=== PATIENT | female | born 1960 | race Caucasian/White ===

== ENCOUNTER → 2016-03-21 | Outpatient (CLI) | payer OTHER ==
[~2016-03-21] MED LIST: AMOX1TAB42 PO
[2016-03-21 16:46] LABS: BASO % 1.1 %; BASO ABS # 0.07 K/uL (0-0.2); COMPLETE YES; EOS % 1.1 %; HEMATOCRIT 39.5 % (37-47); IG% 0.2 %; LYMPH % 38.1 %; LYMPH ABS # 2.51 K/uL (1.2-3.4); MEAN CORPUSCULAR HEMOGLOBIN 31.6 pg (25-34); MEAN CORPUSCULAR HGB CONC 34.7 g/dl (32-36); MEAN PLATELET VOLUME 9.6 fL (7.4-10.4); MONO % 7.3 %; NEUT % 52.2 %; PLATELET COUNT 277 K/uL (130-400); RED BLOOD COUNT 4.34 M/uL (4.2-5.4); WHITE BLOOD COUNT 6.58 K/uL (4.8-10.8)
[2016-03-21 17:06] LABS: ALT/SGPT 33 U/L (12-78); AST/SGOT 16 U/L (15-37); BLOOD UREA NITROGEN 14 mg/dl (7-18); BUN/CREATININE RATIO 17.5 (10-20); CARBON DIOXIDE 25 mmol/L (21-32); CHLORIDE 105 mmol/L (98-107); CREATININE 0.78 mg/dl (0.60-1.20); GLUCOSE 131 mg/dl (70-99); POTASSIUM 3.5 mmol/L (3.5-5.1); SODIUM 140 mmol/L (136-145)
[2016-03-21 17:10] LABS: MANUAL MICROSCOPIC REQUIRED? NO; REVIEW REQ? NO; URINE APPEARANCE CLEAR (CLEAR); URINE BILIRUBIN NEG (NEG); URINE COLOR YELLOW; URINE NITRITE NEG (NEG); UROBILINOGEN NEG (NEG)
[2016-03-21 17:16] LABS: ALB/GLOB RATIO 1.1 (0.9-2); ALKALINE PHOSPHATASE 80 U/L (45-117); C-REACTIVE PROTEIN < 0.29 mg/dl (0-0.29); RHEUMATOID FACTOR < 10.0 U/mL (0-15); THYROID STIMULATING HORMONE 0.778 uIu/ml (0.300-4.500)
--- NOTE | 2016-03-21 17:49 | DIAGNOSTIC IMAGING REPORT ---
RIGHT HAND 3 VIEWS HISTORY: Right hand pain. ARTHRITIS Right COMPARISON: Right hand 10/30/2008. FINDINGS: There is no acute fracture or dislocation. Soft tissues are unremarkable. Small well-corticated ossific density adjacent to the ulnar styloid. This is likely due to an old injury. Cartilage spaces are maintained for age. No bony erosions identified. Bone mineralization is intact. IMPRESSION: No significant osteoarthritis within the right hand. Electronically signed by: Naveen Cline M.D. 03/21/2016 5:47 PM Dictated Date/Time: 03/21/2016 5:44 PM
== END | disposition home or self-care (01) ==
LOC: C.LAB 16:13
DX: M19.90 Unspecified osteoarthritis, unspecified site (principal); R50.9 Fever, unspecified

== ENCOUNTER → 2016-04-10 | Outpatient (CLI) | payer OTHER ==
[2016-04-10 16:29] LABS: BASO % 0.5 %; BASO ABS # 0.04 K/uL (0-0.2); COMPLETE YES; EOS % 0.4 %; IG% 0.1 %; LYMPH % 29.8 %; LYMPH ABS # 2.21 K/uL (1.2-3.4); MEAN CELL VOLUME 91.5 fL (80-100); MEAN CORPUSCULAR HEMOGLOBIN 32.1 pg (25-34); MEAN CORPUSCULAR HGB CONC 35.1 g/dl (32-36); MEAN PLATELET VOLUME 9.9 fL (7.4-10.4); NEUT % 62.2 %; PLATELET COUNT 305 K/uL (130-400); RED BLOOD COUNT 4.48 M/uL (4.2-5.4); WHITE BLOOD COUNT 7.42 K/uL (4.8-10.8)
[2016-04-10 17:33] LABS: BLOOD UREA NITROGEN 12 mg/dl (7-18); CALCIUM 9.6 mg/dl (8.5-10.1); CARBON DIOXIDE 28 mmol/L (21-32); CHLORIDE 104 mmol/L (98-107); GLUCOSE 118 mg/dl (70-99); SODIUM 140 mmol/L (136-145)
[2016-04-10 17:38] LABS: ALT/SGPT 33 U/L (12-78); AST/SGOT 16 U/L (15-37); RHEUMATOID FACTOR < 10.0 U/mL (0-15)
[2016-04-10 17:45] LABS: LYME DISEASE AB IGG NEG (NEG); LYME DISEASE AB IGM NEG (NEG)
--- NOTE | 2016-04-14 15:47 | CODING QUERY MEDICAL NECESSITY ---
CQSUPPORTING DIAGNOSIS NEEDED A supporting diagnosis is required for the test/procedure performed on this patient in order for us to be reimbursed by the patient's insurance. Please provide a supporting diagnosis for the following test/procedure listed below next to the test name along with your signature. *If there is no additional diagnosis for this patient that would support the following test/procedure please document that below next to the test/procedure. Test(s)/Procedure(s) that require a supporting diagnosis: DOS 04/12/16 VITAMINS AND METABOLIC FUNCTION-VITAMIN D AND VITAMIN B12 Provider Signature: Date: Thank you Stef[facility] [employer] [facility] Once completed, please kindly fax back to [phone] For questions please call [phone]
== END | disposition home or self-care (01) ==
LOC: C.LAB 15:58
DX: Z01.89 Encounter for other specified special examinations (principal); M19.90 Unspecified osteoarthritis, unspecified site; G62.9 Polyneuropathy, unspecified

== ENCOUNTER 2016-04-25 20:25 | Inpatient (IN) | payer OTHER ==
[~2016-04-25] VITALS: Ht 157.5 cm; Wt 64.5 kg
[2016-04-25] MEDS ORDERED: AMPICILLIN/SULBACTAM SOD INJ 3,000 MG in SODIUM CHLORIDE 0.9% 100ML 100 ML IV STA (20:59)
[2016-04-25] MEDS ORDERED: SODIUM CHLORIDE 0.9% 500ML 500 ML IV STA (21:00)
[2016-04-25 21:32] LABS: BASO % 0.5 %; BASO ABS # 0.05 K/uL (0-0.2); COMPLETE YES; EOS % 0.3 %; HEMATOCRIT 38.9 % (37-47); IG% 0.3 %; LYMPH % 22.6 %; LYMPH ABS # 2.37 K/uL (1.2-3.4); MEAN CELL VOLUME 90.5 fL (80-100); MEAN CORPUSCULAR HEMOGLOBIN 32.3 pg (25-34); MEAN CORPUSCULAR HGB CONC 35.7 g/dl (32-36); MEAN PLATELET VOLUME 9.5 fL (7.4-10.4); NEUT % 68.3 %; PLATELET COUNT 325 K/uL (130-400); WHITE BLOOD COUNT 10.47 K/uL (4.8-10.8)
--- NOTE | 2016-04-25 21:48 | DIAGNOSTIC IMAGING REPORT ---
LEFT WRIST W/NAVICULAR MIN 3 VIEWS CLINICAL HISTORY: Cat bite left wrist/hand, erythema, tender, edema COMPARISON: Left wrist radiographs March 22, 2007. FINDINGS: A well-corticated ossicle along the ulnar styloid is old. No acute fracture is present. There is no radiographic evidence of osteomyelitis. Mild degenerative changes are noted within several articulations. There may be a cyst within the proximal lunate. IMPRESSION: No acute fracture or evidence of osteomyelitis within the left wrist. Electronically signed by: Kailash Barraza M.D. 04/25/2016 9:47 PM Dictated Date/Time: 04/25/2016 9:45 PM
[2016-04-25 21:49] LABS: BUN/CREATININE RATIO 10.9 (10-20); CALCIUM 9.1 mg/dl (8.5-10.1); CREATININE 0.78 mg/dl (0.60-1.20); POTASSIUM 3.6 mmol/L (3.5-5.1)
--- NOTE | 2016-04-25 21:50 | DIAGNOSTIC IMAGING REPORT ---
LEFT HAND MIN 3 VIEWS ROUTINE CLINICAL HISTORY: Cat bite left wrist/hand, erythema, tender, edema COMPARISON: Left hand radiographs March 22, 2017. FINDINGS: A ring is present on the fourth finger. No acute fracture is identified. A well-corticated ossicle along the ulnar styloid is old. There is no radiographic evidence of osteomyelitis within the left hand. IMPRESSION: 1. No acute fracture or radiographic evidence of osteomyelitis within the left hand. 2. A round lucency within the medial aspect of the lunate. This is likely degenerative. Electronically signed by: Kailash Barraza M.D. 04/25/2016 9:49 PM Dictated Date/Time: 04/25/2016 9:47 PM
[2016-04-25] MEDS ORDERED: ACETAMINOPHEN 500 MG TAB PO STA (21:52)
[2016-04-25] MEDS ORDERED: VANCOMYCIN INJ 1,600 MG in SODIUM CHLORIDE 0.9% 500ML 500 ML IV STA (22:12)
[2016-04-26] MEDS ORDERED: ACETAMINOPHEN 325 MG TAB PO PRN (00:15)
[2016-04-26] MEDS ORDERED: PROMETHAZINE HCL INJ 12.5 MG in SODIUM CHLORIDE 0.9% 50ML 50 ML IV PRN (00:15)
[2016-04-26] MEDS ORDERED: MAGNESIUM HYDROXIDE SUSP 30 ML UDC PO PRN (00:15)
[2016-04-26] MEDS ORDERED: ONDANSETRON INJ 2 MG/ML 2 ML VIAL IV PRN (00:15)
[2016-04-26] MEDS ORDERED: LORAZEPAM 2 MG/ML 1 ML VIAL IV PRN (00:15)
[2016-04-26] MEDS ORDERED: MoRPHine SULFATE 2 MG/ML CARP IV PRN (00:15)
[2016-04-26] MEDS ORDERED: DiphenhydrAMINE HCL 50 MG/ML VIAL IV PRN (00:15)
[2016-04-26] MEDS ORDERED: TRAMADOL HCL 50 MG TAB PO PRN ×2 (00:15)
[2016-04-26] MEDS ORDERED: ZOLPIDEM TARTRATE 5 MG TAB PO PRN (00:15)
[2016-04-26] MEDS ORDERED: ALUMINUM/MAGNESIUM/SIMETH (MAALOX MAX) 30 ML UDC PO PRN (00:15)
--- NOTE | 2016-04-26 00:32 | EMERGENCY ROOM VISIT NOTE ---
History First contact with patient: 20:49 Chief Complaint: WOUND INFECTION Stated Complaint: INFECTED CAT BITE ON LEFT HAND- SENT BY ME Nursing Triage Summary: Patient states "I've been fostering an inside lost cat and yesterday he bit me really hard. I've been taking bactrim for a sinus infection so I took double doses yesterday and today but it is now swollen and red and painful." History of Present Illness The patient is a 55 year old female who presents to the Emergency Room via private vehicle with complaints of "infected cat bite on left hand, sent by [employer] The patient states that she has been fostering a cat that she found at her doorstep for the past 2 or 3 months. She states that the cat lives in her basement, and when she went to take the cat outside became scared and then latched onto the thenar eminence of her left hand. She cleaned the region. She notes that since then she has had continued pain in the left hand and now notes swelling and redness traveling up her left arm. Patient is right-handed. Patient notes that the cat lives inside and has been acting normally. She is unsure of the cat's rabies status. She feels as though she has had fevers and chills lately. She rates the pain in the left hand as a 10/10. Review of Systems A complete 10-point Review of Systems was discussed with the patient, with pertinent positives and negatives listed in the History of Present Illness. All remaining Review of Systems questions can be considered negative unless otherwise specified. 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 Allergies Coded Allergies: No Known Allergies (Unverified , 03/24/10) Physical Exam Vital Signs Date Time Temp Pulse Resp B/P Pulse Ox O2 Delivery O2 Flow Rate FiO2 04/25/16 22:02 86 18 144/85 100 Room Air 04/25/16 20:33 37.2 94 18 130/71 97 Room Air Physical Exam VITAL SIGNS - Vital signs and nursing notes were reviewed. Patient is afebrile , blood pressure 130/71, non-tachycardic and is saturating well on room air 97%. GENERAL -55-year-old female appearing her stated age who is in no acute distress. Communicates well with provider and answers questions appropriately. SKIN - There is erythema and edema of the thenar eminence and lateral left hand extending up in to wrist with lymphangitic streaking proximally. HEAD - NC/AT. NECK - Neck with FROM. Supple to palpation. No meningismus. LUNGS - Chest wall symmetric without accessory muscle use, intercostals retractions, or central cyanosis. Normal vesicular breath sounds CTA B/L. No wheezes, rales, or rhonchi appreciated. CARDIAC - RRR with S1/S2. No murmur, rubs, or gallops appreciated. EXTREMITIES - No clubbing or peripheral cyanosis. No pretibial edema present. Vascularly intact. +5/5 strength noted in UE/LE bilaterally. NEUROLOGIC - Cranial nerves II through XII grossly intact. Sensory intact to light touch throughout. PSYCH - Pt is very pleasant and interacts well with examiner. Medical Decision & Procedures ER Provider Diagnostic Interpretation: LEFT WRIST W/NAVICULAR MIN 3 VIEWS CLINICAL HISTORY: Cat bite left wrist/hand, erythema, tender, edema COMPARISON: Left wrist radiographs March 22, 2007. FINDINGS: A well-corticated ossicle along the ulnar styloid is old. No acute fracture is present. There is no radiographic evidence of osteomyelitis. Mild degenerative changes are noted within several articulations. There may be a cyst within the proximal lunate. IMPRESSION: No acute fracture or evidence of osteomyelitis within the left wrist. Electronically signed by: Kailash Barraza M.D. 04/25/2016 9:47 PM Dictated Date/Time: 04/25/2016 9:45 PM LEFT HAND MIN 3 VIEWS ROUTINE CLINICAL HISTORY: Cat bite left wrist/hand, erythema, tender, edema COMPARISON: Left hand radiographs March 22, 2017. FINDINGS: A ring is present on the fourth finger. No acute fracture is identified. A well-corticated ossicle along the ulnar styloid is old. There is no radiographic evidence of osteomyelitis within the left hand. IMPRESSION: 1. No acute fracture or radiographic evidence of osteomyelitis within the left hand. 2. A round lucency within the medial aspect of the lunate. This is likely degenerative. Electronically signed by: Kailash Barraza M.D. 04/25/2016 9:49 PM Dictated Date/Time: 04/25/2016 9:47 PM Laboratory Results 04/25/16 21:20 Red Blood Count 4.30, Mean Corpuscular Volume 90.5, Mean Corpuscular Hemoglobin 32.3, Mean Corpuscular Hemoglobin Concent 35.7, Mean Platelet Volume 9.5, Neutrophils (%) (Auto) 68.3, Lymphocytes (%) (Auto) 22.6, Monocytes (%) (Auto) 8.0, Eosinophils (%) (Auto) 0.3, Basophils (%) (Auto) 0.5, Neutrophils # (Auto) 7.15, Lymphocytes # (Auto) 2.37, Monocytes # (Auto) 0.84, Eosinophils # (Auto) 0.03, Basophils # (Auto) 0.05 04/25/16 21:20 Test 04/25/16 21:20 White Blood Count 10.47 K/uL (4.8-10.8) Red Blood Count 4.30 M/uL (4.2-5.4) Hemoglobin 13.9 g/dL (12.0-16.0) Hematocrit 38.9 % (37-47) Mean Corpuscular Volume 90.5 fL (80-100) Mean Corpuscular Hemoglobin 32.3 pg (25-34) Mean Corpuscular Hemoglobin Concent 35.7 g/dl (32-36) Platelet Count 325 K/uL (130-400) Mean Platelet Volume 9.5 fL (7.4-10.4) Neutrophils (%) (Auto) 68.3 % Lymphocytes (%) (Auto) 22.6 % Monocytes (%) (Auto) 8.0 % Eosinophils (%) (Auto) 0.3 % Basophils (%) (Auto) 0.5 % Neutrophils # (Auto) 7.15 K/uL (1.4-6.5) Lymphocytes # (Auto) 2.37 K/uL (1.2-3.4) Monocytes # (Auto) 0.84 K/uL (0.11-0.59) Eosinophils # (Auto) 0.03 K/uL (0-0.5) Basophils # (Auto) 0.05 K/uL (0-0.2) RDW Standard Deviation 40.4 fL (36.4-46.3) RDW Coefficient of Variation 12.3 % (11.5-14.5) Immature Granulocyte % (Auto) 0.3 % Immature Granulocyte # (Auto) 0.03 K/uL (0.00-0.02) Anion Gap 10.0 mmol/L (3-11) Est Creatinine Clear Calc Drug Dose 70.2 ml/min Estimated GFR () 97.8 Estimated GFR (Non- 84.4 BUN/Creatinine Ratio 10.9 (10-20) Calcium Level 9.1 mg/dl (8.5-10.1) Medications Administered Medications (Trade) Dose Ordered Sig/Do Route Start Time Stop Time Status Last Admin Dose Admin Ampicillin Sodium/ Sulbactam Sodium 3000 mg/Sodium Chloride 108 ml @ 200 mls/hr NOW STAT IV 04/25/16 20:59 04/25/16 21:31 DC 04/25/16 21:41 200 MLS/HR Sodium Chloride 500 ml @ 999 mls/hr Q31M STAT IV 04/25/16 21:00 04/25/16 21:30 DC 04/25/16 21:42 999 MLS/HR Vancomycin HCl/ Sodium Chloride (Vancomycin Inj/ Nss 500ml) 532 ml @ 200 mls/hr NOW STAT IV 04/25/16 22:12 04/26/16 00:51 DC 04/25/16 22:54 200 MLS/HR Acetaminophen (Tylenol Tab) 500 mg NOW STAT PO 04/25/16 21:52 04/25/16 21:53 DC 04/25/16 21:59 500 MG Medical Decision Pt. was seen and evaluated as above. After obtaining a thorough history and physical examination, there was clear evidence of cellulitis with significant edema of the hand and lymphangitic streaking. This is consistent with an infected cat bite. IV access was obtained and the above workup was initiated. She was immediately given 3 g of Unasyn. Wrist and hand radiographs were obtained to rule out retained foreign body such as tooth or fracture. She was hydrated with 500 mL's of normal saline. Case was discussed with my attending and the decision was made to add vancomycin to the order set. She was also given a Tylenol tablet for her pain. There is no leukocytosis or anemia noted. PRP reveals random glucose of 100 no other abnormality. Radiograph results as above. I agreed radiologist findings. No retained foreign body. There was no drainage of the wound or evidence of meeting irrigation. A thorough discussion was had with the patient as well as my attending regarding rabies immunization. After a thorough education discussion session, to include benefit versus risk, he shared decision with the patient came to the conclusion that the patient would like to monitor the cat by calling animal control as soon as possible to have the Monitored or potentially tested. The decision was made to not pursue rabies prophylaxis with the patient at this time again this was a shared decision between myself and the patient. I do believe that it is a very low risk for the cat to have rabies being as though she has had it for 2- 3 months and has stayed doors. It is important that the patient has the cat currently inside her house. Due to the extent of the infection in such a short period of time I do believe she'll benefit from inpatient admission. The case was discussed with the admitting doctor for Dr. Nuñez, who will be admitting the patient. Please refer to further documentation regarding her stay. While here in the emergency department the patient's tetanus status was unfortunately not able to be updated. The patient is to receive this vaccination in the near future. In evaluation treatment this patient the following differential diagnoses were entertained: Cellulitis, retained foreign body, fracture, among others. Impression Primary Impression: Cat bite of left hand with infection Additional Impressions: Acute lymphangitis Cellulitis of left hand Departure Information Dispostion Admitted as an inpatient Condition FAIR Referrals Rajiv Moncada Jr,D.O. (PCP) Patient Instructions My [facility] Problem Qualifiers
[2016-04-26 00:45] VITALS: BP 139/84; PULSE 88; TEMP 36.8; O2SAT 98; Ht 157.5 cm; Wt 64.5 kg
[2016-04-26] MEDS ORDERED: DiphenhydrAMINE HCL 50 MG/ML VIAL ONE (00:58)
[2016-04-26] MEDS ORDERED: VANCOMYCIN CONSULT ACTIVE PRN ×2 (01:00→01:15)
[2016-04-26] MEDS ORDERED: NURSING VERBAL MED ORDER ONE (01:00)
[2016-04-26] MEDS ORDERED: PIPERACILL/TAZOBAC CONSULT ACTIVE PRN (01:15)
[2016-04-26] MEDS ORDERED: LORAZEPAM INJ 0.5 MG in SYRINGE 0.75 ML IV PRN (01:15)
--- NOTE | 2016-04-26 02:09 | EMERGENCY ROOM VISIT NOTE ---
ED Visit Note First contact with patient: 20:49 I have personally evaluated and examined this patient. I agree with assessment and plan of Derrell Lovell PA-C. 55 yr old female with thenar eminence cat bite with extensive swelling and now with streaking past elbow. She will need IV abx and I do not feel that given her swelling of hand she will do well as outpatient.
[2016-04-26] MEDS: PIPERACILL/TAZOBAC IV 3.375 GM in DEXTROSE 5% 100ML IV SCH ×2 (02:28→10:46)
--- NOTE | 2016-04-26 04:11 | History and Physical ---
History & Physical Date & Time of Service: Apr 26, 2016 at 04:03 Chief Complaint: Acute Lymphangitis, Cellulitis Of Left Hand Primary Care Physician: Rajiv Moncada Jr, D.O. History of Present Illness Source: patient The patient is a 55-year-old female who presents emergency department with complaint of worsening swelling, redness and pain involving her left hand and wrist and forearm, that began yesterday after being bitten one of her cats, and today as noted redness going up her left forearm toward her elbow. She has not had any generalized malaise or any fevers or chills. She reports that this can is a foster cat. She has been taking Bactrim for sinus infection so she took double doses yesterday and today. Social History Smoking Status: Current Every Day Smoker Smokeless Tobacco Use: No Alcohol Use: none Drug Use: none Occupational Status: employed [employer] History of MDRO: No Allergies Coded Allergies: No Known Allergies (Unverified , 03/24/10) Review of Systems The patient denies chest pain, palpitations, shortness of breath, cough, lower extremity swelling, vision change, hearing change, sore throat, fevers, chills, sweats, weight change, fatigue, nausea, vomiting, abdominal pain, pelvic pain, blood in urine or stool, dysuria, urinary frequency or urgency, lightheadedness , dizziness, headache, memory loss, rash, abnormal bruising or bleeding, imbalance, generalized weakness, numbness or tingling in legs, arthralgias or myalgias, back or neck pain, night sweats, or allergy symptoms. The review of systems is otherwise negative other than for that already noted above, and at least 10 systems have been reviewed. Physical Exam Vital Signs Date Time Temp Pulse Resp B/P Pulse Ox O2 Delivery O2 Flow Rate FiO2 04/26/16 00:45 36.8 88 16 139/84 98 Room Air 04/26/16 00:34 74 16 118/68 99 04/25/16 22:02 86 18 144/85 100 Room Air 04/25/16 20:33 37.2 94 18 130/71 97 Room Air The patient is awake, well-developed and adequately nourished, alert and oriented 3, normocephalic and atraumatic, lying in bed and in no acute distress. HEENT--PERRL, EOMI, mucous membranes and oropharynx moist. Neck--supple, no JVD or bruits, thyroid normal, trachea midline, no adenopathy. Heart--normal S1 and S2, no extra beats, no murmurs, rubs or gallops. Lungs--clear bilaterally with good air movement, no respiratory distress, no accessory muscle use. Abdomen--normal bowel sounds and soft, nontender and nondistended, no hernias or masses, no organomegaly. Extremities--right upper and lower, and left lower extremities with no cyanosis , clubbing or edema. Left upper extremity with significant edema, erythema induration or warmth of left hand, wrist, forearm and red streaking noted medially up toward the elbow. There are good distal pulses b/l. Dermatologic--changes as noted above. Neurologic--cranial nerves II through XII grossly intact, motor and sensory examination normal. Rheumatologic--normal range of motion, nontender, muscles and joints. Psychiatric--normal affect. Diagnostics Laboratory Results Results Past 24 Hours Test 04/25/16 21:20 Range/Units White Blood Count 10.47 4.8-10.8 K/uL Red Blood Count 4.30 4.2-5.4 M/uL Hemoglobin 13.9 12.0-16.0 g/dL Hematocrit 38.9 37-47 % Mean Corpuscular Volume 90.5 80-100 fL Mean Corpuscular Hemoglobin 32.3 25-34 pg Mean Corpuscular Hemoglobin Concent 35.7 32-36 g/dl Platelet Count 325 130-400 K/uL Mean Platelet Volume 9.5 7.4-10.4 fL Neutrophils (%) (Auto) 68.3 % Lymphocytes (%) (Auto) 22.6 % Monocytes (%) (Auto) 8.0 % Eosinophils (%) (Auto) 0.3 % Basophils (%) (Auto) 0.5 % Neutrophils # (Auto) 7.15 1.4-6.5 K/uL Lymphocytes # (Auto) 2.37 1.2-3.4 K/uL Monocytes # (Auto) 0.84 0.11-0.59 K/uL Eosinophils # (Auto) 0.03 0-0.5 K/uL Basophils # (Auto) 0.05 0-0.2 K/uL RDW Standard Deviation 40.4 36.4-46.3 fL RDW Coefficient of Variation 12.3 11.5-14.5 % Immature Granulocyte % (Auto) 0.3 % Immature Granulocyte # (Auto) 0.03 0.00-0.02 K/uL Sodium Level 140 136-145 mmol/L Potassium Level 3.6 3.5-5.1 mmol/L Chloride Level 105 98-107 mmol/L Carbon Dioxide Level 25 21-32 mmol/L Anion Gap 10.0 3-11 mmol/L Blood Urea Nitrogen 9 7-18 mg/dl Creatinine 0.78 0.60-1.20 mg/dl Est Creatinine Clear Calc Drug Dose 70.2 ml/min Estimated GFR () 97.8 Estimated GFR (Non- 84.4 BUN/Creatinine Ratio 10.9 10-20 Random Glucose 100 70-99 mg/dl Calcium Level 9.1 8.5-10.1 mg/dl Hepatitis C Antibody Screen NEG NEG Diagnostic Radiology Patient Name: SY CORDOVA Unit Number: [id number] Dictated: 04/25/162144 Transcribed: 04/25/162144 Printed Date/Time: [~ rep prt dt]/[~ rep prt tm] [~ rep ct labl] - [~ rep ct ivnm] [facility] [place] [address] Dictated: 04/25/162144 Transcribed: 04/25/162144 Printed Date/Time: [~ rep prt dt]/[~ rep prt tm] [~ rep ct labl] - [~ rep ct ivnm] [~ rep ct add3]] LEFT WRIST W/NAVICULAR MIN 3 VIEWS CLINICAL HISTORY: Cat bite left wrist/hand, erythema, tender, edema COMPARISON: Left wrist radiographs March 22, 2007. FINDINGS: A well-corticated ossicle along the ulnar styloid is old. No acute fracture is present. There is no radiographic evidence of osteomyelitis. Mild degenerative changes are noted within several articulations. There may be a cyst within the proximal lunate. IMPRESSION: No acute fracture or evidence of osteomyelitis within the left wrist. Electronically signed by: Kailash Barraza M.D. 04/25/2016 9:47 PM Dictated Date/Time: 04/25/2016 9:45 PM The status of this report is Signed. Draft = Not yet reviewed or approved by Radiologist. Signed = Reviewed and approved by Radiologist. <AttendingPhy></AttendingPhy> <FamilyPhy>Rajiv Moncada JrD.O.</FamilyPhy> < PrimaryPhy>Rajiv Moncada Jr, D.O.</PrimaryPhy> <UnitNumber>[id number]</ UnitNumber> <VisitNumber>[id number]</VisitNumber> <PatientName>ARTSY Alexandre</ PatientName> <DateOfBirth>1960</DateOfBirth> <Location>[facility]</Location> < ServiceDate>04/25/16</ServiceDate> <MNE>ESINDI</MNE> <OrderingPhy>Derrell Lovell PA-C</OrderingPhy> <OrderingPhyMNE>f rep ord dr rahman</OrderingPhyMNE> < DictatingPhyMNE>f rep dict dr rahman</DictatingPhyMNE> <CCListMNE>f rep ct mne</ CCListMNE> <AdmittingPhyMNE>f pt admit dr rahman</AdmittingPhyMNE> <AttendingPhyMNE >f pt attend dr rahman</AttendingPhyMNE> <ConsultingPhyMNE>f pt consult dr rahman</ConsultingPhyMNE> <FamilyPhyMNE>f pt fam dr rahman</FamilyPhyMNE> <OtherPhyMNE>f pt other dr rahman</OtherPhyMNE> < PrimaryPhyMNE>f pt prim care dr rahman</PrimaryPhyMNE> <ReferringPhyMNE>f pt referring dr rahman</ReferringPhyMNE> Patient Name: ARTSY Alexandre Unit Number: [id number] Dictated: 04/25/162146 Transcribed: 04/25/162146 JA Printed Date/Time: [~ rep prt dt]/[~ rep prt tm] [~ rep ct labl] - [~ rep ct ivnm] [facility] [place] [address] Dictated: 04/25/162146 Transcribed: 04/25/167 JA Printed Date/Time: [~ rep prt dt]/[~ rep prt tm] [~ rep ct labl] - [~ rep ct ivnm] LEFT HAND MIN 3 VIEWS ROUTINE CLINICAL HISTORY: Cat bite left wrist/hand, erythema, tender, edema COMPARISON: Left hand radiographs March 22, 2017. FINDINGS: A ring is present on the fourth finger. No acute fracture is identified. A well-corticated ossicle along the ulnar styloid is old. There is no radiographic evidence of osteomyelitis within the left hand. IMPRESSION: 1. No acute fracture or radiographic evidence of osteomyelitis within the left hand. 2. A round lucency within the medial aspect of the lunate. This is likely degenerative. Electronically signed by: Kailash Barraza M.D. 04/25/2016 9:49 PM Dictated Date/Time: 04/25/2016 9:47 PM The status of this report is Signed. Draft = Not yet reviewed or approved by Radiologist. Signed = Reviewed and approved by Radiologist. <AttendingPhy></AttendingPhy> <FamilyPhy>Rajiv Moncada Jr,D.O.</FamilyPhy> < PrimaryPhy>Rajiv Moncada Jr,D.O.</PrimaryPhy> <UnitNumber>[id number]</ UnitNumber> <VisitNumber>[id number]</VisitNumber> <PatientName>SY CORDOVA</ PatientName> <DateOfBirth>1960</DateOfBirth> <Location>[facility]</Location> < ServiceDate>04/25/16</ServiceDate> <MNE>ESINDI</MNE> <OrderingPhy>Derrell Lovell PA-C</OrderingPhy> <OrderingPhyMNE>f rep ord dr rahman</OrderingPhyMNE> < DictatingPhyMNE>f rep dict dr rahman</DictatingPhyMNE> <CCListMNE>f rep ct mne</ CCListMNE> <AdmittingPhyMNE>f pt admit dr rahman</AdmittingPhyMNE> <AttendingPhyMNE >f pt attend dr rahman</AttendingPhyMNE> <ConsultingPhyMNE>f pt consult dr rahman</ConsultingPhyMNE> <FamilyPhyMNE>f pt fam dr rahman</FamilyPhyMNE> <OtherPhyMNE>f pt other dr rahman</OtherPhyMNE> < PrimaryPhyMNE>f pt prim care dr rahman</PrimaryPhyMNE> <ReferringPhyMNE>f pt referring dr rahman</ReferringPhyMNE> Impression Assessment and Plan Left upper extremity cellulitis status post cat bite, with ascending lymphangitis--the patient be admitted to the medical floor. She'll be placed on vancomycin IV per renal dosing, and Zosyn 3.375 mg IV every 6 hours. We'll monitor response, if not improving satisfactorily, will order either an MRI or bone scan of left upper extremity. Pain management with Tylenol 650 mg by mouth every 6 hours when necessary, tramadol 50-100 mg by mouth every 6 hours when necessary, morphine 2-4 mg IV every 2 hours when necessary. Level of Care Med/Surg Advanced Directives Existing Advance Directive: No Existing Living Will: No Existing Power of Screen Stretcher: No Resuscitation Status FULL RESUSCITATION VTE Prophylaxis VTE Risk Assessment Done? Y/N: Yes Risk Level: Low Given or contraindicated: SCD's Social Service Consult None Apply
[2016-04-26] MEDS ORDERED: PIPERACILL/TAZOBAC IV 3.375 GM in DEXTROSE 5% 100ML 100 ML IV SCH (06:00)
[2016-04-26 07:40] VITALS: BP 96/62; PULSE 65; TEMP 36.9; O2SAT 96
[2016-04-26] MEDS ORDERED: PNEUMOCOCCAL ADMINISTRATION CHARGE ONE (08:00)
[2016-04-26] MEDS ORDERED: PNEUMOCOCCAL POLYSACCHARIDES 25 MCG/0.5 ML VIAL/SYR IM. ONE (08:00)
[2016-04-26] MEDS: LACTOBACILLUS ACIDOPHILUS (FLORANEX) TAB PO SCH ×2 (09:07→13:05)
--- NOTE | 2016-04-26 09:57 | Hospitalist Progress Note ---
Hospitalist Progress Note Date of Service Apr 26, 2016. Subjective Pt evaluation today including: conversation w/ patient, physical exam, chart review, lab review, review of studies, review of inpatient medication list Pain: Mild PO Intake: Good Voiding: no voiding problems The patient was seen and examined this morning. Pt reports doing better this morning compared to yesterday. She is still feeling sweats and chills. Her arm is less red than it was last evening, but still swollen. Her mobility is slightly improved of the left wrist. Pt admits to 4 episodes of diarrhea but has started taking a probiotic. All Other Systems: Reviewed and Negative (other than per HPI) Objective Vital Signs Date Time Temp Pulse Resp B/P Pulse Ox O2 Delivery O2 Flow Rate FiO2 04/26/16 07:40 36.9 65 18 96/62 96 Room Air 04/26/16 07:37 Room Air 04/26/16 06:23 Room Air 04/26/16 00:45 36.8 88 16 139/84 98 Room Air 04/26/16 00:34 74 16 118/68 99 04/25/16 22:02 86 18 144/85 100 Room Air 04/25/16 20:33 37.2 94 18 130/71 97 Room Air Physical Exam General Appearance: WD/WN, no apparent distress Eyes: PERRL, EOMI ENT: hearing grossly normal, pharynx normal Neck: supple, no JVD Respiratory/Chest: lungs clear, no respiratory distress, no accessory muscle use Cardiovascular: regular rate, rhythm, no murmur Abdomen: normal bowel sounds, soft Extremities: no pedal edema, no calf tenderness, + pertinent finding (LUE with erythema of the wrist with puncture wound on the thenar aspect, another puncture wound on the dorsal hand overlying the thumb,) Neurologic/Psychiatric: alert, normal mood/affect, oriented x 3 Laboratory Results Last 24 Hours Test 04/25/16 21:20 White Blood Count 10.47 K/uL Red Blood Count 4.30 M/uL Hemoglobin 13.9 g/dL Hematocrit 38.9 % Mean Corpuscular Volume 90.5 fL Mean Corpuscular Hemoglobin 32.3 pg Mean Corpuscular Hemoglobin Concent 35.7 g/dl Platelet Count 325 K/uL Mean Platelet Volume 9.5 fL Neutrophils (%) (Auto) 68.3 % Lymphocytes (%) (Auto) 22.6 % Monocytes (%) (Auto) 8.0 % Eosinophils (%) (Auto) 0.3 % Basophils (%) (Auto) 0.5 % Neutrophils # (Auto) 7.15 K/uL Lymphocytes # (Auto) 2.37 K/uL Monocytes # (Auto) 0.84 K/uL Eosinophils # (Auto) 0.03 K/uL Basophils # (Auto) 0.05 K/uL RDW Standard Deviation 40.4 fL RDW Coefficient of Variation 12.3 % Immature Granulocyte % (Auto) 0.3 % Immature Granulocyte # (Auto) 0.03 K/uL Sodium Level 140 mmol/L Potassium Level 3.6 mmol/L Chloride Level 105 mmol/L Carbon Dioxide Level 25 mmol/L Anion Gap 10.0 mmol/L Blood Urea Nitrogen 9 mg/dl Creatinine 0.78 mg/dl Est Creatinine Clear Calc Drug Dose 70.2 ml/min Estimated GFR () 97.8 Estimated GFR (Non- 84.4 BUN/Creatinine Ratio 10.9 Random Glucose 100 mg/dl Calcium Level 9.1 mg/dl Hepatitis C Antibody Screen NEG Assessment and Plan Left upper extremity cellulitis status post cat bite, with ascending lymphangitis - Cont vancomycin IV per renal dosing, and Zosyn 3.375 mg IV every 6 hours. if not improving satisfactorily, will order either an MRI or bone scan of left upper extremity. - Pain management with Tylenol 650 mg by mouth every 6 hours when necessary, - tramadol 50-100 mg by mouth every 6 hours when necessary, - morphine 2-4 mg IV every 2 hours when necessary. CODE STATUS: Full code Disposition: From home, likely discharge tomorrow
[2016-04-26] MEDS ORDERED: VANCOMYCIN INJ 750 MG in SODIUM CHLORIDE 0.9% 250ML 250 ML IV SCH (11:00)
[2016-04-26] MEDS ORDERED: VANCOMYCIN INJ 1,000 MG in SODIUM CHLORIDE 0.9% 250ML 250 ML IV SCH (11:00)
--- NOTE | 2016-04-26 12:21 | Pharmacy Progress Note ---
Pharmacy Antibiotic Consult Date of Service: Apr 26, 2016. Pharmacy Dosing Scope Pharmacy is consulted to initiate Vancomycin/Zosyn IV dosing therapy, order appropriate labs and adjust drug dose/frequency. Subjective The patient is a 55 year old female admitted on Apr 26, 2016 at 00:06. Objective Height (Feet): 5 Height (Inches): 2.00 Weight (Kilograms): 64.500 Lab Results (24hrs): Laboratory Tests Test 04/25/16 21:20 BUN/Creatinine Ratio 10.9 Blood Urea Nitrogen 9 mg/dl Creatinine 0.78 mg/dl White Blood Count 10.47 K/uL Red Blood Count 4.30 M/uL Hemoglobin 13.9 g/dL Hematocrit 38.9 % Mean Corpuscular Volume 90.5 fL Mean Corpuscular Hemoglobin 32.3 pg Mean Corpuscular Hemoglobin Concent 35.7 g/dl Platelet Count 325 K/uL Mean Platelet Volume 9.5 fL Neutrophils (%) (Auto) 68.3 % Lymphocytes (%) (Auto) 22.6 % Monocytes (%) (Auto) 8.0 % Eosinophils (%) (Auto) 0.3 % Basophils (%) (Auto) 0.5 % Neutrophils # (Auto) 7.15 K/uL Lymphocytes # (Auto) 2.37 K/uL Monocytes # (Auto) 0.84 K/uL Eosinophils # (Auto) 0.03 K/uL Basophils # (Auto) 0.05 K/uL Assessment & Plan ASSESSMENT: * Patient is a 55yo woman admitted with cellulitis following a cat bite. There is no radiographic evidence of osteomyelitis. * Patient was taking Bactrim PO as an outpatient for a sinus infection. She doubled up on doses prior to admission in light of increasing redness from cat bite. * Patient has been afebrile since admission. PLAN: VANCOMYCIN: * Loading dose: Vancomycin 1600 mg (~25mg/kg) IV X 1 dose then: * Vancomycin 1000 mg IV every 12 hours. * Estimated p'kinetic parameters (based on CrCl ~70mL/min): * Vd ~ 0.7L/kg Ke ~ 0.057/hr t1/2 ~ 12.2hr * Goal trough level estimate: ~15 mcg/mL for cellulitis * Trough level has been ordered for: 04/27/16 prior to the 3rd maintenance dose (this will not yet be steady-state) ZOSYN: * Zosyn 3.375gm IV q8h, extended 4-hr infusion Pharmacy will continue to follow and will adjust dose/frequency as necessary. Thank you
--- NOTE | 2016-04-26 13:20 | Discharge Instructions ---
Discharge Instructions Admission Reason for Admission: Acute Lymphangitis, Cellulitis Of Left Hand Discharge Discharge Diagnosis / Problem: Cat bite Discharge Goals Goal(s): Decrease discomfort, Improve function Activity Recommendations Activity Limitations: resume your previous activity Lifting Limitations: gradually increase as tolerated Exercise/Sports Limitations: gradually increase as tolerated May Resume Sexual Activity: when tolerated Shower/Bathe: no limitations Driving or Machine Use: no limitations . Instructions / Follow-Up Instructions / Follow-Up You were admitted to [facility] with a ro bite and diagnosed with cat bit with ascending lymphadenitis (swelling lymph nodes) During your stay here you were treated with intravenous antibiotics Your swelling and redness significantly improved so you were stable for discharge home on oral antibiotics. Continue taking Augmentin for the next 9 days to complete a 10 day course of antibiotics. Continue taking your other medications as prescribed. Follow up with your PCP within 1 week. Current Hospital Diet Patient's current hospital diet: Regular Diet Discharge Diet Recommended Diet: Regular Diet Procedures Procedures Performed: none Pending Studies Studies pending at discharge: no Medical Emergencies . Who to Call and When: Medical Emergencies: If at any time you feel your situation is an emergency, please call 911 immediately. . Non-Emergent Contact Non-Emergency issues call your: Primary Care Provider Call Non-Emergent contact if: temperature is above 100.5, your pain is not controlled, wound has increased drainage, wound has increased redness, wound has increased pain, you have any medication questions . Past History Medical & Surgical History: (1) Cat bite of left hand with infection (2) Acute lymphangitis . "Provider Documentation" section prepared by Marlene Hester. VTE Core Measure Inpt VTE Proph given/why not?: SCD's
[2016-04-26] MEDS ORDERED: AMOX1TAB42 PO ×2 (13:24→15:34)
--- NOTE | 2016-04-26 13:44 | Discharge Summary ---
Discharge Summary Date of Service Apr 26, 2016. (Franca Hester PA-C) Discharge Summary Admission Date: Apr 26, 2016 at 00:06 Discharge Date: Apr 26, 2016 Discharge Disposition: Home Principal Diagnosis: Cat bite with ascending lymphangitis Problems/Secondary Diagnoses: neuropathy, chronic fatigue Procedures: LEFT WRIST W/NAVICULAR MIN 3 VIEWS CLINICAL HISTORY: Cat bite left wrist/hand, erythema, tender, edema COMPARISON: Left wrist radiographs March 22, 2007. FINDINGS: A well-corticated ossicle along the ulnar styloid is old. No acute fracture is present. There is no radiographic evidence of osteomyelitis. Mild degenerative changes are noted within several articulations. There may be a cyst within the proximal lunate. IMPRESSION: No acute fracture or evidence of osteomyelitis within the left wrist. Electronically signed by: Kailash Barraza M.D. 04/25/2016 9:47 PM Dictated Date/Time: 04/25/2016 9:45 PM The status of this report is Signed. LEFT HAND MIN 3 VIEWS ROUTINE CLINICAL HISTORY: Cat bite left wrist/hand, erythema, tender, edema COMPARISON: Left hand radiographs March 22, 2017. FINDINGS: A ring is present on the fourth finger. No acute fracture is identified. A well-corticated ossicle along the ulnar styloid is old. There is no radiographic evidence of osteomyelitis within the left hand. IMPRESSION: 1. No acute fracture or radiographic evidence of osteomyelitis within the left hand. 2. A round lucency within the medial aspect of the lunate. This is likely degenerative. Electronically signed by: Kailash Barraza M.D. 04/25/2016 9:49 PM Dictated Date/Time: 04/25/2016 9:47 PM The status of this report is Signed. Consultations: none (Franca Hester PA-C) Medication Reconciliation New Medications: Amoxicillin & Pot Clavulanate (Amoxicillin/Clavulanate P) 1 Tab Tab 1 TAB PO BID for 9 Days, #18 TAB Discharge Exam The patient was seen and examined this morning. She is doing well with significant improvement of reddness of the left hand and arm with IV antibiotics. Plan to discharge the patient home with antibiotics today. She denies fever, chills, sweats today. has been afebrile. No cp, sob, abdominal pain, n/v/d/c. Review of Systems: Constitutional: No chills, No fever, No sweats Eyes: No problem reported ENT: No trouble swallowing Respiratory: No dyspnea on exertion, No shortness of breath, No sputum Cardiovascular: No chest pain, No palpitations Musculoskeletal: + swelling (Left hand but improving, left arm swelling improving also), No calf pain Genitourinary - Female: No dysuria Neurologic: No balance problems, No numbness/tingling, No weakness Endocrine: No fatigue Integumentary: No itch, No rash Physical Exam: General Appearance: WD/WN, no apparent distress Eyes: PERRL, EOMI ENT: hearing grossly normal, pharynx normal Neck: no adenopathy, no JVD Respiratory/Chest: lungs clear, no respiratory distress, no accessory muscle use Cardiovascular: regular rate, rhythm, no murmur, normal peripheral pulses Abdomen / GI: normal bowel sounds, non tender, soft Extremities: no calf tenderness, no pedal edema, + pertinent finding (UE with erythema of the wrist with puncture wound on the thenar aspect, another puncture wound on the dorsal hand overlying the thumb,)) Neurologic/Psychiatric: alert, normal mood/affect, oriented x 3 Skin: normal color, warm/dry (other than listed in extremity exam) (Franca Hester, PAShaun) Hospital Course H&P per Dr. Js Farrell Source: patient The patient is a 55-year-old female who presents emergency department with complaint of worsening swelling, redness and pain involving her left hand and wrist and forearm, that began yesterday after being bitten one of her cats, and today as noted redness going up her left forearm toward her elbow. She has not had any generalized malaise or any fevers or chills. She reports that this can is a foster cat. She has been taking Bactrim for sinus infection so she took double doses yesterday and today. Vital Signs Date Time Temp Pulse Resp B/P Pulse Ox O2 Delivery O2 Flow Rate FiO2 04/26/16 00:45 36.8 88 16 139/84 98 Room Air 04/26/16 00:34 74 16 118/68 99 04/25/16 22:02 86 18 144/85 100 Room Air 04/25/16 20:33 37.2 94 18 130/71 97 Room Air The patient is awake, well-developed and adequately nourished, alert and oriented 3, normocephalic and atraumatic, lying in bed and in no acute distress. HEENT--PERRL, EOMI, mucous membranes and oropharynx moist. Neck--supple, no JVD or bruits, thyroid normal, trachea midline, no adenopathy. Heart--normal S1 and S2, no extra beats, no murmurs, rubs or gallops. Lungs--clear bilaterally with good air movement, no respiratory distress, no accessory muscle use. Abdomen--normal bowel sounds and soft, nontender and nondistended, no hernias or masses, no organomegaly. Extremities--right upper and lower, and left lower extremities with no cyanosis , clubbing or edema. Left upper extremity with significant edema, erythema induration or warmth of left hand, wrist, forearm and red streaking noted medially up toward the elbow. There are good distal pulses b/l. Dermatologic--changes as noted above. Neurologic--cranial nerves II through XII grossly intact, motor and sensory examination normal. Rheumatologic--normal range of motion, nontender, muscles and joints. Psychiatric--normal affect. Hospital Course: 55 yo F admitted with Left upper extremity cellulitis status post cat bite, with ascending lymphangitis. Imaging studies which were performed included navicular xray and hand xray which did not show acute bony abnormalities, osteomyelitis, or acute findings. - Pt was initially placed on vancomycin IV per renal dosing, and Zosyn 3.375 mg IV every 6 hours. and transitioned to Augment 875/160 mg. 9 day prescription was given to complete a 10 day course of abx. - Pain management with Tylenol 650 mg by mouth every 6 hours when necessary, - tramadol 50-100 mg by mouth every 6 hours when necessary, - morphine 2-4 mg IV every 2 hours when necessary - Follow up with PCP has been requested for within 1 week. CODE STATUS: Full code Disposition: From home, discharge today Total Time Spent: Greater than 30 minutes This includes examination of the patient, discharge planning, medication reconciliation, and communication with other providers. (Franca Hester, DILLAN) JANIE Physician Supervision Note: I interviewed and examined the patient. Discussed with Franca Hester PAC and agree with findings and plan as documented in the note. Any exceptions or clarifications are listed here: None PT has dramatic resolution of described infection, pain much better vss only 1 cm redness around bite on thenar eminence home on augmentin Documented By: Brennan Christian Total Time Spent: Greater than 30 minutes (Brennan Christian M.D.) Discharge Instructions Please refer to the electronic Patient Visit Report (Discharge Instructions) for additional information. (Franca Hester PA-C) Follow-Up Follow up with PCP within 1 week. (Franca Hester PA-C)
[2016-04-26 15:45] VITALS: BP 96/62; PULSE 65; TEMP 36.9; O2SAT 96
[2016-04-26 16:10] VITALS: BP 119/74; PULSE 72; TEMP 36.8; O2SAT 95
[2016-04-27] MEDS ORDERED: VANCOMYCIN TROUGH SCH (10:30)
== END 2016-04-26 16:15 | disposition home or self-care (01) | DRG 603 ==
LOC: ENRESERVDT → ENRESERVTM → C.EDB 20:27 → C.MSW 04-26 00:06
PROVIDERS: ADMIT Hospitalist; ATTEND Hospitalist
DX: L03.114 Cellulitis of left upper limb (principal); L03.91 Acute lymphangitis, unspecified; S61.452A Open bite of left hand, initial encounter; F17.210 Nicotine dependence, cigarettes, uncomplicated; G62.9 Polyneuropathy, unspecified; J32.9 Chronic sinusitis, unspecified; W55.01XA Bitten by cat, initial encounter; Y92.009 Unspecified place in unspecified non-institutional (private) residence as the place of occurrence of the external cause; R53.82 Chronic fatigue, unspecified

== ENCOUNTER 2016-04-28 19:30 | Emergency (ER) | payer OTHER ==
[~2016-04-28] VITALS: Ht 157.5 cm; Wt 63.9 kg
[2016-04-28 19:30] VITALS: TEMP 36.8; Ht 157.5 cm; Wt 63.9 kg
[2016-04-28] MEDS ORDERED: ACETAMINOPHEN 500 MG TAB PO ONE (20:36)
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
[2016-04-28 22:02] VITALS: BP 123/73; PULSE 71; O2SAT 97
== END 2016-04-28 22:13 | disposition home or self-care (01) ==
LOC: EDBD 19:30 → C.EDC 19:30
DX: S06.0X0A Concussion without loss of consciousness, initial encounter (principal); S16.1XXA Strain of muscle, fascia and tendon at neck level, initial encounter; V43.52XA Car driver injured in collision with other type car in traffic accident, initial encounter; F17.200 Nicotine dependence, unspecified, uncomplicated

== ENCOUNTER 2023-05-27 17:53 | Inpatient (IN) ==
--- OUTSIDE RECORDS SUMMARY | 2023-05-27 17:59 | External Medical Summary | Summary of Care ---
Author Name Unknown Organization [facility] Address [address] [place] [address] Phone [phone] Care Team Providers Care Research Soil Scientist Name Role Phone [place] Barbara Vargas PA-C Primary Care Provider [phone] Reason for Visit * Reason Onset Date Comments [facility]: Maintenance 05/21/2023 Encounter Details Date Type Department Care Team (Late st Contact Info) Description 05/21/2023 Telephone [facility], [facility] [address] [facility] [place] [address] Rochelle Grossman, RN [address] [facility] [place] [address] [facility]: Maintenance Allergies Active Allergy Reactions Criticality Noted Date Comments Pollen 12/17/2014 documented as of this encounter (statuses as of 05/21/2023) Medications Medication Sig Dispensed Refills Start Date End Date Status Erythromycin 5 MG/GM Ophthalmic Ointment Instill into both eyes 0.25 Inches before bedtime. 3.5 g 6 07/14/2021 Active Lidocaine-Priloca ine 2.5-2.5 % External Cream (Emla)Indications :Inflammatory carcinoma of right breast (HCC) APPLY TO SKIN OVER MEDIPORT & COVER 1HR PRIOR TO ACCESSING. 30 g 1 12/05/2021 Active Vitamin D 50 MCG (1999 UT) Oral Capsule Take 2,000 Units by mouth in the morning. 0 Active Calcium 250 MG Oral Capsule Take by mouth. 0 Active Entecavir 0.5 MG Oral Tablet (Baraclude)Indica tions:Acute hepatitis B with delta-agent without hepatic coma Take one tablet by mouth once daily. Take on an empty stomach (2 hours before or after a meal). 30 Tablet 11 07/07/2022 Active Venlafaxine HCl ER 150 MG Oral Capsule Extended Release 24 Hour (Effexor XR) TAKE ONE CAPSULE BY MOUTH IN THE MORNING 90 Capsule 3 07/04/2022 07/04/2023 Active Ondansetron HCl 8 MG Oral Tablet (Zofran)Indicatio ns:Inflammatory carcinoma of right breast (HCC) Take 1 Tablet by mouth every 8 hours as needed for Nausea. 90 Tablet 1 09/15/2022 Active Prochlorperazine Maleate 10 MG Oral Tablet (Compazine)Indica tions:Inflammator y carcinoma of right breast (HCC) Take 1 Tablet by mouth every 6 hours as needed for Nausea. 90 Tablet 1 09/15/2022 Active Famotidine 20 MG Oral Tablet (Pepcid)Indicatio ns:Inflammatory carcinoma of right breast (HCC),Malignant neoplasm metastatic to bone (HCC) Take 1 Tablet by mouth at bedtime. 90 Tablet 3 09/15/2022 Active Pantoprazole Sodium 20 MG Oral Tablet Delayed Release (Protonix) TAKE ONE TABLET BY MOUTH EVERY MORNING THIRTY MINUTES BEFORE THE FIRST MEAL OF THE DAY - DO NOT CRUSH, SPLIT, OR CHEW THE TABLET 30 Tablet 5 10/16/2022 10/16/2023 Active Additional Information Patient not taking.Reported on 12/25/2022 Fexofenadine-Pseu doephed ER 60-120 MG Tablet Extended Release 12 Hour (Liza-D Allergy & Congestion) Take 1 Tablet by mouth in the morning and 1 Tablet before bedtime. 180 Tablet 3 11/20/2022 Active Potassium Chloride ER 10 MEQ Oral Tablet Extended ReleaseIndication s:Malignant neoplasm metastatic to bone (HCC) Take 1 Tablet by mouth in the morning. 15 Tablet 0 11/22/2022 Active Additional Information Patient not taking.Reported on 12/25/2022 Baclofen 5 MG Oral Tablet (Lioresal) Take 1 Tablet by mouth 2 times a day as needed for Muscle spasms. 60 Tablet 1 02/08/2023 Active ARIPiprazole 5 MG Oral Tablet (Abilify) TAKE ONE TABLET BY MOUTH EVERY MORNING 30 Tablet 5 02/21/2023 02/21/2024 Active oxyCODONE HCl 5 MG Oral Tablet (Oxy IR) Take 1 Tablet by mouth every 6 hours as needed for severe pain. 90 Tablet 0 03/22/2023 Active predniSONE 10 MG Oral Tablet (Deltasone) Take one tablet daily 90 Tablet 2 03/22/2023 Active ALPRAZolam 2 MG Oral Tablet (xaNAX)Indication s:Adjustment insomnia TAKE ONE TABLET BY MOUTH AT BEDTIME NEEDED FOR SLEEP 90 Tablet 0 04/26/2023 10/26/2023 Active ALPRAZolam 1 MG Oral Tablet (xaNAX)Indication s:Anxiety disorder due to medical condition TAKE ONE TABLET BY MOUTH TWICE A DAY NEEDED FOR SLEEP 180 Tablet 0 04/26/2023 10/26/2023 Active documented as of this encounter (statuses as of 05/21/2023) Active Problems Problem Noted Date Diagnosed Date Chronic viral hepatitis 07/04/2022 Last Assessment & Plan: Appointment with hepatology this 07/06 Elevated LFTs 06/20/2022 Last Assessment & Plan: Repeat CMP 1 week Problem related to housing a nd economic circumstances, unspecified 04/20/2022 Chemotherapy-induced neuropathy 03/23/2022 Food insecurity 01/16/2022 Overview: Per [facility] Protocol Malignant neoplasm metastatic to bone 01/11/2022 Last Assessment & Plan: Getting dull, achy pain in legs PET scan scheduled 07/18 Has oxycodone for severe pain Inflammatory carcinoma of right breast Last Assessment & Plan: She is following with oncology but wants to be treated more aggressively. She has discussed this with her oncologist and is going to ask for referral to tertiary center for 2nd opinion. She knows her prognosis is not good but is "not ready to within 6 months" "hoping for another year" Encounter for antineoplastic chemotherapy 2021 Rheumatoid arthritis involvi ng multiple sites with positive rheumatoid factor 10/24/2018 Last Assessment & Plan: Only able to tolerate prednisone Sunday, Sunday, Sunday. -continue current regimen prednisone 10 mg Sunday, Sunday, Sunday. Encounter for long-term (current) use of medicat ions 10/24/2018 Chronic fatigue syndrome Last Assessment & Plan: Fatigue has been worse likely due to chemotherapy. Fibromyalgia Last Assessment & Plan: Plan as noted above. Insomnia Depression Last Assessment & Plan: Depression and anxiety have been much worse since dx of hepatitis. Has been taking xanax BID and started doubling effexor for the last two days -STOP DOUBLING EFFEXOR. Resume effexor XR 150 mg daily -ask a doc Psych done for further advice. LFTs make medication options tricky. documented as of this encounter (statuses as of 05/21/2023) Immunizations Name Administration Dates Next Due COVID-19 mRNA, LNP-s, No Pre serve, 2-Dose Series (Moderna) 11/12/2020,08/07/2020,07/10/2020 DTaP Dipth/Tet/Acell Pertussis (Infanrix), Peds 08/09/2004 Hepatitis B Vaccine 07/15/2019,05/13/2019 Hepatitis B, 0-19 yrs 07/15/2019,05/13/2019 Hepatitis B, 20+ yrs 11/13/2019 documented as of this encounter Social History Tobacco Use Types Packs/Day Years Used Date Smoking Tobacco: Every Day Vaporizer Smokeless Tobacco: Never Comments:occas Alcohol Use Standard Drinks/Week Comments No 0 (1 standard drink = 0.6 oz pur e alcohol) PHQ-2 Answer Date Recorded PHQ Adult Total Score 0 01/11/2022 Hunger Vital Sign Answer Date Recorded Within the past 12 months, y ou worried that your food would run out before you got the money to buy more. Sometimes true Within the past 12 months, t he food you bought just didn't last and you didn't have money to get more. Sometimes true Sex and Gender Information Value Date Recorded Sex Assigned at Female 01/04/2022 2:35 AM EDT Gender Identity Female 01/04/2022 2:35 AM EDT Sexual Orientation Straight 01/04/2022 2: 35 AM EDT Job Start Date Occupation Industry Not on file Not on file Not on file documented as of this encounter Miscellaneous Notes * Telephone Encounter - Rochelle Grossman RN - 05/21/2023 9:46 AM EDT Telephone call to pt to set up next RNCM visit. No answer. LMOM to return call to [facility] to set up next visit. documented in this encounter Plan of Treatment Upcoming Encounters Date Type Department Care Team (Late st Contact Info) Description 05/28/2023 7:00 AM EDT [facility] [place] [facility] [address] Ramya Pratt Hepatology [address] [place] [id number] 06/04/2023 12:00 PM EDT Imaging Radiology [facility] [address] [facility] [place] [address] 06/25/2023 3:00 PM EDT Office Visit Hepatology, [facility] [address] [facility] [place] [address] Yanira Mcclelland DO [address] [facility] [place] [address] 07/02/2023 7:00 AM EDT Pharmacy Hepatology, [place] [address] [facility] [place] [address] Terence Pharmacist Hepatology [address] [place] [address] [place] [address] Health Maintenance Due Date Last Done Comments Pneumococcal Vaccine: 65+ Years (1 of 2 - PCV) 1964 HIV Screening 1973 Zoster Vaccines (1 of 2) 1977 Cologuard 2003 Colonoscopy 2003 Colorectal Cancer Screening 2003 Fecal Occult Blood Test 2003 Sigmoidoscopy 2003 DTaP,Tdap,and Td Vaccines (2 - Tdap) 08/09/2014 08/09/2004 COVID-19 Vaccine (4 - season) 2022 11/12/2020, 08/07/2020, 07/10/2020 Influenza Vaccine (FLU shot) (#1) 2022 Depression Screening 01/11/2023 01/11/2022 Mammogram 06/01/2023 05/31/2022, 05/04, 07/21/2021, Additional history exists Diabetes Screening 02/12/2026 02/12/2023, 1 , 12/12/2022, Additional history exists Lipid Panel 09/07/2027 09/06/2022 DXA Scan 04/11/2032 04/11/2022, 04/11/2022 Cervical Cancer Screening Discontinued Pap Smear Discontinued 09/17/2001 Hepatitis B Completed 11/13/2019, 07/03, 07/15/2019, Additional history exists GARDASIL-HPV IMMUNIZATION SERIES Aged Out No longer eligible based on patient's age to complete this topic HPV/Co-Test Discontinued MENINGOCOCCAL (MENACTRA/MENVEO) Aged Out No longer eligible based on patient's age to complete this topic documented as of this encounter Medical Devices Implanted Type Area Motor Vehicle Emissions Inspector Device Identifier Shelf Expiration Date Model / Serial / Lot Power Port 8fr Sngl Lumen Plas - [id number] Implanted:Qty : 1 on 08/16/2021 by Alfredo Hernández, at OR [facility] Left: Chest CR BARD : PERIPHERAL VASCULAR [id number] 11/02/2022 [id number] / / [id number] documented as of this encounter Advance Directives Documents on File Type Date Recorded Patient Nutrition Technician Expl anation POLST 08/29/2021 [place] [facility]SUSTAINING [facility]AT[facility] Care Teams Research Soil Scientist Relationship Specialty Start Date End Date Barbara Lopez PA-C [address] [place], [place] [address] PCP - General Physician Kennel Supervisor 01/11/22 documented as of this encounter
[2023-05-27] MEDS ORDERED: VANCOMYCIN CONSULT ACTIVE PRN (18:12)
--- NOTE | 2023-05-27 18:13 | Emergency Department Note ---
Impression & Plan Sepsis, Cellulitis, Leukocytosis, Acute UTI, Anemia, Tachycardia, Metastatic cancer ED Provider Note NAME: SY CORDOVA AGE: 63 SEX: F : 1960 ARRIVES VIA: Walk-In INFORMANT: [Patient] ED PROVIDER(S): [Cecilio Tellez MD] CHIEF COMPLAINT: Fever HISTORY OF PRESENT ILLNESS: The patient is a 63-year-old female with metastatic breast cancer. She last received chemotherapy around 10 days ago. She believes that she did receive Neulasta. Patient has noticed a fever for 3 days, she has had some sinus congestion for a few days and she noticed some bloody urination for the last 2 days. She even had a hard time holding her urine last night. There has been no diarrhea. No real cough or sore throat. She is not short of breath. She does not have any back pain or flank pain. The patient states that she did have a blister across the right chest/breast that broke open. She is concerned there could have been infection develop in this area. She has increased pain in the area of the right breast and right axilla. PMHx/PSHx/Social Hx: See Below PHYSICAL EXAM: GENERAL: Patient is in no acute distress. HEENT: No acute trauma, normocephalic atraumatic, mucous membranes moist, no nasal congestion. NECK: No stridor, no adenopathy, no meningismus, trachea is midline. LUNGS: Diminished breath sounds on the right, the left lung is clear. No respiratory distress. HEART: Tachycardic, regular rhythm, no obvious murmur. ABDOMEN: Soft, nontender, no peritonitis. EXTREMITIES: No cyanosis, full range of motion of all the joints without pain or difficulty. NEUROLOGIC: Oriented x 3, no acute motor or sensory deficits, no focal weakness. SKIN: No jaundice, no diaphoresis. Somewhat pale. Chest: The patient does have warmth and discoloration to the right breast and chest wall. There is a healing area consistent with a broken blister across the right superior breast. This exam was done with a female nurse alcohol and drug counselor present. DIFFERENTIAL DIAGNOSIS: Bacteremia or sepsis, UTI, pyelonephritis, pneumonia, viral illness, cellulitis, mastitis, among others. EMERGENCY DEPARTMENT PROCEDURES: MEDICAL DECISION MAKING: There is a marked leukocytosis at 34,000, this could be consistent with infection or potentially, from her Neulasta injection. She was anemic with a hemoglobin of 7.7. The patient has a history of anemia but today's value was lower than her typical baseline. Certainly, the chemotherapy may be dropping her red blood cell count. There was a thrombocytopenia noted with a platelet count of 106. The low platelet count was likely from her recent chemotherapy. No concerning coagulopathy. Sodium was low at 128. No renal failure. Lactic acid level was not elevated making severe sepsis less likely. Alk phos was somewhat elevated, the remaining liver enzymes were unremarkable. ECG shows sinus tachycardia, no obvious ischemia. Cardiac enzyme testing x 1 is slightly elevated. This troponin elevation could be secondary to mismatch from her tachycardia and sepsis or potentially cardiac injury. Urinalysis does show findings of infection. Respiratory bio fire was completely negative. Chest film shows a right-sided effusion, the left lung was clear. Blood cultures are pending. On exam, the patient did appear to have a right chest wall cellulitis/mastitis. She was tachycardic and febrile. The patient was aggressively managed. She met criteria for sepsis. She received IV vancomycin. She was given 2250 cc of IV saline. This would meet criteria for 30 cc/kg of fluid per sepsis protocol. She received IV cefepime as additional antibiotic coverage. She was given oral Motrin for fever. The patient is doing well considering--her blood pressure remains adequate. She presents with sepsis and hospitalization is clearly warranted. The infection source appears to be her urine, possibly her chest wall. She will need her values trended, she may require a red blood cell transfusion if her hemoglobin drops further. I spoke with the patient and case management, the on-call hospitalist was consulted. Prior/Outside records/notes reviewed: Oncology discharge summary from 03/09/2023 discussing her metastatic breast cancer and her past history as well as the plan moving forward. ECG per my interpretation: Indication was potential sepsis. The ECG shows a sinus tachycardia with some baseline artifact. The rate is 131. There is no acute ST elevation, there is some nonspecific ST change. There are no PVCs. The QTc is 425. Continuous Cardiac Monitoring per my interpretation: An order was placed for continuous cardiac monitoring. The monitor shows a rate of 128 with sinus tachycardia. Imaging/x-ray results per my interpretation: Chest x-ray shows a right sided effusion. The left lung was clear. Chronic Medical/Social conditions affecting care: Metastatic breast cancer currently undergoing chemotherapy. Care/Management discussed with: Case management, the on-call hospitalist. Level of care consideration(s): After review of the information above and other included data: --I believe the patient requires escalation of care to admission Critical Care Note: I have personally spent 52 minutes of critical care time in the direct management of this patient. This includes bedside care, interpretation of diagnostic studies, and testing, discussion with consultants, patient, and family members, and other required patient management activities. This 52 minutes is in excess of all separately billable procedures. DISPOSITION: Admission Past Med/Surg History Medical History Rheumatoid arthritis Insomnia Fibromyalgia Depression Chronic fatigue syndrome Surgical History (Updated 08/24/21 @ 09:25 by Gloria Carranza RN) S/P breast biopsy deliv NOS-unsp Family History (Updated 08/24/21 @ 10:28 by Gloria Carranza RN) Aunt Breast cancer Mother , Age 72 Arthritis Father , Age 93 Heart disease Dementia Daughter No problems noted. Sister No problems noted. Uncle Pancreatic cancer Social History Smoking Status: Never smoker Preferred Language: [place] Beliefs That Will Affect Care: None Feels Safe at Home: Yes Allergies Allergies Allergy/AdvReac Type Severity Reaction Status Date / Time No Known Allergies Allergy Unverified 05/27/23 21:27 Home Meds Home Medications Medication Instructions Recorded Confirmed alprazolam 1 mg tablet (Xanax) 1 mg PO BID PRN Sleep 08/24/21 05/27/23 alprazolam 2 mg tablet (Xanax) 2 mg PO HS PRN Sleep 08/24/21 05/27/23 fexofenadine 60 mg-pseudoephedrine 1 tab PO Q12H 08/24/21 05/27/23 ER 120 mg tablet,ext.release,12 hr (Allergy Relief-D (fexofenadine)) ondansetron HCl 8 mg tablet 8 mg PO Q8H PRN Nausea 08/24/21 05/27/23 prochlorperazine maleate 10 mg 10 mg PO Q6H PRN Nausea 08/24/21 05/27/23 tablet (Compazine) venlafaxine 150 mg 150 mg PO QAM 08/24/21 05/27/23 capsule,extended release 24 hr aripiprazole 5 mg tablet (Abilify) 5 mg PO QAM 01/17/23 05/27/23 baclofen 5 mg tablet 5 mg PO BID PRN muscle spasm 01/17/23 05/27/23 erythromycin 5 mg/gram (0.5 %) eye 0.25 inch ophthalmic (eye) DAILY 01/17/23 05/27/23 ointment PRN Dry Eyes famotidine 20 mg tablet 20 mg PO HS 01/17/23 05/27/23 oxycodone 5 mg tablet 5 mg PO Q6H PRN Pain, Severe 01/17/23 05/27/23 calcium carbonate 250 mg calcium 250 mg PO DAILY 05/27/23 05/27/23 (625 mg) tablet cholecalciferol (vitamin D3) 50 50 mcg PO QAM 05/27/23 05/27/23 mcg (2,000 unit) capsule (Vitamin D3) entecavir 0.5 mg tablet 0.5 mg PO DAILY 05/27/23 05/27/23 lidocaine-prilocaine 2.5 %-2.5 % 1 applic topical UD PRN 1 hr prior 05/27/23 05/27/23 topical cream to [facility] pantoprazole 20 mg tablet,delayed 20 mg PO QAM 05/27/23 05/27/23 release potassium chloride 10 mEq 10 meq PO QAM 05/27/23 05/27/23 tablet,extended release Results & Data (ED) Vital Signs Vital Signs - 24 hr 05/27/23 17:55 05/27/23 18:13 05/27/23 18:30 Temperature 38.9 C H Temperature Source Oral Pulse Rate 139 H 131 H Pulse Rate [Apical] 129 H Pulse Rhythm Regular Pulse Strength Normal Respiratory Rate 18 20 Respiratory Effort / Characteristics Non-Labored Respiratory Depth Normal Respiratory Pattern Regular Blood Pressure 148/81 H Blood Pressure [Right Arm] 146/75 H Blood Pressure Mean 103 Blood Pressure Mean [Right Arm] 98 Blood Pressure Position Sitting Pulse Oximetry 97 96 Oxygen Delivery Method Room Air Nasal Cannula Oxygen Flow Rate 2 Sepsis Recent Fever Within 48 Hours Yes Sepsis New/Unexplained Change in Mental Status No Sepsis Action Taken by Nursing Physician Notified 05/27/23 18:30 05/27/23 19:16 05/27/23 19:21 Temperature 37.6 C H Temperature Source Oral Pulse Rate Pulse Rate [Apical] 123 H Pulse Rhythm Pulse Strength Respiratory Rate 20 Respiratory Effort / Characteristics Non-Labored Respiratory Depth Normal Respiratory Pattern Blood Pressure Blood Pressure [Right Arm] 135/73 Blood Pressure Mean Blood Pressure Mean [Right Arm] 93 Blood Pressure Position Pulse Oximetry 96 97 Oxygen Delivery Method Nasal Cannula Nasal Cannula Oxygen Flow Rate 2 2 Sepsis Recent Fever Within 48 Hours Sepsis New/Unexplained Change in Mental Status Sepsis Action Taken by Nursing 05/27/23 19:30 05/27/23 20:00 05/27/23 20:15 Temperature 37.2 C Temperature Source Oral Pulse Rate Pulse Rate [Apical] 120 H 131 H 128 H Pulse Rhythm Pulse Strength Respiratory Rate 18 18 18 Respiratory Effort / Characteristics Respiratory Depth Respiratory Pattern Blood Pressure Blood Pressure [Right Arm] 119/76 123/75 121/74 Blood Pressure Mean Blood Pressure Mean [Right Arm] 90 91 89 Blood Pressure Position Pulse Oximetry 96 96 97 Oxygen Delivery Method Nasal Cannula Nasal Cannula Nasal Cannula Oxygen Flow Rate 2 2 2 Sepsis Recent Fever Within 48 Hours Sepsis New/Unexplained Change in Mental Status Sepsis Action Taken by [facility] Medications Current Medication List: was personally reviewed by me Laboratory Data Attestation: I reviewed the patient's lab results. 05/27/23 18:25 05/27/23 18:25 Lab Results 05/27/23 05/27/23 Range/Units 18:25 19:30 WBC 34.55 H* (4.8-10.8) K/ul RBC 2.35 L (4.20-5.40) M/uL Hgb 7.7 L (12.0-16.0) g/dl Hct 23.8 L (37.0-47.0) % MCV 101.3 H (80.0-100.0) fL MCH 32.8 (25.0-34.0) pg MCHC 32.4 (32.0-36.0) g/dL RDW Std Deviation 66.5 H (36.4-46.3) fL RDW Coeff of [place] 19.3 H (11.5-14.5) % Plt Count 106 L (130-400) K/uL MPV 10.2 (9.4-12.4) fL Immature Gran % (Auto) 9.2 % Neut % (Auto) 75.7 % Lymph % (Auto) 2.4 % [place]ane % (Auto) 12.5 % Eos % (Auto) 0.1 % Baso % (Auto) 0.1 % Neut # (Auto) 26.17 H (1.40-6.50) K/uL Lymph # (Auto) 0.83 L (1.20-3.40) K/uL Dane # (Auto) 4.31 H (0.11-0.59) K/uL Eos # (Auto) 0.03 (0.00-0.50) K/uL Baso # (Auto) 0.03 (0.00-0.20) K/uL Immature Gran # (Auto) 3.18 H (0.01-0.20) K/uL Absolute Nucleated RBC 0.40 H (0.00-0.12) K/uL Nucleated RBC % (auto) 1.2 % Polychromasia 1+ Anisocytosis Present PT 12.1 H (9.0-12.0) Seconds INR 1.1 (0.9-1.1) APTT 25 (21-31) Seconds PTT Ratio 0.9 Sodium 128 L (136-145) mmol/L Potassium 3.6 (3.5-5.1) mmol/L Chloride 97 L (98-107) mmol/L Carbon Dioxide 23 (21-32) mmol/L Anion Gap 8 (3-11) BUN 13 (6-23) mg/dl Creatinine 0.75 (0.6-1.2) mg/dl Est Cr Clr Drug Dosing 66.2 ml/min Est GFR ( Amer) 96.9 ml/min Est GFR (Non-Af Amer) 83.6 ml/min BUN/Creatinine Ratio 17.3 (10-20) Glucose 127 H (70-99(Fasting)) mg/dl Osmolality 268 L (280-300) mOsm/kg Lactate 1.7 (0.4-2.0) mmol/L Calcium 8.0 L (8.6-10.3) mg/dl Magnesium 1.7 (1.7-2.4) mg/dl Total Bilirubin 0.9 (0.2-1.0) mg/dl Direct Bilirubin 0.2 (0-0.2) mg/dl AST 24 (13-39) U/L ALT 13 (7-52) U/L Alkaline Phosphatase 206 H (34-104) U/L Troponin I High Sens 49.5 H (0-14) pg/ml Total Protein 6.3 (6.0-8.3) gm/dl Albumin 3.3 L (3.4-5.0) gm/dl Procalcitonin 2.37 H (0-0.5) ng/ml Urine Color Dark Yellow Urine Appearance Cloudy A (Clear) Urine pH 5.5 (4.5-7.5) Ur Specific [place] 1.016 (1.000-1.030) Urine Protein Trace H (Negative) Urine Glucose (UA) Negative (Negative) Urine Ketones Negative (Negative) Urine Blood 3+ H (Negative) Urine Nitrite Positive A (Negative) Urine Bilirubin Negative (Negative) Urine Urobilinogen Negative (Negative) Ur Leukocyte Esterase 2+ H (Negative) Urine WBC (Auto) >30 H (0-5) /hpf Urine RBC (Auto) 5-10 H (0-4) /hpf U Hyaline Cast (Auto) 0 (0-5) /lpf U Epithel Cells (Auto) 5-10 H (0-5) /lpf Urine Bacteria (Auto) 1+ H (Negative) Urine Osmolality 439 L (500-800) mOsm/kg Ur Random Sodium 52 mmol/L Adenovirus (PCR) Not Detected (NotDetected) B. pertussis DNA (PCR) Not Detected (NotDetected) B.parapertussis DNA PCR Not Detected (NotDetected) C. pneumoniae DNA (PCR) Not Detected (NotDetected) Coronavirus OC43 (PCR) Not Detected (NotDetected) Coronavirus HKU1 (PCR) Not Detected (NotDetected) Coronavirus 229E (PCR) Not Detected (NotDetected) SARS-CoV-2 (PCR) Not Detected (NotDetected) Coronavirus NL63 (PCR) Not Detected (NotDetected) Human Metapneumovir PCR Not Detected (NotDetected) Influenza Type A (PCR) Not Detected (NotDetected) Influenza Type B (PCR) Not Detected (NotDetected) M. pneumoniae (PCR) Not Detected (NotDetected) Parainfluenza 1 (PCR) Not Detected (NotDetected) Parainfluenza 2 (PCR) Not Detected (NotDetected) Parainfluenza 3 (PCR) Not Detected (NotDetected) Parainfluenza 4 (PCR) Not Detected (NotDetected) RSV (PCR) Not Detected (NotDetected) Entero/Rhino (PCR) Not Detected (NotDetected) Administered Medications Magnesium Sulfate/Dextrose (Magnesium Sulfate / D5w) 1 gm in 100 mls @ 50 mls/hr IV Q2H ALLEGRA Stop: 05/27/23 23:59 Last Admin: 05/27/23 21:19 Dose: 50 mls/hr Documented By: Infusion: 05/27/23 21:19 Dose: Infused Documented By: Admin: 05/27/23 19:55 Dose: 50 mls/hr Documented By: AEF Discontinued Medications Acetaminophen (Acetaminophen 500 Mg Tab) 1,000 mg PO NOW STA Stop: 05/27/23 18:02 Last Admin: 05/27/23 18:41 Dose: Not Given Documented By: AEF Sodium Chloride (Nss) 1,000 mls @ 999 mls/hr IV .Q1H1M ALLEGRA Stop: 05/27/23 19:15 Last Infusion: 05/27/23 20:28 Dose: Infused Documented By: Admin: 05/27/23 19:22 Dose: 999 mls/hr Documented By: AEF Cefepime HCl (Maxipime) 2,000 mg in 20 mls @ 5 mls/min IV NOW STA; Protocol Stop: 05/27/23 18:04 Last Admin: 05/27/23 18:22 Dose: 5 mls/min Documented By: AEF Vancomycin HCl 1,750 mg/ (Sodium Chloride) 535 mls @ 200 mls/hr IV NOW ONE Stop: 05/27/23 20:52 Last Admin: 05/27/23 18:58 Dose: 200 mls/hr Documented By: AEF Sodium Chloride (Nss) 1,000 mls @ 999 mls/hr IV .Q1H1M ONE Stop: 05/27/23 19:13 Last Infusion: 05/27/23 19:24 Dose: Infused Documented By: Admin: 05/27/23 18:21 Dose: 999 mls/hr Documented By: AEF Sodium Chloride (Nss) 250 mls @ 999 mls/hr IV .Q16M ONE Stop: 05/27/23 18:28 Last Infusion: 05/27/23 19:42 Dose: Infused Documented By: Admin: 05/27/23 19:22 Dose: 999 mls/hr Documented By: AEF Ibuprofen (Ibuprofen 600 Mg Tab) 600 mg PO NOW STA Stop: 05/27/23 18:33 Last Admin: 05/27/23 18:34 Dose: 600 mg Documented By: AEF Ioversol (Optiray 320 100ml) 92 ml IV ONCE ONE Stop: 05/27/23 21:11 Last Admin: 05/27/23 21:10 Dose: 92 ml Documented By: EDK Potassium Chloride (Potassium Chloride Crtab 20 Meq Tabcr) 40 meq PO NOW STA Stop: 05/27/23 19:47 Last Admin: 05/27/23 19:55 Dose: 40 meq Documented By: AEF Imaging Data Radiologist's Impression: Chest X-Ray 05/27/23 18:01 XR chest 1V portable CLINICAL HISTORY: Sepsis TECHNIQUE: Single frontal radiograph of the chest was obtained. Comparison: Comparison is made to CT chest 01/22/2023 FINDINGS: Left portacatheter is seen. Calcified aortic knob is seen. Right airspace opacity is seen. Pulmonary vascular congestion is seen. There is a moderate right pleural effusion. IMPRESSION: 1. Moderate right pleural effusion with underlying airspace opacity likely representing atelectasis, although superimposed pneumonia cannot be excluded. 2. Pulmonary vascular congestion. ACT 112: Negative or not required by law. Electronically signed by: Ashok Noguera M.D. 05/27/2023 6:48 PM Discharge Plan Visit Data Chief Complaint: Fever Stated Complaint: FEVER,UTI,HEMATURIA,SINUS INFECTION,ULCERS ED Provider: Cecilio Tellez Discharge Problem: Sepsis, Cellulitis, Leukocytosis, Acute UTI, Anemia, Tachycardia, Metastatic cancer Patient Disposition: Admitted As Inpatient Condition: Serious Forms Stand Alone Forms: [employer] Prescriptions Prescriptions: No Action alprazolam [Xanax] 2 mg tablet 2 mg PO HS PRN (Reason: Sleep) Rx Instructions: at bedtime alprazolam [Xanax] 1 mg tablet 1 mg PO BID PRN (Reason: Sleep) fexofenadine-pseudoephedrine [Allergy Relief-D(fexofenadine)] 60-120 mg tablet extended release 12 hr 1 tab PO Q12H venlafaxine 150 mg capsule,extended release 24hr 150 mg PO QAM ondansetron HCl 8 mg tablet 8 mg PO Q8H PRN (Reason: Nausea) prochlorperazine maleate [Compazine] 10 mg tablet 10 mg PO Q6H PRN (Reason: Nausea) erythromycin 5 mg/gram (0.5 %) ointment 0.25 inch ophthalmic (eye) DAILY PRN (Reason: Dry Eyes) Rx Instructions: both eyes at bedtime aripiprazole [Abilify] 5 mg tablet 5 mg PO QAM oxycodone 5 mg tablet 5 mg PO Q6H PRN (Reason: Pain, Severe) baclofen 5 mg tablet 5 mg PO BID PRN (Reason: muscle spasm) famotidine 20 mg tablet 20 mg PO HS potassium chloride 10 mEq tablet extended release 10 meq PO QAM entecavir 0.5 mg tablet 0.5 mg PO DAILY Rx Instructions: take on an empty stomach 2 hours before or after a meal pantoprazole 20 mg tablet,delayed release (DR/EC) 20 mg PO QAM calcium carbonate 250 mg calcium (625 mg) Tablet 250 mg PO DAILY cholecalciferol (vitamin D3) [Vitamin D3] 50 mcg (2,000 unit) Capsule 50 mcg PO QAM lidocaine-prilocaine 2.5-2.5 % Cream 1 applic topical UD PRN (Reason: 1 hr prior to accessing mediport) Rx Instructions: apply to skin over mediport Referrals Referrals: Barbara Lopez PA-C [Primary Care Provider] - Discharge Problem: Sepsis Qualifiers: Sepsis type: sepsis due to unspecified organism Sepsis acute organ dysfunction status: without acute organ dysfunction Qualified Code(s): A41.9 - Sepsis, unspecified organism Cellulitis Qualifiers: Site of cellulitis: trunk Site of cellulitis of trunk: chest wall Qualified Code(s): L03.313 - Cellulitis of chest wall Leukocytosis Qualifiers: Leukocytosis type: unspecified Qualified Code(s): D72.829 - Elevated white blood cell count, unspecified Anemia Qualifiers: Anemia type: unspecified type Qualified Code(s): D64.9 - Anemia, unspecified Metastatic cancer Qualifiers: Area of secondary neoplastic involvement: unspecified site Qualified Code(s): C 79.9 - Secondary malignant neoplasm of unspecified site
[2023-05-27] MEDS: SODIUM CHLORIDE 0.9% 1,000 ML IV ONE (18:21)
[2023-05-27] MEDS: CEFEPIME 2,000 MG/20 ML VIAL IV STA (18:22)
[2023-05-27] MEDS: IBUPROFEN 600 MG TAB PO STA (18:34)
[2023-05-27] MEDS: ACETAMINOPHEN 500 MG TAB PO STA (18:41)
[2023-05-27 18:49] LABS: Hematocrit (blood only) 23.8 % (37.0-47.0); Hemoglobin 7.7 g/dl (12.0-16.0); Mean Corpuscular Hemoglobin 32.8 pg (25.0-34.0); Mean Corpuscular Hgb Conc 32.4 g/dL (32.0-36.0); Mean Corpuscular Volume 101.3 fL (80.0-100.0); Mean Platelet Volume 10.2 fL (9.4-12.4); Nucleated RBC % (auto) 1.2 %; Platelet Count 106 K/uL (130-400); RDW Coefficient of Variation 19.3 % (11.5-14.5); RDW Standard Deviation 66.5 fL (36.4-46.3); Red Blood Count 2.35 M/uL (4.20-5.40); White Blood Count 34.55 K/ul (4.8-10.8)
--- NOTE | 2023-05-27 18:49 | XRay Report ---
XR chest 1V portable CLINICAL HISTORY: Sepsis TECHNIQUE: Single frontal radiograph of the chest was obtained. Comparison: Comparison is made to CT chest 01/22/2023 FINDINGS: Left portacatheter is seen. Calcified aortic knob is seen. Right airspace opacity is seen. Pulmonary vascular congestion is seen. There is a moderate right pleural effusion. IMPRESSION: 1. Moderate right pleural effusion with underlying airspace opacity likely representing atelectasis, although superimposed pneumonia cannot be excluded. 2. Pulmonary vascular congestion. ACT 112: Negative or not required by law. Electronically signed by: Ashok Noguera M.D. 05/27/2023 6:48 PM
[2023-05-27] MEDS: VANCOMYCIN HCL 1,750 MG in SODIUM CHLORIDE 0.9% 500 ML IV ONE (18:58)
[2023-05-27 19:06] LABS: Albumin Level 3.3 gm/dl (3.4-5.0); BUN Creatinine Ratio 17.3 (10-20); Bilirubin Direct 0.2 mg/dl (0-0.2); Bilirubin,Total 0.9 mg/dl (0.2-1.0); Creatinine Clr Calc Pharmacy 66.2 ml/min; Est GFR (African American) 96.9 ml/min; Est GFR (Non-African American) 83.6 ml/min; Magnesium 1.7 mg/dl (1.7-2.4); Potassium 3.6 mmol/L (3.5-5.1); Total Protein 6.3 gm/dl (6.0-8.3)
[2023-05-27 19:09] LABS: Anisocytosis Present; Basophils # (auto) 0.03 K/uL (0.00-0.20); Basophils % (auto) 0.1 %; Eosinophils # (auto) 0.03 K/uL (0.00-0.50); Eosinophils % (auto) 0.1 %; Immature Granulocytes # (auto) 3.18 K/uL (0.01-0.20); Immature Granulocytes % (auto) 9.2 %; Lymphocytes # (auto) 0.83 K/uL (1.20-3.40); Lymphocytes % (auto) 2.4 %; Monocytes # (auto) 4.31 K/uL (0.11-0.59); Monocytes % (auto) 12.5 %; Neutrophils # (auto) 26.17 K/uL (1.40-6.50); Neutrophils % (auto) 75.7 %; Polychromasia 1+
[2023-05-27 19:13] LABS: Troponin I High Sensitivity 49.5 pg/ml (0-14)
[2023-05-27 19:19] LABS: INR 1.1 (0.9-1.1); Partial Thromboplastin Ratio 0.9; Partial Thromboplastin Time 25 Seconds (21-31); Prothrombin Time 12.1 Seconds (9.0-12.0)
[2023-05-27] MEDS: SODIUM CHLORIDE 0.9% 1,000 ML IV SCH (19:22)
[2023-05-27] MEDS: SODIUM CHLORIDE 0.9% 250 ML IV ONE (19:22)
[2023-05-27 19:24] LABS: Adenovirus PCR Not Detected (NotDetected); Bordetella parapertussis PCR Not Detected (NotDetected); Bordetella pertussis PCR Not Detected (NotDetected); Chlamydia pneumoniae PCR Not Detected (NotDetected); Coronavirus 229E PCR Not Detected (NotDetected); Coronavirus CoV-2 (COVID19)PCR Not Detected (NotDetected); Coronavirus HKU1 PCR Not Detected (NotDetected); Coronavirus NL63 PCR Not Detected (NotDetected); Coronavirus OC43PCR Not Detected (NotDetected); Human Metapneumovirus PCR Not Detected (NotDetected); Influenza A PCR Not Detected (NotDetected); Influenza B PCR Not Detected (NotDetected); Mycoplasma pneumoniae PCR Not Detected (NotDetected); Parainfluenza Virus 1 PCR Not Detected (NotDetected); Parainfluenza Virus 2 PCR Not Detected (NotDetected); Parainfluenza Virus 3 PCR Not Detected (NotDetected); Parainfluenza Virus 4 PCR Not Detected (NotDetected); Respiratory Syncytial VirusPCR Not Detected (NotDetected); Rhinovirus/Enterovirus PCR Not Detected (NotDetected)
[2023-05-27 19:42] LABS: Appearance Urine Cloudy (Clear); Bacteria Urine Automated 1+ (Negative); Bilirubin Urine Negative (Negative); Blood Urine 3+ (Negative); Cast Urine Automated 0 /lpf (0-5); Color Urine Dark Yellow; Glucose Urine UA Negative (Negative); Ketones Urine Negative (Negative); Leukocyte Esterase Urine 2+ (Negative); Nitrite Urine Positive (Negative); Protein Urine Trace (Negative); Specific Gravity Urine 1.016 (1.000-1.030); Urobilinogen Urine Negative (Negative); WBC Urine Automated >30 /hpf (0-5); pH Urine 5.5 (4.5-7.5)
[2023-05-27] MEDS: POTASSIUM CHLORIDE CRTAB 20 MEQ TABCR PO STA (19:55)
[2023-05-27] MEDS: MAGNESIUM SULFATE / D5W 1 GM/100 ML BAG IV SCH (19:55)
[2023-05-27] MEDS ORDERED: oxyCODONE HCL IR 5 MG TAB (IMMEDIATE RELEASE) PO PRN (20:52)
[2023-05-27] MEDS ORDERED: PROMETHAZINE HCL 6.25 MG in SODIUM CHLORIDE 0.9% 50 ML IV PRN (20:52)
[2023-05-27] MEDS: OPTIRAY 320 100ml IV ONE (21:10)
[2023-05-27 22:01] LABS: Folate (Folic Acid),Ser orPlas 9.63 ng/ml (>5.38)
[2023-05-27 22:02] LABS: Vitamin B12 > 1500 pg/ml (180-914)
[2023-05-27] MEDS: ALBUMIN 25% 25 GM/100 ML VIAL IV ONE ×2 (22:16→22:25)
[2023-05-27 22:29] LABS: Hematocrit (blood only) 21.4 % (37.0-47.0); Reticulocyte % 8.07 % (0.50-2.00); Reticulocytes # 0.17 10^6/uL (0.020-0.100)
--- NOTE | 2023-05-27 22:29 | CT Scan Report ---
Exam(s): CT CHEST With Contrast IV Amt: 92ML OPTIRAY 320 EXAM: CT Chest With Intravenous Contrast CLINICAL HISTORY: Reason for exam: RT CHEST WALL SWELLING RT PLEURAL EFFUSION. TECHNIQUE: Axial computed tomography images of the chest with intravenous contrast. CTDI is 23.37 mGy and DLP is 1669.63 mGy-cm. Automated exposure control was utilized for the study. A dose lowering technique was utilized adhering to the principles of ALARA. CONTRAST: Patient received 92ML OPTIRAY 320 of IV contrast COMPARISON: None. FINDINGS: Lungs: There is bilateral lower lobe atelectasis, right larger than left. There is mild right middle lobe and right upper lobe atelectasis. No mass. Pleural space: There is a large right-sided pleural effusion. There is trace left-sided pleural effusion. No pneumothorax. Heart: Unremarkable. No cardiomegaly. No significant pericardial effusion. No significant coronary artery calcifications. Bones/joints: Upper abdominal structures are described in detail in the accompanying CT of the abdomen and pelvis report. Multilevel degenerative disease of the spine. No acute fracture. No dislocation. Soft tissues: There is stranding involving the anterior subcutaneous fat of the upper and bilateral chest in the subaxillary region with high density thickening of the right anterior chest wall and right posterolateral extrathoracic musculature suggestive of diffuse hematoma/bruising. There is thickening of the skin along the right breast with fluid infiltration of the right breast, differential diagnosis including nonspecific edema. Vasculature: Unremarkable. No thoracic aortic aneurysm. Lymph nodes: Unremarkable. No enlarged lymph nodes. IMPRESSION: 1. Diffuse right-sided anterolateral extrathoracic edema versus diffuse bruising, correlation with history of trauma recommended. Thickening of the skin to the right breast with fluid infiltration/edema, cannot exclude diffuse infectious process/cellulitis. No drainable abscess seen. 2. Large right-sided pleural effusion with trace left-sided effusion. Multilobar right-sided atelectasis with minimal left lower lobe atelectasis. Electronically signed by: Trixie Collier MD 05/27/23 22:29 PM
--- NOTE | 2023-05-27 22:34 | CT Scan Report ---
Exam(s): CT ABDOMEN + PELVIS With Contrast IV Amt: 92ML OPTIRAY 320 EXAM: CT Abdomen and Pelvis With Intravenous Contrast CLINICAL HISTORY: Reason for exam: HEMATURIA. TECHNIQUE: Axial computed tomography images of the abdomen and pelvis with intravenous contrast. CTDI is 23.37 mGy and DLP is 1669.63 mGy-cm. Automated exposure control was utilized for the study. A dose lowering technique was utilized adhering to the principles of ALARA. CONTRAST: Patient received 92ML OPTIRAY 320 of IV contrast COMPARISON: None. FINDINGS: Lung bases: Lung bases as described in the accompanying CT chest report. No consolidation. ABDOMEN: Liver: Unremarkable. No mass. Gallbladder and bile ducts: Unremarkable. No calcified stones. No ductal dilation. Pancreas: Unremarkable. No mass. No ductal dilation. Spleen: Unremarkable. No splenomegaly. Adrenals: Unremarkable. No mass. Kidneys and ureters: There is left perinephric stranding with poor delineation of the left corticomedullary junction and enhancement of the wall throughout the left ureter. No stone along the trajectory of the left ureter. This combination of findings suggest infectious process/pyelonephritis. Differential diagnosis includes a recently passed stone. No hydronephrosis. Stomach and bowel: Unremarkable. No obstruction. No mucosal thickening. PELVIS: Appendix: This seemed appendix not seen but no inflammatory process to suggest acute appendicitis. Bladder: Borderline thickening of urinary bladder wall with surrounding stranding which may indicate cystitis. Reproductive: Anteverted uterus with atrophy. ABDOMEN and PELVIS: Intraperitoneal space: Unremarkable. No free air. No significant fluid collection. Bones/joints: Degenerative disease of the spine. Multilevel degenerative disease of the spine. Soft tissues: Nonspecific stranding within the subcutaneous fat at the umbilicus which may indicate nonspecific inflammatory process. Vasculature: Unremarkable. No abdominal aortic aneurysm. Lymph nodes: Unremarkable. No enlarged lymph nodes. IMPRESSION: 1. Left-sided pyelonephritis versus recently passed stone. Possible cystitis, correlation with urinalysis recommended. 2. No bowel obstruction or focal inflammatory process throughout the gastrointestinal tract. Electronically signed by: Trixie Collier MD 05/27/23 22:33 PM
[2023-05-27 22:55] LABS: Troponin I High Sensitivity 53.1 pg/ml (0-14)
[2023-05-27 22:59] LABS: Thyroid Stimulating Hormone 0.623 uIu/ml (0.300-4.500)
[2023-05-27 23:04] LABS: Ferritin 510.3 ng/ml (8-388)
[2023-05-28] MEDS ORDERED: ALPRAZolam 0.5 MG TABLET PO PRN (00:03)
[2023-05-28] MEDS ORDERED: BACLOFEN 10 MG TAB PO PRN (00:03)
[2023-05-28] MEDS: ALPRAZolam 0.5 MG TABLET PO PRN (00:35)
--- NOTE | 2023-05-28 01:38 | History & Physical Report ---
Date of Service May 27, 2023 (Late entry, patient seen May 27, 2023) Assessment & Plan (1) Sepsis: Plan: Immunocompromised patient hx metastatic breast cancer status post radiation ongoing chemotherapy Multifactorial: Right breast cellulitis Complicated UTI Bilateral pleural effusions with abnormal BNP Possible CHF History chemotherapy for breast cancer New onset anemia Multifactorial: Hematuria from complicated UTI chemotherapy chronic HBV on chronic Entecavir Rx rheumatoid arthritis, currently not on maintenance Rx chronic fatigue syndrome/fibromyalgia anxiety/mood disorder, at baseline Hyperglycemia rule out DM Hypokalemia secondary to illness Thrombocytopenia likely from chemotherapy past tobacco abuse PCU given CHF concerns Lasix albumin 1 dose now given borderline BP Strict I/Os, daily weights, CHF education TTE, Cardiology consult Re: Possible CHF Recheck CXR in a.m. to follow-up pleural effusion response to diuretic trial CS, Daptomycin, Cefepime Anemia workup Follow H&H, transfuse PRBC if hemoglobin less than 7 and or for symptomatic anemia Replace potassium Check hemoglobin A1c DVT prophylaxis. SCDs Re: Thrombocytopenia Full code Text document was generated using [employer] voice recognition software. It may contain grammatical or spelling errors. Kindly contact undersigned for clarification of any documentation item in question. Admission and Anticipated Discharge Date Admission Date: May 27, 2023 History of Present Illness Chief Complaint: Fever, right breast swelling, hematuria Primary Care Provider: Barbara Lopez PA-C History obtained from patient, family, and records. Medical history significant for metastatic breast cancer status post radiation ongoing chemotherapy, chronic HBV on chronic Entecavir Rx, rheumatoid arthritis, chronic fatigue syndrome/fibromyalgia, anxiety/mood disorder, past tobacco abuse. Last confinement 2016 for cat bite with ascending lymphangitis status post antibiotic Rx. 3 days ago, patient had some sinus congestion with drainage. No cough/aspiration episodes as per patient. Worsening painful swelling under right breast after a blister burst. Patient later noted hematuria and dysuria symptoms without unusual abdominal/flank pain. Shortness of breath mostly on exertion. Patient unsure about fluid retention. Vancomycin and cefepime administered at the ER for sepsis. Medical History as above Surgical History : section, breast biopsy, a port placement Family History : Breast cancer, lung cancer, alcoholism, dementia, heart disease, depression Personal/Social history : Past tobacco abuse, no EtOH intake, disabled Allergies Allergy/AdvReac Type Severity Reaction Status Date / Time No Known Allergies Allergy Unverified 05/27/23 21:27 Home Medications Medication Instructions Recorded Confirmed Type alprazolam 1 mg tablet (Xanax) 1 mg PO BID PRN Sleep 08/24/21 05/27/23 History alprazolam 2 mg tablet (Xanax) 2 mg PO HS PRN Sleep 08/24/21 05/27/23 History fexofenadine 60 mg-pseudoephedrine 1 tab PO Q12H 08/24/21 05/27/23 History ER 120 mg tablet,ext.release,12 hr (Allergy Relief-D (fexofenadine)) ondansetron HCl 8 mg tablet 8 mg PO Q8H PRN Nausea 08/24/21 05/27/23 History prochlorperazine maleate 10 mg 10 mg PO Q6H PRN Nausea 08/24/21 05/27/23 History tablet (Compazine) venlafaxine 150 mg 150 mg PO QAM 08/24/21 05/27/23 History capsule,extended release 24 hr aripiprazole 5 mg tablet (Abilify) 5 mg PO QAM 01/17/23 05/27/23 History baclofen 5 mg tablet 5 mg PO BID PRN muscle spasm 01/17/23 05/27/23 History erythromycin 5 mg/gram (0.5 %) eye 0.25 inch ophthalmic (eye) DAILY 01/17/23 05/27/23 History ointment PRN Dry Eyes famotidine 20 mg tablet 20 mg PO HS 01/17/23 05/27/23 History oxycodone 5 mg tablet 5 mg PO Q6H PRN Pain, Severe 01/17/23 05/27/23 History calcium carbonate 250 mg calcium 250 mg PO DAILY 05/27/23 05/27/23 History (625 mg) tablet cholecalciferol (vitamin D3) 50 50 mcg PO QAM 05/27/23 05/27/23 History mcg (2,000 unit) capsule (Vitamin D3) entecavir 0.5 mg tablet 0.5 mg PO DAILY 05/27/23 05/27/23 History lidocaine-prilocaine 2.5 %-2.5 % 1 applic topical UD PRN 1 hr prior 05/27/23 05/27/23 History topical cream to accessing mediport pantoprazole 20 mg tablet,delayed 20 mg PO QAM 05/27/23 05/27/23 History release potassium chloride 10 mEq 10 meq PO QAM 05/27/23 05/27/23 History tablet,extended release Past Med/Surg History Medical History Rheumatoid arthritis Insomnia Fibromyalgia Depression Chronic fatigue syndrome Surgical History (Updated 08/24/21 @ 09:25 by Gloria Carranza, RN) S/P breast biopsy deliv NOS-unsp Family History (Updated 08/24/21 @ 10:28 by Gloria Carranza RN) Aunt Breast cancer Mother , Age 72 Arthritis Father , Age 93 Heart disease Dementia Daughter No problems noted. Sister No problems noted. Uncle Pancreatic cancer Social History Smoking Status: Former smoker Hx Alcohol Use: No Hx Substance Use: No Preferred Language: Tunisian Greenskeeper Required: No Beliefs That Will Affect Care: None Current Living Situation: Alone and Family Current Living Situation Comment: with caregiver/family Feels Safe at Home: Yes Assistive Devices: Glasses Review of Systems Review of Systems: As per HPI, all other systems reviewed and negative Physical Exam Physical Exam: GENERAL: Slightly uncomfortable, slightly anxious, no respiratory distress SKIN: Pallor, warm HEENT: Pale palpebral conjunctivae, no ptosis, dry buccal mucosa NECK : Supple, no tenderness CHEST : Decreased breath sounds right greater than the left, tender right breast swelling HEART : Tachycardic, no obvious murmurs ABDOMEN: Some distention, nontender EXTREMITIES : Minimal LE swelling, no LE tenderness, no other conspicuous deformities noted NEUROLOGIC : Coherent, no facial asymmetry, no other gross focality Results & Data Results & Data Vital Signs (Past 12 Hours) Vital Signs Temp Pulse Pulse Resp BP BP BP 05/27/23 23:26 107 H 05/27/23 23:21 05/27/23 23:21 36.9 C 107 H 18 94/65 L 05/27/23 22:00 107 H 18 107/63 05/27/23 20:15 128 H 18 121/74 05/27/23 20:00 37.2 C 131 H 18 123/75 05/27/23 19:30 120 H 18 119/76 05/27/23 19:21 37.6 C H 05/27/23 19:16 123 H 20 135/73 05/27/23 18:30 05/27/23 18:30 129 H 20 146/75 H 05/27/23 18:13 131 H 05/27/23 17:55 38.9 C H 139 H 18 148/81 H Pulse Ox O2 Del Method O2 Flow Rate 05/27/23 23:26 05/27/23 23:21 Nasal Cannula 1 05/27/23 23:21 96 Nasal Cannula 1 05/27/23 22:00 96 Nasal Cannula 2 05/27/23 20:15 97 Nasal Cannula 2 05/27/23 20:00 96 Nasal Cannula 2 05/27/23 19:30 96 Nasal Cannula 2 05/27/23 19:21 05/27/23 19:16 97 Nasal Cannula 2 05/27/23 18:30 96 Nasal Cannula 2 05/27/23 18:30 96 Nasal Cannula 2 05/27/23 18:13 05/27/23 17:55 97 Room Air Laboratory Results Laboratory Results WBC 34.55 K/ul (4.8-10.8) H* 05/27/23 18:25 RBC 2.35 M/uL (4.20-5.40) L 05/27/23 18:25 Hgb 7.0 g/dl (12.0-16.0) L 05/27/23 22:01 Hct 21.4 % (37.0-47.0) L 05/27/23 22:01 MCV 101.3 fL (80.0-100.0) H 05/27/23 18:25 MCH 32.8 pg (25.0-34.0) 05/27/23 18:25 MCHC 32.4 g/dL (32.0-36.0) 05/27/23 18:25 RDW Std Deviation 66.5 fL (36.4-46.3) H 05/27/23 18:25 RDW Coeff of [place] 19.3 % (11.5-14.5) H 05/27/23 18:25 Plt Count 106 K/uL (130-400) L 05/27/23 18:25 MPV 10.2 fL (9.4-12.4) 05/27/23 18:25 Immature Gran % (Auto) 9.2 % 05/27/23 18:25 Neut % (Auto) 75.7 % 05/27/23 18:25 Lymph % (Auto) 2.4 % 05/27/23 18:25 Hall % (Auto) 12.5 % 05/27/23 18:25 Eos % (Auto) 0.1 % 05/27/23 18:25 Baso % (Auto) 0.1 % 05/27/23 18:25 Reticulocyte % (Auto) 8.07 % (0.50-2.00) H 05/27/23 22:01 Neut # (Auto) 26.17 K/uL (1.40-6.50) H 05/27/23 18:25 Lymph # (Auto) 0.83 K/uL (1.20-3.40) L 05/27/23 18:25 Hall # (Auto) 4.31 K/uL (0.11-0.59) H 05/27/23 18:25 Eos # (Auto) 0.03 K/uL (0.00-0.50) 05/27/23 18:25 Baso # (Auto) 0.03 K/uL (0.00-0.20) 05/27/23 18:25 Reticulocyte # 0.170 10^6/uL (0.020-0.100) H 05/27/23 22:01 Immature Gran # (Auto) 3.18 K/uL (0.01-0.20) H 05/27/23 18:25 Absolute Nucleated RBC 0.40 K/uL (0.00-0.12) H 05/27/23 18: Nucleated RBC % (auto) 1.2 % 05/27/23 18:25 Polychromasia 1+ 05/27/23 18:25 Anisocytosis Present 05/27/23 18:25 PT 12.1 Seconds (9.0-12.0) H 05/27/23 18:25 INR 1.1 (0.9-1.1) 05/27/23 18:25 APTT 25 Seconds (21-31) 05/27/23 18:25 PTT Ratio 0.9 05/27/23 18:25 Sodium 128 mmol/L (136-145) L 05/27/23 18:25 Potassium 3.6 mmol/L (3.5-5.1) 05/27/23 18:25 Chloride 97 mmol/L (98-107) L 05/27/23 18:25 Carbon Dioxide 23 mmol/L (21-32) 05/27/23 18:25 Anion Gap 8 (3-11) 05/27/23 18:25 BUN 13 mg/dl (6-23) 05/27/23 18:25 Creatinine 0.75 mg/dl (0.6-1.2) 05/27/23 18:25 Est Cr Clr Drug Dosing 66.2 ml/min 05/27/23 18:25 Est GFR ( Amer) 96.9 ml/min 05/27/23 18:25 Est GFR (Non-Af Amer) 83.6 ml/min 05/27/23 18:25 BUN/Creatinine Ratio 17.3 (10-20) 05/27/23 18:25 Glucose 127 mg/dl (70-99(Fasting)) H 05/27/23 18:25 Osmolality 268 mOsm/kg (280-300) L 05/27/23 18:25 Lactate 1.7 mmol/L (0.4-2.0) 05/27/23 18:25 Calcium 8.0 mg/dl (8.6-10.3) L 05/27/23 18:25 Magnesium 1.7 mg/dl (1.7-2.4) 05/27/23 18:25 Iron 10 mcg/dl (35-150) L 05/27/23 22:01 Transferrin 145 mg/dl (200-360) L 05/27/23 22:01 Ferritin 510.3 ng/ml (8-388) H 05/27/23 22:01 Total Bilirubin 0.9 mg/dl (0.2-1.0) 05/27/23 18:25 Direct Bilirubin 0.2 mg/dl (0-0.2) 05/27/23 18:25 AST 24 U/L (13-39) 05/27/23 18:25 ALT 13 U/L (7-52) 05/27/23 18:25 Alkaline Phosphatase 206 U/L (34-104) H 05/27/23 18:25 Troponin I High Sens 53.1 pg/ml (0-14) H* 05/27/23 22:01 B-Natriuretic Peptide 144 pg/ml (0-100) H 05/27/23 22:01 Total Protein 6.3 gm/dl (6.0-8.3) 05/27/23 18:25 Albumin 3.3 gm/dl (3.4-5.0) L 05/27/23 18:25 Vitamin B12 > 1500 pg/ml (180-914) H 05/27/23 18:25 Folate 9.63 ng/ml (>5.38) 05/27/23 18: Procalcitonin 2.37 ng/ml (0-0.5) H 05/27/23 18: TSH 0.623 uIu/ml (0.300-4.500) 05/27/23 22:01 Urine Color Dark Yellow 05/27/23 19: Urine Appearance Cloudy (Clear) A 05/27/23 19: Urine pH 5.5 (4.5-7.5) 05/27/23 19: Ur Specific [place] 1.016 (1.000-1.030) 05/27/23 19: Urine Protein Trace (Negative) H 05/27/23 19: Urine Glucose (UA) Negative (Negative) 05/27/23 19: Urine Ketones Negative (Negative) 05/27/23 19: Urine Blood 3+ (Negative) H 05/27/23 19: Urine Nitrite Positive (Negative) A 05/27/23: Urine Bilirubin Negative (Negative) 05/27/23: Urine Urobilinogen Negative (Negative) 05/27/23 19: Ur Leukocyte Esterase 2+ (Negative) H 05/27/23 19: Urine WBC (Auto) >30 /hpf (0-5) H 05/27/23 19: Urine RBC (Auto) 5-10 /hpf (0-4) H 05/27/23 19: U Hyaline Cast (Auto) 0 /lpf (0-5) 05/27/23 19: U Epithel Cells (Auto) 5-10 /lpf (0-5) H 05/27/23 19: Urine Bacteria (Auto) 1+ (Negative) H 05/27/23 19: Urine Osmolality 439 mOsm/kg (500-800) L 05/27/23 19: Ur Random Sodium 52 mmol/L 05/27/23 19:30 Adenovirus (PCR) Not Detected (NotDetected) 05/27/23 18:25 B. pertussis DNA (PCR) Not Detected (NotDetected) 05/27/23 18:25 B.parapertussis DNA PCR Not Detected (NotDetected) 05/27/23 18:25 C. pneumoniae DNA (PCR) Not Detected (NotDetected) 05/27/23 18:25 Coronavirus OC43 (PCR) Not Detected (NotDetected) 05/27/23 18:25 Coronavirus HKU1 (PCR) Not Detected (NotDetected) 05/27/23 18:25 Coronavirus 229E (PCR) Not Detected (NotDetected) 05/27/23 18:25 SARS-CoV-2 (PCR) Not Detected (NotDetected) 05/27/23 18:25 Coronavirus NL63 (PCR) Not Detected (NotDetected) 05/27/23 18:25 Human Metapneumovir PCR Not Detected (NotDetected) 05/27/23 18:25 Influenza Type A (PCR) Not Detected (NotDetected) 05/27/23 18:25 Influenza Type B (PCR) Not Detected (NotDetected) 05/27/23 18:25 M. pneumoniae (PCR) Not Detected (NotDetected) 05/27/23 18:25 Parainfluenza 1 (PCR) Not Detected (NotDetected) 05/27/23 18:25 Parainfluenza 2 (PCR) Not Detected (NotDetected) 05/27/23 18:25 Parainfluenza 3 (PCR) Not Detected (NotDetected) 05/27/23 18:25 Parainfluenza 4 (PCR) Not Detected (NotDetected) 05/27/23 18:25 RSV (PCR) Not Detected (NotDetected) 05/27/23 18:25 Entero/Rhino (PCR) Not Detected (NotDetected) 05/27/23 18:25 Blood Type A Positive 05/27/23 22:01 Antibody Screen NEGATIVE 05/27/23 22:[address] 05/27/23 00:00 Exam(s): CT CHEST With Contrast IV Amt: 92ML OPTIRAY 320 EXAM: CT Chest With Intravenous Contrast CLINICAL HISTORY: Reason for exam: RT CHEST WALL SWELLING RT PLEURAL EFFUSION. TECHNIQUE: Axial computed tomography images of the chest with intravenous contrast. CTDI is 23.37 mGy and DLP is 1669.63 mGy-cm. Automated exposure control was utilized for the study. A dose lowering technique was utilized adhering to the principles of ALARA. CONTRAST: Patient received 92ML OPTIRAY 320 of IV contrast COMPARISON: None. FINDINGS: Lungs: There is bilateral lower lobe atelectasis, right larger than left. There is mild right middle lobe and right upper lobe atelectasis. No mass. Pleural space: There is a large right-sided pleural effusion. There is trace left-sided pleural effusion. No pneumothorax. Heart: Unremarkable. No cardiomegaly. No significant pericardial effusion. No significant coronary artery calcifications. Bones/joints: Upper abdominal structures are described in detail in the accompanying CT of the abdomen and pelvis report. Multilevel degenerative disease of the spine. No acute fracture. No dislocation. Soft tissues: There is stranding involving the anterior subcutaneous fat of the upper and bilateral chest in the subaxillary region with high density thickening of the right anterior chest wall and right posterolateral extrathoracic musculature suggestive of diffuse hematoma/bruising. There is thickening of the skin along the right breast with fluid infiltration of the right breast, differential diagnosis including nonspecific edema. Vasculature: Unremarkable. No thoracic aortic aneurysm. Lymph nodes: Unremarkable. No enlarged lymph nodes. IMPRESSION: 1. Diffuse right-sided anterolateral extrathoracic edema versus diffuse bruising, correlation with history of trauma recommended. Thickening of the skin to the right breast with fluid infiltration/edema, cannot exclude diffuse infectious process/cellulitis. No drainable abscess seen. 2. Large right-sided pleural effusion with trace left-sided effusion. Multilobar right-sided atelectasis with minimal left lower lobe atelectasis. Electronically signed by: Trixie Collier MD 05/27/23 22:29 PM Chest X-Ray 05/27/23 18:01 XR chest 1V portable CLINICAL HISTORY: Sepsis TECHNIQUE: Single frontal radiograph of the chest was obtained. Comparison: Comparison is made to CT chest 01/22/2023 FINDINGS: Left portacatheter is seen. Calcified aortic knob is seen. Right airspace opacity is seen. Pulmonary vascular congestion is seen. There is a moderate right pleural effusion. IMPRESSION: 1. Moderate right pleural effusion with underlying airspace opacity likely representing atelectasis, although superimposed pneumonia cannot be excluded. 2. Pulmonary vascular congestion. ACT 112: Negative or not required by law. Electronically signed by: Ashok Noguera M.D. 05/27/2023 6:48 PM Diagnostic Findings EKG as per my interpretation : Rate 130, sinus tachycardia, normal axis, T wave flattening septal leads Code Status & VTE Plan VTE Prophylaxis Plan VTE Prophylaxis will be ordered: Yes (1) Sepsis Sepsis acute organ dysfunction status: without acute organ dysfunction Sepsis type: sepsis due to unspecified organism Qualified Code(s): A41.9 - Sepsis, unspecified organism
[2023-05-28] MEDS: FUROSEMIDE INJ 20 MG/2 ML VIAL IV ONE (02:37)
[2023-05-28] MEDS: ALBUMIN 25% 12.5 GM/50 ML VIAL IV ONE ×2 (02:37→03:41)
[2023-05-28] MEDS: CEFEPIME 2,000 MG in SYRINGE 0 ML IV SCH (02:42)
[2023-05-28] MEDS: DAPTOmycin 200 MG in SYRINGE 0 ML IV SCH (03:15)
[2023-05-28 06:07] LABS: A calco-baum cmplx NotReported Not Detected (NotDetected); Bact fragilis Not Reported Not Detected (NotDetected); Blood Culture Id Panel See PCR Comment (NotDetected); C auris Not Reported Not Detected (NotDetected); CTX-M Resistant Gene Not Detected (NotDetected); Calbicans Not Reported Not Detected (NotDetected); Candida glabrata Not Reported Not Detected (NotDetected); Candida krusei Not Reported Not Detected (NotDetected); Cneoformans/gatti Not Reported Not Detected (NotDetected); Cparapsilosis Not Reported Not Detected (NotDetected); E cloacae compx Not Reported Not Detected (NotDetected); Efaecalis Not Reported Not Detected (NotDetected); Efaecium Not Reported Not Detected (NotDetected); Enterobacterales DETECTED (NotDetected); Enterobacterales Not Reported DETECTED (NotDetected); Escherichia coli Not Reported DETECTED (NotDetected); H influenzae Not Reported Not Detected (NotDetected); IMP Resistant Gene Not Detected (NotDetected); K aerogenes Not Reported Not Detected (NotDetected); KPC Resistant Gene Not Detected (NotDetected); Koxytoca Not Reported Not Detected (NotDetected); Kpneumoniae grp Not Reported Not Detected (NotDetected); Lmonocyt Not Reported Not Detected (NotDetected); N meningitidis Not Reported Not Detected (NotDetected); NDM Resistant Gene Not Detected (NotDetected); OXA 48 Like Resistant Gene Not Detected (NotDetected); P aeruginosa Not Reported Not Detected (NotDetected); Proteus spp Not Reported Not Detected (NotDetected); Salmonella spp Not Reported Not Detected (NotDetected); Smarcescens Not Reported Not Detected (NotDetected); Staph lugdunensis Not Reported Not Detected (NotDetected); Staph spp. Not Reported Not Detected (NotDetected); Staphaureus Not Reported Not Detected (NotDetected); Staphepi Not Reported Not Detected (NotDetected); Stenmaltophilia Not Reported Not Detected (NotDetected); Strep agal(GrpB) Not Reported Not Detected (NotDetected); Strep pneum Not Reported Not Detected (NotDetected); Strep pyog (GrpA) Not Reported Not Detected (NotDetected); Strep spp Not Reported Not Detected (NotDetected); VIM Resistant Gene Not Detected (NotDetected); mcr-1 Colistin Resistant Gene Not Detected (NotDetected)
[2023-05-28 06:14] LABS: Calcium 7.4 mg/dl (8.6-10.3); Creatinine Clr Calc Pharmacy 62.8 ml/min; Est GFR (African American) 89.7 ml/min; Est GFR (Non-African American) 77.4 ml/min; Potassium 3.7 mmol/L (3.5-5.1)
[2023-05-28 06:19] LABS: Hematocrit (blood only) 19.8 % (37.0-47.0); Hemoglobin 6.5 g/dl (12.0-16.0); Mean Corpuscular Hemoglobin 33.2 pg (25.0-34.0); Mean Corpuscular Hgb Conc 32.8 g/dL (32.0-36.0); Mean Platelet Volume 10.3 fL (9.4-12.4); Nucleated RBC # (auto) 0.14 K/uL (0.00-0.12); Nucleated RBC % (auto) 0.4 %; Platelet Count 104 K/uL (130-400); RDW Coefficient of Variation 19.4 % (11.5-14.5); RDW Standard Deviation 68.9 fL (36.4-46.3); Red Blood Count 1.96 M/uL (4.20-5.40); White Blood Count 31.82 K/ul (4.8-10.8)
[2023-05-28] MEDS ORDERED: SODIUM CHLORIDE 0.9% 250 ML IV PRN ×2 (06:30→14:05)
[2023-05-28 06:37] LABS: Troponin I High Sensitivity 79.9 pg/ml (0-14)
[2023-05-28 06:40] LABS: Basophils # (auto) 0.08 K/uL (0.00-0.20); Basophils % (auto) 0.3 %; Dohle Bodies 3+; Eosinophils # (auto) 0.07 K/uL (0.00-0.50); Eosinophils % (auto) 0.2 %; Immature Granulocytes # (auto) 1.74 K/uL (0.01-0.20); Immature Granulocytes % (auto) 5.5 %; Lymphocytes # (auto) 0.47 K/uL (1.20-3.40); Lymphocytes % (auto) 1.5 %; Monocytes # (auto) 3.94 K/uL (0.11-0.59); Monocytes % (auto) 12.4 %; Neutrophils # (auto) 25.52 K/uL (1.40-6.50); Neutrophils % (auto) 80.1 %; Polychromasia 2+; Toxic Granulation 3+
--- NOTE | 2023-05-28 07:25 | XRay Report ---
XR chest 1V portable CLINICAL HISTORY: pleural effusion, ffup study COMPARISON STUDY: Chest radiograph and chest CT May 27, 2023. FINDINGS: Left internal jugular [id number] is in place. A large right pleural effusion is better d epicted on prior chest CT. Associated right lung opacity is noted. There is no pneumothorax. No conso lidation within the left lung to suggest pneumonia. Pulmonary edema has slightly improved. IMPRESSION: 1. Large right pleural effusion, better depicted on prior chest CT. 2. Mild improvement in pulmonary edema. ACT 112: Negative or not required by law. Electronically signed by: Kailash Barraza M.D. 05/28/2023 7:22 AM
[2023-05-28 07:48] LABS: Estimated Average Glucose 108 mg/dl; Hemoglobin A1C 5.4 % (4.5-5.6)
[2023-05-28] MEDS: ACETAMINOPHEN 500 MG TAB PO STA (08:02)
[2023-05-28] MEDS: FEXOFENADINE 60 MG TAB PO SCH (08:03)
[2023-05-28] MEDS: VENLAFAXINE HCL XR 150 MG CAPXR PO SCH (08:03)
[2023-05-28] MEDS: ARIPiprazole 5 MG TAB PO SCH (08:03)
[2023-05-28] MEDS: PANTOprazole 40 MG TAB PO SCH (08:03)
[2023-05-28] MEDS: ACETAMINOPHEN 500 MG TAB PO PRN (08:06)
--- NOTE | 2023-05-28 08:14 | Pulmonary Consultation ---
Date of Consultation May 28, 2023 Assessment & Plan (1) Pleural effusion: (2) Acute respiratory failure with hypoxia: (3) Malignant neoplasm of breast metastatic to bone: Plan CT chest 05/27/2023 personally reviewed: Large right-sided pleural effusion with atelectasis of the right lower lobe Interlobular thickening appreciated even on the left upper lobe No significant mediastinal adenopathy 2D echo 04/29/2023: EF 65-70%, RV normal in size and function -- Right-sided pleural effusion New Never had thoracentesis done in the past Possibility of it being from breast cancer is high, chemotherapy induced pleural effusion cannot be 100% rule out --Acute hypoxic respiratory failure Likely secondary to pleural effusion Continue with O2 supplementation give oxygen saturation 90-92% --Metastatic breast cancer On chemotherapy Plan: For thoracentesis later today Risk and benefit of the procedure explained the patient that Consent signed, witnessed and put in the chart Overall prognosis of the patient is poor Would recommend palliative care consult as well Case was discussed with RN as well as primary team Please note the above document was generated using voice recognition software. It may contain grammatical, syntax or spelling errors.Any formal questions or concerns about the content, text or information contained within the body of this dictation should be directly addressed to the provider for clarification. History of Present Illness Attending Physician: Jose Hodgson MD History of Present Illness 63-year-old female present to the hospital with complaints of fever and generalized weakness Past medical history: Metastatic breast cancer s/p radiation, currently on chemotherapy, chronic HBV on Entecavir, RA, fibromyalgia, anxiety/depression Pulmonary consulted for right-sided pleural effusion At the time of examination patient was not in any distress. She was saturating 98% on 3 L nasal cannula. I went down to 2 L. She was breathing in the high teens to low 20s. Heart rate in the high 80s. She has been feeling generalized weakness with fever and chills going on for the last 3-4 days Denies any significant issues with breathing. Denies any cough. No chest pain. She did spike a fever of 38.3 today. No diarrhea No abdominal pain Social history: [id number] smoking history with around the age of 50 Allergies Allergy/AdvReac Type Severity Reaction Status Date / Time No Known Allergies Allergy Unverified 05/27/23 21:27 Home Medications Medication Instructions Recorded Confirmed Type alprazolam 1 mg tablet (Xanax) 1 mg PO BID PRN Sleep 08/24/21 05/27/23 History alprazolam 2 mg tablet (Xanax) 2 mg PO HS PRN Sleep 08/24/21 05/27/23 History fexofenadine 60 mg-pseudoephedrine 1 tab PO Q12H 08/24/21 05/27/23 History ER 120 mg tablet,ext.release,12 hr (Allergy Relief-D (fexofenadine)) ondansetron HCl 8 mg tablet 8 mg PO Q8H PRN Nausea 08/24/21 05/27/23 History prochlorperazine maleate 10 mg 10 mg PO Q6H PRN Nausea 08/24/21 05/27/23 History tablet (Compazine) venlafaxine 150 mg 150 mg PO QAM 08/24/21 05/27/23 History capsule,extended release 24 hr aripiprazole 5 mg tablet (Abilify) 5 mg PO QAM 01/17/23 05/27/23 History baclofen 5 mg tablet 5 mg PO BID PRN muscle spasm 01/17/23 05/27/23 History erythromycin 5 mg/gram (0.5 %) eye 0.25 inch ophthalmic (eye) DAILY 01/17/23 05/27/23 History ointment PRN Dry Eyes famotidine 20 mg tablet 20 mg PO HS 01/17/23 05/27/23 History oxycodone 5 mg tablet 5 mg PO Q6H PRN Pain, Severe 01/17/23 05/27/23 History calcium carbonate 250 mg calcium 250 mg PO DAILY 05/27/23 05/27/23 History (625 mg) tablet cholecalciferol (vitamin D3) 50 50 mcg PO QAM 05/27/23 05/27/23 History mcg (2,000 unit) capsule (Vitamin D3) entecavir 0.5 mg tablet 0.5 mg PO DAILY 05/27/23 05/27/23 History lidocaine-prilocaine 2.5 %-2.5 % 1 applic topical UD PRN 1 hr prior 05/27/23 05/27/23 History topical cream to accessing mediport pantoprazole 20 mg tablet,delayed 20 mg PO QAM 05/27/23 05/27/23 History release potassium chloride 10 mEq 10 meq PO QAM 05/27/23 05/27/23 History tablet,extended release Patient History Medical History Rheumatoid arthritis Insomnia Fibromyalgia Depression Chronic fatigue syndrome Surgical History (Updated 08/24/21 @ 09:25 by Gloria Carranza RN) S/P breast biopsy deliv NOS-unsp Family History (Updated 08/24/21 @ 10:28 by Gloria Carranza RN) Aunt Breast cancer Mother , Age 72 Arthritis Father , Age 93 Heart disease Dementia Daughter No problems noted. Sister No problems noted. Uncle Pancreatic cancer Social History Smoking Status: Former smoker Hx Alcohol Use: No Hx Substance Use: No Preferred Language: Somali Commercial Service Technician Required: No Beliefs That Will Affect Care: None Current Living Situation: Alone and Family Current Living Situation Comment: with caregiver/family Feels Safe at Home: Yes Assistive Devices: Glasses Review of Systems 2 Review of Systems: All systems reviewed & are unremarkable except as noted in HPI & below Physical Exam 2 Physical Exam: Constitutional: No acute distress, lethargic HEENT: EOMI, PERRLA Respiratory system: Decreased air entry bilaterally, more decreased on the right, no wheeze, rhonchi, mild crackles CVS: S1-S2 positive, no murmurs or gallops Abdomen: Soft, nontender, nondistended, positive bowel sounds x4 Extremities: +2 pulses bilaterally radialis/ dorsalis pedis, no cyanosis, no edema Neuro: Awake alert oriented x3 Psych: Normal mood and affect G/U: Pure wick Musculoskeletal: Right side deformed breast with peau d'orange, no fluctuations, no clear drainage appreciated. Skin: no rashes, warm and dry Lymphatic: no cervical or axillary lymphadenopathy Results & Data Results & Data Vital Signs (Past 12 Hours) Vital Signs Temp Pulse Pulse Resp BP BP Pulse Ox 05/28/23 07:16 113 H 05/28/23 06:36 37.6 C H 113 H 18 98/59 L 99 05/28/23 03:12 37.0 C 126 H 22 96/65 L 95 05/27/23 23:26 107 H 05/27/23 23:21 05/27/23 23:21 36.9 C 107 H 18 94/65 L 96 05/27/23 22:00 107 H 18 107/63 96 05/27/23 20:15 128 H 18 121/74 97 O2 Del Method O2 Flow Rate 05/28/23 07:16 05/28/23 06:36 Nasal Cannula 3 05/28/23 03:12 Nasal Cannula 3 05/27/23 23:26 05/27/23 23:21 Nasal Cannula 1 05/27/23 23:21 Nasal Cannula 1 05/27/23 22:00 Nasal Cannula 2 05/27/23 20:15 Nasal Cannula 2 Laboratory Results 05/28/23 05:28 05/28/23 05:28 PG Care Time/CCT Total # of Minutes Spent Total Time Spent with Patient: Total time spent is greater than 50% in coordination of care (as documented) at patient's floor/unit and/or counseling patient: Coding Level of Care Code 29443 INT INP/OBS CARE 3/75MIN Diagnoses Pleural effusion J90 Acute respiratory failure with hypoxia J96.01 Malignant neoplasm of breast metastatic to bone C50.919; C79.51
--- NOTE | 2023-05-28 08:21 | Cardiology Consultation ---
Date of Consultation May 28, 2023 Assessment & Plan (1) Sepsis: (2) Acute UTI: (3) Cellulitis: (4) Anemia: (5) Tachycardia: (6) Elevated troponin I level: (7) Metastatic cancer: Plan Assessment: 63 year old female with known metastatic breast carcinoma currently undergoing chemotherapy presents with 3 day history of fever, urinary symptoms and a skin lesion. Positive UTI, septic and tachycardic. Plan: 1. Sepsis 2. Acute UTI 3. Cellulitis -Patient is afebrile at time of today's exam; however, acutely ill. Labs demonstrate ongoing infection with positive Urine culture and Blood cultures. Open blister/lesion on right breast suggestive of cellulitis. -Tachycardic in response to infection and fevers -Mild Elevation in troponin likely demand response in the setting of sepsis, tachycardia and anemia. Will continue to trend troponin to peak -Echocardiogram pending to assess overall structure and function in the setting of sepsis and troponin elevation. -No evidence of volume overload, and review of films are suspicious for a superimposed pneumonia -Continued management of infectious process by primary team. -Continued improvement in HR with fever control, ongoing antibiotics and gentle IV fluid resuscitation 4. Anemia: -H/H today 6.5 and 19.8 with no edwin source of bleeding. Continue with transfusions as arranged by primary team. close monitoring of fluid status 5. Tachycardia 6. Elevated Troponin -Multifactorial in the setting of acute sepsis and anemia. Preliminary review of echo suggest that patient is hyperdynamic and would benefit from gentle IV fluid resuscitation in the setting of sepsis. Continued management of fever and infection per primary team. -Echo results pending. -Trend Troponin to peak -Further recommendations pending echocardiogram as appropriate. 7. Metastatic Breast CA -Per management of primary team and Heme/Onc Case has been discussed with Dr. Barlow. Further recommendations regarding plan of care as per his assessment. I spent a total of 40 minutes on the date of service in preparation, delivery, documentation of the care provided to the patient excluding any time spent in the performance of separately billed services. VIVIEN [facility] Supervising Physician Co-Signing Physician Notes Patient was seen and personally examined both in a.m. as well as on repeat follow-up in afternoon. 63-year-old female with complex underlying issues including metastatic breast cancer undergoing chemotherapy presents with signs and symptoms of acute sepsis with hypotension, anemia, pleural effusion possible malignant Patient referred for evaluation in the setting of hypotension, elevated troponin, pleural effusion. Exam and echocardiogram did not suggest acute heart failure with hyperdynamic LV function. No valvular disease identified although aortic valve not well- visualized No evidence of chemotherapy-induced cardiomyopathy Blood cultures now returning gram-negative bacilli Recommendations: Appreciate pulmonology input. Would continue support patient with volume resuscitation Treat sepsis with multiple possible sources Troponin elevation reflective of severity of acute illness reflecting increased morbidity, demand ischemia History of Present Illness Reason for Consultation: Possible CHF Requesting Physician: Destin Urias Attending Physician: Jose Hodgson MD History of Present Illness HPI: patient is a 63 year old female with known metastatic breast Cancer. last Chemo treatment 10 days prior to admission presented to the ED with complaints of a fever x3 days, sinus congestion, hematuria, and urinary urgency. Of note, Patient also noted a small blister on her right breast that had opened around the same time, and she expressed concerns of increasing redness, swelling and tenderness. Labs obtained in the ED suggestive of sepsis. Urine culture grossly positive. blood cultures positive for Gram - Bacilli. EKG obtained demonstrates ST with non-specific ST abnormality, no acute ischemic changes. Troponin 49.5/53.1/79.9. Chest xray on admission suggest a moderate right pleural effusion with underlying opacity, possible superimposed pneumonia as well as pulmonary vascular congestion. Repeat chest xray today suggest large right pleural effusion, but improvement in pulmonary edema. Chest CT as follows: IMPRESSION: 1. Diffuse right-sided anterolateral extrathoracic edema versus diffuse bruising, correlation with history of trauma recommended. Thickening of the skin to the right breast with fluid infiltration/edema, cannot exclude diffuse infectious process/cellulitis. No drainable abscess seen. 2. Large right-sided pleural effusion with trace left-sided effusion. Multilobar right-sided atelectasis with minimal left lower lobe atelectasis. Patient seen and examined today at bedside appearing acutely ill. We have been asked to see her for consideration of acute CHF. Patient denies any prior cardiac history, denies chest pain, pressure, palpitations or shortness of br eath. Echocardiogram has been ordered for further evaluation given Xray findings and elevation of troponin. Allergies Allergy/AdvReac Type Severity Reaction Status Date / Time No Known Allergies Allergy Unverified 05/27/23 21:27 Home Medications Medication Instructions Recorded Confirmed Type alprazolam 1 mg tablet (Xanax) 1 mg PO BID PRN Sleep 08/24/21 05/27/23 History alprazolam 2 mg tablet (Xanax) 2 mg PO HS PRN Sleep 08/24/21 05/27/23 History fexofenadine 60 mg-pseudoephedrine 1 tab PO Q12H 08/24/21 05/27/23 History ER 120 mg tablet,ext.release,12 hr (Allergy Relief-D (fexofenadine)) ondansetron HCl 8 mg tablet 8 mg PO Q8H PRN Nausea 08/24/21 05/27/23 History prochlorperazine maleate 10 mg 10 mg PO Q6H PRN Nausea 08/24/21 05/27/23 History tablet (Compazine) venlafaxine 150 mg 150 mg PO QAM 08/24/21 05/27/23 History capsule,extended release 24 hr aripiprazole 5 mg tablet (Abilify) 5 mg PO QAM 01/17/23 05/27/23 History baclofen 5 mg tablet 5 mg PO BID PRN muscle spasm 01/17/23 05/27/23 History erythromycin 5 mg/gram (0.5 %) eye 0.25 inch ophthalmic (eye) DAILY 01/17/23 05/27/23 History ointment PRN Dry Eyes famotidine 20 mg tablet 20 mg PO HS 01/17/23 05/27/23 History oxycodone 5 mg tablet 5 mg PO Q6H PRN Pain, Severe 01/17/23 05/27/23 History calcium carbonate 250 mg calcium 250 mg PO DAILY 05/27/23 05/27/23 History (625 mg) tablet cholecalciferol (vitamin D3) 50 50 mcg PO QAM 05/27/23 05/27/23 History mcg (2,000 unit) capsule (Vitamin D3) entecavir 0.5 mg tablet 0.5 mg PO DAILY 05/27/23 05/27/23 History lidocaine-prilocaine 2.5 %-2.5 % 1 applic topical UD PRN 1 hr prior 05/27/23 05/27/23 History topical cream to accessing mediport pantoprazole 20 mg tablet,delayed 20 mg PO QAM 05/27/23 05/27/23 History release potassium chloride 10 mEq 10 meq PO QAM 05/27/23 05/27/23 History tablet,extended release Patient History Medical History Rheumatoid arthritis Insomnia Fibromyalgia Depression Chronic fatigue syndrome Surgical History (Updated 08/24/21 @ 09:25 by Gloria Carranza RN) S/P breast biopsy deliv NOS-unsp Family History (Updated 08/24/21 @ 10:28 by Gloria Carranza RN) Aunt Breast cancer Mother , Age 72 Arthritis Father , Age 93 Heart disease Dementia Daughter No problems noted. Sister No problems noted. Uncle Pancreatic cancer Social History Smoking Status: Former smoker Hx Alcohol Use: No Hx Substance Use: No Preferred Language: Burmese Communication Ability: Effective Chamber Walker Required: No Beliefs That Will Affect Care: None Current Living Situation: Alone and Family Current Living Situation Comment: with caregiver/family Feels Safe at Home: Yes Assistive Devices: None Review of Systems Review of Systems: All systems reviewed & are unremarkable except as noted in HPI & below Physical Exam Constitutional: well nourished and + ill appearing Neck: normal visual inspection and trachea midline Respiratory: normal respiratory effort; no respiratory distress Auscultation: + diminished lung sounds (bilateral bases ); no crackles, no rales, no rhonchi and no wheezes Cardiovascular: Rate/Rhythm: + tachycardic Heart Sounds: normal S1 and normal S2; no murmur Vessels: dorsalis pedis pulses present; no JVD Extremities: no edema Skin: + wound (open blister approx quarter siz e on right breast. +erythema, no discharge) Psychiatric: A+Ox3, euthymic affect Results & Data Vital Signs (Past 12 Hours) Vital Signs Temp Pulse Pulse Resp BP BP Pulse Ox 05/28/23 07:16 113 H 05/28/23 06:36 37.6 C H 113 H 18 98/59 L 99 05/28/23 03:12 37.0 C 126 H 22 96/65 L 95 05/27/23 23:26 107 H 05/27/23 23:21 05/27/23 23:21 36.9 C 107 H 18 94/65 L 96 05/27/23 22:00 107 H 18 107/63 96 O2 Del Method O2 Flow Rate 05/28/23 07:16 05/28/23 06:36 Nasal Cannula 3 05/28/23 03:12 Nasal Cannula 3 05/27/23 23:26 05/27/23 23:21 Nasal Cannula 1 05/27/23 23:21 Nasal Cannula 1 05/27/23 22:00 Nasal Cannula 2 Laboratory Results Cardiac Enzymes 05/27/23 05/27/23 05/28/23 Range/Units 18:25 22:01 05:28 AST 24 (13-39) U/L Troponin I High Sens 49.5 H 53.1 H* 79.9 H* D (0-14) pg/ml B-Natriuretic Peptide 144 H (0-100) pg/ml Coagulation 05/27/23 05/27/23 Range/Units 18:25 22:01 PT 12.1 H (9.0-12.0) Seconds APTT 25 (21-31) Seconds B-Natriuretic Peptide 144 H (0-100) pg/ml CBC 05/27/23 05/27/23 05/28/23 Range/Units 18:25 22:01 05:28 WBC 34.55 H* 31.82 H* (4.8-10.8) K/ul RBC 2.35 L 1.96 L (4.20-5.40) M/uL Hgb 7.7 L 7.0 L 6.5 L* (12.0-16.0) g/dl Hct 23.8 L 21.4 L 19.8 L* (37.0-47.0) % Plt Count 106 L 104 L (130-400) K/uL Neut # (Auto) 26.17 H 25.52 H (1.40-6.50) K/uL Lymph # (Auto) 0.83 L 0.47 L (1.20-3.40) K/uL Lee # (Auto) 4.31 H 3.94 H (0.11-0.59) K/uL Eos # (Auto) 0.03 0.07 (0.00-0.50) K/uL Baso # (Auto) 0.03 0.08 (0.00-0.20) K/uL Comprehensive Metabolic Panel 05/27/23 05/28/23 Range/Units 18:25 05:28 Sodium 128 L 132 L (136-145) mmol/L Potassium 3.6 3.7 (3.5-5.1) mmol/L Chloride 97 L 104 (98-107) mmol/L Carbon Dioxide 23 20 L (21-32) mmol/L BUN 13 12 (6-23) mg/dl Creatinine 0.75 0.80 (0.6-1.2) mg/dl Glucose 127 H 105 H (70-99(Fasting)) mg/dl Calcium 8.0 L 7.4 L (8.6-10.3) mg/dl Direct Bilirubin 0.2 (0-0.2) mg/dl AST 24 (13-39) U/L ALT 13 (7-52) U/L Alkaline Phosphatase 206 H (34-104) U/L Total Protein 6.3 (6.0-8.3) gm/dl Albumin 3.3 L (3.4-5.0) gm/dl Intake and Output 05/27/23 05/28/23 05/28/23 22:59 06:59 14:59 Intake Total 2855 / 3155 300 / 3155 110 / 110 Output Total 500 / 500 Balance 2855 / 2655 -200 / 2655 110 / 110 Intake: IV 2855 / 3155 300 / 3155 110 / 110 Albumin 25% 12.5 gm In 50 ml @ 100 / 100 50 mls/hr IV ONE ONE Rx#: [id number] Albumin 25% 25 gm In 100 ml @ 100 / 100 50 mls/hr IV 2100 ONE Rx#: [id number] Iron Sucrose 200 mg In 0.9 % 110 / 110 Sodium Chloride 100 ml @ 220 mls/hr IV TODAY@0800 ONE Rx#: [id number] Magnesium Sulfate / D5w 1 gm In 70 / 170 100 / 170 100 ml @ 50 mls/hr IV Q2H [facility] Rx#:[id number] Sodium Chloride 0.9% 1,000 ml @ 2250 / 2250 999 mls/hr IV .Q1H1M [facility] Rx#: [id number] Vancomycin HCl 1,750 mg In 535 / 535 Sodium Chloride 0.9% 500 ml @ 200 mls/hr IV NOW ONE Rx#: [id number] Intake (Blood Product) Amt 0 / 0 Packed Cells, Leukored, Irrad 0 / 0 Unit [id number] Output: Urine Amount (Catheter) 500 / 500 External 500 / 500 Other: Weight 68.4 kg 70.1 kg Weight Measurement Method Chair Scale Built in [facility] Diagnostic Findings EKG 05/27/23: Personally reviewed. sinus tachycardia Rate [address] and T wave abnormality. notable artifact in leads V3 and V4 Chest xray 05/28/23: IMPRESSION: 1. Large right pleural effusion, better depicted on prior chest CT. 2. Mild improvement in pulmonary edema. Chest CT 05/27/23: IMPRESSION: 1. Diffuse right-sided anterolateral extrathoracic edema versus diffuse bruising, correlation with history of trauma recommended. Thickening of the skin to the right breast with fluid infiltration/edema, cannot exclude diffuse infectious process/cellulitis. No drainable abscess seen. 2. Large right-sided pleural effusion with trace left-sided effusion. Multilobar right-sided atelectasis with minimal left lower lobe atelectasis. Echocardiogram 08/11/2021: 1. Normal LVEF 65-70% 2. No significant valvular abnormalities (1) Sepsis Sepsis acute organ dysfunction status: without acute organ dysfunction Sepsis type: sepsis due to unspecified organism Qualified Code(s): A41.9 - Sepsis, unspecified organism (3) Cellulitis Site of cellulitis: trunk Site of cellulitis of trunk: chest wall Qualified Code(s): L03.313 - Cellulitis of chest wall (4) Anemia Anemia type: unspecified type Qualified Code(s): D64.9 - Anemia, unspecified (7) Metastatic cancer Area of secondary neoplastic involvement: unspecified site Qualified Code(s): C79.9 - Secondary malignant neoplasm of unspecified site
[2023-05-28] MEDS: IRON SUCROSE 200 MG in 0.9 % SODIUM CHLORIDE 100 ML IV ONE (08:35)
[2023-05-28] MEDS: IRON SUCROSE 300 MG in SODIUM CHLORIDE 0.9% 250 ML IV ONE (08:38)
[2023-05-28 09:32] LABS: Toxic Granulation 3+
[2023-05-28 11:06] LABS: Troponin I High Sensitivity 28.1 pg/ml (0-14)
[2023-05-28] MEDS ORDERED: LEVALBUTEROL HCL 0.63 MG/3 ML NEB NEB PRN (11:48)
[2023-05-28 13:29] LABS: Hemoglobin 7.6 g/dl (12.0-16.0)
[2023-05-28] MEDS: SODIUM CHLORIDE 0.9% 1,000 ML IV SCH (13:29)
--- NOTE | 2023-05-28 13:52 | Electrocardiogram Report ---
Test Reason : Blood Pressure : / mmHG Vent. Rate : 131 BPM Atrial Rate : 131 BPM P-R Int : 108 ms QRS Dur : 068 ms QT Int : 288 ms P-R-T Axes : 002 060 064 degrees QTc Int : 425 ms Sinus tachycardia Nonspecific ST and T wave abnormality Abnormal ECG No previous ECGs available Confirmed by Vitor Hahn ([id number]) on 05/28/2023 1:51:42 PM Referred By: Barbara Lopez Confirmed By:Vitor Hahn
--- NOTE | 2023-05-28 14:32 | Procedure Note ---
Procedure Note Date of Service May 28, 2023 Note Procedure: Diagnostic therapeutic ultrasound-guided catheter thoracentesis Aviation Maintenance Instructor: Dr. Patricia Ricci Indication: Right-sided pleural effusion Consent: Signed by patient and verified with timeout prior to procedure Anesthesia: 1% lidocaine without epinephrine local. Procedure: Consent was verified and timeout performed. Appropriate imaging studies were reviewed prior to the procedure. Patient was placed in a seated position and limited thoracic ultrasound was performed of the right chest. See separate imaging. Appropriate site above the diaphragm for thoracentesis was selected. The skin was prepped and draped in normal sterile fashion. Lidocaine was used for local analgesia. Fluid was aspirated via the finder needle. A small skin maria de jesus was made with the scalpel and the catheter over the needle apparatus was advanced over the rib into the pleural space. Using the syringe one-way valve system, a total of 1500 mL's of cloudy serous fluid was removed. Procedure was terminated due to coughing. The catheter was removed and observed to be intact. A sterile dressing was applied. Post procedure chest x-ray was ordered. Fluid was sent for labs, culture and cytology. Complications: None Blood loss: Less than 1 cc Coding CPT Codes Pulmonary/Thoracic - Pulmonary and Thoracic: 93711 Thoracentesis w imaging ([id number]) [facility] Procedure Codes (Charges) Pulmonary/Thoracic Procedure 1: Pulmonary and Thoracic: 05921 Thoracentesis w imaging
--- NOTE | 2023-05-28 14:34 | XRay Report ---
SINGLE VIEW CHEST CLINICAL HISTORY: Status post right thoracentesis. FINDINGS: An AP, portable, upright chest radiograph is compared to study dated 05/28/2023. Correlation is made with chest CT dated 05/27/2023. The examination is degraded by portable technique and patient rotation. A left internal jugular central venous infusion port is unchanged in position. The cardiom ediastinal silhouette is unremarkable. There is mild pulmonary vascular congestion. Trace pleural eff usion is suspected on the left. No pneumothorax is seen. The skeletal structures are osteopenic. The bony thorax is grossly intact. IMPRESSION: 1. No pneumothorax is identified post procedure. 2. Small residual right pleural effusion. Airspace opacities in the right lower lung that may represe nt reexpansion edema. Correlate clinically. 3. There is mild pulmonary vascular congestion and trace pleural fluid is suggested on the left. ACT 112: Negative or not required by law. Electronically signed by: Cecilio Rodríguez M.D. 05/28/2023 2:33 PM
--- NOTE | 2023-05-28 14:43 | Hospitalist Progress Note ---
Date of Service May 28, 2023 Assessment & Plan (1) Sepsis: Plan: Severe Gram-negative Sepsis Immunocompromised patient H/O Metastatic breast cancer S/P radiation, ongoing chemotherapy Multifactorial:Right breast cellulitis, Complicated UTI/pyelonephritis, Mita teremia --CT Chest: Diffuse right-sided anterolateral extrathoracic edema versus diffuse bruising, correlation with history of trauma recommended. Thickening of the skin to the right breast with fluid infiltration/edema, cannot exclude diffuse infectious process/cellulitis. No drainable abscess seen. Large right-sided pleural effusion with trace left-sided effusion. Multilobar right-sided atelectasis with minimal left lower lobe atelectasis. --CT BD:Left-sided pyelonephritis versus recently passed stone. Possible cystitis, correlation with urinalysis recommended. No bowel obstruction or focal inflammatory process throughout the gastrointestinal tract. 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 Normal left ventricle wall thickness. Left ventricular wall motion is normal. Left ventricle is hyperdynamic. EF 65 to 70%. Attic valve is not well-visualized. Trace mitral regurgitation. S/P right thoracentesis on 05/28/2023 Follow-up pleural fluid studies Appreciate pulmonology input Saturating well on 2 L supplemental oxygen Anemia of chronic disease Likely Multifactorial: Metastatic disease, iron deficiency, chemotherapy-induced Microscopic hematuria contributing as well S/P 1 unit PRBCs Will plan to transfuse 1 more unit of PRBC given symptomatic anemia, demand ischemia Also received IV Venofer Hyponatremia Likely dehydration Continue IV fluids Monitor sodium levels Mild troponin elevation Likely type II KS secondary to demand ischemia Troponin trended down Echo showed no wall motion abnormality Monitor H/O metastatic breast cancer Ongoing chemotherapy S/P radiation Follows with Dr. Quarles as outpatient Will need follow-up with oncology on discharge Chronic HBV on chronic Entecavir treatment Rheumatoid arthritis currently not on maintenance meds Other chronic conditions: Chronic fatigue syndrome/fibromyalgia Anxiety/mood disorder Thrombocytopenia likely from chemotherapy Past tobacco abuse Continue home medications as able DVT Px: Thrombocytopenia, anemia Code Status Full code Admission and Anticipated Discharge Date Admission Date: May 27, 2023 Subjective Patient is seen and examined at bedside Right breast pain is controlled Reports dyspnea on exertion Febrile today Reports generalized weakness Denies any dizziness, nausea, vomiting, abdominal pain, dysuria, hematuria No obvious bleeding issues Review of Systems Review of Systems: All systems reviewed & are unremarkable except as noted in Subjective Physical Exam Physical Exam: Physical Exam: Vitals signs as noted above General Appearance:Moderately built and nourished, no apparent distress, ill appearing Head: normocephalic, Atraumatic Eyes: normal inspection, EOMI Neck: supple, Trachea midline Respiratory/Chest: Decreased breath sounds predominantly on the right, CTA, + right breast firm, mild tenderness,+ blister no accessory muscle use Cardiovascular: S1, S2, No murmur Abdomen/GI:Soft, Non tender, Bowel sounds present Extremities/Musculoskeletal:normal inspection, no edema Neurologic/Psych:AAOX3, grossly no focal neurological deficits Skin: normal color, warm Results & Data Results & Data Vital Signs (Past 12 Hours) Vital Signs Temp Pulse Pulse Resp BP BP Pulse Ox 05/28/23 14:21 86/55 L 05/28/23 14:09 87/54 L 05/28/23 14:00 24 92/63 L 05/28/23 14:00 93 H 22 73/50 L 96 05/28/23 13:50 88 67/47 L 98 05/28/23 12:18 36.6 C 91 H 22 92/60 L 98 05/28/23 12:16 36.6 C 94 H 22 92/60 L 98 05/28/23 11:31 36.6 C 91 H 24 91/53 L 98 05/28/23 11:09 36.5 C 92 H 25 H 88/60 L 98 05/28/23 10:31 36.5 C 93 H 25 H 91/53 L 99 05/28/23 10:01 36.5 C 95 H 26 H 92/50 L 98 05/28/23 09:46 36.6 C 99 H 28 H 84/59 L 98 05/28/23 09:27 36.6 C 103 H 24 89/49 L 96 05/28/23 09:05 36.6 C 108 H 19 94/54 L 97 05/28/23 08:44 109 H 19 91/56 L 98 05/28/23 08:36 37.2 C 109 H 26 H 110/63 96 05/28/23 08:25 38.3 C H 110 H 24 110/68 93 05/28/23 07:26 05/28/23 07:16 113 H 05/28/23 06:36 37.6 C H 113 H 18 98/59 L 99 05/28/23 03:12 37.0 C 126 H 22 96/65 L 95 O2 Del Method O2 Flow Rate 05/28/23 14:21 05/28/23 14:09 05/28/23 14:00 05/28/23 14:00 Nasal Cannula 2 05/28/23 13:50 Nasal Cannula 2 05/28/23 12:18 2 05/28/23 12:16 2 05/28/23 11:31 2 05/28/23 11:09 2 05/28/23 10:31 2 05/28/23 10:01 2 05/28/23 09:46 05/28/23 09:27 2 05/28/23 09:05 Nasal Cannula 2 05/28/23 08:44 Nasal Cannula 2 05/28/23 08:36 Nasal Cannula 2 05/28/23 08:25 Nasal Cannula 3.0 05/28/23 07:26 Nasal Cannula 2 05/28/23 07:16 05/28/23 06:36 Nasal Cannula 3 05/28/23 03:12 Nasal Cannula 3 Laboratory Results Short CBC 05/27/23 05/27/23 05/28/23 Range/Units 18:25 22:01 05:28 WBC 34.55 H* 31.82 H* (4.8-10.8) K/ul Hgb 7.7 L 7.0 L 6.5 L* (12.0-16.0) g/dl Hct 23.8 L 21.4 L 19.8 L* (37.0-47.0) % Plt Count 106 L 104 L (130-400) K/uL 05/28/23 Range/Units 13:10 WBC (4.8-10.8) K/ul Hgb 7.6 L (12.0-16.0) g/dl Hct 23.0 L (37.0-47.0) % Plt Count (130-400) K/uL BMP 05/27/23 05/28/23 18:25 05:28 Sodium 128 L 132 L Potassium 3.6 3.7 Chloride 97 L 104 Carbon Dioxide 23 20 L BUN 13 12 Creatinine 0.75 0.80 Glucose 127 H 105 H Calcium 8.0 L 7.4 L Liver Function 05/27/23 Range/Units 18:25 Total Bilirubin 0.9 (0.2-1.0) mg/dl Direct Bilirubin 0.2 (0-0.2) mg/dl AST 24 (13-39) U/L ALT 13 (7-52) U/L Alkaline Phosphatase 206 H (34-104) U/L Albumin 3.3 L (3.4-5.0) gm/dl Urine 05/27/23 Range/Units 19:30 Urine Color Dark Yellow Urine Appearance Cloudy A (Clear) Urine pH 5.5 (4.5-7.5) Ur Specific Mayer 1.016 (1.000-1.030) Urine Protein Trace H (Negative) Urine Glucose (UA) Negative (Negative) (1) Sepsis Sepsis acute organ dysfunction status: without acute organ dysfunction Sepsis type: sepsis due to unspecified organism Qualified Code(s): A41.9 - Sepsis, unspecified organism
[2023-05-28 15:18] LABS: Albumin Level 3.2 gm/dl (3.4-5.0); Bilirubin,Total 0.9 mg/dl (0.2-1.0); Total Protein 5.7 gm/dl (6.0-8.3)
[2023-05-28 15:26] LABS: Total Protein Pleural Fluid 3.5 gm/dl
[2023-05-28 15:31] LABS: Appearance Pleural Fluid Slightly Hazy; Color Pleural Fluid Yellow; RBC Pleural Fluid Auto 2000 /uL; Source Pleural Fluid Right Lung; WBC Pleural Fluid Auto 368 /uL
[2023-05-28 15:46] LABS: Eosinophils, Fluid 1 %; Lymphocytes, Fluid 12 %; Mono,Macrophage,Mesothelial 54 %; Neutrophils, Fluid 33 %
[2023-05-28 19:13] LABS: Hematocrit (blood only) 26.1 % (37.0-47.0)
[2023-05-28] MEDS: FAMOTIDINE 20 MG TAB PO SCH (21:09)
--- NOTE | 2023-05-29 07:25 | Pulmonology Progress Note ---
Date of Service May 29, 2023 Assessment & Plan (1) Pleural effusion: (2) Acute respiratory failure with hypoxia: (3) Malignant neoplasm of breast metastatic to bone: Plan CT chest 05/27/2023 personally reviewed: Large right-sided pleural effusion with atelectasis of the right lower lobe Interlobular thickening appreciated even on the left upper lobe No significant mediastinal adenopathy 2D echo 04/29/2023: EF 65-70%, RV normal in size and function -- Right-sided pleural effusion New Never had thoracentesis done in the past Possibility of it being from breast cancer is high, chemotherapy induced pleural effusion cannot be 100% rule out S/p thoracentesis 05/28/2023, 1500 mL exudative fluid removed Pleural fluid: LDH 107, protein 3.5, pH 7.43 Serum: LVH 199, protein 5.7 --Acute hypoxic respiratory failure Likely secondary to pleural effusion Continue with O2 supplementation give oxygen saturation 90-92% --Metastatic breast cancer On chemotherapy Plan: Chest x-ray from today shows worsening infiltrate in the right side compared to postthoracentesis yesterday. Could be reexpansion pulmonary edema. Would recommend to give 20 mg of Lasix if not already given Incentive spirometry will be beneficial. Recommend following up cytology from the fluid Case was discussed with Dr. Hodgson No further recommendation from pulmonary perspective, will sign off Please call directly with any questions Please note the above document was generated using voice recognition software. It may contain grammatical, syntax or spelling errors.Any formal questions or concerns about the content, text or information contained within the body of this dictation should be directly addressed to the provider for clarification. Admission and Anticipated Discharge Date Admission Date: May 27, 2023 Subjective Patient seen and examined at bedside. No acute distress, no adverse events overnight She was saturating 95% on 2 L nasal cannula. I went down to 1 L. Denies any chest pain. She says she is feeling better compared to yesterday. Coughing when she takes deep breaths. No headache, no nausea, no vomiting. Appetite is poor Review of Systems 2 Review of Systems: All systems reviewed & are unremarkable except as noted in Subjective Physical Exam 2 Physical Exam: Constitutional: No acute distress, lethargic HEENT: EOMI, PERRLA Respiratory system: Decreased air entry bilaterally, more decreased on the right, no wheeze, rhonchi, mild crackles CVS: S1-S2 positive, no murmurs or gallops Abdomen: Soft, nontender, nondistended, positive bowel sounds x4 Extremities: +2 pulses bilaterally radialis/ dorsalis pedis, no cyanosis, no edema Neuro: Awake alert oriented x3 Psych: Normal mood and affect G/U: Pure wick Musculoskeletal: Right side deformed breast with peau d'orange, no fluctuations, no clear drainage appreciated. Skin: no rashes, warm and dry Lymphatic: no cervical or axillary lymphadenopathy Results & Data Results & Data Vital Signs (Past 12 Hours) Vital Signs Temp Pulse Pulse Resp BP Pulse Ox O2 Del Method 05/29/23 02:34 37.4 C 105 H 18 103/60 95 Nasal Cannula 05/28/23 23:09 111 H 05/28/23 22:30 37.2 C 94 H 18 108/58 L 99 Nasal Cannula 05/28/23 21:24 Nasal Cannula O2 Flow Rate 05/29/23 02:34 2 05/28/23 23:09 05/28/23 22:30 2 05/28/23 21:24 2 Laboratory Results 05/28/23 18:56 05/28/23 05:28 PG Care Time/CCT Total # of Minutes Spent Total Time Spent with Patient: Total time spent is greater than 50% in coordination of care (as documented) at patient's floor/unit and/or counseling patient: Coding Level of Care Code 27904 SUB INP/OBS CARE 2/35MIN Diagnoses Pleural effusion J90 Acute respiratory failure with hypoxia J96.01 Malignant neoplasm of breast metastatic to bone C50.919; C79.51
[2023-05-29 07:43] LABS: Hematocrit (blood only) 25.2 % (37.0-47.0); Hemoglobin 8.6 g/dl (12.0-16.0); Mean Corpuscular Hemoglobin 31.7 pg (25.0-34.0); Mean Corpuscular Hgb Conc 34.1 g/dL (32.0-36.0); Mean Platelet Volume 9.8 fL (9.4-12.4); Nucleated RBC # (auto) 0.06 K/uL (0.00-0.12); Nucleated RBC % (auto) 0.2 %; Platelet Count 157 K/uL (130-400); RDW Coefficient of Variation 21.2 % (11.5-14.5); RDW Standard Deviation 67.7 fL (36.4-46.3); Red Blood Count 2.71 M/uL (4.20-5.40); White Blood Count 29.75 K/ul (4.8-10.8)
[2023-05-29 08:00] LABS: BUN Creatinine Ratio 21.1 (10-20); Calcium 6.9 mg/dl (8.6-10.3); Creatinine Clr Calc Pharmacy 71.1 ml/min; Est GFR (African American) 103.6 ml/min; Est GFR (Non-African American) 89.4 ml/min; Magnesium 2.4 mg/dl (1.7-2.4); Potassium 3.4 mmol/L (3.5-5.1)
[2023-05-29 08:02] LABS: Anisocytosis Present; Basophils # (auto) 0.11 K/uL (0.00-0.20); Basophils % (auto) 0.4 %; Eosinophils # (auto) 0.17 K/uL (0.00-0.50); Eosinophils % (auto) 0.6 %; Immature Granulocytes # (auto) 1.95 K/uL (0.01-0.20); Immature Granulocytes % (auto) 6.6 %; Lymphocytes # (auto) 0.49 K/uL (1.20-3.40); Lymphocytes % (auto) 1.6 %; Monocytes % (auto) 10.8 %; Neutrophils # (auto) 23.83 K/uL (1.40-6.50); Polychromasia 1+; Tear Drop Cells 1+
--- NOTE | 2023-05-29 08:13 | XRay Report ---
SINGLE VIEW CHEST CLINICAL HISTORY: Follow-up pleural effusion status post right thoracentesis. FINDINGS: An AP, portable, upright chest radiograph is compared to study dated 05/28/2023. Correlation is made with chest CT dated 05/27/2023. The examination is degraded by portable technique and patient rotation. A left internal jugular central venous infusion port is unchanged in position. The cardiom ediastinal silhouette is unremarkable. There are small pleural effusions, right larger than left. Air space opacities in the right mid and lower lung are unchanged to modestly increased from yesterday. N o pneumothorax is seen. The skeletal structures are osteopenic. The bony thorax is grossly intact. IMPRESSION: 1. Airspace opacities in the right mid to lower lung are unchanged to modest increased from yesterday . This could represent pneumonia or possibly reexpansion edema. Clinical correlation will be required . 2. Small right and trace left pleural effusions. ACT 112: Negative or not required by law. Electronically signed by: Cecilio Rodríguez M.D. 05/29/2023 8:12 AM
[2023-05-29] MEDS ORDERED: STAT IV/IM STA (08:56)
[2023-05-29] MEDS: ENTECAVIR 0.5 MG PO SCH (08:56)
[2023-05-29] MEDS: POTASSIUM CHLORIDE CRTAB 20 MEQ TABCR PO ONE (09:21)
[2023-05-29] MEDS: CALCIUM GLUCONATE 10% 1,000 MG in SODIUM CHLOR 0.9% MINI-B 50 ML IV ONE (09:49)
--- NOTE | 2023-05-29 09:59 | Palliative Care Consultation ---
Date of Consultation May 29, 2023 Assessment & Plan (1) Cancer related pain: She has nausea and "mental weirdness" with oxycodone Stop Oxycodone begin trial of Dilaudid 2mg PO q3h prn, Hold for somnolence or RR less than 14; please document RR with each dose administration. (2) Weakness generalized: (3) Dyspnea and respiratory abnormalities: Improving from admission (4) Advanced care planning/counseling discussion: I held a face to face ACP discussion with pt at bedside for 30min Elizabeth has had multiple conversations about ACP and serious illness planning with [facility] as well as self reflective analysis. SHe is incredibly pragmatic and very aware of her circumstances. She tells me she has moved away from wanting no code to desiring CPR for now, as she feels she may still have benefit from cancer care. She notes that if she is felt to be EOL or terminal then would want DNR/DNI She is due for pet which has to be rescheduled for next week her friend/private caregiver is watching over her home, one dog (GSD) and 3 cats; she views her caregiver as an adopted daughter. She is not . 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 She has one child, an adult daughter who resides in [place], she states daughter is not handling any of this well and she does nt feel daughter will handle it well when her disease progresses, Elizabeth has been very realistic of her expectations in cancer care. She knows she has had progression on prior regimens but hopes the current one might help buy more time. She knows her disease is not curable but hopes chemo can help buy some time. her overall focus is QOL and no matter what she wants to remain at home and not be forced to reside in SNF. We discussed a wait and see approach: wait for repeat testing, see what results show then determine next best courses of action. She is clear that if there is progression and/or more chemo won't help then she wants home with hospice We discussed code status which for now she wants to remain a full code but if she is determined to be terminally ill or moves to home hospice she would then desire comfort care and no code. (5) Palliative care by specialist: Met with pt, provided overview of Palliative Medicine, a subspecialty that provides specialized medical care for people living with a serious illness by offering a focus on quality of life. Palliative Medicine is often conflated with hospice: I advised patient/family that Palliative and hospice can be partners but we are not the same. It is important to understand the difference so that we may be informed, and not afraid. Palliative Medicine works to improve QOL through reduction of symptom burden/more control over their illness, for both the patient and family. Palliative medicine clinicians are board certified, specially-trained and another member of the patient's medical care team. We often provide an extra layer of support because our care is based on the needs of the patient, not the prognosis; as such, it's appropriate at any age/advancing stage of a serious illness and can be provided along with curative treatment. Palliative Medicine clinicians are also trained in advanced communication methodologies, to facilitate complex discussions about advanced illness planning, which are needed to help assure that the treatment choices match the patient's goals, aka delivering Goal Concordant care. Finally, we discussed that hospice is a visiting nurse service that focuses on care delivered at the very end of life for patients with terminal illness, with life expectancy less than 6 month. There is strong evidence supporting the initiation of Palliative Care into the management of this patient with advanced met lung cancer; palliative care, when provided alongside oncologic care, leads to improved QOL, fewer depressive symptoms, better prognosis understanding and longer median survival kaya when given the overall poor prognosis and QOL issues at hand. (Cong et al. (2010). Early palliative care for patients with metastatic xhy-pakny-adeh lung cancer. [place] J of Med 363), 733-742. Doi: 10.1056/[id number].) We discussed that cancer patients experience significant symptom and psychosocial burden for which the early integration of supportive oncology with palliative medicine (early findings from the research of Cong and Scottie) help address a growing need to manage patients comprehensively, with an emphasis on symptom control, nutritional and psychosocial support, and pharmaceutical review. Palliative care consultation in patients with advanced cancer is not only associated with an improvement in the quality of oncology care, but also a reduction in downstream healthcare utilization. In Jr et al 2017, when the automatic palliative medicine consult was triggered by specific oncology criteria, 30-day readmission rates and use of chemotherapy after discharge declined, whereas hospice referrals and uptake of support services post-discharge increased. Patients with advanced cancer admitted to an acute care hospital often have short life expectancies and high morbidity - for these patients, the integration of palliative care has improved symptom burden, reduced patient and caregiver distress, increased referral to hospice, and improved outcomes. (6) Malignant neoplasm of breast metastatic to bone: (7) Anterior chest wall pain: (8) Cellulitis of chest wall: Plan * Elizabeth feels she is improving with current Abtx regimen * She wants to stay full code * I suggested a wait and see approach for next steps. The PET needs to be rescheduled and she will be on a chemo holiday while recovering/completing tx for this infection. She is in agreement. She is also clear that if she worsens, or things are getting near terminal stages or pet scan shows worsening on tx then she wants to be home with hospice. Thank you for allowing us to participate in the ongoing care of this patient. Please don't hesitate to call or page with any additional concerns. Dr. Cira Gilliland DNP Director, Palliative Care History of Present Illness Reason for Consultation: On 05/29/23 @ 09:00 Jose Hodgson Wrote To Cira Gilliland Please address goals of care Attending Physician: Jose Hodgson MD History of Present Illness Elizabeth was admitted 05/27/23 via ED for severe gram negative sepsis with hx Met BrCa s/p radiation and current chemo She has right breast cellulitis complicated by UTI and pyelonephritis, bacteremia. She is on Cefepime and dapto, IV CT Chest: Diffuse right-sided anterolateral extrathoracic edema versus diffuse bruising, correlation with history of trauma recommended. Thickening of the skin to the right breast with fluid infiltration/edema, cannot exclude diffuse infectious process/cellulitis. No drainable abscess seen. Large right-sided pleural effusion with trace left-sided effusion. Multilobar right-sided atelectasis with minimal left lower lobe atelectasis. CT BD:Left-sided pyelonephritis versus recently passed stone. Possible cystitis, correlation with urinalysis recommended. No bowel obstruction or focal inflammatory process throughout the gastrointestinal tract. ECHO: Left ventricle is normal in size. Normal left ventricle wall thickness. Left ventricular wall motion is normal. Left ventricle is hyperdynamic. EF 65 to 70%. Attic valve is not well-visualized. Trace mitral regurgitation. S/P right thoracentesis on 05/28/2023 Follow-up pleural fluid studies She sees Dr Mckeon at [facility] and has seen Dr Adolfo Weir Palliative med in 2021 She is [facility]/Marlon Hussein PA-C There are numerous adv care planning conversations noted, most recent as followed (per EMR Link); she had initially (2021) not wanted CPR but has in past 1-2 years changed to elect CPR. 11/27/2022 ACP meeting with Migel Hussein PA-C, states the following: Location: Home Individual(s) present for conversation: Patient Decisions Synopsis SmartLink Most Recent Value Past ~10 years 08/07/2022 15:56 Decisions CPR decision: Undecided about CPR08/07/2022 Undecided about CPR Intubation/Mechanical Ventilation decision: Patient chooses Intub ation/mechanical ventilation05/04/2022 Non-invasive ventilation or BIPAP decision: Patient chooses non-invasive ventilation. Select interventions below05/04/2022 Non-Invasive Ventilation Interventions: Oxygen only;CPAP;BIPAP;NIV05/04/2022 Antibiotic therapy decision: Patient chooses Antibiotic therapy05/04/2022 Artificial nutrition decision: Patient chooses Artificial nutrition04/06/2022 IV hydration decision: Patient chooses IV hydration05/04/2022 Blood transfusion decision: Patient chooses Blood transfusion04/06/2022 Lab draw decision: Patient chooses Lab draws04/21/2022 Hospice decision: Plans to elect hospice when treatment no longer working.07/21/2022 Dying at home decision: Patient chooses Dying at home05/04/2022 Dialysis decision: Patient chooses Dialysis04/06/2022 Additional Comments Synopsis SmartLink Most Recent Value Past ~10 years 08/07/2022 15:56 Additional Comments Additional Comments: undecided on cpr, previous POLST listed as DNR although discussed possibility of CPR more recently. Will need to f/u on POLST08/07/2022 undecided on cpr, previous POLST listed as DNR although discussed possibility of CPR more recently. Will need to f/u on POLST Discerning What Matters Most to the Patient: Synopsis SmartLink Most Recent Value Past ~10 years 08/07/2022 15:54 Discerning What Matters Most to the Patient In their own words, patient's UNDERSTANDING of their illness is: breast cancer not responding to previous chemo treatments08/07/2022 breast cancer not responding to previous chemo treatments Their current SYMPTOMS include: Pain;Reduced overall well being;Nausea;Lack of appetite;Depression;Anxiety08/07/2022 Pain;Reduced overall well being;Nausea;Lack of appetite;Depression;Anxiety They say their illness has CHANGED THEIR LIFE by: Less enjoyment (quality of life)08/07/2022 Less enjoyment (quality of life) The patient thinks COMPLICATIONS in the future may be: More pain;Death06/16/2022 Was PROGNOSIS discussed? Yes04/06/2022 Prognosis was discussed today as likely to live: A year or two04/06/2022 Progression of illness described as: Periods of stability with episodes of worsening04/06/2022 The patient's HOPES are: Maintain current functional abilities;Remission08/07/2022 Maintain current functional abilities;Remission with dignity, patient defines as: I don't want anything prolonged. I don't want any suffering.04/06/2022 Avoid symptoms include: Pain;Nausea;Vomiting06/16/2022 The patient defines LIVING WELL as: would love to be able to start painting again06/16/2022 The patient's FEARS/WORRIES about illness are: Being a burden to family;Going back to the hospital;Going to a senior care;"Being a vegetable" (define below)04/06/2022 "Being a vegetable", patient defines as: being on life support with no chance of recovery04/06/2022 The patient's PRIOR EXPERIENCES: mother was dnr but when she got sick her father elected for cpr and she in the ICU hooked up to machines05/04/2022 The patient considers these as 'UNACCEPTABLE OUTCOMES': "Being a vegetable" (define below);Unable to feed themselves;Unable to talk/interact with loved ones05/04/2022 "Being a vegetable", patient defines as: inability to care for herself05/04/2022 Prolonged hospital stay, patient defines as: any time04/06/2022 Prolonged senior care stay, patient defines as: any time04/06/2022 Prolonged mechanical ventilation, patient defines as: any time04/06/2022 Source: Content from [employer] Aligning Care With What Matters Most: Synopsis SmartLink Most Recent Value Past ~10 years 08/07/2022 15:56 Aligning Care With What Matters Most In their own words, the patient's understanding of their prognosis: understands her prognosis is poor, but is not giving up hope and would like to continue to try treatments08/07/2022 understands her prognosis is poor, but is not giving up hope and would like to continue to try treatments Interventions/Choices: CPR08/07/2022 CPR Rationale for Decisions Synopsis SmartLink Most Recent Value Past ~10 years 05/04/2022 10:13 CPR Their goals for CPR treatment are: chance for survival05/04/2022 chance for survival Unacceptable outcomes from CPR treatment are: no longer being independent05/04/2022 no longer being independent Synopsis SmartLink Most Recent Value Past ~10 years 04/06/2022 13:34 Intubation/mechanical ventilation Their goals for Intubation/mechanical ventilation treatment are: recover to point of being able to care for self, if was not able to care for self prior to intubation she would not want intubation04/06/2022 recover to point of being able to care for self, if was not able to care for self prior to intubation she would not want intubation Synopsis SmartLink Most Recent Value Past ~10 years 04/06/2022 13:34 Non-invasive ventilation or BIPAP Their goals for Non-invasive ventilation or BIPAP treatment are: shourt term with goal being return to state of being able to care for self04/06/2022 shourt term with goal being return to state of being able to care for self Synopsis SmartLink Most Recent Value Past ~10 years 04/06/2022 13:34 Artificial nutrition Their goals for Artificial nutrition treatment are: recover to point of being able to care for self, if was not able to care for self prior to tube feed she would not want feeding04/06/2022 recover to point of being able to care for self, if was not able to care for self prior to tube feed she would not want feeding [facility] EMR Link Review HEMATOLOGY/ONCOLOGY DIAGNOSIS: Metastatic inflammatory breast cancer, ER/RI positive and HER2/preethi negative DATE OF DIAGNOSIS: 08/04/21 TREATMENTHISTORY: DD AC followed by weekly Taxol (08/29/21 -02/20/22)- discontinued d/t disease progression Palbociclib (Ibrance)125mg daily D1-21 every 28 days(04/10/22 - ) Anastrozole CURRENT TREATMENT: faslodex 500mg IM every 4 weeks - first dose 08/10/22 ONCOLOGY HISTORY: Patientwith past history significant for rheumatoid arthritis, chronic fatigue syndrome and fibromyalgia recently diagnosed of right breast cancer. She initially noticed palpable mass in the right axillary area. She has this mass on and off for about 3 years. But recently in last few weeks it increase in size significantly with swelling of the right upper extremity. She is also complaining of increasing generalized weakness and bone pain. She had mammogram and targeted ultrasound of the right breast done on 07/21/2021 which revealedOn targeted ultrasound, there is a right 8 o'clock 3 cm from the nipple hypoechoic irregularly marginated mass, taller than wide, with spiculated margin and distal acoustic shadowing. This measures 5 x 9 x 6 mm and correspon ds to the lower outer quadrant mass seen mammographically. Right axillary hypoechoic shadowing oval masses corresponding to lymphadenopathy mammographically is seen. The largest measures 33 x 17 x 21 mm. Biopsy from the breast lesion and right axillary lymph node was done on 08/04/2021 histopathology is consistent with invasive carcinoma, no special type, histologic grade 2 and axillary lymph node biopsy was also positive for metastatic carcinoma. ER/RI were strongly positive and HER2/preethi negative. A. Right breast, biopsy: Invasive carcinoma, no special type, histologic grade 2 B. Right axilla: Metastatic carcinoma, see Comment. Comment (B): The metastatic carcinoma appears to be poorly-differentiated infiltrating as single and pleomorphic tumor cells. On immunostin, the tumor cells are positive for GATA3 and AE1/AE3, compatiblewith mammary origin. Estrogen Receptor (ER) protein expression is STRONGLY POSITIVE Progesterone Receptor (RI) protein expression is STRONGLY POSITIVE HER2 oncoprotein expression is NEGATIVE She was seen by Dr. Brown and because of the rapidly progressing disease with skin changes, skin punch biopsy was done and the result was consistent with nonspecific dermal infiltrates with rare CK7 positive cells A. Skin, right lower breast: Nonspecific dermal infiltrate with rare CK7 positive cells (see comment) Comment: The rare CK7 positive cell within the ink at the periphery of the specimen is suspicious for invasive carcinoma given the associated inflammatory infiltrate. Patient is complaining of generalized weakness and bone pain and feels that there is swelling in the lower extremity and left arm. She think her cancer has metastasized to the other areas. She denies smoking but the using vaping for last 5 years. Denies drinking. Family history significant for paternal aunt who was diagnosed of breast cancer. Paternal uncle was also diagnosed of pancreatic cancer. She had baseline PET scan doneon 08/10/2021which unfortunately revealedmetabolically-active mass in the outer quadrant of the right breast, consistent with biopsy-proven malignancy, metabolically-active axillary level I, II, III and bilateral supraclavicular lymph node metastases, metabolically- active osteolytic metastasis with a soft tissue component penetrating cortical bone within the proximal metadiaphysis of the right humerus. High risk for impending pathologic fracture. She has cancel the appointment was with orthopedics. PET/CT 11/08/21: IMPRESSION Positive response to therapy with decrease in metabolic activity in the right upper outer breast quadrant improved skin thickening and edema. Decrease in size and metabolic activity of right axillary and bilateral supraclavicular lymphadenopathy. Interval sclerosis of right proximal humerus metastatic lesion without evidence for metabolically active osseous disease. Because of the neuropathy Taxol dose was reduced by 20%. Interval History: PET/CT 03/28/22: IMPRESSION Recurrent right axillary lymph node metastasis. Change intreatmentplanto combination of anastrozole and Ibrance. Patient subsequently developed severe increase in LFTs. Tested positive for ac [place] hepatitis b infection. She was recently started on entecavir. Following closely with hepatology. Ibrance placed on hold. Follow-up PET scan was done on 07/18/2022 which revealed disease progression andnew spherical metabolically-active focus within the inner right breast, suspicious for recurrence breast cancer, new metabolically-active left supraclavicular lymph node metastasis. Increase in size and metabolic activity of 5 x 3 cm right axillary level II conglomerate lymph node metastases, new spherical metabolically-active foci within the right latissimus dorsi muscle, suspicious for soft tissue implants. Options of further treatment were discussed includingtreating her with the second-line hormone treatment Faslodex to which she was agreeable. She seems to have very aggressive disease which is not curable with overall poor prognosis. Allergies Allergy/AdvReac Type Severity Reaction Status Date / Time No Known Allergies Allergy Unverified 05/27/23 21:27 Home Medications Medication Instructions Recorded Confirmed Type alprazolam 1 mg tablet (Xanax) 1 mg PO BID PRN Sleep 08/24/21 05/27/23 History alprazolam 2 mg tablet (Xanax) 2 mg PO HS PRN Sleep 08/24/21 05/27/23 History fexofenadine 60 mg-pseudoephedrine 1 tab PO Q12H 08/24/21 05/27/23 History ER 120 mg tablet,ext.release,12 hr (Allergy Relief-D (fexofenadine)) ondansetron HCl 8 mg tablet 8 mg PO Q8H PRN Nausea 08/24/21 05/27/23 History prochlorperazine maleate 10 mg 10 mg PO Q6H PRN Nausea 08/24/21 05/27/23 History tablet (Compazine) venlafaxine 150 mg 150 mg PO QAM 08/24/21 05/27/23 History capsule,extended release 24 hr aripiprazole 5 mg tablet (Abilify) 5 mg PO QAM 01/17/23 05/27/23 History baclofen 5 mg tablet 5 mg PO BID PRN muscle spasm 01/17/23 05/27/23 History erythromycin 5 mg/gram (0.5 %) eye 0.25 inch ophthalmic (eye) DAILY 01/17/23 05/27/23 History ointment PRN Dry Eyes famotidine 20 mg tablet 20 mg PO HS 01/17/23 05/27/23 History oxycodone 5 mg tablet 5 mg PO Q6H PRN Pain, Severe 01/17/23 05/27/23 History calcium carbonate 250 mg calcium 250 mg PO DAILY 05/27/23 05/27/23 History (625 mg) tablet cholecalciferol (vitamin D3) 50 50 mcg PO QAM 05/27/23 05/27/23 History mcg (2,000 unit) capsule (Vitamin D3) entecavir 0.5 mg tablet 0.5 mg PO DAILY 05/27/23 05/27/23 History lidocaine-prilocaine 2.5 %-2.5 % 1 applic topical UD PRN 1 hr prior 05/27/23 05/27/23 History topical cream to accessing mediport pantoprazole 20 mg tablet,delayed 20 mg PO QAM 05/27/23 05/27/23 History release potassium chloride 10 mEq 10 meq PO QAM 05/27/23 05/27/23 History tablet,extended release Patient History Medical History (Updated 05/29/23 @ 13:26 by Cira Gilliland DNP) Cellulitis of chest wall Anterior chest wall pain Palliative care by specialist Advanced care planning/counseling discussion Dyspnea and respiratory abnormalities Weakness generalized Cancer related pain Rheumatoid arthritis Insomnia Fibromyalgia Depression Chronic fatigue syndrome Surgical History (Updated 08/24/21 @ 09:25 by Gloria Carranza, RN) S/P breast biopsy deliv NOS-unsp Family History (Updated 08/24/21 @ 10:28 by Gloria Carranza, SAMEER) Aunt Breast cancer Mother , Age 72 Arthritis Father , Age 93 Heart disease Dementia Daughter No problems noted. Sister No problems noted. Uncle Pancreatic cancer Social History Smoking Status: Former smoker Hx Alcohol Use: No Hx Substance Use: No Preferred Language: Mosotho Communication Ability: Effective Shoe Treer Required: No Beliefs That Will Affect Care: None Current Living Situation: Alone and Family Current Living Situation Comment: with caregiver/family Feels Safe at Home: Yes Assistive Devices: None Review of Systems Review of Systems: All systems reviewed & are unremarkable except as noted in Subjective Physical Exam Physical Exam: Resting in bed, mild distress NCAT, perrla, eomi's neck supple and without stridor Anterior chest wall right with edema and erythema, cellulitic changes to breast resp effort WNL no rhonchi or wheezing, intermittent dry cough S1S2, no overt JVD abd soft, BS+ mild weakness Trace edema BLE and BUE AAOx3 Results & Data Vital Signs (Past 12 Hours) Vital Signs Temp Pulse Pulse Resp BP Pulse Ox O2 Del Method 05/29/23 07:52 36.7 C 99 H 18 90/63 L 96 Nasal Cannula 05/29/23 07:29 101 H 05/29/23 02:34 37.4 C 105 H 18 103/60 95 Nasal Cannula 05/28/23 23:09 111 H 05/28/23 22:30 37.2 C 94 H 18 108/58 L 99 Nasal Cannula O2 Flow Rate 05/29/23 07:52 05/29/23 07:29 05/29/23 02:34 2 05/28/23 23:09 05/28/23 22:30 2 Laboratory Results see HPI. data reviewed Diagnostic Findings see HPI. data reviewed PG Care Time/CCT Total # of Minutes Spent Total Time Spent with Patient: Total time spent is greater than 50% in coordination of care (as documented) at patient's floor/unit and/or counseling patient: I spent 100 minutes overall addressing this case: 20 min in medical data review/discussion with referring provider(s) and/or preparation for the visit 25 min in direct interaction with the patient/exam 30 min in Advance Care Planning/Goals of Care discussions as detailed above in note (must be >16min) 10 min in subsequent review and synthesis of assessment and plan 15 min communicating with other providers regarding the patient's case: Advanced Care Planning 46393 Advanced Care Planning 30 [place] [address] IN/OBS CONSULT LVL 5,80M Patient Type New History Comprehensive Exam Comprehensive Medical Decision Making High Complexity Diagnoses Cancer related pain G89.3 Weakness generalized R53.1 Dyspnea and respiratory abnormalities R06.00; R06.89 Advanced care planning/counseling discussion Z71.89 Palliative care by specialist Z51.5 Malignant neoplasm of breast metastatic to bone C50.919; C79.51 Anterior chest wall pain R07.89 Cellulitis of chest wall L03.313 Additional Codes Advanced Care Planning - 59044 Advanced Care Planning 30 Min: 42219 Advanced Care Planning 30 Min ([id number])
[2023-05-29] MEDS: IRON SUCROSE 200 MG in 0.9 % SODIUM CHLORIDE 100 ML IV ONE (10:04)
--- NOTE | 2023-05-29 11:56 | Cardiology Progress Note ---
Date of Service May 29, 2023 Assessment & Plan (1) Sepsis: (2) Acute UTI: (3) Cellulitis: (4) Anemia: (5) Tachycardia: (6) Elevated troponin I level: (7) Metastatic cancer: Plan Assessment: 63 year old female with known metastatic breast carcinoma currently undergoing chemotherapy presents with 3 day history of fever, urinary symptoms and a skin lesion. Positive UTI, septic and tachycardic. Plan: 1. Sepsis 2. Acute UTI 3. Cellulitis -Patient remains afebrile at time of today's exam; however, acutely ill. Labs demonstrate ongoing infection with positive Urine culture and Blood cultures. Open blister/lesion on right breast suggestive of cellulitis. -Tachycardic in response to infection and fevers, slight improvement -Slight trend down in WBC, receiving ongoing IV antibiotics -Mild Elevation in troponin likely demand response in the setting of sepsis, tachycardia and anemia. Will continue to trend troponin to peak -Echocardiogram as noted with normal LVEF, trace MR, mild aortic sclerosis without stenosis. -Continued improvement in breathing following thoracenteses -Continued management of infectious process by primary team. -Continued improvement in HR with fever control, ongoing antibiotics and gentle IV fluid resuscitation -BP demonstrates slight improvement today 4. Anemia: -H/H with slight improvement 8.6/25.2 post transfusion with no edwin source of bleeding. Continue with transfusions and/or close monitoring as arranged by primary team. close monitoring of fluid status 5. Tachycardia 6. Elevated Troponin -Multifactorial in the setting of acute sepsis and anemia. Preliminary review of echo suggest that patient is hyperdynamic and would benefit from gentle IV fluid resuscitation in the setting of sepsis. Continued management of fever and infection per primary team. -Echo demonstrates normal LVEF and no wall motion abnormalities -Trop peak at 79, remains chest pain free. -No further cardiac testing needed at this time. 7. Metastatic Breast CA -Per management of primary team and Heme/Onc Case has been discussed with Dr. Barlow. Further recommendations regarding plan of care as per his assessment. I spent a total of 30 minutes on the date of service in preparation, delivery, documentation of the care provided to the patient excluding any time spent in the performance of separately billed services. VIVIEN Nagy [facility] Cardiology [facility] Admission and Anticipated Discharge Date Admission Date: May 27, 2023 Supervising Physician Co-Signing Physician Notes Patient was seen and personally examined. Chart, medications, telemetry reviewed. Assessment and plan as above by advanced provider personally reviewed and discussed with myself. Additional 20 minutes of evaluation time in chart review, documentation performed Critically ill 63-year-old female presented with gram-negative bacteremia and sepsis with hemodynamic compromise, elevated troponin secondary to demand issues. No evidence of LV dysfunction or myocardial injury by echocardiogram and EKG Would recommend continue to treat underlying sepsis and anemia, malignancy issues Keep I's and O's equal with diuretics as necessary Contact with any further question Subjective 05/29/23: Patient seen and examined at bedside today. Labs, vitals, diagnostics and documentation reviewed. patient is resting at this time, denies any chest pain, pressure or palpitations. She reports improvement in her breathing since undergoing thoracentesis yesterday. Chest xray this morning demonstrates improvement as well. Review of telemetry shows SR/ST remaining around 100bpm, no acute events overnight. Afebrile. WBC with very slight trend downward. Renal function stable. Serum K 3.4. Review of Systems Review of Systems: All systems reviewed & are unremarkable except as noted in HPI & below Physical Exam Constitutional: well nourished and + ill appearing Neck: normal visual inspection and trachea midline Respiratory: normal respiratory effort; no respiratory distress Auscultation: + diminished lung sounds (bilateral bases ); no crackles, no rales, no rhonchi and no wheezes Cardiovascular: Rate/Rhythm: + tachycardic Heart Sounds: normal S1 and normal S2; no murmur Vessels: dorsalis pedis pulses present; no JVD Extremities: no edema Skin: + wound (open blister approx quarter siz e on right breast. +erythema, no discharge) Psychiatric: A+Ox3, euthymic affect Results & Data Vital Signs (Past 12 Hours) Vital Signs Temp Pulse Pulse Resp BP Pulse Ox O2 Del Method 05/29/23 11:27 36.5 C 101 H 18 122/66 95 Nasal Cannula 05/29/23 10:14 Room Air 05/29/23 07:52 36.7 C 99 H 18 90/63 L 96 Nasal Cannula 05/29/23 07:29 101 H 05/29/23 02:34 37.4 C 105 H 18 103/60 95 Nasal Cannula O2 Flow Rate 05/29/23 11:27 1 05/29/23 10:14 05/29/23 07:52 05/29/23 07:29 05/29/23 02:34 2 Laboratory Results Cardiac Enzymes 05/28/23 Range/Units 10:26 Lactate Dehydrogenase 199 (86-244) U/L Troponin I High Sens 28.1 H D (0-14) pg/ml CBC 05/28/23 05/28/23 05/29/23 Range/Units 13:10 18:56 07:12 WBC 29.75 H (4.8-10.8) K/ul RBC 2.71 L (4.20-5.40) M/uL Hgb 7.6 L 9.0 L 8.6 L (12.0-16.0) g/dl Hct 23.0 L 26.1 L 25.2 L (37.0-47.0) % Plt Count 157 D (130-400) K/uL Neut # (Auto) 23.83 H (1.40-6.50) K/uL Lymph # (Auto) 0.49 L (1.20-3.40) K/uL Frontier # (Auto) 3.20 H (0.11-0.59) K/uL Eos # (Auto) 0.17 (0.00-0.50) K/uL Baso # (Auto) 0.11 (0.00-0.20) K/uL Comprehensive Metabolic Panel 05/28/23 05/29/23 Range/Units 10:26 07:12 Sodium 133 L (136-145) mmol/L Potassium 3.4 L (3.5-5.1) mmol/L Chloride 107 (98-107) mmol/L Carbon Dioxide 18 L (21-32) mmol/L BUN 15 (6-23) mg/dl Creatinine 0.71 (0.6-1.2) mg/dl Glucose 87 (70-99(Fasting)) mg/dl Calcium 6.9 L (8.6-10.3) mg/dl Total Protein 5.7 L (6.0-8.3) gm/dl Albumin 3.2 L (3.4-5.0) gm/dl Intake and Output 05/28/23 05/29/23 05/29/23 22:59 06:59 14:59 Intake Total 510 / 2213 200 / 2213 170 / 170 Output Total 500 / 1300 600 / 1300 Balance - 170 / 170 Intake: IV 170 / 170 Calcium Gluconate 10% 1,000 mg 60 / 60 In Sodium Chlor 0.9% Mini-B 50 ml @ 240 mls/hr IV 0915 ONE Rx# :[id number] Iron Sucrose 200 mg In 0.9 % 110 / 110 Sodium Chloride 100 ml @ 220 mls/hr IV TODAY@0915 ONE Rx#: [id number] Oral 200 / 1040 200 / 1040 Intake (Blood Product) Amt 310 / 620 Packed Cells, Leukored, Irrad 310 / 310 Unit [id number] Output: Urine Amount (Catheter) 500 / 1300 600 / 1300 External 500 / 1300 600 / 1300 Other: Weight 70.8 kg Weight Measurement Method Built in [facility] Diagnostic Findings Echocardiogram 05/28/23: Technically difficult study s/t tachycardia LVEF 65-70% Normal LV wall thickness and motion Aortic valve with mild sclerosis without significant Trace MR No suggestion of pulmonary HTN (1) Sepsis Sepsis acute organ dysfunction status: without acute organ dysfunction Sepsis type: sepsis due to unspecified organism Qualified Code(s): A41.9 - Sepsis, unspecified organism (3) Cellulitis Site of cellulitis: trunk Site of cellulitis of trunk: chest wall Qualified Code(s): L03.313 - Cellulitis of chest wall (4) Anemia Anemia type: unspecified type Qualified Code(s): D64.9 - Anemia, unspecified (7) Metastatic cancer Area of secondary neoplastic involvement: unspecified site Qualified Code(s): C79.9 - Secondary malignant neoplasm of unspecified site
[2023-05-29] MEDS: FUROSEMIDE INJ 20 MG/2 ML VIAL IV ONE (13:09)
[2023-05-29] MEDS: HYDROmorphone HCL 2 MG TAB PO PRN (16:04)
--- NOTE | 2023-05-29 16:18 | Hospitalist Progress Note ---
Date of Service May 29, 2023 Assessment & Plan (1) Sepsis: Plan: Severe Gram-negative Sepsis Immunocompromised patient H/O Metastatic breast cancer S/P radiation, ongoing chemotherapy Multifactorial:Right breast cellulitis, Complicated UTI/pyelonephritis, Mita teremia --CT Chest: Diffuse right-sided anterolateral extrathoracic edema versus diffuse bruising, correlation with history of trauma recommended. Thickening of the skin to the right breast with fluid infiltration/edema, cannot exclude diffuse infectious process/cellulitis. No drainable abscess seen. Large right-sided pleural effusion with trace left-sided effusion. Multilobar right-sided atelectasis with minimal left lower lobe atelectasis. --CT BD:Left-sided pyelonephritis versus recently passed stone. Possible cystitis, correlation with urinalysis recommended. No bowel obstruction or focal inflammatory process throughout the gastrointestinal tract. --Blood Culture: 04/08: Gram-negative bacilli -- Urine culture growing gram-negative bacilli --Repeat blood cultures pending Continue cefepime, daptomycin Received IV fluids. 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 Normal left ventricle wall thickness. Left ventricular wall motion is normal. Left ventricle is hyperdynamic. EF 65 to 70%. Attic valve is not well-visualized. Trace mitral regurgitation. S/P right thoracentesis on 05/28/2023 Follow-up pleural fluid studies Appreciate pulmonology input Saturating well on 2 L supplemental oxygen Cytology pending Given a dose of Lasix 20 mg today given concern for reexpansion pulmonary edema Saturating well on room air Anemia of chronic disease Likely Multifactorial: Metastatic disease, iron deficiency, chemotherapy-induced Microscopic hematuria contributing as well S/P 2 units PRBCs Also received IV Venofer Hyponatremia Likely dehydration Continue IV fluids Monitor sodium levels Mild troponin elevation Likely type II NV secondary to demand ischemia Troponin trended down Echo showed no wall motion abnormality Monitor H/O metastatic breast cancer Ongoing chemotherapy S/P radiation Follows with Dr. Quarles as outpatient Will need follow-up with oncology on discharge Appreciate palliative care input Poor prognosis Chronic HBV on chronic Entecavir treatment Rheumatoid arthritis currently not on maintenance meds Other chronic conditions: Chronic fatigue syndrome/fibromyalgia Anxiety/mood disorder Thrombocytopenia likely from chemotherapy Past tobacco abuse Continue home medications as able DVT Px: Thrombocytopenia, anemia Code Status Full code Admission and Anticipated Discharge Date Admission Date: May 27, 2023 Subjective Patient is seen and examined at bedside Subjectively feels slightly better when compared yesterday Otherwise no new complaints Respiratory status improving Discussed with pulmonology today Right breast pain is controlled Reports dyspnea on exertion Denies any dizziness, nausea, vomiting, abdominal pain, dysuria, hematuria Review of Systems Review of Systems: All systems reviewed & are unremarkable except as noted in Subjective Physical Exam Physical Exam: Physical Exam: Vitals signs as noted above General Appearance:Moderately built and nourished, no apparent distress, ill appearing Head: normocephalic, Atraumatic Eyes: normal inspection, EOMI Neck: supple, Trachea midline Respiratory/Chest: Decreased breath sounds predominantly on the right, CTA, + right breast firm, mild tenderness,+ blister no accessory muscle use Cardiovascular: S1, S2, No murmur Abdomen/GI:Soft, Non tender, Bowel sounds present Extremities/Musculoskeletal:normal inspection, no edema Neurologic/Psych:AAOX3, grossly no focal neurological deficits Skin: normal color, warm Results & Data Results & Data Vital Signs (Past 12 Hours) Vital Signs Temp Pulse Pulse Resp BP Pulse Ox O2 Del Method 05/29/23 15:47 105 H 05/29/23 14:49 36.4 C L 104 H 18 116/67 96 Room Air 05/29/23 11:27 36.5 C 101 H 18 122/66 95 Nasal Cannula 05/29/23 10:14 Room Air 05/29/23 07:52 36.7 C 99 H 18 90/63 L 96 Nasal Cannula 05/29/23 07:29 101 H O2 Flow Rate 05/29/23 15:47 05/29/23 14:49 05/29/23 11:27 1 05/29/23 10:14 05/29/23 07:52 05/29/23 07:29 Laboratory Results Short CBC 05/28/23 05/29/23 Range/Units 18:56 07:12 WBC 29.75 H (4.8-10.8) K/ul Hgb 9.0 L 8.6 L (12.0-16.0) g/dl Hct 26.1 L 25.2 L (37.0-47.0) % Plt Count 157 D (130-400) K/uL BMP 05/29/23 07:12 Sodium 133 L Potassium 3.4 L Chloride 107 Carbon Dioxide 18 L BUN 15 Creatinine 0.71 Glucose 87 Calcium 6.9 L (1) Sepsis Sepsis acute organ dysfunction status: without acute organ dysfunction Sepsis type: sepsis due to unspecified organism Qualified Code(s): A41.9 - Sepsis, unspecified organism
[2023-05-29] MEDS: HEPARIN 100 UNIT/ML 5ML FLUSH FLUSH PRN (21:54)
[2023-05-30] MEDS: KETOROLAC TROMETHAMINE 15 MG/ML VIAL IV ONE (04:12)
[2023-05-30 06:23] LABS: Hematocrit (blood only) 25.6 % (37.0-47.0); Hemoglobin 8.5 g/dl (12.0-16.0); Mean Corpuscular Hemoglobin 31.6 pg (25.0-34.0); Mean Corpuscular Hgb Conc 33.2 g/dL (32.0-36.0); Mean Corpuscular Volume 95.2 fL (80.0-100.0); Mean Platelet Volume 9.3 fL (9.4-12.4); Nucleated RBC # (auto) 0.03 K/uL (0.00-0.12); Nucleated RBC % (auto) 0.1 %; Platelet Count 184 K/uL (130-400); RDW Coefficient of Variation 21.2 % (11.5-14.5); RDW Standard Deviation 69.2 fL (36.4-46.3); Red Blood Count 2.69 M/uL (4.20-5.40); White Blood Count 23.89 K/ul (4.8-10.8)
[2023-05-30 06:40] LABS: BUN Creatinine Ratio 22.2 (10-20); Calcium 7.2 mg/dl (8.6-10.3); Creatinine Clr Calc Pharmacy 69.9 ml/min; Est GFR (African American) 101.9 ml/min; Est GFR (Non-African American) 87.9 ml/min; Potassium 3.7 mmol/L (3.5-5.1)
[2023-05-30 06:48] LABS: Anisocytosis Present; Basophils # (auto) 0.16 K/uL (0.00-0.20); Basophils % (auto) 0.7 %; Dohle Bodies 2+; Eosinophils # (auto) 0.26 K/uL (0.00-0.50); Eosinophils % (auto) 1.1 %; Immature Granulocytes # (auto) 1.73 K/uL (0.01-0.20); Immature Granulocytes % (auto) 7.2 %; Lymphocytes # (auto) 0.63 K/uL (1.20-3.40); Lymphocytes % (auto) 2.6 %; Monocytes # (auto) 3.13 K/uL (0.11-0.59); Monocytes % (auto) 13.1 %; Neutrophils # (auto) 17.98 K/uL (1.40-6.50); Neutrophils % (auto) 75.3 %; Polychromasia 1+; Toxic Granulation 1+
--- NOTE | 2023-05-30 07:13 | Pulmonology Progress Note ---
Date of Service May 30, 2023 Assessment & Plan (1) Pleural effusion: (2) Acute respiratory failure with hypoxia: (3) Malignant neoplasm of breast metastatic to bone: Plan CT chest 05/27/2023 personally reviewed: Large right-sided pleural effusion with atelectasis of the right lower lobe Interlobular thickening appreciated even on the left upper lobe No significant mediastinal adenopathy 2D echo 04/29/2023: EF 65-70%, RV normal in size and function -- Right-sided pleural effusion New Never had thoracentesis done in the past Possibility of it being from breast cancer is high, chemotherapy induced pleural effusion cannot be 100% rule out S/p thoracentesis 05/28/2023, 1500 mL exudative fluid removed Pleural fluid: LDH 107, protein 3.5, pH 7.43 Serum: LVH 199, protein 5.7 --Acute hypoxic respiratory failure Likely secondary to pleural effusion Continue with O2 supplementation give oxygen saturation 90-92% --Metastatic breast cancer On chemotherapy Plan: In/out: -750 Chest x-ray from today shows improvement in the right-sided opacities compared to yesterday. Lasix from yesterday did help. Continue with incentive spirometry Recommend following up cytology from the fluid Case was discussed with Dr. Hodgson No further recommendation from pulmonary perspective, will sign off Please call directly with any questions Please note the above document was generated using voice recognition software. It may contain grammatical, syntax or spelling errors.Any formal questions or concerns about the content, text or information contained within the body of this dictation should be directly addressed to the provider for clarification. Admission and Anticipated Discharge Date Admission Date: May 27, 2023 Subjective Patient seen and examined at bedside. No acute distress, no adverse events overnight. She was saturating 97% on room air. She stated she is feeling better when it comes to her breathing Still complains of generalized lethargy. Appetite is poor. No nausea vomiting No abdominal pain. Review of Systems 2 Review of Systems: All systems reviewed & are unremarkable except as noted in Subjective Physical Exam 2 Physical Exam: Constitutional: No acute distress, lethargic HEENT: EOMI, PERRLA Respiratory system: Decreased air entry bilaterally, no wheeze, no rhonchi, mild crackles especially in the right side CVS: S1-S2 positive, no murmurs or gallops Abdomen: Soft, nontender, nondistended, positive bowel sounds x4 Extremities: +2 pulses bilaterally radialis/ dorsalis pedis, no cyanosis, no edema Neuro: Awake alert oriented x3 Psych: Normal mood and affect G/U: Pure wick Musculoskeletal: Right side deformed breast with peau d'orange, no fluctuations, no clear drainage appreciated. Skin: no rashes, warm and dry Lymphatic: no cervical or axillary lymphadenopathy Results & Data Results & Data Vital Signs (Past 12 Hours) Vital Signs Temp Pulse Pulse Resp BP Pulse Ox O2 Del Method 05/30/23 04:15 87/60 L 05/30/23 03:03 36.9 C 100 H 18 94/60 L 93 Room Air 05/29/23 23:23 37.9 C H 108 H 18 106/74 93 Room Air 05/29/23 22:52 106 H 05/29/23 21:24 Room Air 05/29/23 19:40 37.4 C 105 H 20 99/68 L 92 Room Air Laboratory Results 05/30/23 06:00 05/30/23 06:00 PG Care Time/CCT Total # of Minutes Spent Total Time Spent with Patient: Total time spent is greater than 50% in coordination of care (as documented) at patient's floor/unit and/or counseling patient: Coding Level of Care Code 85118 SUB INP/OBS CARE 2/35MIN Diagnoses Pleural effusion J90 Acute respiratory failure with hypoxia J96.01 Malignant neoplasm of breast metastatic to bone C50.919; C79.51
--- NOTE | 2023-05-30 08:14 | XRay Report ---
SINGLE VIEW CHEST CLINICAL HISTORY: Follow-up pleural effusion status post right thoracentesis. FINDINGS: An AP, portable, upright chest radiograph is compared to study dated 05/29/2023. Correlation is made with chest CT dated 05/27/2023. A left internal jugular central venous infusion port is uncha nged in position. The cardiomediastinal silhouette is unremarkable. A small right pleural effusion pe rsists. Airspace opacities in the right mid and lower lung have partially cleared from yesterday. No pneumothorax is seen. The skeletal structures are osteopenic. The bony thorax is grossly intact. IMPRESSION: 1. Airspace opacities in the right mid to lower lung have partially cleared as compared to yesterday. Continued follow-up to resolution is recommended. 2. A small right pleural effusion persists. ACT 112: Negative or not required by law. Electronically signed by: Cecilio Rodríguez M.D. 05/30/2023 8:13 AM
[2023-05-30] MEDS ORDERED: oxyCODONE/ACETAMINOPHEN 5mg/325mg TAB PO PRN (11:41)
--- NOTE | 2023-05-30 15:13 | Hospitalist Progress Note ---
Date of Service May 30, 2023 Assessment & Plan (1) Sepsis: Plan: Severe Gram-negative Sepsis Immunocompromised patient H/O Metastatic breast cancer S/P radiation, ongoing chemotherapy Multifactorial:Right breast cellulitis, Complicated UTI/pyelonephritis, Mita teremia --CT Chest: Diffuse right-sided anterolateral extrathoracic edema versus diffuse bruising, correlation with history of trauma recommended. Thickening of the skin to the right breast with fluid infiltration/edema, cannot exclude diffuse infectious process/cellulitis. No drainable abscess seen. Large right-sided pleural effusion with trace left-sided effusion. Multilobar right-sided atelectasis with minimal left lower lobe atelectasis. --CT BD:Left-sided pyelonephritis versus recently passed stone. Possible cystitis, correlation with urinalysis recommended. No bowel obstruction or focal inflammatory process throughout the gastrointestinal tract. --Blood Culture: 04/08: E. coli -- Urine culture growing gram-negative bacilli --Repeat blood cultures negative to date Continue cefepime, daptomycin for now Received IV fluids. 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 Normal left ventricle wall thickness. Left ventricular wall motion is normal. Left ventricle is hyperdynamic. EF 65 to 70%. Attic valve is not well-visualized. Trace mitral regurgitation. S/P right thoracentesis on 05/28/2023 Follow-up pleural fluid studies Appreciate pulmonology input Saturating well on 2 L supplemental oxygen Cytology consistent with malignant pleural effusion Lasix as needed Saturating well on room air Anemia of chronic disease Likely Multifactorial: Metastatic disease, iron deficiency, chemotherapy-induced Microscopic hematuria contributing as well S/P 2 units PRBCs Also received IV Venofer Hyponatremia Likely dehydration Received IV fluids Diuretics could have contributed as well Monitor sodium levels Mild troponin elevation Likely type II DE secondary to demand ischemia Troponin trended down Echo showed no wall motion abnormality Monitor H/O metastatic breast cancer Ongoing chemotherapy S/P radiation Follows with Dr. Quarles as outpatient Will need follow-up with oncology on discharge Appreciate palliative care input Poor prognosis Chronic HBV on chronic Entecavir treatment Rheumatoid arthritis currently not on maintenance meds Other chronic conditions: Chronic fatigue syndrome/fibromyalgia Anxiety/mood disorder Thrombocytopenia likely from chemotherapy Past tobacco abuse Continue home medications as able DVT Px: Thrombocytopenia, anemia Code Status Full code Admission and Anticipated Discharge Date Admission Date: May 27, 2023 Subjective Patient seen and examined at bedside. States having generalized pain and feels weak and tired No other complaints Chest x-ray today showed improved volume status Pleural cytology consistent with malignant pleural effusion Saturating well on room air Denies any chest pain, dizziness, nausea, vomiting, abdominal pain No other complaints Review of Systems Review of Systems: All systems reviewed & are unremarkable except as noted in Subjective Physical Exam Physical Exam: Physical Exam: Vitals signs as noted above General Appearance:Moderately built and nourished, no apparent distress, ill appearing Head: normocephalic, Atraumatic Eyes: normal inspection, EOMI Neck: supple, Trachea midline Respiratory/Chest: Decreased breath sounds predominantly on the right, CTA, + right breast firm, mild tenderness,+ blister no accessory muscle use Cardiovascular: S1, S2, No murmur Abdomen/GI:Soft, Non tender, Bowel sounds present Extremities/Musculoskeletal:normal inspection, no edema Neurologic/Psych:AAOX3, grossly no focal neurological deficits Skin: normal color, warm Results & Data Results & Data Vital Signs (Past 12 Hours) Vital Signs Temp Pulse Pulse Resp BP Pulse Ox O2 Del Method 05/30/23 11:29 36.7 C 63 18 105/65 98 Room Air 05/30/23 08:05 87 05/30/23 08:00 Room Air 05/30/23 07:44 36.6 C 92 H 18 96/59 L 93 Room Air 05/30/23 04:15 87/60 L Laboratory Results Short CBC 05/30/23 Range/Units 06:00 WBC 23.89 H (4.8-10.8) K/ul Hgb 8.5 L (12.0-16.0) g/dl Hct 25.6 L (37.0-47.0) % Plt Count 184 (130-400) K/uL BMP 05/30/23 06:00 Sodium 130 L Potassium 3.7 Chloride 105 Carbon Dioxide 20 L BUN 16 Creatinine 0.72 Glucose 96 Calcium 7.2 L (1) Sepsis Sepsis acute organ dysfunction status: without acute organ dysfunction Sepsis type: sepsis due to unspecified organism Qualified Code(s): A41.9 - Sepsis, unspecified organism
[2023-05-30] MEDS: traMADol HCL 50 MG TABLET PO PRN (17:52)
[2023-05-31 06:28] LABS: Calcium 7.5 mg/dl (8.6-10.3); Creatinine Clr Calc Pharmacy 82.9 ml/min; Est GFR (African American) 110.3 ml/min; Est GFR (Non-African American) 95.1 ml/min
[2023-05-31 06:33] LABS: Hematocrit (blood only) 25.9 % (37.0-47.0); Hemoglobin 8.9 g/dl (12.0-16.0); Mean Corpuscular Hemoglobin 32.4 pg (25.0-34.0); Mean Corpuscular Hgb Conc 34.4 g/dL (32.0-36.0); Mean Corpuscular Volume 94.2 fL (80.0-100.0); Mean Platelet Volume 9.2 fL (9.4-12.4); Platelet Count 260 K/uL (130-400); RDW Coefficient of Variation 20.7 % (11.5-14.5); RDW Standard Deviation 66.7 fL (36.4-46.3); Red Blood Count 2.75 M/uL (4.20-5.40); White Blood Count 24.56 K/ul (4.8-10.8)
[2023-05-31 07:33] LABS: Anisocytosis Present; Basophils # (auto) 0.12 K/uL (0.00-0.20); Basophils % (auto) 0.5 %; Eosinophils # (auto) 0.23 K/uL (0.00-0.50); Eosinophils % (auto) 0.9 %; Immature Granulocytes # (auto) 1.41 K/uL (0.01-0.20); Immature Granulocytes % (auto) 5.7 %; Lymphocytes # (auto) 0.82 K/uL (1.20-3.40); Lymphocytes % (auto) 3.3 %; Monocytes # (auto) 2.83 K/uL (0.11-0.59); Monocytes % (auto) 11.5 %; Neutrophils # (auto) 19.15 K/uL (1.40-6.50); Neutrophils % (auto) 78.1 %; Polychromasia 1+; Toxic Granulation 1+
[2023-05-31] MEDS ORDERED: POLYETHYLENE (MIRALAX) 17 GM PACK PO PRN (08:50)
[2023-05-31] MEDS: DOCUSATE SODIUM 100 MG CAP PO SCH (08:53)
--- NOTE | 2023-05-31 15:54 | Hospitalist Progress Note ---
Date of Service May 31, 2023 Assessment & Plan (1) Sepsis: Plan: Severe Gram-negative Sepsis Immunocompromised patient H/O Metastatic breast cancer S/P radiation, ongoing chemotherapy Multifactorial:Right breast cellulitis, Complicated UTI/pyelonephritis, Mita teremia --CT Chest: Diffuse right-sided anterolateral extrathoracic edema versus diffuse bruising, correlation with history of trauma recommended. Thickening of the skin to the right breast with fluid infiltration/edema, cannot exclude diffuse infectious process/cellulitis. No drainable abscess seen. Large right-sided pleural effusion with trace left-sided effusion. Multilobar right-sided atelectasis with minimal left lower lobe atelectasis. --CT BD:Left-sided pyelonephritis versus recently passed stone. Possible cystitis, correlation with urinalysis recommended. No bowel obstruction or focal inflammatory process throughout the gastrointestinal tract. --Blood Culture: 04/08: E. coli -- Urine culture growing gram-negative bacilli --Repeat blood cultures negative to date Continue cefepime, daptomycin for now Received IV fluids. Cautious use of IV fluids Repeat Chest x-ray showed improved volume status Persistent leukocytosis Follow-up cultures, titrate antibiotics as able B/L Pleural effusions R> L Likely Malignant pleural effusion H/O breast cancer -- CT chest as above --ECHO: Left ventricle is normal in size. Normal left ventricle wall thickness. Left ventricular wall motion is normal. Left ventricle is hyperdynamic. EF 65 to 70%. Attic valve is not well-visualized. Trace mitral regurgitation. S/P right thoracentesis on 05/28/2023 Follow-up pleural fluid studies Appreciate pulmonology input Saturating well on 2 L supplemental oxygen Cytology consistent with malignant pleural effusion Lasix as needed Saturating well on room air Anemia of chronic disease Likely Multifactorial: Metastatic disease, iron deficiency, chemotherapy-induced Microscopic hematuria contributing as well S/P 2 units PRBCs Also received IV Venofer Hyponatremia Likely dehydration Received IV fluids Diuretics could have contributed as well Monitor sodium levels Sodium level 133 today Constipation Started on bowel regimen Consider KUB if no improvement Bowel sounds heard on exam today Denies any abdominal pain Mild troponin elevation Likely type II [place] secondary to demand ischemia Troponin trended down Echo showed no wall motion abnormality Monitor H/O metastatic breast cancer Ongoing chemotherapy S/P radiation Follows with Dr. Quarles as outpatient Will need follow-up with oncology on discharge Appreciate palliative care input Poor prognosis Chronic HBV on chronic Entecavir treatment Rheumatoid arthritis currently not on maintenance meds Other chronic conditions: Chronic fatigue syndrome/fibromyalgia Anxiety/mood disorder Thrombocytopenia likely from chemotherapy Past tobacco abuse Continue home medications as able Thrombocytopenia resolved DVT Px: SCDs Heparin SQ Code Status Full code Admission and Anticipated Discharge Date Admission Date: May 27, 2023 Subjective Patient seen and examined at bedside. Overall feels better today Reports constipation No other new complaints Denies any chest pain, dizziness, nausea, vomiting, abdominal pain Review of Systems Review of Systems: All systems reviewed & are unremarkable except as noted in Subjective Physical Exam Physical Exam: Physical Exam: Vitals signs as noted above General Appearance:Moderately built and nourished, no apparent distress, ill appearing Head: normocephalic, Atraumatic Eyes: normal inspection, EOMI Neck: supple, Trachea midline Respiratory/Chest: Decreased breath sounds predominantly on the right, CTA, + right breast firm, mild tenderness,+ blister no accessory muscle use Cardiovascular: S1, S2, No murmur Abdomen/GI:Soft, Non tender, Bowel sounds present Extremities/Musculoskeletal:normal inspection, no edema Neurologic/Psych:AAOX3, grossly no focal neurological deficits Skin: normal color, warm Results & Data Results & Data Vital Signs (Past 12 Hours) Vital Signs Temp Pulse Pulse Resp BP Pulse Ox O2 Del Method 05/31/23 11:29 36.7 C 95 H 18 99/63 L 96 Room Air 05/31/23 10:12 97 H 05/31/23 08:00 Room Air 05/31/23 07:45 36.7 C 85 18 119/62 95 Room Air Laboratory Results Short CBC 05/31/23 Range/Units 05:42 WBC 24.56 H (4.8-10.8) K/ul Hgb 8.9 L (12.0-16.0) g/dl Hct 25.9 L (37.0-47.0) % Plt Count 260 (130-400) K/uL BMP 05/31/23 05:42 Sodium 133 L Potassium 4.0 Chloride 108 H Carbon Dioxide 21 BUN 11 Creatinine 0.61 Glucose 90 Calcium 7.5 L (1) Sepsis Sepsis acute organ dysfunction status: without acute organ dysfunction Sepsis type: sepsis due to unspecified organism Qualified Code(s): A41.9 - Sepsis, unspecified organism
[2023-05-31] MEDS: HEPARIN SOD 5,000 UNIT/0.5 ML VIAL SQ SCH (20:36)
[2023-05-31] MEDS: HYDROmorphone HCL 2 MG TAB PO STA (22:41)
--- NOTE | 2023-05-31 22:49 | Ultrasound Report ---
ULTRASOUND RIGHT UPPER EXTREMITY VENOUS CLINICAL HISTORY: Right arm pain and swelling. COMPARISON STUDY: No priors. TECHNIQUE: Real-time, grayscale, and color Doppler sonography of the deep veins of the right upper ex tremity is performed. Compression and augmentation were utilized. FINDINGS: There is no sonographic evidence of deep venous thrombosis identified in the right upper ex tremity. The right internal jugular, axillary, and brachial veins are patent and normally compressibl e. Normal venous waveforms and augmentation are seen within the right subclavian vein. The cephalic a nd basilic veins are clear. The visualized radial and ulnar veins are patent. IMPRESSION: There is no sonographic evidence of deep venous thrombosis identified in the right upper extremity. ACT 112: Negative or not required by law. Electronically signed by: Cecilio Rodríguez M.D. 05/31/2023 10:47 PM
[2023-06-01] MEDS: HYDROmorphone HCL 2 MG TAB PO STA (02:48)
[2023-06-01 06:47] LABS: Hematocrit (blood only) 26.6 % (37.0-47.0); Hemoglobin 8.9 g/dl (12.0-16.0); Mean Corpuscular Hemoglobin 32.8 pg (25.0-34.0); Mean Corpuscular Hgb Conc 33.5 g/dL (32.0-36.0); Mean Corpuscular Volume 98.2 fL (80.0-100.0); Mean Platelet Volume 9.2 fL (9.4-12.4); Platelet Count 283 K/uL (130-400); RDW Coefficient of Variation 21.5 % (11.5-14.5); RDW Standard Deviation 70.4 fL (36.4-46.3); Red Blood Count 2.71 M/uL (4.20-5.40); White Blood Count 23.62 K/ul (4.8-10.8)
[2023-06-01 06:49] LABS: BUN Creatinine Ratio 16.7 (10-20); Calcium 7.5 mg/dl (8.6-10.3); Creatinine Clr Calc Pharmacy 90.8 ml/min; Est GFR (African American) 114.8 ml/min; Potassium 3.9 mmol/L (3.5-5.1)
--- NOTE | 2023-06-01 07:37 | Pulmonology Progress Note ---
Date of Service June 01, 2023 Assessment & Plan (1) Pleural effusion: (2) Acute respiratory failure with hypoxia: (3) Malignant neoplasm of breast metastatic to bone: Plan CT chest 05/27/2023 personally reviewed: Large right-sided pleural effusion with atelectasis of the right lower lobe Interlobular thickening appreciated even on the left upper lobe No significant mediastinal adenopathy 2D echo 04/29/2023: EF 65-70%, RV normal in size and function -- Right-sided pleural effusion --> cytology is positive for underlying malignancy New Never had thoracentesis done in the past Possibility of it being from breast cancer is high, chemotherapy induced pleural effusion cannot be 100% rule out S/p thoracentesis 05/28/2023, 1500 mL exudative fluid removed Pleural fluid: LDH 107, protein 3.5, pH 7.43 Serum: LVH 199, protein 5.7 --Acute hypoxic respiratory failure Likely secondary to pleural effusion Continue with O2 supplementation give oxygen saturation 90-92% --Metastatic breast cancer On chemotherapy Plan: In/out: -635, urine output 1400 mL Continue with incentive spirometry Would recommend out of bed to chair Oncology was updated regarding positive cytology on the pleural fluid No further recommendation from pulmonary perspective, will sign off Please call directly with any questions Please note the above document was generated using voice recognition software. It may contain grammatical, syntax or spelling errors.Any formal questions or concerns about the content, text or information contained within the body of this dictation should be directly addressed to the provider for clarification. Admission and Anticipated Discharge Date Admission Date: May 27, 2023 Subjective Patient was seen and examined at bedside. No acute distress, no adverse events overnight Denies any headache, no nausea, no vomiting Shortness of breath is significantly improved. Denies any cough She is feeling much better since the time she came to the hospital Review of Systems 2 Review of Systems: All systems reviewed & are unremarkable except as noted in Subjective Physical Exam 2 Physical Exam: Constitutional: No acute distress, lethargic HEENT: EOMI, PERRLA Respiratory system: Decreased air entry bilaterally, no wheeze, no rhonchi, minimal crackles bilaterally CVS: S1-S2 positive, no murmurs or gallops Abdomen: Soft, nontender, nondistended, positive bowel sounds x4 Extremities: +2 pulses bilaterally radialis/ dorsalis pedis, no cyanosis, no edema Neuro: Awake alert oriented x3 Psych: Normal mood and affect G/U: Pure wick Musculoskeletal: Right side deformed breast with peau d'orange, no fluctuations, no clear drainage appreciated. Skin: no rashes, warm and dry Lymphatic: no cervical or axillary lymphadenopathy Results & Data Results & Data Vital Signs (Past 12 Hours) Vital Signs Temp Pulse Pulse Resp BP Pulse Ox O2 Del Method 06/01/23 02:32 36.5 C 96 H 18 113/65 92 Room Air 05/31/23 23:40 37.2 C 95 H 18 111/64 94 Room Air 05/31/23 23:34 96 H 05/31/23 20:26 37.6 C H 97 H 18 107/63 96 Room Air 05/31/23 20:15 Room Air Laboratory Results 06/01/23 05:47 06/01/23 05:47 PG Care Time/CCT Total # of Minutes Spent Total Time Spent with Patient: Total time spent is greater than 50% in coordination of care (as documented) at patient's floor/unit and/or counseling patient: Coding Level of Care Code 07130 SUB INP/OBS CARE 2/35MIN Diagnoses Pleural effusion J90 Acute respiratory failure with hypoxia J96.01 Malignant neoplasm of breast metastatic to bone C50.919; C79.51
[2023-06-01] MEDS: CIPROFLOXACIN / D5W 400 MG/200 ML BAG IV SCH (09:44)
--- NOTE | 2023-06-01 10:12 | Hospitalist Progress Note ---
Date of Service June 01, 2023 Assessment & Plan (1) Sepsis: Plan: Ms. 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 #Severe Gram-negative Sepsis #GNB Bacteremia likely e coli #Left pyelonephritis 2/2 e coli #Immunocompromised patient Multifactorial:Right breast cellulitis, Complicated UTI/pyelonephritis, Bacteremia --CT Chest: Diffuse right-sided anterolateral extrathoracic edema versus diffuse bruising, correlation with history of trauma recommended. Thickening of the skin to the right breast with fluid infiltration/edema, cannot exclude diffuse infectious process/cellulitis. No drainable abscess seen. Large right-sided pleural effusion with trace left-sided effusion. Multilobar right-sided atelectasis with minimal left lower lobe atelectasis. --CT BD:Left-sided pyelonephritis versus recently passed stone. Possible cystitis, correlation with urinalysis recommended. No bowel obstruction or focal inflammatory process throughout the gastrointestinal tract. --Blood Culture: 04/08: E. coli, Urine culture growing gram-negative bacilli --Repeat blood cultures negative to date Given fairly persistent symptoms and continued urinary symptoms, will transition to Ciprofloxacin for pyelo management On Dapto for ?breast cellultitis, order MRSA nare and discontinue if negative #Acute hypoxic respiratory failure 2/2 pleural effusion, resolved #Right Stage IV inflammatory breast cancer #B/L Pleural effusions R> L, likely Malignant pleural effusion #Metastatic stage IV inflammatory breast cancer s/p radiation, ongoing chemotherapy -- CT chest as above --ECHO: Left ventricle is normal in size. Normal left ventricle wall thickness. Left ventricular wall motion is normal. Left ventricle is hyperdynamic. EF 65 to 70%. Attic valve is not well-visualized. Trace mitral regurgitation. S/P right thoracentesis on 05/28/2023 -Follow-up pleural fluid studies, consistent thus far with malignant pleural effusion Appreciate pulmonology input -Reviewed note from 05/31, noted improvement on lung imaging; continue IS, pulm to sign off at this time On Room air #Recent radiation dermatitis to right breast, c/f superimposed infectious cellulitis Swelling on right breast reported to improve per patient MRSA nare orderd, d/c dapto if negative #Acute on chronic Anemia of chronic disease *stable Likely Multifactorial: Metastatic disease, iron deficiency, chemotherapy- induced, sepsis S/P 2 units PRBCs Also received IV Venofer Stable over course of 48 hours #Hyponatremia uptrending Likely dehydration Received IV fluids Diuretics could have contributed as well Monitor sodium levels #Constipation Started on bowel regimen Bisacodyl x 1 #Mild troponin elevation, likely iso sepsis Likely type II [place] secondary to demand ischemia Troponin trended down Echo showed no wall motion abnormality Monitor #Chronic HBV on chronic Entecavir treatment #Rheumatoid arthritis currently not on maintenance meds Other chronic conditions: Chronic fatigue syndrome/fibromyalgia Anxiety/mood disorder Thrombocytopenia likely from sepsis Past tobacco abuse Continue home medications as able Thrombocytopenia resolved DVT Px: SCDs Heparin SQ Code Status Full code Admission and Anticipated Discharge Date Admission Date: May 27, 2023 Subjective Patient seen and examined at bedside. States she feels marginally better Swelling of right breast is less firm Still reports some urinary incontinence and not sure its getting better from UTI Denies fevers, but notes fatigue Physical Exam Constitutional: WD/WN, vitals as above Respiratory: diminished breath sounds mostly R lung low, better airway movement in left Cardiovascular: RRR, no murmur, no edema Skin: right breast with firm swelling and hyperpigmentation, but minimal erythema Mepilex dressing over right outer-upper quadrant of breast Results & Data Results & Data Vital Signs (Past 12 Hours) Vital Signs Temp Pulse Pulse Resp BP Pulse Ox O2 Del Method 06/01/23 07:59 36.9 C 94 H 18 113/71 93 Room Air 06/01/23 02:32 36.5 C 96 H 18 113/65 92 Room Air 05/31/23 23:40 37.2 C 95 H 18 111/64 94 Room Air 05/31/23 23:34 96 H Laboratory Results Short CBC 06/01/23 Range/Units 05:47 WBC 23.62 H (4.8-10.8) K/ul Hgb 8.9 L (12.0-16.0) g/dl Hct 26.6 L (37.0-47.0) % Plt Count 283 (130-400) K/uL BMP 06/01/23 05:47 Sodium 135 L Potassium 3.9 Chloride 107 Carbon Dioxide 22 BUN 9 Creatinine 0.54 L Glucose 81 Calcium 7.5 L Medications Administered Home Medications Medication Instructions Recorded Confirmed Last Taken alprazolam 1 mg tablet (Xanax) 1 mg PO BID PRN Sleep 08/24/21 05/27/23 Unknown alprazolam 2 mg tablet (Xanax) 2 mg PO HS PRN Sleep 08/24/21 05/27/23 Unknown fexofenadine 60 mg-pseudoephedrine 1 tab PO Q12H 08/24/21 05/27/23 Unknown ER 120 mg tablet,ext.release,12 hr (Allergy Relief-D (fexofenadine)) ondansetron HCl 8 mg tablet 8 mg PO Q8H PRN Nausea 08/24/21 05/27/23 Unknown prochlorperazine maleate 10 mg 10 mg PO Q6H PRN Nausea 08/24/21 05/27/23 Unknown tablet (Compazine) venlafaxine 150 mg 150 mg PO QAM 08/24/21 05/27/23 Unknown capsule,extended release 24 hr aripiprazole 5 mg tablet (Abilify) 5 mg PO QAM 01/17/23 05/27/23 05/27/23 baclofen 5 mg tablet 5 mg PO BID PRN muscle spasm 01/17/23 05/27/23 Unknown erythromycin 5 mg/gram (0.5 %) eye 0.25 inch ophthalmic (eye) DAILY 01/17/23 05/27/23 Unknown ointment PRN Dry Eyes famotidine 20 mg tablet 20 mg PO HS 01/17/23 05/27/23 Unknown oxycodone 5 mg tablet 5 mg PO Q6H PRN Pain, Severe 01/17/23 05/27/23 Unknown calcium carbonate 250 mg calcium 250 mg PO DAILY 05/27/23 05/27/23 Unknown (625 mg) tablet cholecalciferol (vitamin D3) 50 50 mcg PO QAM 05/27/23 05/27/23 Unknown mcg (2,000 unit) capsule (Vitamin D3) entecavir 0.5 mg tablet 0.5 mg PO DAILY 05/27/23 05/27/23 Unknown lidocaine-prilocaine 2.5 %-2.5 % 1 applic topical UD PRN 1 hr prior 05/27/23 05/27/23 Unknown topical cream to accessing mediport pantoprazole 20 mg tablet,delayed 20 mg PO QAM 05/27/23 05/27/23 Unknown release potassium chloride 10 mEq 10 meq PO QAM 05/27/23 05/27/23 Unknown tablet,extended release Active Medications Generic Name Dose Route Start Last Admin Trade Name Ericq PRN Reason Stop Dose Admin Acetaminophen 500 mg 05/27/23 20:52 06/01/23 09:44 Acetaminophen 500 Mg Tab PO 06/26/23 20:51 500 mg Q6H PRN Administration fever/pain Alprazolam 2 mg 05/28/23 00:03 05/31/23 20:41 Alprazolam 0.5 Mg Tablet PO 06/27/23 00:02 2 mg HS PRN Administration Sleep Aripiprazole 5 mg 05/28/23 09:00 06/01/23 09:43 Aripiprazole 5 Mg Tab PO 06/27/23 08:59 5 mg QAM ALLEGRA Administration Docusate Sodium 100 mg 05/31/23 09:00 06/01/23 09:43 Docusate Sodium 100 Mg Cap PO 06/30/23 08:59 Not Given BID ALLEGRA Entecavir 0.5 mg 05/29/23 09:00 06/01/23 09:44 Entecavir 0.5 Mg Tab (Pom) PO 06/27/23 09:44 0.5 mg DAILY ALLEGRA Administration Famotidine 20 mg 05/28/23 21:00 05/31/23 20:34 Famotidine 20 Mg Tab PO 06/27/23 20:59 20 mg HS ALLEGRA Administration Fexofenadine HCl 60 mg 05/28/23 09:00 06/01/23 09:42 Fexofenadine 60 Mg Tab PO 06/27/23 08:59 60 mg Q12H ALLEGRA Administration Heparin Sodium (Porcine) 5 ml 05/29/23 20:27 05/31/23 04:36 Heparin 100 Unit/Ml 5ml Flush FLUSH 06/28/23 20:26 5 ml PRN PRN Administration Flush Heparin Sodium (Porcine) 5,000 units 05/31/23 21:00 06/01/23 09:43 Heparin Sod 5,000 Unit/0.5 Ml Vial SQ 06/30/23 20:59 5,000 units Q12 ALLEGRA Administration Daptomycin 200 mg/ Syringe 4 mls @ 2 mls/min 05/28/23 04:00 06/01/23 03:42 IV 06/04/23 03:59 2 mls/min Q24H ALLEGRA Administration Protocol Ciprofloxacin 400 mg in 200 mls @ 100 mls/hr 06/01/23 09:00 06/01/23 09:44 Cipro / D5w IV 06/15/23 08:59 100 mls/hr Q12H ALLEGRA Administration Protocol Pantoprazole Sodium 40 mg 05/28/23 09:00 06/01/23 09:42 Pantoprazole 40 Mg Tab PO 06/27/23 08:59 40 mg QAM ALLEGRA Administration Tramadol HCl 50 mg 05/30/23 17:04 05/31/23 17:49 Tramadol Hcl 50 Mg Tablet PO 06/29/23 17:03 50 mg Q4H PRN Administration Pain Venlafaxine HCl 150 mg 05/28/23 09:00 06/01/23 09:42 Venlafaxine Hcl Xr 150 Mg Capxr PO 06/27/23 08:59 150 mg QAM ALLEGRA Administration (1) Sepsis Sepsis acute organ dysfunction status: without acute organ dysfunction Sepsis type: sepsis due to unspecified organism Qualified Code(s): A41.9 - Sepsis, unspecified organism
[2023-06-01] MEDS: bisacodyL 5 MG TABEC PO ONE (11:52)
[2023-06-01] MEDS: HYDROmorphone HCL 2 MG TAB PO PRN (19:30)
[2023-06-02 08:08] LABS: Hematocrit (blood only) 32.1 % (37.0-47.0); Hemoglobin 10.4 g/dl (12.0-16.0); Mean Corpuscular Hemoglobin 31.9 pg (25.0-34.0); Mean Corpuscular Hgb Conc 32.4 g/dL (32.0-36.0); Mean Corpuscular Volume 98.5 fL (80.0-100.0); Nucleated RBC # (auto) 0.02 K/uL (0.00-0.12); Nucleated RBC % (auto) 0.1 %; Platelet Count 330 K/uL (130-400); RDW Coefficient of Variation 21.2 % (11.5-14.5); RDW Standard Deviation 71.4 fL (36.4-46.3); Red Blood Count 3.26 M/uL (4.20-5.40); White Blood Count 22.87 K/ul (4.8-10.8)
[2023-06-02 08:19] LABS: BUN Creatinine Ratio 13.3 (10-20); Calcium 8.1 mg/dl (8.6-10.3); Creatinine Clr Calc Pharmacy 81.6 ml/min; Est GFR (African American) 110.9 ml/min; Est GFR (Non-African American) 95.7 ml/min; Potassium 4.3 mmol/L (3.5-5.1)
[2023-06-02 08:24] LABS: Magnesium 2.1 mg/dl (1.7-2.4); Phosphorus 1.5 mg/dl (2.5-4.9)
[2023-06-02] MEDS ORDERED: SODIUM PHOSPHATE 3 MMOL/1 ML INFUSION IV STA (08:30)
[2023-06-02] MEDS: SODIUM PHOSPHATE 30 MMOL in SODIUM CHLORIDE 0.9% 500 ML IV ONE (09:58)
--- NOTE | 2023-06-02 10:17 | Hospitalist Progress Note ---
Date of Service June 02, 2023 Assessment & Plan (1) Sepsis: Plan: Ms. 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 #Severe Gram-negative Sepsis, improving #GNB Bacteremia likely e coli #Left pyelonephritis 2/2 e coli #Immunocompromised patient Multifactorial:Right breast cellulitis, Complicated UTI/pyelonephritis, Bacteremia --CT Chest: Diffuse right-sided anterolateral extrathoracic edema versus diffuse bruising, correlation with history of trauma recommended. Thickening of the skin to the right breast with fluid infiltration/edema, cannot exclude diffuse infectious process/cellulitis. No drainable abscess seen. Large right-sided pleural effusion with trace left-sided effusion. Multilobar right-sided atelectasis with minimal left lower lobe atelectasis. --CT BD:Left-sided pyelonephritis versus recently passed stone. Possible cystitis, correlation with urinalysis recommended. No bowel obstruction or focal inflammatory process throughout the gastrointestinal tract. --Blood Culture: 04/08: E. coli, Urine culture growing gram-negative bacilli --Repeat blood cultures negative to date Given fairly persistent symptoms and continued urinary symptoms, transtioned to Ciprofloxacin for pyelo management -continue cipro Was on Dapto for ?breast cellulitis, order MRSA nare and discontinue if negative -Discontinue dapto 05/31 2/2 MRSA negative #Acute hypoxic respiratory failure 2/2 pleural effusion, resolved #Right Stage IV inflammatory breast cancer #B/L Pleural effusions R> L, likely Malignant pleural effusion #Metastatic stage IV inflammatory breast cancer s/p radiation, ongoing chemotherapy -- CT chest as above --ECHO: Left ventricle is normal in size. Normal left ventricle wall thickness. Left ventricular wall motion is normal. Left ventricle is hyperdynamic. EF 65 to 70%. Attic valve is not well-visualized. Trace mitral regurgitation. S/P right thoracentesis on 05/28/2023 -Follow-up pleural fluid studies, positive for malignant pleural effusion Appreciate pulmonology input -Reviewed note from 05/31, noted improvement on lung imaging; continue IS, pulm to sign off at this time On Room air #Recent radiation dermatitis to right breast, c/f superimposed infectious cellulitis Swelling on right breast reported to improve per patient discontinued dapto #Acute on chronic Anemia of chronic disease *stable Likely Multifactorial: Metastatic disease, iron deficiency, chemotherapy- induced, sepsis S/P 2 units PRBCs Also received IV Venofer Stable over course of 48 hours #Hyponatremia uptrending Likely dehydration Received IV fluids Diuretics could have contributed as well Monitor sodium levels #Constipation Started on bowel regimen Bisacodyl x 1 #Mild troponin elevation, likely iso sepsis Likely type II ID secondary to demand ischemia Troponin trended down Echo showed no wall motion abnormality Monitor #Chronic HBV on chronic Entecavir treatment #Rheumatoid arthritis currently not on maintenance meds Other chronic conditions: Chronic fatigue syndrome/fibromyalgia Anxiety/mood disorder Thrombocytopenia likely from sepsis Past tobacco abuse Continue home medications as able Thrombocytopenia resolved DVT Px: SCDs Heparin SQ Code Status Full code Admission and Anticipated Discharge Date Admission Date: May 27, 2023 Subjective NAEO Reports notable improvement from day prior Denies any fevers, chills, abdominal pain or SOB Eager to get home--discussed one more day IV antibiotic and possible dispo tomorrow Physical Exam Constitutional: WD/WN, vitals as above Respiratory: diminished bilaterally Cardiovascular: RRR, no murmur, no edema Results & Data Results & Data Vital Signs (Past 12 Hours) Vital Signs Temp Pulse Resp BP Pulse Ox O2 Del Method 06/02/23 07:28 37.0 C 96 H 16 95/67 L 93 Room Air 06/02/23 02:46 36.8 C 95 H 20 95/58 L 93 Room Air 06/01/23 22:23 36.8 C 93 H 18 117/69 94 Room Air Laboratory Results Short CBC 06/02/23 Range/Units 07:33 WBC 22.87 H (4.8-10.8) K/ul Hgb 10.4 L (12.0-16.0) g/dl Hct 32.1 L (37.0-47.0) % Plt Count 330 (130-400) K/uL BMP 06/02/23 07:33 Sodium 137 Potassium 4.3 Chloride 109 H Carbon Dioxide 23 BUN 8 Creatinine 0.60 Glucose 92 Calcium 8.1 L Medications Administered Home Medications Medication Instructions Recorded Confirmed Last Taken alprazolam 1 mg tablet (Xanax) 1 mg PO BID PRN Sleep 08/24/21 05/27/23 Unknown alprazolam 2 mg tablet (Xanax) 2 mg PO HS PRN Sleep 08/24/21 05/27/23 Unknown fexofenadine 60 mg-pseudoephedrine 1 tab PO Q12H 08/24/21 05/27/23 Unknown ER 120 mg tablet,ext.release,12 hr (Allergy Relief-D (fexofenadine)) ondansetron HCl 8 mg tablet 8 mg PO Q8H PRN Nausea 08/24/21 05/27/23 Unknown prochlorperazine maleate 10 mg 10 mg PO Q6H PRN Nausea 08/24/21 05/27/23 Unknown tablet (Compazine) venlafaxine 150 mg 150 mg PO QAM 08/24/21 05/27/23 Unknown capsule,extended release 24 hr aripiprazole 5 mg tablet (Abilify) 5 mg PO QAM 01/17/23 05/27/23 05/27/23 baclofen 5 mg tablet 5 mg PO BID PRN muscle spasm 01/17/23 05/27/23 Unknown erythromycin 5 mg/gram (0.5 %) eye 0.25 inch ophthalmic (eye) DAILY 01/17/23 05/27/23 Unknown ointment PRN Dry Eyes famotidine 20 mg tablet 20 mg PO HS 01/17/23 05/27/23 Unknown oxycodone 5 mg tablet 5 mg PO Q6H PRN Pain, Severe 01/17/23 05/27/23 Unknown calcium carbonate 250 mg calcium 250 mg PO DAILY 05/27/23 05/27/23 Unknown (625 mg) tablet cholecalciferol (vitamin D3) 50 50 mcg PO QAM 05/27/23 05/27/23 Unknown mcg (2,000 unit) capsule (Vitamin D3) entecavir 0.5 mg tablet 0.5 mg PO DAILY 05/27/23 05/27/23 Unknown lidocaine-prilocaine 2.5 %-2.5 % 1 applic topical UD PRN 1 hr prior 05/27/23 05/27/23 Unknown topical cream to accessing [facility] pantoprazole 20 mg tablet,delayed 20 mg PO QAM 05/27/23 05/27/23 Unknown release potassium chloride 10 mEq 10 meq PO QAM 05/27/23 05/27/23 Unknown tablet,extended release Active Medications Generic Name Dose Route Start Last Admin Trade Name Freq PRN Reason Stop Dose Admin Acetaminophen 500 mg 05/27/23 20:52 06/01/23 09:44 Acetaminophen 500 Mg Tab PO 06/26/23 20:51 500 mg Q6H PRN Administration fever/pain Alprazolam 2 mg 05/28/23 00:03 06/01/23 21:41 Alprazolam 0.5 Mg Tablet PO 06/27/23 00:02 2 mg HS PRN Administration Sleep Aripiprazole 5 mg 05/28/23 09:00 06/02/23 08:44 Aripiprazole 5 Mg Tab PO 06/27/23 08:59 5 mg QAM ALLEGRA Administration Docusate Sodium 100 mg 05/31/23 09:00 06/02/23 08:43 Docusate Sodium 100 Mg Cap PO 06/30/23 08:59 100 mg BID ALLEGRA Administration Entecavir 0.5 mg 05/29/23 09:00 06/02/23 08:46 Entecavir 0.5 Mg Tab (Pom) PO 06/27/23 09:44 0.5 mg DAILY ALLEGRA Administration Famotidine 20 mg 05/28/23 21:00 06/01/23 21:38 Famotidine 20 Mg Tab PO 06/27/23 20:59 20 mg HS ALLEGRA Administration Fexofenadine HCl 60 mg 05/28/23 09:00 06/02/23 08:45 Fexofenadine 60 Mg Tab PO 06/27/23 08:59 60 mg Q12H ALLEGRA Administration Heparin Sodium (Porcine) 5 ml 05/29/23 20:27 06/01/23 11:53 Heparin 100 Unit/Ml 5ml Flush FLUSH 06/28/23 20:26 5 ml PRN PRN Administration Flush Heparin Sodium (Porcine) 5,000 units 05/31/23 21:00 06/02/23 08:45 Heparin Sod 5,000 Unit/0.5 Ml Vial SQ 06/30/23 20:59 5,000 units Q12 ALLEGRA Administration Hydromorphone HCl 2 mg 06/01/23 12:02 06/01/23 19:30 Hydromorphone Hcl 2 Mg Tab PO 06/15/23 12:01 2 mg Q4H PRN Administration Severe Pain (Scale 7, 8, 9,10) Ciprofloxacin 400 mg in 200 mls @ 100 mls/hr 06/01/23 09:00 06/02/23 10:48 Cipro / D5w IV 06/15/23 08:59 Infused Q12H ALLEGRA Infusion Protocol Sodium Phosphate 30 mmol/ 510 mls @ 88 mls/hr 06/02/23 08:45 06/02/23 09:58 Sodium Chloride IV 06/02/23 14:32 88 mls/hr ONE ONE Administration Pantoprazole Sodium 40 mg 05/28/23 09:00 06/02/23 08:44 Pantoprazole 40 Mg Tab PO 06/27/23 08:59 40 mg QAM ALLEGRA Administration Potassium Phosphate 2 tab 06/02/23 09:00 06/02/23 10:38 Pot Phosphate Monobasic W/ Sod Tab PO 07/02/23 08:59 2 tab QID ALLEGRA Administration Tramadol HCl 50 mg 05/30/23 17:04 05/31/23 17:49 Tramadol Hcl 50 Mg Tablet PO 06/29/23 17:03 50 mg Q4H PRN Administration Pain Venlafaxine HCl 150 mg 05/28/23 09:00 06/02/23 08:44 Venlafaxine Hcl Xr 150 Mg Capxr PO 06/27/23 08:59 150 mg QAM ALLEGRA Administration (1) Sepsis Sepsis acute organ dysfunction status: without acute organ dysfunction Sepsis type: sepsis due to unspecified organism Qualified Code(s): A41.9 - Sepsis, unspecified organism
[2023-06-02] MEDS: POT PHOSPHATE MONOBASIC W/ SOD TAB PO SCH (10:38)
--- NOTE | 2023-06-02 10:56 | Pulmonology Progress Note ---
Date of Service June 02, 2023 Assessment & Plan (1) Pleural effusion: (2) Acute respiratory failure with hypoxia: (3) Malignant neoplasm of breast metastatic to bone: Plan CT chest 05/27/2023 personally reviewed: Large right-sided pleural effusion with atelectasis of the right lower lobe Interlobular thickening appreciated even on the left upper lobe No significant mediastinal adenopathy 2D echo 04/29/2023: EF 65-70%, RV normal in size and function -- Right-sided pleural effusion --> cytology is positive for underlying malignancy New Never had thoracentesis done in the past S/p thoracentesis 05/28/2023, 1500 mL exudative fluid removed Pleural fluid: LDH 107, protein 3.5, pH 7.43 Serum: LVH 199, protein 5.7 --Acute hypoxic respiratory failure Likely secondary to pleural effusion Continue with O2 supplementation give oxygen saturation 90-92% --Metastatic breast cancer On chemotherapy Plan: Continue with incentive spirometry Out of the bed to chair No further recommendation from pulmonary perspective, will sign off Please call directly with any questions Please note the above document was generated using voice recognition software. It may contain grammatical, syntax or spelling errors.Any formal questions or concerns about the content, text or information contained within the body of this dictation should be directly addressed to the provider for clarification. Admission and Anticipated Discharge Date Admission Date: May 27, 2023 Subjective Patient seen and examined at bedside. No acute distress, notable symptoms overnight She was sleeping when I entered the room Waking up she says she is feeling better. Shortness of breath is gone. Denies any chest pain. Has been using incentive spirometry She was saturating 94% on room air. Systolic blood pressure was in the mid 90s. Denied any dizziness, no headache Fair appetite, no nausea or vomiting Review of Systems 2 Review of Systems: All systems reviewed & are unremarkable except as noted in Subjective Physical Exam 2 Physical Exam: Constitutional: No acute distress HEENT: EOMI, PERRLA Respiratory system: Decreased air entry bilaterally, no wheeze, no rhonchi, minimal crackles bilaterally CVS: S1-S2 positive, no murmurs or gallops Abdomen: Soft, nontender, nondistended, positive bowel sounds x4 Extremities: +2 pulses bilaterally radialis/ dorsalis pedis, no cyanosis, no edema Neuro: Awake alert oriented x3 Psych: Normal mood and affect G/U: Pure wick Musculoskeletal: Right side deformed breast with peau d'orange, dressing in place Skin: no rashes, warm and dry Lymphatic: no cervical or axillary lymphadenopathy Results & Data Results & Data Vital Signs (Past 12 Hours) Vital Signs Temp Pulse Resp BP Pulse Ox O2 Del Method 06/02/23 07:28 37.0 C 96 H 16 95/67 L 93 Room Air 06/02/23 02:46 36.8 C 95 H 20 95/58 L 93 Room Air Laboratory Results 06/02/23 07:33 06/02/23 07:33 PG Care Time/CCT Total # of Minutes Spent Total Time Spent with Patient: Total time spent is greater than 50% in coordination of care (as documented) at patient's floor/unit and/or counseling patient: Coding Level of Care Code 72924 SUB INP/OBS CARE 1/25MIN Diagnoses Pleural effusion J90 Acute respiratory failure with hypoxia J96.01 Malignant neoplasm of breast metastatic to bone C50.919; C79.51
[2023-06-02] MEDS ORDERED: SODIUM CHLORIDE 0.65% NA SOLN 45 ML (OCEAN) PRN (23:16)
[2023-06-03 06:52] LABS: Hematocrit (blood only) 27.9 % (37.0-47.0); Mean Corpuscular Hemoglobin 32.3 pg (25.0-34.0); Mean Corpuscular Hgb Conc 32.3 g/dL (32.0-36.0); Mean Platelet Volume 8.4 fL (9.4-12.4); Platelet Count 290 K/uL (130-400); RDW Coefficient of Variation 20.8 % (11.5-14.5); RDW Standard Deviation 71.7 fL (36.4-46.3); Red Blood Count 2.79 M/uL (4.20-5.40)
--- NOTE | 2023-06-03 08:44 | Discharge Summary ---
Discharge Summary Date of Service June 03, 2023 Notes For Next Care Provider Medication Changes From Visit Ciprofloxacin 500mg BID Admission HPI Per Admitting Provider History obtained from patient, family, and records. Medical history significant for metastatic breast cancer status post radiation ongoing chemotherapy, chronic HBV on chronic Entecavir Rx, rheumatoid arthritis, chronic fatigue syndrome/fibromyalgia, anxiety/mood disorder, past tobacco abuse. Last confinement 2016 for cat bite with ascending lymphangitis status post antibiotic Rx. 3 days ago, patient had some sinus congestion with drainage. No cough/aspiration episodes as per patient. Worsening painful swelling under right breast after a blister burst. Patient later noted hematuria and dysuria symptoms without unusual abdominal/flank pain. Shortness of breath mostly on exertion. Patient unsure about fluid retention. Vancomycin and cefepime administered at the ER for sepsis. Medical History as above Surgical History : section, breast biopsy, a port placement Family History : Breast cancer, lung cancer, alcoholism, dementia, heart disease, depression Personal/Social history : Past tobacco abuse, no EtOH intake, disabled Admission Exam Per Admitting Provider GENERAL: Slightly uncomfortable, slightly anxious, no respiratory distress SKIN: Pallor, warm HEENT: Pale palpebral conjunctivae, no ptosis, dry buccal mucosa NECK : Supple, no tenderness CHEST : Decreased breath sounds right greater than the left, tender right breast swelling HEART : Tachycardic, no obvious murmurs ABDOMEN: Some distention, nontender EXTREMITIES : Minimal LE swelling, no LE tenderness, no other conspicuous deformities noted NEUROLOGIC : Coherent, no facial asymmetry, no other gross focality Principal Dx & Hospital Course #1 = Principal Diagnosis (1) Sepsis: Ms. 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 Patient much improved on cipro. Will continue 14 days total. On day of discharge, patient denied any acute concerns--stating she is passing bowel movements, experienced resolution of urinary symptoms, and ready for home. #Severe Gram-negative Sepsis, improving #GNB Bacteremia likely e coli #Left pyelonephritis 2/2 e coli #Immunocompromised patient Multifactorial:Right breast cellulitis, Complicated UTI/pyelonephritis, Bacteremia --CT Chest: Diffuse right-sided anterolateral extrathoracic edema versus diffuse bruising, correlation with history of trauma recommended. Thickening of the skin to the right breast with fluid infiltration/edema, cannot exclude diffuse infectious process/cellulitis. No drainable abscess seen. Large right-sided pleural effusion with trace left-sided effusion. Multilobar right-sided atelectasis with minimal left lower lobe atelectasis. --CT BD:Left-sided pyelonephritis versus recently passed stone. Possible cystitis, correlation with urinalysis recommended. No bowel obstruction or focal inflammatory process throughout the gastrointestinal tract. --Blood Culture: 04/08: E. coli, Urine culture growing gram-negative bacilli --Repeat blood cultures negative to date Given fairly persistent symptoms and continued urinary symptoms, transtioned to Ciprofloxacin for pyelo management Was on Dapto for ?breast cellulitis, order MRSA nare and discontinue if negative -Discontinued dapto 05/31 04/06 MRSA negative -continue cipro 500mg BID 06/14 #Acute hypoxic respiratory failure 2/2 pleural effusion, resolved #Right Stage IV inflammatory breast cancer #B/L Pleural effusions R> L, mlaignant pleural effusion #Metastatic stage IV inflammatory breast cancer s/p radiation, ongoing chemotherapy -- CT chest as above --ECHO: Left ventricle is normal in size. Normal left ventricle wall thickness. Left ventricular wall motion is normal. Left ventricle is hyperdynamic. EF 65 to 70%. Attic valve is not well-visualized. Trace mitral regurgitation. S/P right thoracentesis on 05/28/2023 -Follow-up pleural fluid studies, positive for malignant pleural effusion Appreciate pulmonology input -Reviewed note from 05/31, noted improvement on lung imaging; continue IS, pulm to sign off at this time On Room air Follow up oncology for management of maliganancy #Recent radiation dermatitis to right breast, c/f superimposed infectious cellulitis Swelling on right breast reported to improve per patient discontinued dapto at baseline per patient #Acute on chronic Anemia of chronic disease *stable Likely Multifactorial: Metastatic disease, iron deficiency, chemotherapy- induced, sepsis S/P 2 units PRBCs Also received IV Venofer Stable over course of 48 hours #Hyponatremia uptrending Likely dehydration Received IV fluids Diuretics could have contributed as well Monitor sodium levels #Constipation Started on bowel regimen Bisacodyl x 1 #Mild troponin elevation, likely iso sepsis Likely type II OH secondary to demand ischemia Troponin trended down Echo showed no wall motion abnormality Monitor #Chronic HBV on chronic Entecavir treatment #Rheumatoid arthritis currently not on maintenance meds Other chronic conditions: Chronic fatigue syndrome/fibromyalgia Anxiety/mood disorder Thrombocytopenia likely from sepsis *resolved Past tobacco abuse Continue home medications as able Discharge Exam Constitutional WD/WN, vitals as above Respiratory diminished lung sounds, predominately right lower lung low Gastrointestinal (Abdomen) normal bowel sounds, soft, nontender, no hepatosplenomegaly Updated Medication List Medication Instructions Recorded Confirmed Type alprazolam 1 mg tablet (Xanax) 1 mg PO BID PRN Sleep 08/24/21 05/27/23 History alprazolam 2 mg tablet (Xanax) 2 mg PO HS PRN Sleep 08/24/21 05/27/23 History fexofenadine 60 mg-pseudoephedrine 1 tab PO Q12H 08/24/21 05/27/23 History ER 120 mg tablet,ext.release,12 hr (Allergy Relief-D (fexofenadine)) ondansetron HCl 8 mg tablet 8 mg PO Q8H PRN Nausea 08/24/21 05/27/23 History prochlorperazine maleate 10 mg 10 mg PO Q6H PRN Nausea 08/24/21 05/27/23 History tablet (Compazine) venlafaxine 150 mg 150 mg PO QAM 08/24/21 05/27/23 History capsule,extended release 24 hr aripiprazole 5 mg tablet (Abilify) 5 mg PO QAM 01/17/23 05/27/23 History baclofen 5 mg tablet 5 mg PO BID PRN muscle spasm 01/17/23 05/27/23 History erythromycin 5 mg/gram (0.5 %) eye 0.25 inch ophthalmic (eye) DAILY 01/17/23 05/27/23 History ointment PRN Dry Eyes famotidine 20 mg tablet 20 mg PO HS 01/17/23 05/27/23 History oxycodone 5 mg tablet 5 mg PO Q6H PRN Pain, Severe 01/17/23 05/27/23 History calcium carbonate 250 mg calcium 250 mg PO DAILY 05/27/23 05/27/23 History (625 mg) tablet cholecalciferol (vitamin D3) 50 50 mcg PO QAM 05/27/23 05/27/23 History mcg (2,000 unit) capsule (Vitamin D3) entecavir 0.5 mg tablet 0.5 mg PO DAILY 05/27/23 05/27/23 History lidocaine-prilocaine 2.5 %-2.5 % 1 applic topical UD PRN 1 hr prior 05/27/23 History topical cream to accessing [facility] pantoprazole 20 mg tablet,delayed 20 mg PO QAM 05/27/23 05/27/23 History release potassium chloride 10 mEq 10 meq PO QAM 05/27/23 05/27/23 History tablet,extended release ciprofloxacin HCl 500 mg tablet 500 mg PO BID #26 tabs 06/03/23 Rx Hospital Stay Data Consultations 05/27/23 19:28 ED Decision to Admit Stat 05/28/23 06:24 Consult Cardiology Routine 05/28/23 08:03 Consult Pulmonology Routine 05/29/23 09:00 Consult Palliative Care Routine Diagnostic Imagining Performed 05/27/23 CT abd pelvis IV con only Stat CT chest diagnostic w con Stat 05/28/23 12:23 sono, invasive monitoring [US point of care ultrasound] Routine 05/31/23 21:37 US venous doppler UE RT Urgent Pending Results Patient Have Any Pending Studies at Discharge: No Discharge Instructions Given to Patient (Per Discharging Provider) You were admitted for management and evaluation of sepsis. You were found to have a urinary tract infection that extended up to your left kidney, called pyelonephritis. You will need to complete a prolonged course of antibiotics to ensure resolution of infection -Ciprofloxacin 500mg, 1 tablet two times a day until presciption is complete You also underwent a thoracentesis, or removal of fluid from your right side. This fluid is positive for malignancy. Please follow up with Oncology as soon as possible to discuss treatment options. Total Time Total Time Spent Total Time Spent (In Minutes): 45
== END 2023-06-03 12:18 | disposition home or self-care (01) | DRG 871 ==
LOC: ED 17:53 → SUATTDRO 20:51 → 2E 20:51

== ENCOUNTER 2023-06-28 23:16 | Inpatient (IN) ==
[2023-06-28] MEDS ORDERED: VANCOMYCIN CONSULT ACTIVE PRN (23:53)
[2023-06-29] MEDS: ALBUT/IPRATROP 3MG/0.5MG NEB 3 ML VIAL NEB STA
--- NOTE | 2023-06-29 00:13 | Emergency Department Note ---
History of Present Illness General Chief complaint: Shortness of Breath/Dyspnea Stated complaint: CAN'T BREATHE, NEEDS LUNGS DRAINED Time Seen by Provider: 06/28/23 23:39 History of Present Illness This 63-year-old female with metastatic breast cancer presents ER complaining of worsening shortness of breath and subjective fever and chills. Patient states she had a thoracentesis while she was in the hospital. She is currently not receiving chemo or radiation. She states she was given 3 months to live. Patient complains of worsening shortness of breath and abdominal pain. She is concerned that she might be septic again and filled back up with fluid. Patient denies vomiting, diarrhea, urinary symptoms. Home Medications Medication Instructions Recorded Confirmed Type alprazolam 1 mg tablet (Xanax) 1 mg PO BID PRN Sleep 08/24/21 06/13/23 History alprazolam 2 mg tablet (Xanax) 2 mg PO HS PRN Sleep 08/24/21 06/13/23 History ondansetron HCl 8 mg tablet 8 mg PO Q8H PRN Nausea 08/24/21 06/13/23 History prochlorperazine maleate 10 mg 10 mg PO Q6H PRN Nausea 08/24/21 06/13/23 History tablet (Compazine) venlafaxine 150 mg 150 mg PO QAM 08/24/21 06/13/23 History capsule,extended release 24 hr aripiprazole 5 mg tablet (Abilify) 5 mg PO QAM 01/17/23 06/13/23 History baclofen 5 mg tablet 5 mg PO BID PRN muscle spasm 01/17/23 06/13/23 History erythromycin 5 mg/gram (0.5 %) eye 0.25 inch ophthalmic (eye) DAILY 01/17/23 06/13/23 History ointment PRN Dry Eyes famotidine 20 mg tablet 20 mg PO HS 01/17/23 06/13/23 History calcium carbonate 250 mg PO DAILY 05/27/23 06/13/23 History cholecalciferol (vitamin D3) 50 50 mcg PO QAM 05/27/23 06/13/23 History mcg (2,000 unit) capsule (Vitamin D3) entecavir 0.5 mg tablet 0.5 mg PO DAILY 05/27/23 06/13/23 History lidocaine-prilocaine 2.5 %-2.5 % 1 applic topical UD PRN 1 hr prior 05/27/23 06/13/23 History topical cream to accessing mediport pantoprazole 20 mg tablet,delayed 20 mg PO QAM 05/27/23 06/13/23 History release ciprofloxacin HCl 500 mg tablet 500 mg PO BID #26 tabs 06/03/23 06/13/23 Rx fexofenadine 60 mg-pseudoephedrine 1 tab PO Q12H PRN 06/13/23 06/13/23 History ER 120 mg tablet,ext.release,12 hr (Allergy Relief-D (fexofenadine)) hydromorphone 4 mg tablet 4 mg PO Q4H PRN severe cancer pain 06/14/23 06/14/23 Rx (Dilaudid) 1 month #150 tabs Allergies Allergy/AdvReac Type Severity Reaction Status Date / Time No Known Allergies Allergy Unverified 05/27/23 21:27 Past Med/Surg History Medical History Therapeutic opioid-induced constipation (OIC) Cellulitis of chest wall Anterior chest wall pain Palliative care by specialist Advanced care planning/counseling discussion Dyspnea and respiratory abnormalities Weakness generalized Cancer related pain Acute respiratory failure with hypoxia Rheumatoid arthritis Insomnia Fibromyalgia Depression Chronic fatigue syndrome Surgical History S/P breast biopsy deliv NOS-unsp Family History Aunt Breast cancer Mother , Age 72 Arthritis Father , Age 93 Heart disease Dementia Daughter No problems noted. Sister No problems noted. 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: No Beliefs That Will Affect Care: None Current Living Situation: Alone and Family Current Living Situation Comment: with caregiver/family Feels Safe at Home: Yes Assistive Devices: None Review of Systems A total of 10 systems reviewed and were otherwise negative Physical Exam Vital Signs Vital Signs - 24 hr 06/28/23 23:31 06/28/23 23:31 06/28/23 23:31 Temperature 36.6 C Temperature Source Temporal Artery Scan Pulse Rate 113 H Pulse Rate from SpO2 Sensor Respiratory Rate 26 H Respiratory Effort / Characteristics Labored Respiratory Depth Shallow Respiratory Pattern Tachypnea Blood Pressure 117/82 Blood Pressure Mean 93 Blood Pressure Position Sitting Pulse Oximetry 87 L 87 L Oxygen Delivery Method Room Air Room Air Room Air Oxygen Flow Rate 0 Sepsis Recent Fever Within 48 Hours Yes Sepsis New/Unexplained Change in Mental Status No Sepsis Action Taken by Nursing No Action Required 06/28/23 23:45 06/28/23 23:45 06/29/23 00:00 Temperature Temperature Source Pulse Rate 110 H 107 H Pulse Rate from SpO2 Sensor 111 H 106 H Respiratory Rate 21 18 Respiratory Effort / Characteristics Respiratory Depth Respiratory Pattern Blood Pressure 152/93 H Blood Pressure Mean 102 Blood Pressure Position Pulse Oximetry 100 100 Oxygen Delivery Method Oxygen Flow Rate Sepsis Recent Fever Within 48 Hours Sepsis New/Unexplained Change in Mental Status Sepsis Action Taken by Nursing 06/29/23 00:00 06/29/23 00:01 06/29/23 00:28 Temperature 36.6 C Temperature Source Temporal Artery Scan Pulse Rate Pulse Rate from SpO2 Sensor Respiratory Rate 18 26 H Respiratory Effort / Characteristics Spontaneous Spontaneous Respiratory Depth Shallow Respiratory Pattern Tachypnea Blood Pressure 119/90 Blood Pressure Mean 99 Blood Pressure Position Pulse Oximetry 100 97 Oxygen Delivery Method Non-rebreather Nasal Cannula Oxygen Flow Rate 9 4 Sepsis Recent Fever Within 48 Hours Sepsis New/Unexplained Change in Mental Status Sepsis Action Taken by Nursing 06/29/23 00:30 06/29/23 00:30 06/29/23 01:00 Temperature Temperature Source Pulse Rate 97 H Pulse Rate from SpO2 Sensor 104 H 97 H Respiratory Rate 26 H 24 Respiratory Effort / Characteristics Respiratory Depth Respiratory Pattern Blood Pressure 118/68 Blood Pressure Mean 77 Blood Pressure Position Pulse Oximetry 97 96 Oxygen Delivery Method Nasal Cannula Nasal Cannula Oxygen Flow Rate 4 6 Sepsis Recent Fever Within 48 Hours Sepsis New/Unexplained Change in Mental Status Sepsis Action Taken by Nursing 06/29/23 01:00 06/29/23 01:02 06/29/23 01:03 Temperature 36.6 C Temperature Source Temporal Artery Scan Pulse Rate Pulse Rate from SpO2 Sensor Respiratory Rate 24 Respiratory Effort / Characteristics Spontaneous Respiratory Depth Shallow Respiratory Pattern Tachypnea Blood Pressure 113/68 Blood Pressure Mean 78 Blood Pressure Position Pulse Oximetry 97 97 Oxygen Delivery Method Nasal Cannula Nasal Cannula Oxygen Flow Rate 6 6 Sepsis Recent Fever Within 48 Hours Sepsis New/Unexplained Change in Mental Status Sepsis Action Taken by Nursing 06/29/23 01:30 06/29/23 02:00 06/29/23 02:02 Temperature Temperature Source Pulse Rate 102 H 96 H 95 H Pulse Rate from SpO2 Sensor 102 H 96 H 96 H Respiratory Rate 34 H 34 H 29 H Respiratory Effort / Characteristics Respiratory Depth Respiratory Pattern Blood Pressure 135/77 62/45 L Blood Pressure Mean 96 50 Blood Pressure Position Pulse Oximetry 99 96 95 Oxygen Delivery Method Oxygen Flow Rate Sepsis Recent Fever Within 48 Hours Sepsis New/Unexplained Change in Mental Status Sepsis Action Taken by Nursing 06/29/23 02:04 06/29/23 02:08 06/29/23 02:09 Temperature Temperature Source Pulse Rate 94 H 99 H 99 H Pulse Rate from SpO2 Sensor 94 H 99 H 99 H Respiratory Rate 36 H 28 H 26 H Respiratory Effort / Characteristics Respiratory Depth Respiratory Pattern Blood Pressure 77/48 L 88/61 L 88/65 L Blood Pressure Mean 57 70 72 Blood Pressure Position Pulse Oximetry 97 98 98 Oxygen Delivery Method Oxygen Flow Rate Sepsis Recent Fever Within 48 Hours Sepsis New/Unexplained Change in Mental Status Sepsis Action Taken by Nursing 06/29/23 03:00 06/29/23 03:00 Temperature Temperature Source Pulse Rate 90 Pulse Rate from SpO2 Sensor 90 Respiratory Rate 20 Respiratory Effort / Characteristics Respiratory Depth Respiratory Pattern Blood Pressure 105/65 Blood Pressure Mean 84 Blood Pressure Position Pulse Oximetry 94 Oxygen Delivery Method Oxygen Flow Rate Sepsis Recent Fever Within 48 Hours Sepsis New/Unexplained Change in Mental Status Sepsis Action Taken by Nursing VITALS: Vitals are noted on the nurse's note and reviewed by myself. Vital signs stable. GENERAL: White female working to breathe unable to speak in full sentences, in acute distress SKIN: Capillary reflex less than 2 seconds. HEENT: Normocephalic. PERRLA. EOMI. Nares patent. Mucous membranes moist. Neck is supple without nuchal rigidity. HEART: Regular rate and rhythm LUNGS: Diminished breath sounds in the right lung, patient is working to breathe ABDOMEN: Positive bowel sounds x 4. Normal tympanic percussion. Soft, nontender, without masses or organomegaly. Wolff sign negative. No guarding or rebound tenderness. no CVA tenderness MUSCULOSKELETAL: No gross musculoskeletal defects. NEURO: Patient was alert and oriented to person place and time. No focal neurological deficits. Course Administered Medications Hydromorphone HCl (Hydromorphone Inj 1 Mg/Ml Syringe) 1 mg IV Q15M PRN PRN Reason: Pain Stop: 07/13/23 01:15 Last Admin: 06/29/23 01:45 Dose: 1 mg Documented By: SONIA Discontinued Medications Albuterol (Albut/Ipratrop 3mg/0.5mg Neb 3 Ml Vial) 3 ml NEB NOW STA; Protocol Stop: 06/28/23 23:43 Last Admin: 06/29/23 00:00 Dose: 3 ml Documented By: KAREN Piperacillin Sod/Tazobactam Sod (Zosyn) 4.5 gm in 100 mls @ 200 mls/hr IV NOW ONE Stop: 06/29/23 00:22 Last Infusion: 06/29/23 01:45 Dose: Infused Documented By: Admin: 06/29/23 00:56 Dose: 200 mls/hr Documented By: SONIA Vancomycin HCl 1,250 mg/ (Sodium Chloride) 525 mls @ 200 mls/hr IV NOW ONE Stop: 06/29/23 02:30 Last Admin: 06/29/23 02:08 Dose: 200 mls/hr Documented By: SONIA Sodium Chloride (Nss) 1,000 mls @ 999 mls/hr IV .Q1H1M ONE Stop: 06/29/23 00:53 Last Infusion: 06/29/23 02:11 Dose: Infused Documented By: Admin: 06/29/23 00:41 Dose: 999 mls/hr Documented By: SONIA Ioversol (Optiray 320 125ml) 118 ml IV ONCE ONE Stop: 06/29/23 00:48 Last Admin: 06/29/23 00:48 Dose: 118 ml Documented By: GIRISH Ondansetron HCl (Ondansetron Inj 2 Mg/Ml 2 Ml Vial) 8 mg IV NOW STA Stop: 06/29/23 01:17 Last Admin: 06/29/23 01:45 Dose: 4 mg Documented By: SONIA Medical Decision Making Medical Records Attestation: I reviewed the patient's medical records. Home Medications Current Medication List: was personally reviewed by me Laboratory Data Attestation: I reviewed the patient's lab results. 06/29/23 00:16 06/29/23 00:16 Lab Results 06/29/23 06/29/2324 Range/Units 00:16 00:23 00:37 WBC 6.30 (4.8-10.8) K/ul RBC 3.58 L (4.20-5.40) M/uL Hgb 11.5 L (12.0-16.0) g/dl POC Hgb 11.2 L (12.0-16.0) g/dl Hct 35.0 L (37.0-47.0) % POC Hct 33 L (37-47) % MCV 97.8 (80.0-100.0) fL MCH 32.1 (25.0-34.0) pg MCHC 32.9 (32.0-36.0) g/dL RDW Std Deviation 51.7 H (36.4-46.3) fL RDW Coeff of [place] 14.5 (11.5-14.5) % Plt Count 220 (130-400) K/uL MPV 8.5 L (9.4-12.4) fL Immature Gran % (Auto) 0.2 % Neut % (Auto) 62.7 % Lymph % (Auto) 19.2 % [place] % (Auto) 13.3 % Eos % (Auto) 3.8 % Baso % (Auto) 0.8 % Neut # (Auto) 3.95 (1.40-6.50) K/uL Lymph # (Auto) 1.21 (1.20-3.40) K/uL [place] # (Auto) 0.84 H (0.11-0.59) K/uL Eos # (Auto) 0.24 (0.00-0.50) K/uL Baso # (Auto) 0.05 (0.00-0.20) K/uL Immature Gran # (Auto) 0.01 (0.01-0.20) K/uL PT 11.0 (9.0-12.0) Seconds INR 1.0 (0.9-1.1) APTT 30 (21-31) Seconds PTT Ratio 1.1 VBG pH 7.40 (7.36-7.41) VBG pCO2 43 (38-50) mmHg VBG pO2 50 mmHg VBG HCO3 27 mmol/L VBG O2 Saturation 82.7 % VBG Base Excess 1.5 mEq/L POC Sodium 136 (135-144) mmol/L Sodium 133 L (136-145) mmol/L POC Potassium 3.5 (3.3-5.0) mmol/L Potassium 3.5 (3.5-5.1) mmol/L POC Chloride 100 L (101-112) mmol/L Chloride 103 (98-107) mmol/L Carbon Dioxide 26 (21-32) mmol/L POC Total CO2 24 (24-31) mmol/L Anion Gap 4 (3-11) POC Anion Gap 16.0 (16-25) mmol/L POC BUN 7 (7-18) mg/dl BUN 9 (6-23) mg/dl Creatinine 0.55 L (0.6-1.2) mg/dl POC Creatinine 0.6 (0.6-1.3) mg/dl Est Cr Clr Drug Dosing 89.3 ml/min Est GFR ( Amer) 114.1 ml/min Est GFR (Non-Af Amer) 98.4 ml/min BUN/Creatinine Ratio 16.4 (10-20) Glucose 126 H (70-99(Fasting)) mg/dl POC Glucose (other) 120 H (70-99) mg/dl Lactate 1.3 (0.4-2.0) mmol/L Calcium 7.8 L (8.6-10.3) mg/dl POC Ioniz Calcium Rakesh 1.10 L (1.12-1.32) mmol/l Magnesium 1.8 (1.7-2.4) mg/dl Total Bilirubin 0.5 (0.2-1.0) mg/dl Direct Bilirubin 0.1 (0-0.2) mg/dl AST 22 (13-39) U/L ALT 6 L (7-52) U/L Alkaline Phosphatase 53 (34-104) U/L Troponin I High Sens 3.2 (0-14) pg/ml B-Natriuretic Peptide 25 (0-100) pg/ml Total Protein 6.4 (6.0-8.3) gm/dl Albumin 3.0 L (3.4-5.0) gm/dl Globulin 3.4 (2.5-4.0) gm/dl Albumin/Globulin Ratio 0.9 (0.9-2) Procalcitonin 0.06 (0-0.5) ng/ml Urine Color Urine Appearance (Clear) Urine pH (4.5-7.5) Ur Specific [place] (1.000-1.030) Urine Protein (Negative) Urine Glucose (UA) (Negative) Urine Ketones (Negative) Urine Blood (Negative) Urine Nitrite (Negative) Urine Bilirubin (Negative) Urine Urobilinogen (Negative) Ur Leukocyte Esterase (Negative) Urine WBC (Auto) (0-5) /hpf Urine RBC (Auto) (0-2) /hpf U Hyaline Cast (Auto) (0-2) /lpf U Epithel Cells (Auto) (0-2) /hpf Urine Bacteria (Auto) (None Seen) Fluid Comment Pleural Total Protein gm/dl Pleural LDH U/L Pleural Glucose mg/dl Adenovirus (PCR) (NotDetected) B. pertussis DNA (PCR) (NotDetected) B.parapertussis DNA PCR (NotDetected) C. pneumoniae DNA (PCR) (NotDetected) Coronavirus OC43 (PCR) (NotDetected) Coronavirus HKU1 (PCR) (NotDetected) Coronavirus 229E (PCR) (NotDetected) SARS-CoV-2 (PCR) (NotDetected) Coronavirus NL63 (PCR) (NotDetected) Human Metapneumovir PCR (NotDetected) Influenza Type A (PCR) (NotDetected) Influenza Type B (PCR) (NotDetected) M. pneumoniae (PCR) (NotDetected) Parainfluenza 1 (PCR) (NotDetected) Parainfluenza 2 (PCR) (NotDetected) Parainfluenza 3 (PCR) (NotDetected) Parainfluenza 4 (PCR) (NotDetected) RSV (PCR) (NotDetected) Entero/Rhino (PCR) (NotDetected) 06/29/23 06/29/23 06/29/23 Range/Units 00:41 01:02 02:12 WBC (4.8-10.8) K/ul RBC (4.20-5.40) M/uL Hgb (12.0-16.0) g/dl POC Hgb (12.0-16.0) g/dl Hct (37.0-47.0) % POC Hct (37-47) % MCV (80.0-100.0) fL MCH (25.0-34.0) pg MCHC (32.0-36.0) g/dL RDW Std Deviation (36.4-46.3) fL RDW Coeff of [place] (11.5-14.5) % Plt Count (130-400) K/uL MPV (9.4-12.4) fL Immature Gran % (Auto) % Neut % (Auto) % Lymph % (Auto) % [place] % (Auto) % Eos % (Auto) % Baso % (Auto) % Neut # (Auto) (1.40-6.50) K/uL Lymph # (Auto) (1.20-3.40) K/uL [place] # (Auto) (0.11-0.59) K/uL Eos # (Auto) (0.00-0.50) K/uL Baso # (Auto) (0.00-0.20) K/uL Immature Gran # (Auto) (0.01-0.20) K/uL PT (9.0-12.0) Seconds INR (0.9-1.1) APTT (21-31) Seconds PTT Ratio VBG pH (7.36-7.41) VBG pCO2 (38-50) mmHg VBG pO2 mmHg VBG HCO3 mmol/L VBG O2 Saturation % VBG Base Excess mEq/L POC Sodium (135-144) mmol/L Sodium (136-145) mmol/L POC Potassium (3.3-5.0) mmol/L Potassium (3.5-5.1) mmol/L POC Chloride (101-112) mmol/L Chloride (98-107) mmol/L Carbon Dioxide (21-32) mmol/L POC Total CO2 (24-31) mmol/L Anion Gap (3-11) POC Anion Gap (16-25) mmol/L POC BUN (7-18) mg/dl BUN (6-23) mg/dl Creatinine (0.6-1.2) mg/dl POC Creatinine (0.6-1.3) mg/dl Est Cr Clr Drug Dosing ml/min Est GFR ( Amer) ml/min Est GFR (Non-Af Amer) ml/min BUN/Creatinine Ratio (10-20) Glucose (70-99(Fasting)) mg/dl POC Glucose (other) (70-99) mg/dl Lactate (0.4-2.0) mmol/L Calcium (8.6-10.3) mg/dl POC Ioniz Calcium Rakesh (1.12-1.32) mmol/l Magnesium (1.7-2.4) mg/dl Total Bilirubin (0.2-1.0) mg/dl Direct Bilirubin (0-0.2) mg/dl AST (13-39) U/L ALT (7-52) U/L Alkaline Phosphatase (34-104) U/L Troponin I High Sens (0-14) pg/ml B-Natriuretic Peptide (0-100) pg/ml Total Protein (6.0-8.3) gm/dl Albumin (3.4-5.0) gm/dl Globulin (2.5-4.0) gm/dl Albumin/Globulin Ratio (0.9-2) Procalcitonin (0-0.5) ng/ml Urine Color Yellow Urine Appearance Clear (Clear) Urine pH 6.0 (4.5-7.5) Ur Specific [place] 1.014 (1.000-1.030) Urine Protein Negative (Negative) Urine Glucose (UA) Negative (Negative) Urine Ketones Negative (Negative) Urine Blood Trace H (Negative) Urine Nitrite Negative (Negative) Urine Bilirubin Negative (Negative) Urine Urobilinogen Negative (Negative) Ur Leukocyte Esterase 1+ H (Negative) Urine WBC (Auto) 6-10 H (0-5) /hpf Urine RBC (Auto) 0-2 (0-2) /hpf U Hyaline Cast (Auto) 0-2 (0-2) /lpf U Epithel Cells (Auto) 0-2 (0-2) /hpf Urine Bacteria (Auto) None Seen (None Seen) Fluid Comment Pleural Total Protein 3.9 gm/dl Pleural LDH 108 U/L Pleural Glucose 120 mg/dl Adenovirus (PCR) Not Detected (NotDetected) B. pertussis DNA (PCR) Not Detected (NotDetected) B.parapertussis DNA PCR Not Detected (NotDetected) C. pneumoniae DNA (PCR) Not Detected (NotDetected) Coronavirus OC43 (PCR) Not Detected (NotDetected) Coronavirus HKU1 (PCR) Not Detected (NotDetected) Coronavirus 229E (PCR) Not Detected (NotDetected) SARS-CoV-2 (PCR) Not Detected (NotDetected) Coronavirus NL63 (PCR) Not Detected (NotDetected) Human Metapneumovir PCR Not Detected (NotDetected) Influenza Type A (PCR) Not Detected (NotDetected) Influenza Type B (PCR) Not Detected (NotDetected) M. pneumoniae (PCR) Not Detected (NotDetected) Parainfluenza 1 (PCR) Not Detected (NotDetected) Parainfluenza 2 (PCR) Not Detected (NotDetected) Parainfluenza 3 (PCR) Not Detected (NotDetected) Parainfluenza 4 (PCR) Not Detected (NotDetected) RSV (PCR) Not Detected (NotDetected) Entero/Rhino (PCR) Not Detected (NotDetected) Imaging Data Attestation: I personally reviewed and interpreted this imaging study as follows: Radiologist's Impression: Abdomen/Pelvis CT 06/28/23 23:50 Exam(s): CT ABDOMEN + PELVIS With Contrast IV Amt: 118 cc otp i320 EXAM: CT Abdomen and Pelvis With Intravenous Contrast CLINICAL HISTORY: severe pain, fever, breast ca. TECHNIQUE: Axial computed tomography images of the abdomen and pelvis with intravenous contrast. CTDI is 24.87 mGy and DLP is 1226.13 mGy-cm. Automated exposure control was utilized for the study. A dose lowering technique was utilized adhering to the principles of ALARA. CONTRAST: Patient received 118 cc otp i320 of IV contrast COMPARISON: CT abdomen and pelvis with contrast dated 05/27/2023 FINDINGS: Lung bases: For findings regarding the lung bases, please see the CT report of the chest performed concurrently. No consolidation. Mediastinum: There is abnormal infiltrating soft tissue density in the periaortic region of the distal posterior mediastinum. ABDOMEN: Liver: A punctate hypoattenuating presumed hepatic cyst too small for accurate characterization is noted in segment 4A, stable in appearance from the previous examination. Gallbladder and bile ducts: Unremarkable. No calcified stones. No ductal dilation. Pancreas: Unremarkable. No mass. No ductal dilation. Spleen: Unremarkable. No splenomegaly. Adrenals: Unremarkable. No mass. Kidneys and ureters: There is a abnormal striated appearance of the left kidney. The previously noted left renal pelviectasis and ureteral distention has resolved. No hydronephrosis. Stomach and bowel: No bowel obstruction. Mild distention of the stomach with retained oral contents and fluid. No asymmetric bowel mucosal abnormality. PELVIS: Appendix: No findings to suggest acute appendicitis. Bladder: Unremarkable. No mass. Reproductive: Unremarkable as visualized. ABDOMEN and PELVIS: Intraperitoneal space: Unremarkable. No free air. No significant fluid collection. Bones/joints: No osseous metastatic disease. No acute osseous abnormality. Soft tissues: There is extensive subcutaneous fat stranding involving the right lateral subcutaneous abdominopelvic fat, increased from the previous examination. Vasculature: Unremarkable. No abdominal aortic aneurysm. Lymph nodes: See above. In addition, there is abnormal soft tissue presumed lymphadenopathy in the gastrohepatic ligament, the pritesh hepatis and the retrocaval region posterior to the liver adjacent to the diaphragmatic virgie. Other findings: There is abnormal thickening of the right hemidiaphragm, more prominent from the previous examination. IMPRESSION: 1. There is abnormal infiltrating soft tissue density in the periaortic region of the distal posterior mediastinum. In addition, there is abnormal soft tissue presumed lymphadenopathy in the gastrohepatic ligament, the pritesh hepatis and the retrocaval region posterior to the liver adjacent to the diaphragmatic virgie. Findings are concerning for advancing metastatic disease. 2. There is abnormal thickening of the right hemidiaphragm, more prominent from the previous examination. Suspect metastatic disease. 3. There is a abnormal striated appearance of the left kidney. The previously noted left renal pelviectasis and ureteral distention has resolved. Suspect residual or recurrent pyelonephritis. No perinephric abscess. 4. There is extensive subcutaneous fat stranding involving the right lateral subcutaneous abdominopelvic fat, increased from the previous examination. This is presumed reactive from the abnormal muscular enhancement noted in detail involving the chest CT report. Cellulitis is not the left likely. Electronically signed by: Saurabh Ojeda MD 06/29/23 01:36 AM Chest CTA 06/28/23 23:50 Exam(s): CTA CHEST IV Amt: 118 cc opti 320 EXAM: CT Angiography Chest With Intravenous Contrast CLINICAL HISTORY: Evaluate for PE. TECHNIQUE: Axial computed tomographic angiography images of the chest with intravenous contrast. CTDI is 26.32 mGy and DLP is 764.45 mGy-cm. Automated exposure control was utilized for the study. A dose lowering technique was utilized adhering to the principles of ALARA. MIP reconstructed images were created and reviewed. COMPARISON: CTA chest dated 05/27/2023 FINDINGS: Limitations: There is extensive respiratory artifact, which degrades image quality throughout the examination. Pulmonary arteries: There is no evidence for large/central pulmonary emboli in the main, left main or right main pulmonary arteries. The majority of the segmental and subsegmental pulmonary branches are of nondiagnostic quality secondary to extensive respiratory artifact. Aorta: The thoracic aorta is normal in caliber without dissection or aneurysm. Lungs: Unremarkable. No mass. No consolidation. Pleural space: Massive right pleural effusion occupying nearly the entire right interosseous hemithorax with minimal shift of the cardiomediastinal structures to the left. No loculation. There is a moderate left pleural effusion noted posteriorly. No loculation. There is near complete collapse of the right lung with only minimal aeration of the anterior right upper lobe. Subsegmental changes noted involving the dependent portions of the left lung adjacent to the pleural effusion. No definite space-occupying consolidation suspected. Mild pleural thickening noted along the medial aspect of the left costophrenic margin. No pneumothorax. Heart: Unremarkable. No cardiomegaly. No significant pericardial effusion. Bones/joints: No acute osseous abnormality. No prostatic disease. Soft tissues: There is infiltrative abnormal soft tissue thickening surrounding the distal thoracic aorta in the mediastinum. No infiltration of the aorta is noted. There is abnormal hyperenhancement of the intercostal muscles and the left inferior serratus muscle. Extensive subcutaneous edema and fluid along the lateral right hemithorax. Similar dermal thickening of the left breast. Similar irregular soft tissue density in the right axillary region. No obvious defined lymphadenopathy. Lymph nodes: Evaluation for paratracheal lymphadenopathy is somewhat limited. However, there appears to be abnormal paratracheal and subcarinal lymph nodes, more prominent from the previous examination. Upper abdomen: There is abnormal thickening of the right hemidiaphragm, measuring up to 1 cm laterally. Tubes, lines and devices: The cardiac chambers are normal. The left internal jugular approach portacatheter is noted with tip in the right atrium. IMPRESSION: 1. There is no evidence for large/central pulmonary emboli in the main, left main or right main pulmonary arteries. The majority of the segmental and subsegmental pulmonary branches are of nondiagnostic quality secondary to extensive respiratory artifact. 2. Massive right pleural effusion occupying nearly the entire right interosseous hemithorax with minimal shift of the cardiomediastinal structures to the left. No loculation. This is presumed reactive from the diaphragmatic process. A moderate layering left pleural effusion is noted. 3. There is near complete collapse of the right lung with only minimal aeration of the anterior right upper lobe. Subsegmental changes noted involving the dependent portions of the left lung adjacent to the pleural effusion. No definite space-occupying consolidation suspected. 4. There is abnormal thickening of the right hemidiaphragm, measuring up to 1 cm laterally. Suspect infiltrative pleural metastatic disease. Less prominent changes are noted along the medial aspect of the left costophrenic margin. 5. There is infiltrative abnormal soft tissue thickening surrounding the distal thoracic aorta in the mediastinum. No infiltration of the aorta is noted. Suspect advancing metastatic disease. 6. There is abnormal hyperenhancement of the intercostal muscles and the left inferior serratus muscle. 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 7. Extensive subcutaneous edema and fluid along the lateral right hemithorax. Similar dermal thickening of the left breast. Similar irregular soft tissue density in the right axillary region. No obvious defined lymphadenopathy. This may represent posttreatment changes or persistent neoplastic process or reactive changes from the intramuscular metastatic lesions. Electronically signed by: Saurabh Ojeda MD 06/29/23 01:50 AM MDM Narrative Prior records/ancillary studies reviewed. Triage Nursing notes reviewed. Additional history obtained from the nursing The patient's history was concerning for respiratory difficulties. Differential diagnosis: Etiologies such as infections, reactive airway disease, pneumonia, pneumothorax, COPD, CHF, cardiac ischemia, pulmonary embolism, musculoskeletal, gastrointestinal, as well as others were entertained. Physical examination: As above. ER treatment provided: An order was placed for continuous cardiac monitoring. The monitor shows a rate of 60-1 50 with a sinus rhythm per my interpretation. I immediately placed the patient on a nonrebreather and her breathing improved. Nebulizer, Zosyn and vancomycin ordered septic workup was initiated Patient was consented and under antiseptic technique the area for thoracentesis was anesthetized with lidocaine and I utilized ultrasound to verify placement for the thoracentesis. Thoracentesis was performed and 1500 cc of fluid was withdrawn. The catheter was removed and patient tolerated procedure well. Post chest x-ray shows no pneumothorax. Great improvement of the pleural effusion. Patient tolerated procedure well. On reassessment the patient felt better. Diagnostic interpretation by me: The electrocardiogram was ordered for SOB. ECG: Normal sinus, normal intervals, no acute ST-T wave changes. Impression sinus tachycardia independently interpreted by myself The labs Independently Interpreted by myself revealed no worrisome leukocytosis, mild anemia, normal VBG Imaging studies: Chest x-ray with right lung field up with fluid per my independent interpretation. No pneumothorax. Repeat chest x-ray after performing thoracentesis shows much improved pleural effusion on the right per my independent interpretation. No obvious pneumothorax. Consultation: A consultation was placed with the hospitalist. The case was discussed and diagnostics were reviewed. The patient was evaluated in the ER for further treatment. This appears to be consistent with recurrent pleural effusions from metastatic breast cancer. Patient was hypoxic and working to breathe so thoracentesis was performed. 1500 cc of fluid was removed. Patient tolerated procedure well. Post chest x-ray shows no pneumothorax. Medicine is consulted and case discussed. Patient be admitted to the medical service. By the evaluation outlined above emergent etiologies such as CHF, cardiac ischemia, pulmonary embolism, reactive airway disease, pneumothorax, musculoskeletal, as well as others were deemed relatively unlikely. The pt informed about the findings as listed above. All questions were answered and pleased with the treatment. The chart was completed utilizing [employer] Speech voice recognition software. Grammatical errors, random word insertions, pronoun errors, and incomplete sentences are an occassional consequence of this system due to software limitations, ambient noise, and hardware issues. Any formal questions or concerns about the content, text, or information contained within the body of this dictation should be directly addressed to the physician catering administrative assistant for clarification. Impression & Plan Malignant neoplasm of breast metastatic to bone, Pleural effusion on right, Pleural effusion on left, Hypoxemia Discharge Plan Visit Data Chief Complaint: Shortness of Breath/Dyspnea Stated Complaint: CAN'T BREATHE, NEEDS LUNGS DRAINED ED Provider: Oralia Gavin ED Midlevel Provider: Keren Grossman Discharge Problem: Malignant neoplasm of breast metastatic to bone, Pleural effusion on right, Pleural effusion on left, Hypoxemia Patient Disposition: Admitted As Inpatient Condition: Fair Forms Stand Alone Forms: [facility] Prescriptions Prescriptions: No Action alprazolam [Xanax] 2 mg tablet 2 mg PO HS PRN (Reason: Sleep) Rx Instructions: at bedtime alprazolam [Xanax] 1 mg tablet 1 mg PO BID PRN (Reason: Sleep) venlafaxine 150 mg capsule,extended release 24hr 150 mg PO QAM ondansetron HCl 8 mg tablet 8 mg PO Q8H PRN (Reason: Nausea) prochlorperazine maleate [Compazine] 10 mg tablet 10 mg PO Q6H PRN (Reason: Nausea) erythromycin 5 mg/gram (0.5 %) ointment 0.25 inch ophthalmic (eye) DAILY PRN (Reason: Dry Eyes) Rx Instructions: both eyes at bedtime fexofenadine-pseudoephedrine [Allergy Relief-D(fexofenadine)] 60-120 mg tablet extended release 12 hr 1 tab PO Q12H PRN aripiprazole [Abilify] 5 mg tablet 5 mg PO QAM baclofen 5 mg tablet 5 mg PO BID PRN (Reason: muscle spasm) famotidine 20 mg tablet 20 mg PO HS hydromorphone [Dilaudid] 4 mg tablet 4 mg PO Q4H PRN (Reason: severe cancer pain) 30 Days Qty: 150 0RF entecavir 0.5 mg tablet 0.5 mg PO DAILY Rx Instructions: take on an empty stomach 2 hours before or after a meal pantoprazole 20 mg tablet,delayed release (DR/EC) 20 mg PO QAM calcium carbonate 250 mg calcium (625 mg) Tablet 250 mg PO DAILY cholecalciferol (vitamin D3) [Vitamin D3] 50 mcg (2,000 unit) Capsule 50 mcg PO QAM lidocaine-prilocaine 2.5-2.5 % Cream 1 applic topical UD PRN (Reason: [facility] Rx Instructions: apply to skin over mediport ciprofloxacin HCl 500 mg tablet 500 mg PO BID Qty: 26 0RF Referrals Referrals: Barbara Lopez PA-C [Primary Care Provider] -
[2023-06-29 00:35] LABS: iSTAT Creatinine 0.6 mg/dl (0.6-1.3); iSTAT Hemoglobin 11.2 g/dl (12.0-16.0); iSTAT Ionized Calcium 1.1 mmol/l (1.12-1.32); iSTAT Potassium 3.5 mmol/L (3.3-5.0)
[2023-06-29 00:37] LABS: Basophils # (auto) 0.05 K/uL (0.00-0.20); Basophils % (auto) 0.8 %; Eosinophils # (auto) 0.24 K/uL (0.00-0.50); Eosinophils % (auto) 3.8 %; Hemoglobin 11.5 g/dl (12.0-16.0); Immature Granulocytes # (auto) 0.01 K/uL (0.01-0.20); Immature Granulocytes % (auto) 0.2 %; Lymphocytes # (auto) 1.21 K/uL (1.20-3.40); Lymphocytes % (auto) 19.2 %; Mean Corpuscular Hemoglobin 32.1 pg (25.0-34.0); Mean Corpuscular Hgb Conc 32.9 g/dL (32.0-36.0); Mean Corpuscular Volume 97.8 fL (80.0-100.0); Mean Platelet Volume 8.5 fL (9.4-12.4); Monocytes # (auto) 0.84 K/uL (0.11-0.59); Monocytes % (auto) 13.3 %; Neutrophils # (auto) 3.95 K/uL (1.40-6.50); Neutrophils % (auto) 62.7 %; Platelet Count 220 K/uL (130-400); RDW Coefficient of Variation 14.5 % (11.5-14.5); RDW Standard Deviation 51.7 fL (36.4-46.3); Red Blood Count 3.58 M/uL (4.20-5.40)
[2023-06-29] MEDS: SODIUM CHLORIDE 0.9% 1,000 ML IV ONE (00:41)
[2023-06-29] MEDS: OPTIRAY 320 125ml IV ONE (00:48)
[2023-06-29 00:49] LABS: Base Excess VBG 1.5 mEq/L; HCO3 VBG 27 mmol/L; Oxygen Saturation VBG 82.7 %; PCO2 VBG 43 mmHg (38-50); PO2 VBG 50 mmHg
[2023-06-29 00:52] LABS: Albumin Globulin Ratio 0.9 (0.9-2); BUN Creatinine Ratio 16.4 (10-20); Bilirubin Direct 0.1 mg/dl (0-0.2); Bilirubin,Total 0.5 mg/dl (0.2-1.0); Calcium 7.8 mg/dl (8.6-10.3); Creatinine Clr Calc Pharmacy 89.3 ml/min; Est GFR (African American) 114.1 ml/min; Est GFR (Non-African American) 98.4 ml/min; Globulin 3.4 gm/dl (2.5-4.0); Magnesium 1.8 mg/dl (1.7-2.4); Potassium 3.5 mmol/L (3.5-5.1); Total Protein 6.4 gm/dl (6.0-8.3)
[2023-06-29 00:56] LABS: Appearance Urine Clear (Clear); Bacteria Urine Automated None Seen (None Seen); Bilirubin Urine Negative (Negative); Blood Urine Trace (Negative); Cast Urine Automated 0-2 /lpf (0-2); Color Urine Yellow; Epithelial Cell Urine Auto 0-2 /hpf (0-2); Glucose Urine UA Negative (Negative); Ketones Urine Negative (Negative); Leukocyte Esterase Urine 1+ (Negative); Nitrite Urine Negative (Negative); Protein Urine Negative (Negative); RBC Urine Automated 0-2 /hpf (0-2); Specific Gravity Urine 1.014 (1.000-1.030); Urobilinogen Urine Negative (Negative)
[2023-06-29] MEDS: PIPERACILLIN/TAZOBACTAM 4.5 GM/100 ML BAG IV ONE (00:56)
[2023-06-29 00:58] LABS: Troponin I High Sensitivity 3.2 pg/ml (0-14)
--- NOTE | 2023-06-29 01:37 | CT Scan Report ---
Exam(s): CT ABDOMEN + PELVIS With Contrast IV Amt: 118 cc otp i320 EXAM: CT Abdomen and Pelvis With Intravenous Contrast CLINICAL HISTORY: severe pain, fever, breast ca. TECHNIQUE: Axial computed tomography images of the abdomen and pelvis with intravenous contrast. CTDI is 24.87 mGy and DLP is 1226.13 mGy-cm. Automated exposure control was utilized for the study. A dose lowering technique was utilized adhering to the principles of ALARA. CONTRAST: Patient received 118 cc otp i320 of IV contrast COMPARISON: CT abdomen and pelvis with contrast dated 05/27/2023 FINDINGS: Lung bases: For findings regarding the lung bases, please see the CT report of the chest performed concurrently. No consolidation. Mediastinum: There is abnormal infiltrating soft tissue density in the periaortic region of the distal posterior mediastinum. ABDOMEN: Liver: A punctate hypoattenuating presumed hepatic cyst too small for accurate characterization is noted in segment 4A, stable in appearance from the previous examination. Gallbladder and bile ducts: Unremarkable. No calcified stones. No ductal dilation. Pancreas: Unremarkable. No mass. No ductal dilation. Spleen: Unremarkable. No splenomegaly. Adrenals: Unremarkable. No mass. Kidneys and ureters: There is a abnormal striated appearance of the left kidney. The previously noted left renal pelviectasis and ureteral distention has resolved. No hydronephrosis. Stomach and bowel: No bowel obstruction. Mild distention of the stomach with retained oral contents and fluid. No asymmetric bowel mucosal abnormality. PELVIS: Appendix: No findings to suggest acute appendicitis. Bladder: Unremarkable. No mass. Reproductive: Unremarkable as visualized. ABDOMEN and PELVIS: Intraperitoneal space: Unremarkable. No free air. No significant fluid collection. Bones/joints: No osseous metastatic disease. No acute osseous abnormality. Soft tissues: There is extensive subcutaneous fat stranding involving the right lateral subcutaneous abdominopelvic fat, increased from the previous examination. Vasculature: Unremarkable. No abdominal aortic aneurysm. Lymph nodes: See above. In addition, there is abnormal soft tissue presumed lymphadenopathy in the gastrohepatic ligament, the pritesh hepatis and the retrocaval region posterior to the liver adjacent to the diaphragmatic virgie. Other findings: There is abnormal thickening of the right hemidiaphragm, more prominent from the previous examination. IMPRESSION: 1. There is abnormal infiltrating soft tissue density in the periaortic region of the distal posterior mediastinum. In addition, there is abnormal soft tissue presumed lymphadenopathy in the gastrohepatic ligament, the pritesh hepatis and the retrocaval region posterior to the liver adjacent to the diaphragmatic virgie. Findings are concerning for advancing metastatic disease. 2. There is abnormal thickening of the right hemidiaphragm, more prominent from the previous examination. Suspect metastatic disease. 3. There is a abnormal striated appearance of the left kidney. The previously noted left renal pelviectasis and ureteral distention has resolved. Suspect residual or recurrent pyelonephritis. No perinephric abscess. 4. There is extensive subcutaneous fat stranding involving the right lateral subcutaneous abdominopelvic fat, increased from the previous examination. This is presumed reactive from the abnormal muscular enhancement noted in detail involving the chest CT report. Cellulitis is not the left likely. Electronically signed by: Saurabh Ojeda MD 06/29/23 01:36 AM
[2023-06-29 01:38] LABS: Partial Thromboplastin Ratio 1.1; Partial Thromboplastin Time 30 Seconds (21-31)
[2023-06-29] MEDS: ONDANSETRON INJ 2 MG/ML 2 ML VIAL IV STA (01:45)
[2023-06-29] MEDS: HYDROmorphone INJ 1 MG/ML SYRINGE IV PRN (01:45)
--- NOTE | 2023-06-29 01:50 | CT Scan Report ---
Exam(s): CTA CHEST IV Amt: 118 cc opti 320 EXAM: CT Angiography Chest With Intravenous Contrast CLINICAL HISTORY: Evaluate for PE. TECHNIQUE: Axial computed tomographic angiography images of the chest with intravenous contrast. CTDI is 26.32 mGy and DLP is 764.45 mGy-cm. Automated exposure control was utilized for the study. A dose lowering technique was utilized adhering to the principles of ALARA. MIP reconstructed images were created and reviewed. COMPARISON: CTA chest dated 05/27/2023 FINDINGS: Limitations: There is extensive respiratory artifact, which degrades image quality throughout the examination. Pulmonary arteries: There is no evidence for large/central pulmonary emboli in the main, left main or right main pulmonary arteries. The majority of the segmental and subsegmental pulmonary branches are of nondiagnostic quality secondary to extensive respiratory artifact. Aorta: The thoracic aorta is normal in caliber without dissection or aneurysm. Lungs: Unremarkable. No mass. No consolidation. Pleural space: Massive right pleural effusion occupying nearly the entire right interosseous hemithorax with minimal shift of the cardiomediastinal structures to the left. No loculation. There is a moderate left pleural effusion noted posteriorly. No loculation. There is near complete collapse of the right lung with only minimal aeration of the anterior right upper lobe. Subsegmental changes noted involving the dependent portions of the left lung adjacent to the pleural effusion. No definite space-occupying consolidation suspected. Mild pleural thickening noted along the medial aspect of the left costophrenic margin. No pneumothorax. Heart: Unremarkable. No cardiomegaly. No significant pericardial effusion. Bones/joints: No acute osseous abnormality. No prostatic disease. Soft tissues: There is infiltrative abnormal soft tissue thickening surrounding the distal thoracic aorta in the mediastinum. No infiltration of the aorta is noted. There is abnormal hyperenhancement of the intercostal muscles and the left inferior serratus muscle. Extensive subcutaneous edema and fluid along the lateral right hemithorax. Similar dermal thickening of the left breast. Similar irregular soft tissue density in the right axillary region. No obvious defined lymphadenopathy. Lymph nodes: Evaluation for paratracheal lymphadenopathy is somewhat limited. However, there appears to be abnormal paratracheal and subcarinal lymph nodes, more prominent from the previous examination. Upper abdomen: There is abnormal thickening of the right hemidiaphragm, measuring up to 1 cm laterally. Tubes, lines and devices: The cardiac chambers are normal. The left internal jugular approach portacatheter is noted with tip in the right atrium. IMPRESSION: 1. There is no evidence for large/central pulmonary emboli in the main, left main or right main pulmonary arteries. The majority of the segmental and subsegmental pulmonary branches are of nondiagnostic quality secondary to extensive respiratory artifact. 2. Massive right pleural effusion occupying nearly the entire right interosseous hemithorax with minimal shift of the cardiomediastinal structures to the left. No loculation. This is presumed reactive from the diaphragmatic process. A moderate layering left pleural effusion is noted. 3. There is near complete collapse of the right lung with only minimal aeration of the anterior right upper lobe. Subsegmental changes noted involving the dependent portions of the left lung adjacent to the pleural effusion. No definite space-occupying consolidation suspected. 4. There is abnormal thickening of the right hemidiaphragm, measuring up to 1 cm laterally. Suspect infiltrative pleural metastatic disease. Less prominent changes are noted along the medial aspect of the left costophrenic margin. 5. There is infiltrative abnormal soft tissue thickening surrounding the distal thoracic aorta in the mediastinum. No infiltration of the aorta is noted. Suspect advancing metastatic disease. 6. There is abnormal hyperenhancement of the intercostal muscles and the left inferior serratus muscle. 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 7. Extensive subcutaneous edema and fluid along the lateral right hemithorax. Similar dermal thickening of the left breast. Similar irregular soft tissue density in the right axillary region. No obvious defined lymphadenopathy. This may represent posttreatment changes or persistent neoplastic process or reactive changes from the intramuscular metastatic lesions. Electronically signed by: Saurabh Ojeda MD 06/29/23 01:50 AM
--- NOTE | 2023-06-29 02:05 | Emergency Department Note ---
ED Visit Note Thoracentesis was done with Keren Grossman PA-C. Please see her note for procedure details. Fluid was sent for analysis. Postprocedure chest x-ray is pending. Patient tolerated the procedure well but did have 1 episode of postprocedural hypotension. .
[2023-06-29 02:06] LABS: Adenovirus PCR Not Detected (NotDetected); Bordetella parapertussis PCR Not Detected (NotDetected); Bordetella pertussis PCR Not Detected (NotDetected); Chlamydia pneumoniae PCR Not Detected (NotDetected); Coronavirus 229E PCR Not Detected (NotDetected); Coronavirus CoV-2 (COVID19)PCR Not Detected (NotDetected); Coronavirus HKU1 PCR Not Detected (NotDetected); Coronavirus NL63 PCR Not Detected (NotDetected); Coronavirus OC43PCR Not Detected (NotDetected); Human Metapneumovirus PCR Not Detected (NotDetected); Influenza A PCR Not Detected (NotDetected); Influenza B PCR Not Detected (NotDetected); Mycoplasma pneumoniae PCR Not Detected (NotDetected); Parainfluenza Virus 1 PCR Not Detected (NotDetected); Parainfluenza Virus 2 PCR Not Detected (NotDetected); Parainfluenza Virus 3 PCR Not Detected (NotDetected); Parainfluenza Virus 4 PCR Not Detected (NotDetected); Respiratory Syncytial VirusPCR Not Detected (NotDetected); Rhinovirus/Enterovirus PCR Not Detected (NotDetected)
[2023-06-29] MEDS: VANCOMYCIN HCL 1,250 MG in SODIUM CHLORIDE 0.9% 500 ML IV ONE (02:08)
[2023-06-29 03:12] LABS: Total Protein Pleural Fluid 3.9 gm/dl
[2023-06-29 03:49] LABS: Appearance Pleural Fluid Clear; Color Pleural Fluid Yellow; Eosinophils, Fluid 1 %; Lymphocytes, Fluid 71 %; Mono,Macrophage,Mesothelial 19 %; Neutrophils, Fluid 9 %; RBC Pleural Fluid Auto 2000 /uL; Source Pleural Fluid Right Lung; WBC Pleural Fluid Auto 108 /uL
[2023-06-29 04:30] LABS: Albumin Level 2.6 gm/dl (3.4-5.0); Bilirubin,Total 0.4 mg/dl (0.2-1.0); Total Protein 5.8 gm/dl (6.0-8.3)
--- NOTE | 2023-06-29 05:42 | History & Physical Report ---
Date of Service June 29, 2023 Assessment & Plan (1) Pleural effusion on right: Plan: 63-year-old female with past med significant for stage IV metastatic breast cancer s/p radiation currently not on chemo and plan to restart chemo in July after discussing with pulmonary and oncology as per patient, chronic HBV on chronic entecavir, rheumatoid arthritis, chronic fatigue syndrome/fibromyalgia, anxiety/mood disorder, history of ascending lymphangitis, was recently in the hospital for sepsis from pyelonephritis and bacteremia and was discharge on Cipro .And also during that hospitalization patient had respiratory failure from pleural effusion s/p right-sided thoracocentesis on May 28, 2023 with 1.5 L exudative fluid removed.As per patient there is a plan for Pleurx catheter and has appointment with pulmonary today at 10 AM .Comes to the hospital because last night patient was feeling very short of breath. In the ER x-ray showed large right pleural effusion and is s/p thoracocentesis. Currently on oxygen supplementation saturating fine.Resting comfortably. States has some cough from the fluid in the lungs. Feeling short of breath. Has some right-sided chest pain. . No nausea vomiting. Some abdominal discomfort from the cancer. Also states some erythematous rash on abdomen for last 2 to 3 days. On and off constipation and diarrhea from her cancer. Denies blood in stools. Micturating okay. Currently denies any headache. Vision is okay. No runny nose. No sore throat. Hemodynamics are okay currently. Shortness of breath Recurrent large right pleural effusion mostly malignant S/p thoracocentesis in the ER Repeat x-ray somewhat improved As per the patient there is a plan for Pleurx catheter by pulmonary Will consult pulmonary Close monitor Stage IV metastatic breast cancer Follow-up with heme-onc Erythematous rash on abdomen Possible cellulitis Rocephin Will follow response History of radiation dermatitis of the right breast Chronic HBV On entecavir History of anemia Hemoglobin 11.5 today We will follow labs Rheumatoid arthritis Seems not on medications History of chronic fatigue syndrome/fibromyalgia/anxiety/mood disorder DVT prophylaxis Lovenox Disposition Telemetry Full code if there is chance of recovery as per my discussion with the patient History of Present Illness Chief Complaint: Shortness of breath. Recurrent malignant right pleural effusion Primary Care Provider: Barbara Lopez PA-C 63-year-old female with past med significant for stage IV metastatic breast cancer s/p radiation currently not on chemo and plan to restart chemo in July after discussing with pulmonary and oncology as per patient, chronic HBV on chronic entecavir, rheumatoid arthritis, chronic fatigue syndrome/fibromyalgia, anxiety/mood disorder, history of ascending lymphangitis, was recently in the hospital for sepsis from pyelonephritis and bacteremia and was discharge on Cipro .And also during that hospitalization patient had respiratory failure from pleural effusion s/p right-sided thoracocentesis on May 28, 2023 with 1.5 L exudative fluid removed.As per patient there is a plan for Pleurx catheter and has appointment with pulmonary today at 10 AM .Comes to the hospital because last night patient was feeling very short of breath. In the ER x-ray showed large right pleural effusion and is s/p thoracocentesis. Currently on oxygen supplementation saturating fine.Resting comfortably. States has some cough from the fluid in the lungs. Feeling short of breath. Has some right-sided chest pain. . No nausea vomiting. Some abdominal discomfort from the cancer. Also states some erythematous rash on abdomen for last 2 to 3 days. On and off constipation and diarrhea from her cancer. Denies blood in stools. Micturating okay. Currently denies any headache. Vision is okay. No runny nose. No sore throat. Hemodynamics are okay currently. Past medical's. As mentioned above Past surgical history. , breast BX, a port placement Family history. Breast cancer. Lung cancer alcoholism. Dementia. Heart disease. Depression Social history. History of tobacco abuse. No alcohol. Allergies Allergy/AdvReac Type Severity Reaction Status Date / Time No Known Allergies Allergy Unverified 05/27/23 21:27 Home Medications Medication Instructions Recorded Confirmed Type alprazolam 1 mg tablet (Xanax) 1 mg PO BID PRN Sleep 08/24/21 06/29/23 History alprazolam 2 mg tablet (Xanax) 2 mg PO HS PRN Sleep 08/24/21 06/29/23 History ondansetron HCl 8 mg tablet 8 mg PO Q8H PRN Nausea 08/24/21 06/29/23 History prochlorperazine maleate 10 mg 10 mg PO Q6H PRN Nausea 08/24/21 06/29/23 History tablet (Compazine) venlafaxine 150 mg 150 mg PO QAM 08/24/21 06/29/23 History capsule,extended release 24 hr aripiprazole 5 mg tablet (Abilify) 5 mg PO QAM 01/17/23 06/29/23 History baclofen 5 mg tablet 5 mg PO BID PRN muscle spasm 01/17/23 06/29/23 History erythromycin 5 mg/gram (0.5 %) eye 0.25 inch ophthalmic (eye) DAILY 01/17/23 06/29/23 History ointment PRN Dry Eyes famotidine 20 mg tablet 20 mg PO HS 01/17/23 06/29/23 History calcium carbonate 250 mg PO DAILY 05/27/23 06/29/23 History cholecalciferol (vitamin D3) 50 50 mcg PO QAM 05/27/23 06/29/23 History mcg (2,000 unit) capsule (Vitamin D3) entecavir 0.5 mg tablet 0.5 mg PO DAILY 05/27/23 06/29/23 History lidocaine-prilocaine 2.5 %-2.5 % 1 applic topical UD PRN 1 hr prior 05/27/23 06/29/23 History topical cream to accessing mediport pantoprazole 20 mg tablet,delayed 20 mg PO QAM 05/27/23 06/29/23 History release ciprofloxacin HCl 500 mg tablet 500 mg PO BID #26 tabs 06/03/23 06/29/23 Rx fexofenadine 60 mg-pseudoephedrine 1 tab PO Q12H PRN Allergy Symptoms 06/13/23 06/29/23 History ER 120 mg tablet,ext.release,12 hr (Allergy Relief-D (fexofenadine)) hydromorphone 4 mg tablet 4 mg PO Q4H PRN severe cancer pain 06/14/23 06/29/23 Rx (Dilaudid) 1 month #150 tabs Past Med/Surg History Medical History Therapeutic opioid-induced constipation (OIC) Cellulitis of chest wall Anterior chest wall pain Palliative care by specialist Advanced care planning/counseling discussion Dyspnea and respiratory abnormalities Weakness generalized Cancer related pain Acute respiratory failure with hypoxia Rheumatoid arthritis Insomnia Fibromyalgia Depression Chronic fatigue syndrome Surgical History S/P breast biopsy deliv NOS-unsp Family History Aunt Breast cancer Mother , Age 72 Arthritis Father , Age 93 Heart disease Dementia Daughter No problems noted. Sister No problems noted. Uncle Pancreatic cancer Social History Smoking Status: Never smoker Hx Alcohol Use: No Hx Substance Use: No Preferred Language: Kyr[place]z Communication Ability: Effective Commercial Food Instructor Required: No Beliefs That Will Affect Care: None Current Living Situation: Alone and Family Current Living Situation Comment: with caregiver/family Feels Safe at Home: Yes Assistive Devices: None Review of Systems Review of Systems: All systems reviewed & are unremarkable except as noted in HPI & below Physical Exam Physical Exam: General- Not in distress Head- atraumatic Eyes- PERRL. ENT- oropharynx clear Neck- supple, no JVD. Lungs- clear to auscultation b/l rhonchi and bibasilar crackles present Heart- regular rhythm; no murmur, no gallop. Abdomen- normal bowel sounds, soft, nontender, no distension. Extremities- no pretibial edema, no erythema Neuro- alert, oriented ; PERRL, EOMI; no facial palsy; no dysarthria; moves extremities. Skin- erythematous rash seen on abdomen Results & Data Results & Data Vital Signs (Past 12 Hours) Vital Signs Temp Pulse Resp BP BP Pulse Ox O2 Del Method 06/29/23 04:31 36.6 C 23 105/62 95 Nasal Cannula 06/29/23 04:30 93 H 23 95 Nasal Cannula 06/29/23 04:30 93 H 23 95 Nasal Cannula 06/29/23 04:15 93 H 19 95 06/29/23 04:15 103/66 06/29/23 04:00 93 H 20 94 06/29/23 03:32 92 H 17 94 06/29/23 03:32 95/61 L 06/29/23 03:30 93 H 20 94 06/29/23 03:30 97/67 L 06/29/23 03:00 90 20 94 06/29/23 03:00 105/65 06/29/23 02:09 99 H 26 H 88/65 L 98 06/29/23 02:08 99 H 28 H 88/61 L 98 06/29/23 02:04 94 H 36 H 77/48 L 97 06/29/23 02:02 95 H 29 H 95 06/29/23 02:00 96 H 34 H 62/45 L 96 06/29/23 01:30 102 H 34 H 135/77 99 06/29/23 01:03 36.6 C 24 97 Nasal Cannula 06/29/23 01:02 97 Nasal Cannula 06/29/23 01:00 113/68 06/29/23 01:00 97 H 24 96 Nasal Cannula 06/29/23 00:30 118/68 06/29/23 00:30 26 H 97 Nasal Cannula 06/29/23 00:28 36.6 C 26 H 97 Nasal Cannula 06/29/23 00:01 18 100 Non-rebreather 06/29/23 00:00 119/90 06/29/23 00:00 107 H 18 100 06/28/23 23:45 110 H 21 100 06/28/23 23:45 152/93 H 06/28/23 23:31 87 L Room Air 06/28/23 23:31 36.6 C 113 H 26 H 117/82 87 L Room Air 06/28/23 23:31 Room Air O2 Flow Rate 06/29/23 04:31 6 06/29/23 04:30 6 06/29/23 04:30 6 06/29/23 04:15 06/29/23 04:15 06/29/23 04:00 06/29/23 03:32 06/29/23 03:32 06/29/23 03:30 06/29/23 03:30 06/29/23 03:00 06/29/23 03:00 06/29/23 02:09 06/29/23 02:08 06/29/23 02:04 06/29/23 02:02 06/29/23 02:00 06/29/23 01:30 06/29/23 01:03 6 06/29/23 01:02 6 06/29/23 01:00 06/29/23 01:00 6 06/29/23 00:30 06/29/23 00:30 4 06/29/23 00:28 4 06/29/23 00:01 9 06/29/23 00:00 06/29/23 00:00 06/28/23 23:45 06/28/23 23:45 06/28/23 23:31 0 06/28/23 23:31 06/28/23 23:31 Diagnostic Findings Laboratory Results WBC 6.30 K/ul (4.8-10.8) 06/29/23 00:16 RBC 3.58 M/uL (4.20-5.40) L 06/29/23 00:16 Hgb 11.5 g/dl (12.0-16.0) L 06/29/23 00:16 POC Hgb 11.2 g/dl (12.0-16.0) L 06/29/23 00:23 Hct 35.0 % (37.0-47.0) L 06/29/23 00:16 POC Hct 33 % (37-47) L 06/29/23 00:23 MCV 97.8 fL (80.0-100.0) 06/29/23 00:16 MCH 32.1 pg (25.0-34.0) 06/29/23 00:16 MCHC 32.9 g/dL (32.0-36.0) 06/29/23 00:16 RDW Std Deviation 51.7 fL (36.4-46.3) H 06/29/23 00:16 RDW Coeff of [place] 14.5 % (11.5-14.5) 06/29/23 00:16 Plt Count 220 K/uL (130-400) 06/29/23 00:16 MPV 8.5 fL (9.4-12.4) L 06/29/23 00:16 Immature Gran % (Auto) 0.2 % 06/29/23 00:16 Neut % (Auto) 62.7 % 06/29/23 00:16 Lymph % (Auto) 19.2 % 06/29/23 00:16 [place] % (Auto) 13.3 % 06/29/23 00:16 Eos % (Auto) 3.8 % 06/29/23 00:16 Baso % (Auto) 0.8 % 06/29/23 00:16 Neut # (Auto) 3.95 K/uL (1.40-6.50) 06/29/23 00:16 Lymph # (Auto) 1.21 K/uL (1.20-3.40) 06/29/23 00:16 [place] # (Auto) 0.84 K/uL (0.11-0.59) H 06/29/23 00:16 Eos # (Auto) 0.24 K/uL (0.00-0.50) 06/29/23 00:16 Baso # (Auto) 0.05 K/uL (0.00-0.20) 06/29/23 00:16 Immature Gran # (Auto) 0.01 K/uL (0.01-0.20) 06/29/23 00:16 PT 11.0 Seconds (9.0-12.0) 06/29/23 00:16 INR 1.0 (0.9-1.1) 06/29/23 00:16 APTT 30 Seconds (21-31) 06/29/23 00:16 PTT Ratio 1.1 06/29/23 00:16 VBG pH 7.40 (7.36-7.41) 06/29/23 00:37 VBG pCO2 43 mmHg (38-50) 06/29/23 00:37 VBG pO2 50 mmHg 06/29/23 00:37 VBG HCO3 27 mmol/L 06/29/23 00:37 VBG O2 Saturation 82.7 % 06/29/23 00:37 VBG Base Excess 1.5 mEq/L 06/29/23 00:37 POC Sodium 136 mmol/L (135-144) 06/29/23 00:23 Sodium 133 mmol/L (136-145) L 06/29/23 00:16 POC Potassium 3.5 mmol/L (3.3-5.0) 06/29/23 00:23 Potassium 3.5 mmol/L (3.5-5.1) 06/29/23 00:16 POC Chloride 100 mmol/L (101-112) L 06/29/23 00:23 Chloride 103 mmol/L (98-107) 06/29/23 00:16 Carbon Dioxide 26 mmol/L (21-32) 06/29/23 00:16 POC Total CO2 24 mmol/L (24-31) 06/29/23 00:23 Anion Gap 4 (3-11) 06/29/23 00:16 POC Anion Gap 16.0 mmol/L (16-25) 06/29/23 00:23 POC BUN 7 mg/dl (7-18) 06/29/23 00:23 BUN 9 mg/dl (6-23) 06/29/23 00:16 Creatinine 0.55 mg/dl (0.6-1.2) L 06/29/23 00:16 POC Creatinine 0.6 mg/dl (0.6-1.3) 06/29/23 00:23 Est Cr Clr Drug Dosing 89.3 ml/min 06/29/23 00:16 Est GFR ( Amer) 114.1 ml/min 06/29/23 00:16 Est GFR (Non-Af Amer) 98.4 ml/min 06/29/23 00:16 BUN/Creatinine Ratio 16.4 (10-20) 06/29/23 00:16 Glucose 126 mg/dl (70-99(Fasting)) H 06/29/23 00:16 POC Glucose (other) 120 mg/dl (70-99) H 06/29/23 00:23 Lactate 1.3 mmol/L (0.4-2.0) 06/29/23 00:37 Calcium 7.8 mg/dl (8.6-10.3) L 06/29/23 00:16 POC Ioniz Calcium [place] 1.10 mmol/l (1.12-1.32) L 06/29/23 00:23 Magnesium 1.8 mg/dl (1.7-2.4) 06/29/23 00:16 Total Bilirubin 0.4 mg/dl (0.2-1.0) 06/29/23 03:57 Direct Bilirubin 0.1 mg/dl (0-0.2) 06/29/23 00:16 AST 22 U/L (13-39) 06/29/23 00:16 ALT 6 U/L (7-52) L 06/29/23 00:16 Alkaline Phosphatase 53 U/L (34-104) 06/29/23 00:16 Lactate Dehydrogenase 137 U/L (86-244) 06/29/23 03:57 Troponin I High Sens 3.2 pg/ml (0-14) 06/29/23 00:16 B-Natriuretic Peptide 25 pg/ml (0-100) 06/29/23 00:37 Total Protein 5.8 gm/dl (6.0-8.3) L 06/29/23 03:57 Albumin 2.6 gm/dl (3.4-5.0) L 06/29/23 03:57 Globulin 3.4 gm/dl (2.5-4.0) 06/29/23 00:16 Albumin/Globulin Ratio 0.9 (0.9-2) 06/29/23 00:16 Procalcitonin 0.06 ng/ml (0-0.5) 06/29/23 00:16 Urine Color Yellow 06/29/23 00:41 Urine Appearance Clear (Clear) 06/29/23 00:41 Urine pH 6.0 (4.5-7.5) 06/29/23 00:41 Ur Specific [place] 1.014 (1.000-1.030) 06/29/23 00:41 Urine Protein Negative (Negative) 06/29/23 00:41 Urine Glucose (UA) Negative (Negative) 06/29/23 00:41 Urine Ketones Negative (Negative) 06/29/23 00:41 Urine Blood Trace (Negative) H 06/29/23 00:41 Urine Nitrite Negative (Negative) 06/29/23 00:41 Urine Bilirubin Negative (Negative) 06/29/23 00:41 Urine Urobilinogen Negative (Negative) 06/29/23 00:41 Ur Leukocyte Esterase 1+ (Negative) H 06/29/23 00:41 Urine WBC (Auto) 6-10 /hpf (0-5) H 06/29/23 00:41 Urine RBC (Auto) 0-2 /hpf (0-2) 06/29/23 00:41 U Hyaline Cast (Auto) 0-2 /lpf (0-2) 06/29/23 00:41 U Epithel Cells (Auto) 0-2 /hpf (0-2) 06/29/23 00:41 Urine Bacteria (Auto) None Seen (None Seen) 06/29/23 00:41 Fluid Neutrophils % 9 % 06/29/23 02:12 Fluid Lymphocytes % 71 % 06/29/23 02:12 Fluid Eosinophils % 1 % 06/29/23 02:12 Fluid [place] % 19 % 06/29/23 02:12 Fluid Comment 06/29/23 02:12 Pleural Fluid Source Right Lung 06/29/23 02:12 Pleural Color Yellow 06/29/23 02:12 Pleural Appearance Clear 06/29/23 02:12 Pleural WBC (Auto) 108 /uL 06/29/23 02:12 Pleural RBC (Auto) 2000 /uL 06/29/23 02:12 Pleural Total Protein 3.9 gm/dl 06/29/23 02:12 Pleural LDH 108 U/L 06/29/23 02:12 Pleural Glucose 120 mg/dl 06/29/23 02:12 Adenovirus (PCR) Not Detected (NotDetected) 06/29/23 01:02 B. pertussis DNA (PCR) Not Detected (NotDetected) 06/29/23 01:02 B.parapertussis DNA PCR Not Detected (NotDetected) 06/29/23 01:02 C. pneumoniae DNA (PCR) Not Detected (NotDetected) 06/29/23 01:02 Coronavirus OC43 (PCR) Not Detected (NotDetected) 06/29/23 01:02 Coronavirus HKU1 (PCR) Not Detected (NotDetected) 06/29/23 01:02 Coronavirus 229E (PCR) Not Detected (NotDetected) 06/29/23 01:02 SARS-CoV-2 (PCR) Not Detected (NotDetected) 06/29/23 01:02 Coronavirus NL63 (PCR) Not Detected (NotDetected) 06/29/23 01:02 Human Metapneumovir PCR Not Detected (NotDetected) 06/29/23 01:02 Influenza Type A (PCR) Not Detected (NotDetected) 06/29/23 01:02 Influenza Type B (PCR) Not Detected (NotDetected) 06/29/23 01:02 M. pneumoniae (PCR) Not Detected (NotDetected) 06/29/23 01:02 Parainfluenza 1 (PCR) Not Detected (NotDetected) 06/29/23 01:02 Parainfluenza 2 (PCR) Not Detected (NotDetected) 06/29/23 01:02 Parainfluenza 3 (PCR) Not Detected (NotDetected) 06/29/23 01:02 Parainfluenza 4 (PCR) Not Detected (NotDetected) 06/29/23 01:02 RSV (PCR) Not Detected (NotDetected) 06/29/23 01:02 Entero/Rhino (PCR) Not Detected (NotDetected) 06/29/23 01:02 Impressions Abdomen/Pelvis CT 06/28/23 23:50 Exam(s): CT ABDOMEN + PELVIS With Contrast IV Amt: 118 cc otp i320 EXAM: CT Abdomen and Pelvis With Intravenous Contrast CLINICAL HISTORY: severe pain, fever, breast ca. TECHNIQUE: Axial computed tomography images of the abdomen and pelvis with intravenous contrast. CTDI is 24.87 mGy and DLP is 1226.13 mGy-cm. Automated exposure control was utilized for the study. A dose lowering technique was utilized adhering to the principles of ALARA. CONTRAST: Patient received 118 cc otp i320 of IV contrast COMPARISON: CT abdomen and pelvis with contrast dated 05/27/2023 FINDINGS: Lung bases: For findings regarding the lung bases, please see the CT report of the chest performed concurrently. No consolidation. Mediastinum: There is abnormal infiltrating soft tissue density in the periaortic region of the distal posterior mediastinum. ABDOMEN: Liver: A punctate hypoattenuating presumed hepatic cyst too small for accurate characterization is noted in segment 4A, stable in appearance from the previous examination. Gallbladder and bile ducts: Unremarkable. No calcified stones. No ductal dilation. Pancreas: Unremarkable. No mass. No ductal dilation. Spleen: Unremarkable. No splenomegaly. Adrenals: Unremarkable. No mass. Kidneys and ureters: There is a abnormal striated appearance of the left kidney. The previously noted left renal pelviectasis and ureteral distention has resolved. No hydronephrosis. Stomach and bowel: No bowel obstruction. Mild distention of the stomach with retained oral contents and fluid. No asymmetric bowel mucosal abnormality. PELVIS: Appendix: No findings to suggest acute appendicitis. Bladder: Unremarkable. No mass. Reproductive: Unremarkable as visualized. ABDOMEN and PELVIS: Intraperitoneal space: Unremarkable. No free air. No significant fluid collection. Bones/joints: No osseous metastatic disease. No acute osseous abnormality. Soft tissues: There is extensive subcutaneous fat stranding involving the right lateral subcutaneous abdominopelvic fat, increased from the previous examination. Vasculature: Unremarkable. No abdominal aortic aneurysm. Lymph nodes: See above. In addition, there is abnormal soft tissue presumed lymphadenopathy in the gastrohepatic ligament, the pritesh hepatis and the retrocaval region posterior to the liver adjacent to the diaphragmatic virgie. Other findings: There is abnormal thickening of the right hemidiaphragm, more prominent from the previous examination. IMPRESSION: 1. There is abnormal infiltrating soft tissue density in the periaortic region of the distal posterior mediastinum. In addition, there is abnormal soft tissue presumed lymphadenopathy in the gastrohepatic ligament, the pritesh hepatis and the retrocaval region posterior to the liver adjacent to the diaphragmatic virgie. Findings are concerning for advancing metastatic disease. 2. There is abnormal thickening of the right hemidiaphragm, more prominent from the previous examination. Suspect metastatic disease. 3. There is a abnormal striated appearance of the left kidney. The previously noted left renal pelviectasis and ureteral distention has resolved. Suspect residual or recurrent pyelonephritis. No perinephric abscess. 4. There is extensive subcutaneous fat stranding involving the right lateral subcutaneous abdominopelvic fat, increased from the previous examination. This is presumed reactive from the abnormal muscular enhancement noted in detail involving the chest CT report. Cellulitis is not the left likely. Electronically signed by: Saurabh Ojeda MD 06/29/23 01:36 AM Chest CTA 06/28/23 23:50 Exam(s): CTA CHEST IV Amt: 118 cc opti 320 EXAM: CT Angiography Chest With Intravenous Contrast CLINICAL HISTORY: Evaluate for PE. TECHNIQUE: Axial computed tomographic angiography images of the chest with intravenous contrast. CTDI is 26.32 mGy and DLP is 764.45 mGy-cm. Automated exposure control was utilized for the study. A dose lowering technique was utilized adhering to the principles of ALARA. MIP reconstructed images were created and reviewed. COMPARISON: CTA chest dated 05/27/2023 FINDINGS: Limitations: There is extensive respiratory artifact, which degrades image quality throughout the examination. Pulmonary arteries: There is no evidence for large/central pulmonary emboli in the main, left main or right main pulmonary arteries. The majority of the segmental and subsegmental pulmonary branches are of nondiagnostic quality secondary to extensive respiratory artifact. Aorta: The thoracic aorta is normal in caliber without dissection or aneurysm. Lungs: Unremarkable. No mass. No consolidation. Pleural space: Massive right pleural effusion occupying nearly the entire right interosseous hemithorax with minimal shift of the cardiomediastinal structures to the left. No loculation. There is a moderate left pleural effusion noted posteriorly. No loculation. There is near complete collapse of the right lung with only minimal aeration of the anterior right upper lobe. Subsegmental changes noted involving the dependent portions of the left lung adjacent to the pleural effusion. No definite space-occupying consolidation suspected. Mild pleural thickening noted along the medial aspect of the left costophrenic margin. No pneumothorax. Heart: Unremarkable. No cardiomegaly. No significant pericardial effusion. Bones/joints: No acute osseous abnormality. No prostatic disease. Soft tissues: There is infiltrative abnormal soft tissue thickening surrounding the distal thoracic aorta in the mediastinum. No infiltration of the aorta is noted. There is abnormal hyperenhancement of the intercostal muscles and the left inferior serratus muscle. Extensive subcutaneous edema and fluid along the lateral right hemithorax. Similar dermal thickening of the left breast. Similar irregular soft tissue density in the right axillary region. No obvious defined lymphadenopathy. Lymph nodes: Evaluation for paratracheal lymphadenopathy is somewhat limited. However, there appears to be abnormal paratracheal and subcarinal lymph nodes, more prominent from the previous examination. Upper abdomen: There is abnormal thickening of the right hemidiaphragm, measuring up to 1 cm laterally. Tubes, lines and devices: The cardiac chambers are normal. The left internal jugular approach portacatheter is noted with tip in the right atrium. IMPRESSION: 1. There is no evidence for large/central pulmonary emboli in the main, left main or right main pulmonary arteries. The majority of the segmental and subsegmental pulmonary branches are of nondiagnostic quality secondary to extensive respiratory artifact. 2. Massive right pleural effusion occupying nearly the entire right interosseous hemithorax with minimal shift of the cardiomediastinal structures to the left. No loculation. This is presumed reactive from the diaphragmatic process. A moderate layering left pleural effusion is noted. 3. There is near complete collapse of the right lung with only minimal aeration of the anterior right upper lobe. Subsegmental changes noted involving the dependent portions of the left lung adjacent to the pleural effusion. No definite space-occupying consolidation suspected. 4. There is abnormal thickening of the right hemidiaphragm, measuring up to 1 cm laterally. Suspect infiltrative pleural metastatic disease. Less prominent changes are noted along the medial aspect of the left costophrenic margin. 5. There is infiltrative abnormal soft tissue thickening surrounding the distal thoracic aorta in the mediastinum. No infiltration of the aorta is noted. Suspect advancing metastatic disease. 6. There is abnormal hyperenhancement of the intercostal muscles and the left inferior serratus muscle. 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 7. Extensive subcutaneous edema and fluid along the lateral right hemithorax. Similar dermal thickening of the left breast. Similar irregular soft tissue density in the right axillary region. No obvious defined lymphadenopathy. This may represent posttreatment changes or persistent neoplastic process or reactive changes from the intramuscular metastatic lesions. Electronically signed by: Saurabh Ojeda MD 06/29/23 01:50 AM ECG Additional Comments: ECG. Sinus tachycardia rate of 103. Nonspecific T wave abnormality Code Status & VTE Plan VTE Prophylaxis Plan VTE Prophylaxis will be ordered: Yes
[2023-06-29] MEDS ORDERED: POLYETHYLENE (MIRALAX) 17 GM PACK PO PRN (06:20)
[2023-06-29] MEDS ORDERED: NITROGLYCERIN SL 0.4 MG/TAB TAB SL PRN (06:20)
[2023-06-29] MEDS ORDERED: ACETAMINOPHEN 325 MG TAB PO PRN (06:20)
[2023-06-29] MEDS ORDERED: HYDROmorphone INJ 0.5 MG/0.5 ML SYR IV PRN (06:20)
--- NOTE | 2023-06-29 07:12 | XRay Report ---
XR chest 1V portable HISTORY: post thoracentesis COMPARISON: Chest 06/28/2023. FINDINGS: Significant decrease in size in the now small right pleural effusion status post thoracente sis. No pneumothorax. Small left pleural effusion persists. The heart remains mildly enlarged. Left P ort-A-Cath terminates in the distal SVC. No acute fractures. Diffuse interstitial/vascular thickening consistent with pulmonary edema. Hazy appearance to the right mid to lower lung zone may represent r esolving atelectasis or reexpansion pulmonary edema. IMPRESSION: 1. Decrease in size in the now small right pleural effusion status post thoracentesis. No pneumothora x. 2. Cardiomegaly with pulmonary edema and small bilateral pleural effusions. ACT 112: Negative or not required by law. Electronically signed by: Naveen Cline M.D. 06/29/2023 7:11 AM
--- NOTE | 2023-06-29 07:20 | XRay Report ---
XR chest 1V portable HISTORY: Sepsis COMPARISON: Chest 05/30/2023. FINDINGS: There is a large right pleural effusion. No pneumothorax. The heart is normal in size. Left jugular Port-A-Cath terminates in the distal SVC. No acute fractures. IMPRESSION: Large right pleural effusion. ACT 112: Negative or not required by law. Electronically signed by: Naveen Cline M.D. 06/29/2023 7:18 AM
--- NOTE | 2023-06-29 07:29 | Pulmonary Consultation ---
Date of Consultation June 29, 2023 Assessment & Plan (1) Pleural effusion on left: (2) Pleural effusion on right: (3) Malignant neoplasm of breast metastatic to bone: (4) Acute respiratory failure with hypoxia: Plan CT chest 06/29/2023 personally reviewed: Large right-sided pleural effusion with compressive atelectasis of the right middle as well as right lower lobe Moderate left-sided pleural effusion No significant mediastinal lymphadenopathy 2D echo 04/29/2023: EF 65-70%, RV normal in size and function --Bilateral pleural effusion Likely from underlying cancer Cytology on the right side was positive for breast cancer on thoracentesis 05/28/2023 Never had thoracentesis done in the past S/p thoracentesis 05/28/2023, 1500 mL exudative fluid removed, repeat thoracentesis on the right side 06/28/2023 in the ER, 1500 mL fluid removed --Acute hypoxic respiratory failure Likely secondary to pleural effusions Continue with O2 supplementation give oxygen saturation 90-92% --Metastatic breast cancer On chemotherapy Plan: Left-sided thoracentesis to be performed today Patient would likely benefit from Pleurx catheter but I do not see any significant fluid on the bedside ultrasound the right side right now for me to put it in. 1 more thing which needs to keep in mind is patient has subcutaneous infiltration of the cancer as well. Given the Pleurx catheter will be palliative approach, I think it is reasonable to continue with Pleurx catheter in future if she comes in with pleural effusion Case was discussed with Dr. Quarles Please note the above document was generated using voice recognition software. It may contain grammatical, syntax or spelling errors.Any formal questions or concerns about the content, text or information contained within the body of this dictation should be directly addressed to the provider for clarification. 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 On the last admission which was in May 2023 the right-sided pleural effusion was tapped which was positive for breast cancer. Patient already had thoracentesis on the right side in the ED where 1.5 L of fluid was removed cloudy looking. Patient was saturating 96-97% on 6 L oxygen at the time of examination. She was in mild respiratory distress but stated that it is much better compared to when she came into the hospital. Is complaining of subjective fever. No chills No dysuria, diarrhea Has been coughing but not bringing up any phlegm. Denies any hemoptysis No chest pain Social history: 34-ylyl-bgcg smoking history with around the age of 50 Allergies Allergy/AdvReac Type Severity Reaction Status Date / Time No Known Allergies Allergy Unverified 05/27/23 21:27 Home Medications Medication Instructions Recorded Confirmed Type alprazolam 1 mg tablet (Xanax) 1 mg PO BID PRN Sleep 08/24/21 06/29/23 History alprazolam 2 mg tablet (Xanax) 2 mg PO HS PRN Sleep 08/24/21 06/29/23 History ondansetron HCl 8 mg tablet 8 mg PO Q8H PRN Nausea 08/24/21 06/29/23 History prochlorperazine maleate 10 mg 10 mg PO Q6H PRN Nausea 08/24/21 06/29/23 History tablet (Compazine) venlafaxine 150 mg 150 mg PO QAM 08/24/21 06/29/23 History capsule,extended release 24 hr aripiprazole 5 mg tablet (Abilify) 5 mg PO QAM 01/17/23 06/29/23 History baclofen 5 mg tablet 5 mg PO BID PRN muscle spasm 01/17/23 06/29/23 History erythromycin 5 mg/gram (0.5 %) eye 0.25 inch ophthalmic (eye) DAILY 01/17/23 06/29/23 History ointment PRN Dry Eyes famotidine 20 mg tablet 20 mg PO HS 01/17/23 06/29/23 History calcium carbonate 250 mg PO DAILY 05/27/23 06/29/23 History cholecalciferol (vitamin D3) 50 50 mcg PO QAM 05/27/23 06/29/23 History mcg (2,000 unit) capsule (Vitamin D3) entecavir 0.5 mg tablet 0.5 mg PO DAILY 05/27/23 06/29/23 History lidocaine-prilocaine 2.5 %-2.5 % 1 applic topical UD PRN 1 hr prior 05/27/23 06/29/23 History topical cream to accessing mediport pantoprazole 20 mg tablet,delayed 20 mg PO QAM 05/27/23 06/29/23 History release ciprofloxacin HCl 500 mg tablet 500 mg PO BID #26 tabs 06/03/23 06/29/23 Rx fexofenadine 60 mg-pseudoephedrine 1 tab PO Q12H PRN Allergy Symptoms 06/13/23 06/29/23 History ER 120 mg tablet,ext.release,12 hr (Allergy Relief-D (fexofenadine)) hydromorphone 4 mg tablet 4 mg PO Q4H PRN severe cancer pain 06/14/23 06/29/23 Rx (Dilaudid) 1 month #150 tabs Patient History Medical History (Updated 06/29/23 @ 10:55 by Patricia Ricci MD, [facility]) Acute respiratory failure with hypoxia Therapeutic opioid-induced constipation (OIC) Cellulitis of chest wall Anterior chest wall pain Palliative care by specialist Advanced care planning/counseling discussion Dyspnea and respiratory abnormalities Weakness generalized Cancer related pain Rheumatoid arthritis Insomnia Fibromyalgia Depression Chronic fatigue syndrome Surgical History S/P breast biopsy deliv NOS-unsp Family History Aunt Breast cancer Mother , Age 72 Arthritis Father , Age 93 Heart disease Dementia Daughter No problems noted. Sister No problems noted. Uncle Pancreatic cancer Social History Smoking Status: Never smoker Hx Alcohol Use: No Hx Substance Use: No Preferred Language: Prydeinig Communication Ability: Effective Manager Inventory Required: No Beliefs That Will Affect Care: None Current Living Situation: Alone and Family Current Living Situation Comment: with caregiver/family Feels Safe at Home: Yes Assistive Devices: None Review of Systems 2 Review of Systems: All systems reviewed & are unremarkable except as noted in HPI & below Physical Exam 2 Physical Exam: Constitutional: No acute distress, lethargic HEENT: EOMI, PERRLA Respiratory system: Decreased air entry bilaterally, no wheeze, no rhonchi, positive crackles bilaterally CVS: S1-S2 positive, no murmurs or gallops Abdomen: Soft, nontender, nondistended, positive bowel sounds x4 Extremities: +2 pulses bilaterally radialis/ dorsalis pedis, no cyanosis, no edema Neuro: Awake alert oriented x3 Psych: Normal mood and affect G/U: No [place] Musculoskeletal: Right side deformed breast with peau d'orange, induration and erythema is also appreciated on the right flank, no dolor Skin: no rashes, warm and dry Lymphatic: no cervical or axillary lymphadenopathy Results & Data Results & Data Vital Signs (Past 12 Hours) Vital Signs Temp Pulse Resp BP BP Pulse Ox O2 Del Method 06/29/23 06:14 96 H 06/29/23 05:43 95 H 18 94 Nasal Cannula 06/29/23 05:30 36.6 C 18 105/62 94 Nasal Cannula 06/29/23 05:00 95 H 18 94 06/29/23 05:00 105/68 06/29/23 04:31 36.6 C 23 105/62 95 Nasal Cannula 06/29/23 04:30 93 H 23 95 Nasal Cannula 06/29/23 04:30 93 H 23 95 Nasal Cannula 06/29/23 04:15 93 H 19 95 06/29/23 04:15 103/66 06/29/23 04:00 93 H 20 94 06/29/23 03:32 92 H 17 94 06/29/23 03:32 95/61 L 06/29/23 03:30 93 H 20 94 06/29/23 03:30 97/67 L 06/29/23 03:00 90 20 94 06/29/23 03:00 105/65 06/29/23 02:09 99 H 26 H 88/65 L 98 06/29/23 02:08 99 H 28 H 88/61 L 98 06/29/23 02:04 94 H 36 H 77/48 L 97 06/29/23 02:02 95 H 29 H 95 06/29/23 02:00 96 H 34 H 62/45 L 96 06/29/23 01:30 102 H 34 H 135/77 99 06/29/23 01:03 36.6 C 24 97 Nasal Cannula 06/29/23 01:02 97 Nasal Cannula 06/29/23 01:00 113/68 06/29/23 01:00 97 H 24 96 Nasal Cannula 06/29/23 00:30 118/68 04/26/24 00:30 26 H 97 Nasal Cannula 06/29/23 00:28 36.6 C 26 H 97 Nasal Cannula 06/29/23 00:01 18 100 Non-rebreather 06/29/23 00:00 119/90 06/29/23 00:00 107 H 18 100 06/28/23 23:45 110 H 21 100 06/28/23 23:45 152/93 H 06/28/23 23:31 87 L Room Air 06/28/23 23:31 36.6 C 113 H 26 H 117/82 87 L Room Air 06/28/23 23:31 Room Air O2 Flow Rate 06/29/23 06:14 06/29/23 05:43 6 06/29/23 05:30 6 06/29/23 05:00 06/29/23 05:00 06/29/23 04:31 6 06/29/23 04:30 6 06/29/23 04:30 6 06/29/23 04:15 06/29/23 04:15 06/29/23 04:00 06/29/23 03:32 06/29/23 03:32 06/29/23 03:30 06/29/23 03:30 06/29/23 03:00 06/29/23 03:00 06/29/23 02:09 06/29/23 02:08 06/29/23 02:04 06/29/23 02:02 06/29/23 02:00 06/29/23 01:30 06/29/23 01:03 6 06/29/23 01:02 6 06/29/23 01:00 06/29/23 01:00 6 06/29/23 00:30 06/29/23 00:30 4 06/29/23 00:28 4 06/29/23 00:01 9 06/29/23 00:00 06/29/23 00:00 06/28/23 23:45 06/28/23 23:45 06/28/23 23:31 0 06/28/23 23:31 06/28/23 23:31 Laboratory Results 06/29/23 07:35 06/29/23 07:35 PG Care Time/CCT Total # of Minutes Spent Total Time Spent with Patient: Total time spent is greater than 50% in coordination of care (as documented) at patient's floor/unit and/or counseling patient: Coding Level of Care Code 40932 INT INP/OBS CARE MIN Diagnoses Pleural effusion on left J90 Pleural effusion on right J90 Malignant neoplasm of breast metastatic to bone C50.919; C79.51 Acute respiratory failure with hypoxia J96.01
[2023-06-29 08:07] LABS: Basophils # (auto) 0.05 K/uL (0.00-0.20); Basophils % (auto) 0.7 %; Eosinophils # (auto) 0.17 K/uL (0.00-0.50); Eosinophils % (auto) 2.5 %; Hematocrit (blood only) 34.2 % (37.0-47.0); Hemoglobin 11.2 g/dl (12.0-16.0); Immature Granulocytes # (auto) 0.02 K/uL (0.01-0.20); Immature Granulocytes % (auto) 0.3 %; Lymphocytes # (auto) 1.02 K/uL (1.20-3.40); Lymphocytes % (auto) 14.9 %; Mean Corpuscular Hemoglobin 32.1 pg (25.0-34.0); Mean Corpuscular Hgb Conc 32.7 g/dL (32.0-36.0); Mean Platelet Volume 8.5 fL (9.4-12.4); Monocytes # (auto) 0.65 K/uL (0.11-0.59); Monocytes % (auto) 9.5 %; Neutrophils # (auto) 4.92 K/uL (1.40-6.50); Neutrophils % (auto) 72.1 %; Platelet Count 223 K/uL (130-400); RDW Coefficient of Variation 14.6 % (11.5-14.5); RDW Standard Deviation 52.6 fL (36.4-46.3); Red Blood Count 3.49 M/uL (4.20-5.40); White Blood Count 6.83 K/ul (4.8-10.8)
[2023-06-29] MEDS: cefTRIAXone SODIUM 2,000 MG in DEXTROSE 5 % MINI-B 50 ML IV SCH (08:09)
[2023-06-29 08:34] LABS: BUN Creatinine Ratio 13.7 (10-20); Calcium 6.9 mg/dl (8.6-10.3); Creatinine Clr Calc Pharmacy 96.2 ml/min; Est GFR (Non-African American) 100.9 ml/min; Magnesium 1.8 mg/dl (1.7-2.4); Potassium 3.6 mmol/L (3.5-5.1)
--- NOTE | 2023-06-29 09:50 | Pharmacy Report ---
Pharmacy PK ABX Note - Date of Service June 29, 2023 - Assessment and Plan Assessment 63 year old F receiving Vancomycin empirically. Patient with cellulitis on abdomen and pleural effusion. Pulm consulted. Pertinent microbiologic data includes: Blood and Lung cultures pending. WBC normal, afebrile, Procalcitonin normal. Day #1 of antimicrobial therapy. Plan Vancomycin * Loading dose: 1250 mg IV x 1 at 02:08 today * Maintenance dose: 1250 mg IV every 12 hours ordered this morning. * Regimen is predicted to achieve target AUC/BK of 400-600 mg/L.hr * Random level ordered for: 06/30/23 with AM labs Pharmacy will continue to follow and will adjust dose/frequency as necessary. Thank you. Pharmacy has transitioned to AUC monitoring for vancomycin. AUC/BK is the preferred PK/PD target and is associated with decreased risk of nephrotoxicity compared to traditional trough targets.
[2023-06-29] MEDS: ENOXAPARIN INJ 40 MG/0.4 ML SYR SQ SCH (09:55)
[2023-06-29] MEDS: VANCOMYCIN HCL 1,250 MG in SODIUM CHLORIDE 0.9% 250 ML IV SCH (10:20)
--- NOTE | 2023-06-29 11:43 | Procedure Note ---
Procedure Note Date of Service June 29, 2023 Note Bedside Ultrasound: Lung: Right:-Minimal right-sided pleural effusion with atelectatic right lower lung, B-lines anteriorly and posteriorly Left:-Moderate left-sided pleural effusion, B-lines anteriorly Please note the above document was generated using voice recognition software. It may contain grammatical, syntax or spelling errors.Any formal questions or concerns about the content, text or information contained within the body of this dictation should be directly addressed to the provider for clarification. Coding CPT Codes Pulmonary/Thoracic - Pulmonary and Thoracic: 93518 US, Chest, real time with imaging documentation ([id number]) [facility] [place] Procedure Codes (Charges) Pulmonary/Thoracic Procedure 1: Pulmonary and Thoracic: 98578 US, Chest, real time with imaging documentation
--- NOTE | 2023-06-29 12:45 | Electrocardiogram Report ---
Test Reason : Blood Pressure : / mmHG Vent. Rate : 103 BPM Atrial Rate : 103 BPM P-R Int : 130 ms QRS Dur : 070 ms QT Int : 360 ms P-R-T Axes : 034 058 059 degrees QTc Int : 471 ms Sinus tachycardia Otherwise normal ECG When compared with ECG of 27-MAY-2023 18:07, Nonspecific T wave abnormality has replaced inverted T waves in Anterior leads Confirmed by Vitor Hahn ([id number]) on 06/29/2023 12:44:54 PM Referred By: REFERRED SELF Confirmed By:Vitor Hahn
--- NOTE | 2023-06-29 13:22 | Procedure Note ---
Procedure Note Date of Service June 29, 2023 Note Procedure: Diagnostic therapeutic ultrasound-guided catheter thoracentesis Manager New Product: Dr. Patricia Ricci Indication: Left-sided pleural effusion Consent: Signed by patient and verified with timeout prior to procedure Anesthesia: 1% lidocaine without epinephrine local. Procedure: Consent was verified and timeout performed. Appropriate imaging studies were reviewed prior to the procedure. Patient was placed in a seated position and limited thoracic ultrasound was performed of the left chest. See separate imaging. Appropriate site above the diaphragm for thoracentesis was selected. The skin was prepped and draped in normal sterile fashion. Lidocaine was used for local analgesia. Fluid was aspirated via the finder needle. A small skin maria de jesus was made with the scalpel and the catheter over the needle apparatus was advanced over the rib into the pleural space. Using the syringe one-way valve system, a total of 600 mL's of cloudy fluid was removed. The catheter was removed and observed to be intact. A sterile dressing was applied. Post procedure chest x-ray was ordered. Fluid was sent for labs, culture and cytology. Complications: None Blood loss: Less than 1 cc Coding CPT Codes Pulmonary/Thoracic - Pulmonary and Thoracic: 47996 Thoracentesis w imaging ([id number]) [facility] [place] Procedure Codes (Charges) Pulmonary/Thoracic Procedure 1: Pulmonary and Thoracic: 30933 Thoracentesis w imaging
--- NOTE | 2023-06-29 14:41 | XRay Report ---
XR chest 1V portable HISTORY: Post thoracentesis COMPARISON: Chest 06/29/2023. FINDINGS: No pneumothorax. A left Port-A-Cath terminates in the distal SVC. The heart is normal in si ze. There is diffuse interstitial/vascular thickening consistent with mild pulmonary edema. This is s imilar to the prior study. Progressive density within the periphery the right lung which could repres ent airspace consolidation or layering pleural fluid. IMPRESSION: 1. Progressive density within the periphery of the right lung which could represent airspace consolid ation or layering pleural fluid. 2. Cardiomegaly and mild interstitial pulmonary edema persists. 3. No pneumothorax. ACT 112: Negative or not required by law. Electronically signed by: Naveen Cline M.D. 06/29/2023 2:39 PM
[2023-06-29] MEDS: FUROSEMIDE INJ 20 MG/2 ML VIAL IV ONE (14:42)
--- NOTE | 2023-06-29 16:05 | Discharge Summary ---
Discharge Summary Date of Service June 29, 2023 Notes For Next Care Provider 2 step performed--no oxygen required on ambulation or with rest Medication Changes From Visit None Admission HPI Per Admitting Provider 63-year-old female with past med significant for stage IV metastatic breast cancer s/p radiation currently not on chemo and plan to restart chemo in July after discussing with pulmonary and oncology as per patient, chronic HBV on chronic entecavir, rheumatoid arthritis, chronic fatigue syndrome/fibromyalgia, anxiety/mood disorder, history of ascending lymphangitis, was recently in the hospital for sepsis from pyelonephritis and bacteremia and was discharge on Cipro .And also during that hospitalization patient had respiratory failure from pleural effusion s/p right-sided thoracocentesis on May 28, 2023 with 1.5 L exudative fluid removed.As per patient there is a plan for Pleurx catheter and has appointment with pulmonary today at 10 AM .Comes to the hospital because last night patient was feeling very short of breath. In the ER x-ray showed large right pleural effusion and is s/p thoracocentesis. Currently on oxygen supplementation saturating fine.Resting comfortably. States has some cough from the fluid in the lungs. Feeling short of breath. Has some right-sided chest pain. . No nausea vomiting. Some abdominal discomfort from the cancer. Also states some erythematous rash on abdomen for last 2 to 3 days. On and off constipation and diarrhea from her cancer. Denies blood in stools. Micturating okay. Currently denies any headache. Vision is okay. No runny nose. No sore throat. Hemodynamics are okay currently. Past medical's. As mentioned above Past surgical history. , breast BX, a port placement Family history. Breast cancer. Lung cancer alcoholism. Dementia. Heart disease. Depression Social history. History of tobacco abuse. No alcohol. Admission Exam Per Admitting Provider General- Not in distress Head- atraumatic Eyes- PERRL. ENT- oropharynx clear Neck- supple, no JVD. Lungs- clear to auscultation b/l rhonchi and bibasilar crackles present Heart- regular rhythm; no murmur, no gallop. Abdomen- normal bowel sounds, soft, nontender, no distension. Extremities- no pretibial edema, no erythema Neuro- alert, oriented ; PERRL, EOMI; no facial palsy; no dysarthria; moves extremities. Skin- erythematous rash seen on abdomen Principal Dx & Hospital Course #1 = Principal Diagnosis (1) Pleural effusion on right: Ms. Brooks is a 63-year-old female with past med significant for stage IV metastatic breast cancer s/p radiation currently not on chemo and plan to restart chemo in July after discussing with pulmonary and oncology as per patient, chronic HBV on chronic entecavir, rheumatoid arthritis, chronic fatigue syndrome/fibromyalgia, anxiety/mood disorder, history of ascending lymphangitis, was recently in the hospital for sepsis from pyelonephritis and bacteremia who was admitted due to shortness of breath and noted to have moderate pleural effusion on left and large pleural effusion on right. Prior to admission, patient underwent thoracentesis in ED with 1500cc removed from right side. Pulmonary was consulted and performed thorcentesis with 600cc removed from left side. Patient experienced reexpansion edema on right, which resolved promptly with dose of IV lasix. 2step performed, and no oxygen needs reported. #Recurrent large right pleural effusion mostly malignant S/p thoracocentesis in the ER,right 1500cc s/p thoracentesis left 600cc No signs of overlyig infection, effusion consistent with likely malignant process 2 step without O2 need Will likely pursue Pleurx in op setting Patient reports strong desire to discharge and to follow up with Onc and Pulm Stage IV metastatic breast cancer Follow-up with heme-onc #Erythematous rash on abdomen Patient declined further antibiotic treatment at this time, requests to follow up OP History of radiation dermatitis of the right breast Chronic HBV On entecavir History of anemia Hemoglobin 11.5 today We will follow labs Rheumatoid arthritis Seems not on medications History of chronic fatigue syndrome/fibromyalgia/anxiety/mood disorder Discharge Exam Constitutional WD/WN, vitals as above Respiratory diminished peripheral breathsounds, no distress No resp distress Updated Medication List Medication Instructions Recorded Confirmed Type alprazolam 1 mg tablet (Xanax) 1 mg PO BID PRN Sleep 08/24/21 06/29/23 History alprazolam 2 mg tablet (Xanax) 2 mg PO HS PRN Sleep 08/24/21 06/29/23 History ondansetron HCl 8 mg tablet 8 mg PO Q8H PRN Nausea 08/24/21 06/29/23 History prochlorperazine maleate 10 mg 10 mg PO Q6H PRN Nausea 08/24/21 06/29/23 History tablet (Compazine) venlafaxine 150 mg 150 mg PO QAM 08/24/21 06/29/23 History capsule,extended release 24 hr aripiprazole 5 mg tablet (Abilify) 5 mg PO QAM 01/17/23 06/29/23 History baclofen 5 mg tablet 5 mg PO BID PRN muscle spasm 01/17/23 06/29/23 History erythromycin 5 mg/gram (0.5 %) eye 0.25 inch ophthalmic (eye) DAILY 01/17/23 06/29/23 History ointment PRN Dry Eyes famotidine 20 mg tablet 20 mg PO HS 01/17/23 06/29/23 History calcium carbonate 250 mg PO DAILY 05/27/23 06/29/23 History cholecalciferol (vitamin D3) 50 50 mcg PO QAM 05/27/23 06/29/23 History mcg (2,000 unit) capsule (Vitamin D3) entecavir 0.5 mg tablet 0.5 mg PO DAILY 05/27/23 06/29/23 History lidocaine-prilocaine 2.5 %-2.5 % 1 applic topical UD PRN 1 hr prior 05/27/23 06/29/23 History topical cream to accessing mediport pantoprazole 20 mg tablet,delayed 20 mg PO QAM 05/27/23 06/29/23 History release fexofenadine 60 mg-pseudoephedrine 1 tab PO Q12H PRN Allergy Symptoms 06/13/23 06/29/23 History ER 120 mg tablet,ext.release,12 hr (Allergy Relief-D (fexofenadine)) hydromorphone 4 mg tablet 4 mg PO Q4H PRN severe cancer pain 06/14/23 06/29/23 Rx (Dilaudid) 1 month #150 tabs Hospital Stay Data Consultations 06/29/23 02:20 ED Decision to Admit Stat 06/29/23 08:00 Consult Pulmonology Routine Diagnostic Imagining Performed 06/28/23 23:50 CT abd pelvis IV con only Stat CT angio chest PE protocol Stat 06/29/23 07:20 US point of care ultrasound Urgent Pending Results Patient Have Any Pending Studies at Discharge: Yes Discharge Instructions Given to Patient (Per Discharging Provider) You were admitted for shortness of breath and noted to have large right-sided pleural effusion and moderate left-sided pleural effusion You underwent removal of fluid with thoracentesis 06/27 on the right with removal of 1500cc fluid on 06/28 on the left with 600cc removed. You also received a dose of IV lasix (water pill) as there appeared to be some edema, or fluid with the lung itself which can happen from the pressure changes from removing the effusion. You were noted to improve overall and did not require oxygen for discharge Please follow up with Pulmonary and Oncology as directed Total Time Total Time Spent Total Time Spent (In Minutes): 55
[2023-06-29 16:20] LABS: Total Protein Pleural Fluid 3.1 gm/dl
[2023-06-29] MEDS: HEPARIN 100 UNIT/ML 5ML FLUSH ONE (16:54)
[2023-06-29 17:01] LABS: Appearance Pleural Fluid Slightly Hazy; Color Pleural Fluid Yellow; Lymphocytes, Fluid 12 %; Mono,Macrophage,Mesothelial 85 %; Neutrophils, Fluid 3 %; RBC Pleural Fluid Auto 6000 /uL; Source Pleural Fluid Left Lung; WBC Pleural Fluid Auto 1540 /uL
[2023-06-29] MEDS ORDERED: guaiFENesin 600 MG TABCR PO SCH (18:00)
== END 2023-06-29 16:52 | disposition home or self-care (01) | DRG 597 ==
LOC: ED 23:16 → EDINP 06-29 05:27

== ENCOUNTER 2023-07-13 17:10 | Inpatient (IN) ==
--- NOTE | 2023-07-13 18:09 | Emergency Department Note ---
Impression & Plan Shortness of breath, Pleural effusion, Pulmonary edema ED Provider Note HISTORY OF PRESENT ILLNESS: Patient is a 63-year-old female presenting with shortness of breath. Patient has a Pleurx catheter in her right lung for recurrent pleural effusions. She reports that her shortness of breath started 4 days ago. She reports that she drained her catheter and had minimal output. Reports that normally she is able to drain her pleural effusion and no longer requires any oxygen. However, has been wearing her continuous supplemental oxygen for the last 4 days. Denies any chest pain. Denies any recent sick contact exposures. Reports feeling very congested in her chest and nasal area. Denies any fevers. Her cough has been nonproductive. Denies any nausea or vomiting. ROS: as above PHYSICAL EXAM: Constitutional: Patient appears in no acute distress. HENT: Head: Normocephalic and atraumatic. Eyes: EOMI, PERRL Mouth/Throat: Mucous membranes moist. Neck: Trachea midline. Neck supple. Cardiovascular: Tachycardic with regular rhythm. No murmurs, rubs or gallops. Intact distal pulses. Pulmonary/Chest: Patient is tachypneic. Conversationally dyspneic. Coarse breath sounds bilaterally. Breath sounds on the right are significantly decreased as compared to the left. Pleurx catheter in place in the right lower anterior chest. Abdominal: Abdomen soft, no tenderness, rebound or guarding. Musculoskeletal: No edema, tenderness or deformity noted. Skin: Warm and dry. No rash, erythema, pallor or cyanosis Psychiatric: Appropriate mood and affect for situation. Neurological: Alert and keenly responsive. CN II-XII grossly intact, moving all extremities equally and fully. MDM: - Vitals signs showed tachycardia, hypoxia and tachypnea - History obtained via patient. History as above. - Chronic conditions affecting care: stage IV metastatic breast cancer s/p radiation; chronic HBV; rheumatoid arthritis; anxiety/mood disorder - Differential diagnoses include, but are not limited to: Congestive heart failure; acute coronary syndrome; COPD/asthma exacerbation; pulmonary edema; pulmonary embolism; pneumonia; pneumothorax; viral syndrome - Order placed for continuous cardiac monitoring. At this time, monitor showed rate of 107 bpm with normal sinus rhythm, per my interpretation. - External medical records reviewed. Discharge summary dated 06/29/2023 was reviewed. Patient was admitted to the hospital for shortness of breath and recurrent right pleural effusion. She had a thoracentesis performed in the emergency department during that admission was 1500 cc of fluid removed. She had 600 cc of fluid removed from her left lung. - EKG interpreted by myself showed normal sinus rhythm. Rate tachycardic at 111 bpm. QT 304. No acute ischemic changes - Laboratory workup interpreted by myself showed normal WBC; stable electrolytes; normal troponin; normal BNP; normal procalcitonin - CXR showed large pleural effusion on R with pulmonary edema, per my interpretation - Patient's right pleural effusion was drained via her Pleurx catheter and about 200 cc of fluid came out. However, patient had no improvement in her shortness of breath and tachypnea. - 40 mg IV lasix ordered for pulmonary edema. - CT PE showed large bilateral pleural effusions with right-sided chest tube in place. Noted to have right anterior pneumothorax, per radiology. - Discussion was had with skilled nursing case manager about patient's case and need for admission - Hospitalist consulted for admission - Patient admitted to [facility] for further evaluation and management. ASSESSMENT AND PLAN: Diagnosis: Shortness of breath; pleural effusion; pulmonary edema Plan: Admit Past Med/Surg History Medical History (Updated 07/13/23 @ 22:34 by Tomasz Marin MD) Acute respiratory failure with hypoxia Therapeutic opioid-induced constipation (OIC) Cellulitis of chest wall Anterior chest wall pain Palliative care by specialist Advanced care planning/counseling discussion Dyspnea and respiratory abnormalities Weakness generalized Cancer related pain Rheumatoid arthritis Insomnia Fibromyalgia Depression Chronic fatigue syndrome Surgical History S/P breast biopsy deliv NOS-unsp Family History Aunt Breast cancer Mother , Age 72 Arthritis Father , Age 93 Heart disease Dementia Daughter No problems noted. Sister No problems noted. Uncle Pancreatic cancer Social History Smoking Status: Former smoker Tobacco Type: Cigarettes Second Hand Exposure: No; Do You Dip or Chew Tobacco: No; Hx Alcohol Use: No Hx Substance Use: No Preferred Language: Uzbek Communication Ability: Effective Hosting Engineer Required: No Beliefs That Will Affect Care: None Current Living Situation: Other Current Living Situation Comment: Living with friend [place] Feels Safe at Home: Yes Assistive Devices: None Allergies Allergies Allergy/AdvReac Type Severity Reaction Status Date / Time No Known Allergies Allergy Verified 07/13/23 20:16 Home Meds Home Medications Medication Instructions Recorded Confirmed alprazolam 1 mg tablet (Xanax) 1 mg PO BID PRN Sleep 08/24/21 07/13/23 alprazolam 2 mg tablet (Xanax) 2 mg PO HS PRN Sleep 08/24/21 07/13/23 ondansetron HCl 8 mg tablet 8 mg PO Q8H PRN Nausea 08/24/21 07/13/23 prochlorperazine maleate 10 mg 10 mg PO Q6H PRN Nausea 08/24/21 07/13/23 tablet (Compazine) venlafaxine 150 mg 150 mg PO QAM 08/24/21 07/13/23 capsule,extended release 24 hr aripiprazole 5 mg tablet (Abilify) 5 mg PO QAM 01/17/23 07/13/23 baclofen 5 mg tablet 5 mg PO BID PRN muscle spasm 01/17/23 07/13/23 erythromycin 5 mg/gram (0.5 %) eye 0.25 inch ophthalmic (eye) DAILY 01/17/23 07/13/23 ointment PRN Dry Eyes famotidine 20 mg tablet 20 mg PO HS 01/17/23 07/13/23 cholecalciferol (vitamin D3) 50 50 mcg PO QAM 05/27/23 07/13/23 mcg (2,000 unit) capsule (Vitamin D3) entecavir 0.5 mg tablet 0.5 mg PO DAILY 05/27/23 07/13/23 lidocaine-prilocaine 2.5 %-2.5 % 1 applic topical UD PRN 1 hr prior 05/27/23 07/13/23 topical cream to accessing mediport pantoprazole 20 mg tablet,delayed 20 mg PO QAM 05/27/23 07/13/23 release fexofenadine 60 mg-pseudoephedrine 1 tab PO Q12H PRN Allergy Symptoms 06/13/23 07/13/23 ER 120 mg tablet,ext.release,12 hr (Allergy Relief-D (fexofenadine)) calcium carbonate 200 mg PO DAILY 07/13/23 07/13/23 Previous Rx's Medication Instructions Recorded hydromorphone 4 mg tablet 4 mg PO Q4H PRN severe cancer pain 06/14/23 (Dilaudid) 1 month #150 tabs Portable Oxygen E0431 #1 ea 07/05/23 Results & Data (ED) Vital Signs Vital Signs - 24 hr 07/13/23 17:13 07/13/23 17:19 07/13/23 18:08 Pulse Rate 112 H Pulse Rate [Apical] 105 H Pulse Rate from SpO2 Sensor Pulse Rhythm Pulse Rhythm [Apical] Regular Pulse Strength [Apical] Normal Respiratory Rate 28 H 20 Respiratory Effort / Characteristics Short of Breath Non-Labored Spontaneous Respiratory Depth Normal Respiratory Pattern Regular Blood Pressure 121/77 Blood Pressure [Left Arm] 133/91 Blood Pressure Mean 91 Blood Pressure Mean [Left Arm] 105 Blood Pressure Position Sitting Blood Pressure Position [Left Arm] Semi-fowlers Pulse Oximetry 85 L 84 L 96 Oxygen Delivery Method Room Air Room Air Nasal Cannula Oxygen Flow Rate 0 4 Sepsis Recent Fever Within 48 Hours No Sepsis New/Unexplained Change in Mental Status No Sepsis Action Taken by Nursing No Action Required Oxygen Flow Rate - Titration 4 Pulse Oximetry Post Tiitration 95 07/13/23 18:08 07/13/23 18:08 07/13/23 18:10 Pulse Rate 105 H 106 H Pulse Rate [Apical] Pulse Rate from SpO2 Sensor Pulse Rhythm Regular Pulse Rhythm [Apical] Pulse Strength [Apical] Respiratory Rate Respiratory Effort / Characteristics Respiratory Depth Respiratory Pattern Blood Pressure Blood Pressure [Left Arm] Blood Pressure Mean Blood Pressure Mean [Left Arm] Blood Pressure Position Blood Pressure Position [Left Arm] Pulse Oximetry 96 96 Oxygen Delivery Method Nasal Cannula Nasal Cannula Oxygen Flow Rate 4 4 Sepsis Recent Fever Within 48 Hours Sepsis New/Unexplained Change in Mental Status Sepsis Action Taken by Nursing Oxygen Flow Rate - Titration Pulse Oximetry Post Tiitration 07/13/23 18:30 07/13/23 19:00 07/13/23 19:30 Pulse Rate 105 H 105 H 104 H Pulse Rate [Apical] Pulse Rate from SpO2 Sensor 105 H 105 H 104 H Pulse Rhythm Pulse Rhythm [Apical] Pulse Strength [Apical] Respiratory Rate 24 24 23 Respiratory Effort / Characteristics Respiratory Depth Respiratory Pattern Blood Pressure 132/91 130/102 H 129/84 Blood Pressure [Left Arm] Blood Pressure Mean 104 111 99 Blood Pressure Mean [Left Arm] Blood Pressure Position Blood Pressure Position [Left Arm] Pulse Oximetry 97 95 95 Oxygen Delivery Method Nasal Cannula Nasal Cannula Nasal Cannula Oxygen Flow Rate 4 4 4 Sepsis Recent Fever Within 48 Hours Sepsis New/Unexplained Change in Mental Status Sepsis Action Taken by Nursing Oxygen Flow Rate - Titration Pulse Oximetry Post Tiitration 07/13/23 20:00 07/13/23 21:12 Pulse Rate 107 H Pulse Rate [Apical] 112 H Pulse Rate from SpO2 Sensor 107 H Pulse Rhythm Pulse Rhythm [Apical] Regular Pulse Strength [Apical] Normal Respiratory Rate 23 24 Respiratory Effort / Characteristics Non-Labored Spontaneous Respiratory Depth Normal Respiratory Pattern Regular Blood Pressure 148/85 H Blood Pressure [Left Arm] 150/94 H Blood Pressure Mean 106 Blood Pressure Mean [Left Arm] 112 Blood Pressure Position Blood Pressure Position [Left Arm] Semi-fowlers Pulse Oximetry 96 96 Oxygen Delivery Method Nasal Cannula Nasal Cannula Oxygen Flow Rate 4 6 Sepsis Recent Fever Within 48 Hours Sepsis New/Unexplained Change in Mental Status Sepsis Action Taken by Nursing Oxygen Flow Rate - Titration Pulse Oximetry Post Tiitration Laboratory Data 07/13/23 17:55 07/13/23 17:55 Lab Results 07/13/23 Range/Units 17:55 WBC 5.26 (4.8-10.8) K/ul RBC 3.95 L (4.20-5.40) M/uL Hgb 12.3 (12.0-16.0) g/dl Hct 37.2 (37.0-47.0) % MCV 94.2 (80.0-100.0) fL MCH 31.1 (25.0-34.0) pg MCHC 33.1 (32.0-36.0) g/dL RDW Std Deviation 45.9 (36.4-46.3) fL RDW Coeff of [place] 13.2 (11.5-14.5) % Plt Count 285 (130-400) K/uL MPV 8.1 L (9.4-12.4) fL Immature Gran % (Auto) 0.2 % Neut % (Auto) 65.0 % Lymph % (Auto) 19.2 % [place] % (Auto) 11.4 % Eos % (Auto) 2.9 % Baso % (Auto) 1.3 % Neut # (Auto) 3.42 (1.40-6.50) K/uL Lymph # (Auto) 1.01 L (1.20-3.40) K/uL [place] # (Auto) 0.60 H (0.11-0.59) K/uL Eos # (Auto) 0.15 (0.00-0.50) K/uL Baso # (Auto) 0.07 (0.00-0.20) K/uL Immature Gran # (Auto) 0.01 (0.01-0.20) K/uL Sodium 138 (136-145) mmol/L Potassium 3.9 (3.5-5.1) mmol/L Chloride 104 (98-107) mmol/L Carbon Dioxide 27 (21-32) mmol/L Anion Gap 7 (3-11) BUN 8 (6-23) mg/dl Creatinine 0.57 L (0.6-1.2) mg/dl Est Cr Clr Drug Dosing 86.5 ml/min Est GFR ( Amer) 112.7 ml/min Est GFR (Non-Af Amer) 97.3 ml/min BUN/Creatinine Ratio 14.0 (10-20) Glucose 113 H (70-99(Fasting)) mg/dl Calcium 8.8 (8.6-10.3) mg/dl Total Bilirubin 0.4 (0.2-1.0) mg/dl AST 22 (13-39) U/L ALT 5 L (7-52) U/L Alkaline Phosphatase 49 (34-104) U/L Troponin I High Sens 3.3 (0-14) pg/ml B-Natriuretic Peptide 28 (0-100) pg/ml Total Protein 7.0 (6.0-8.3) gm/dl Albumin 2.9 L (3.4-5.0) gm/dl Globulin 4.1 H (2.5-4.0) gm/dl Albumin/Globulin Ratio 0.7 L (0.9-2) Procalcitonin 0.03 (0-0.5) ng/ml Adenovirus (PCR) Not Detected (NotDetected) B. pertussis DNA (PCR) Not Detected (NotDetected) B.parapertussis DNA PCR Not Detected (NotDetected) C. pneumoniae DNA (PCR) Not Detected (NotDetected) Coronavirus OC43 (PCR) Not Detected (NotDetected) Coronavirus HKU1 (PCR) Not Detected (NotDetected) Coronavirus 229E (PCR) Not Detected (NotDetected) SARS-CoV-2 (PCR) Not Detected (NotDetected) Coronavirus NL63 (PCR) Not Detected (NotDetected) Human Metapneumovir PCR Not Detected (NotDetected) Influenza Type A (PCR) Not Detected (NotDetected) Influenza Type B (PCR) Not Detected (NotDetected) M. pneumoniae (PCR) Not Detected (NotDetected) Parainfluenza 1 (PCR) Not Detected (NotDetected) Parainfluenza 2 (PCR) Not Detected (NotDetected) Parainfluenza 3 (PCR) Not Detected (NotDetected) Parainfluenza 4 (PCR) Not Detected (NotDetected) RSV (PCR) Not Detected (NotDetected) Entero/Rhino (PCR) Not Detected (NotDetected) Administered Medications Discontinued Medications Furosemide (Furosemide 40 Mg/4 Ml Vial) 40 mg IV ONE ONE Stop: 07/13/23 20:15 Last Admin: 07/13/23 21:11 Dose: 40 mg Documented By: SHAISTA Ioversol (Optiray 320 125ml) 119 ml IV ONCE ONE Stop: 07/13/23 20:58 Last Admin: 07/13/23 20:57 Dose: 119 ml Documented By: [facility] Imaging Data Radiologist's Impression: Chest X-Ray 07/13/23 17:20 XR chest 1V not portable CLINICAL HISTORY: Chest pain, nonspecific COMPARISON STUDY: Chest CT June 29, 2023. Chest radiograph July 06, 2023. FINDINGS: A left internal jugular [id number] remains in place. A right pleural catheter also remains in place. Extensive opacification of the right hemithorax has progressed. A moderate to large right pleural effusion has increased in size since prior chest radiograph. Pulmonary edema has progressed. A moderate-sized left pleural effusion has increased in size. There is no pneumothorax. IMPRESSION: 1. Increase in size of a moderate to large right pleural effusion. Right pleural catheter in place. No pneumothorax. 2. Increase in size of a moderate left pleural effusion. 3. Progression of pulmonary edema. ACT 112: Negative or not required by law. Electronically signed by: Kailash Barraza M.D. 07/13/2023 6:12 PM Chest CTA 07/13/23 20:14 CR Exam(s): CTA CHEST IV Amt: 119 cc opti 320 EXAM: CT Angiography Chest With Intravenous Contrast CLINICAL HISTORY: Reason for exam: PE. TECHNIQUE: Axial computed tomographic angiography images of the chest with intravenous contrast. CTDI is 31.34 mGy and DLP is 739.23 mGy-cm. Automated exposure control was utilized for the study. A dose lowering technique was utilized adhering to the principles of ALARA. MIP reconstructed images were created and reviewed. COMPARISON: 06/29/2023. FINDINGS: Pulmonary arteries: Normal enhancement of the pulmonary arteries with no filling defect to suggest pulmonary embolus. Aorta: Mild atherosclerotic disease of aorta with no aneurysm or dissection. Lungs: Severe bilateral lower lobe, right middle lobe and right upper lobe atelectasis. Mild left upper lobe atelectasis. No mass. Pleural space: Large bilateral pleural effusions. There is a right anterior mild to moderate pneumothorax. Heart: Unremarkable. No cardiomegaly. No significant pericardial effusion. No evidence of RV dysfunction. Bones/joints: No acute fracture. No dislocation. Soft tissues: There is stranding through the right breast with thickening of the skin which may indicate mastitis versus inflammatory neoplasm. There is fluid collection with infiltration of the right extrathoracic soft tissues which could represent edema versus resolving hematoma. Lymph nodes: There are questionable prominent lymph nodes within the right mediastinum and right hilar region, cannot exclude mild/early lymphadenopathy. Stranding with questionable surgical clips in the right axilla. There is a lymph node in the left axilla measuring 1.8 x 1.0 cm, stable. Intraperitoneal space: There is evidence of ascites otherwise visualized upper abdominal structures unremarkable. Tubes, lines and devices: There is a left-sided central line with the tip in the distal SVC/right atrial junction. Other findings: There is a right-sided chest tube/catheter in place. Multilevel degenerative disease of the spine. IMPRESSION: 1. No pulmonary embolus or aortic dissection. 2. Large bilateral pleural effusions with right-sided chest tube in place. Mild anterior pneumothorax. Severe bilateral lower lobe, right middle lobe and right upper lobe atelectasis. 3. Possible mild mediastinal and right hilar lymphadenopathy. 4. Question right-sided mastitis versus inflammatory neoplasm of the right breast, correlation with history recommended. Communications: Call Doctor Other Electronically signed by: Trixie Collier MD 07/13/23 21:38 PM Discharge Plan Visit Data Chief Complaint: Respiratory Distress Stated Complaint: TROUBLE BREATHING ED Provider: Vane De Oliveira Discharge Problem: Shortness of breath, Pleural effusion, Pulmonary edema Forms Stand Alone Forms: My [facility] Prescriptions Prescriptions: No Action alprazolam [Xanax] 2 mg tablet 2 mg PO HS PRN (Reason: Sleep) Rx Instructions: at bedtime alprazolam [Xanax] 1 mg tablet 1 mg PO BID PRN (Reason: Sleep) venlafaxine 150 mg capsule,extended release 24hr 150 mg PO QAM ondansetron HCl 8 mg tablet 8 mg PO Q8H PRN (Reason: Nausea) prochlorperazine maleate [Compazine] 10 mg tablet 10 mg PO Q6H PRN (Reason: Nausea) erythromycin 5 mg/gram (0.5 %) ointment 0.25 inch ophthalmic (eye) DAILY PRN (Reason: Dry Eyes) Rx Instructions: both eyes at bedtime fexofenadine-pseudoephedrine [Allergy Relief-D(fexofenadine)] 60-120 mg tablet extended release 12 hr 1 tab PO Q12H PRN (Reason: Allergy Symptoms) aripiprazole [Abilify] 5 mg tablet 5 mg PO QAM baclofen 5 mg tablet 5 mg PO BID PRN (Reason: muscle spasm) famotidine 20 mg tablet 20 mg PO HS hydromorphone [Dilaudid] 4 mg tablet 4 mg PO Q4H PRN (Reason: severe cancer pain) 30 Days Qty: 150 0RF (DME) Portable Oxygen E0431 [facility] See Rx Instructions .MEDSUPPLY Qty: 1 0RF Rx Instructions: Oxygen 2 liters continuous via nasal cannula at rest and on exertion with portable concentrator. PURIV 99 entecavir 0.5 mg tablet 0.5 mg PO DAILY Rx Instructions: take on an empty stomach 2 hours before or after a meal pantoprazole 20 mg tablet,delayed release (DR/EC) 20 mg PO QAM cholecalciferol (vitamin D3) [Vitamin D3] 50 mcg (2,000 unit) Capsule 50 mcg PO QAM lidocaine-prilocaine 2.5-2.5 % Cream 1 applic topical UD PRN (Reason: 1 hr prior to accessing mediport) Rx Instructions: apply to skin over mediport calcium carbonate 200 mg calcium (500 mg) Tablet,Chewable 200 mg PO DAILY Referrals Referrals: Barbara Lopez PA-C [Primary Care Provider] -
[2023-07-13 18:15] LABS: Basophils # (auto) 0.07 K/uL (0.00-0.20); Basophils % (auto) 1.3 %; Eosinophils # (auto) 0.15 K/uL (0.00-0.50); Eosinophils % (auto) 2.9 %; Hematocrit (blood only) 37.2 % (37.0-47.0); Hemoglobin 12.3 g/dl (12.0-16.0); Immature Granulocytes # (auto) 0.01 K/uL (0.01-0.20); Immature Granulocytes % (auto) 0.2 %; Lymphocytes # (auto) 1.01 K/uL (1.20-3.40); Lymphocytes % (auto) 19.2 %; Mean Corpuscular Hemoglobin 31.1 pg (25.0-34.0); Mean Corpuscular Hgb Conc 33.1 g/dL (32.0-36.0); Mean Corpuscular Volume 94.2 fL (80.0-100.0); Mean Platelet Volume 8.1 fL (9.4-12.4); Monocytes % (auto) 11.4 %; Neutrophils # (auto) 3.42 K/uL (1.40-6.50); Platelet Count 285 K/uL (130-400); RDW Coefficient of Variation 13.2 % (11.5-14.5); RDW Standard Deviation 45.9 fL (36.4-46.3); Red Blood Count 3.95 M/uL (4.20-5.40); White Blood Count 5.26 K/ul (4.8-10.8)
--- NOTE | 2023-07-13 18:15 | XRay Report ---
XR chest 1V not portable CLINICAL HISTORY: Chest pain, nonspecific COMPARISON STUDY: Chest CT June 29, 2023. Chest radiograph July 06, 2023. FINDINGS: A left internal jugular [id number] remains in place. A right pleural catheter also remai ns in place. Extensive opacification of the right hemithorax has progressed. A moderate to large righ t pleural effusion has increased in size since prior chest radiograph. Pulmonary edema has progressed . A moderate-sized left pleural effusion has increased in size. There is no pneumothorax. IMPRESSION: 1. Increase in size of a moderate to large right pleural effusion. Right pleural catheter in place. N o pneumothorax. 2. Increase in size of a moderate left pleural effusion. 3. Progression of pulmonary edema. ACT 112: Negative or not required by law. Electronically signed by: Kailash Barraza M.D. 07/13/2023 6:12 PM
[2023-07-13 18:52] LABS: Albumin Globulin Ratio 0.7 (0.9-2); Albumin Level 2.9 gm/dl (3.4-5.0); Bilirubin,Total 0.4 mg/dl (0.2-1.0); Calcium 8.8 mg/dl (8.6-10.3); Creatinine Clr Calc Pharmacy 86.5 ml/min; Est GFR (African American) 112.7 ml/min; Est GFR (Non-African American) 97.3 ml/min; Globulin 4.1 gm/dl (2.5-4.0); Potassium 3.9 mmol/L (3.5-5.1)
[2023-07-13 18:59] LABS: Troponin I High Sensitivity 3.3 pg/ml (0-14)
[2023-07-13 19:00] LABS: Adenovirus PCR Not Detected (NotDetected); Bordetella parapertussis PCR Not Detected (NotDetected); Bordetella pertussis PCR Not Detected (NotDetected); Chlamydia pneumoniae PCR Not Detected (NotDetected); Coronavirus 229E PCR Not Detected (NotDetected); Coronavirus CoV-2 (COVID19)PCR Not Detected (NotDetected); Coronavirus HKU1 PCR Not Detected (NotDetected); Coronavirus NL63 PCR Not Detected (NotDetected); Coronavirus OC43PCR Not Detected (NotDetected); Human Metapneumovirus PCR Not Detected (NotDetected); Influenza A PCR Not Detected (NotDetected); Influenza B PCR Not Detected (NotDetected); Mycoplasma pneumoniae PCR Not Detected (NotDetected); Parainfluenza Virus 1 PCR Not Detected (NotDetected); Parainfluenza Virus 2 PCR Not Detected (NotDetected); Parainfluenza Virus 3 PCR Not Detected (NotDetected); Parainfluenza Virus 4 PCR Not Detected (NotDetected); Respiratory Syncytial VirusPCR Not Detected (NotDetected); Rhinovirus/Enterovirus PCR Not Detected (NotDetected)
[2023-07-13] MEDS: OPTIRAY 320 125ml IV ONE (20:57)
[2023-07-13] MEDS: FUROSEMIDE 40 MG/4 ML VIAL IV ONE (21:11)
--- NOTE | 2023-07-13 21:39 | CT Scan Report ---
Exam(s): CTA CHEST IV Amt: 119 cc opti 320 EXAM: CT Angiography Chest With Intravenous Contrast CLINICAL HISTORY: Reason for exam: PE. TECHNIQUE: Axial computed tomographic angiography images of the chest with intravenous contrast. CTDI is 31.34 mGy and DLP is 739.23 mGy-cm. Automated exposure control was utilized for the study. A dose lowering technique was utilized adhering to the principles of ALARA. MIP reconstructed images were created and reviewed. COMPARISON: 06/29/2023. FINDINGS: Pulmonary arteries: Normal enhancement of the pulmonary arteries with no filling defect to suggest pulmonary embolus. Aorta: Mild atherosclerotic disease of aorta with no aneurysm or dissection. Lungs: Severe bilateral lower lobe, right middle lobe and right upper lobe atelectasis. Mild left upper lobe atelectasis. No mass. Pleural space: Large bilateral pleural effusions. There is a right anterior mild to moderate pneumothorax. Heart: Unremarkable. No cardiomegaly. No significant pericardial effusion. No evidence of RV dysfunction. Bones/joints: No acute fracture. No dislocation. Soft tissues: There is stranding through the right breast with thickening of the skin which may indicate mastitis versus inflammatory neoplasm. There is fluid collection with infiltration of the right extrathoracic soft tissues which could represent edema versus resolving hematoma. Lymph nodes: There are questionable prominent lymph nodes within the right mediastinum and right hilar region, cannot exclude mild/early lymphadenopathy. Stranding with questionable surgical clips in the right axilla. There is a lymph node in the left axilla measuring 1.8 x 1.0 cm, stable. Intraperitoneal space: There is evidence of ascites otherwise visualized upper abdominal structures unremarkable. Tubes, lines and devices: There is a left-sided central line with the tip in the distal SVC/right atrial junction. Other findings: There is a right-sided chest tube/catheter in place. Multilevel degenerative disease of the spine. IMPRESSION: 1. No pulmonary embolus or aortic dissection. 2. Large bilateral pleural effusions with right-sided chest tube in place. Mild anterior pneumothorax. Severe bilateral lower lobe, right middle lobe and right upper lobe atelectasis. 3. Possible mild mediastinal and right hilar lymphadenopathy. 4. Question right-sided mastitis versus inflammatory neoplasm of the right breast, correlation with history recommended. Communications: Call Doctor Other Electronically signed by: Trixie Collier MD 07/13/23 21:38 PM
--- NOTE | 2023-07-13 22:28 | History & Physical Report ---
Date of Service July 13, 2023 Assessment & Plan (1) Respiratory distress: Plan: 63-year-old female with past med history significant for stage IV metastatic breast cancer s/p radiation currently not on chemo and plan to restart chemo next week as per patient, chronic HBV on chronic entecavir, rheumatoid arthritis, chronic fatigue syndrome/fibromyalgia, anxiety/mood disorder, history of ascending lymphangitis, was in the hospital in may for sepsis from pyelonephritis and bacteremia and also during that hospitalization patient had respiratory failure from pleural effusion s/p right-sided thoracocentesis on May 28, 2023 with 1.5 L exudative fluid removed.And again admitted on June 28 with SOB from recurrent large right pleural effusion and s/p thoracocentesis and discharged. Currently s/p pleurex catheter. Patient says on Sunday she drained about 600cc and since then not draining much and now progressively getting sob again. Today drained about 200cc.She was not on oxygen when she got discharged. But lately requiring oxygen and in ER requiring 5- 6lts oxygen. Received a dose of Lasix. Somewhat tachypneic. Denies fevers. Has cough. No chest pain. No headaches. No runny nose or sore throat. No nausea. No abdominal pain. Constipated. Micturating ok. Respiratory distress Recurrent pleural effusions mostly malignant History of recurrent thoracocentesis S/p Pleurx catheter Not draining much from Pleurx catheter CT scan also showing atelectasis and large pleural efusions No PE Received a dose of IV Lasix in the ER Requiring 5 to 6 L of oxygen Nebs as needed Will follow ABG Close monitor in telemetry Pulmonary consult in a.m. for further recommendations Stage IV metastatic breast cancer Follow-up with heme-onc History of radiation dermatitis of the right breast Chronic HBV On entecavir History of anemia Hemoglobin 12.3 today We will follow labs Rheumatoid arthritis Seems not on medications History of chronic fatigue syndrome/fibromyalgia/anxiety/mood disorder Dvt px Lovenox Disposition Tele Full code per last admission. History of Present Illness Chief Complaint: Respiratory distress Primary Care Provider: Barbara Lopez PA-C 63-year-old female with past med history significant for stage IV metastatic breast cancer s/p radiation currently not on chemo and plan to restart chemo next week as per patient, chronic HBV on chronic entecavir, rheumatoid arthritis, chronic fatigue syndrome/fibromyalgia, anxiety/mood disorder, history of ascending lymphangitis, was in the hospital in may for sepsis from pyelonephritis and bacteremia and also during that hospitalization patient had respiratory failure from pleural effusion s/p right-sided thoracocentesis on May 28, 2023 with 1.5 L exudative fluid removed.And again admitted on June 28 with SOB from recurrent large right pleural effusion and s/p thoracocentesis and discharged. Currently s/p pleurex catheter. Patient says on Sunday she drained about 600cc and since then not draining much and now progressively getting sob again. Today drained about 200cc.She was not on oxygen when she got discharged. But lately requiring oxygen and in ER requiring 5- 6lts oxygen. Received a dose of Lasix. Somewhat tachypneic. Denies fevers. Has cough. No chest pain. No headaches. No runny nose or sore throat. No nausea. No abdominal pain. Constipated. Micturating ok. Past medical history. As mentioned above. Past surgical history. Right breast biopsy. . Social history. Smoking occasional. No alcohol use. No drug use. Family history. Breast cancer. Lung cancer alcoholism. Dementia. Heart disease. Depression Allergies Allergy/AdvReac Type Severity Reaction Status Date / Time No Known Allergies Allergy Verified 07/13/23 20:16 Home Medications Medication Instructions Recorded Confirmed Type alprazolam 1 mg tablet (Xanax) 1 mg PO BID PRN Sleep 08/24/21 07/13/23 History alprazolam 2 mg tablet (Xanax) 2 mg PO HS PRN Sleep 08/24/21 07/13/23 History ondansetron HCl 8 mg tablet 8 mg PO Q8H PRN Nausea 08/24/21 07/13/23 History prochlorperazine maleate 10 mg 10 mg PO Q6H PRN Nausea 08/24/21 07/13/23 History tablet (Compazine) venlafaxine 150 mg 150 mg PO QAM 08/24/21 07/13/23 History capsule,extended release 24 hr aripiprazole 5 mg tablet (Abilify) 5 mg PO QAM 01/17/23 07/13/23 History baclofen 5 mg tablet 5 mg PO BID PRN muscle spasm 01/17/23 07/13/23 History erythromycin 5 mg/gram (0.5 %) eye 0.25 inch ophthalmic (eye) DAILY 01/17/23 07/13/23 History ointment PRN Dry Eyes famotidine 20 mg tablet 20 mg PO HS 01/17/23 07/13/23 History cholecalciferol (vitamin D3) 50 50 mcg PO QAM 05/27/23 07/13/23 History mcg (2,000 unit) capsule (Vitamin D3) entecavir 0.5 mg tablet 0.5 mg PO DAILY 05/27/23 07/13/23 History lidocaine-prilocaine 2.5 %-2.5 % 1 applic topical UD PRN 1 hr prior 05/27/23 07/13/23 History topical cream to accessing mediport pantoprazole 20 mg tablet,delayed 20 mg PO QAM 05/27/23 07/13/23 History release fexofenadine 60 mg-pseudoephedrine 1 tab PO Q12H PRN Allergy Symptoms 06/13/23 07/13/23 History ER 120 mg tablet,ext.release,12 hr (Allergy Relief-D (fexofenadine)) hydromorphone 4 mg tablet 4 mg PO Q4H PRN severe cancer pain 06/14/23 07/13/23 Rx (Dilaudid) 1 month #150 tabs Portable Oxygen [id number] #1 ea 07/05/23 07/05/23 Rx calcium carbonate 200 mg PO DAILY 07/13/23 07/13/23 History Past Med/Surg History Medical History (Updated 07/13/23 @ 22:34 by Tomasz Marin MD) Acute respiratory failure with hypoxia Therapeutic opioid-induced constipation (OIC) Cellulitis of chest wall Anterior chest wall pain Palliative care by specialist Advanced care planning/counseling discussion Dyspnea and respiratory abnormalities Weakness generalized Cancer related pain Rheumatoid arthritis Insomnia Fibromyalgia Depression Chronic fatigue syndrome Surgical History S/P breast biopsy deliv NOS-unsp Family History Aunt Breast cancer Mother , Age 72 Arthritis Father , Age 93 Heart disease Dementia Daughter No problems noted. Sister No problems noted. Uncle Pancreatic cancer Social History Smoking Status: Former smoker Tobacco Type: Cigarettes Second Hand Exposure: No; Do You Dip or Chew Tobacco: No; Hx Alcohol Use: No Hx Substance Use: No Preferred Language: Serbian Communication Ability: Effective Marketing Communications Specialist Required: No Beliefs That Will Affect Care: None Current Living Situation: Other Current Living Situation Comment: Friend/caregivers Other Information That Helps Us Care for You: No Feels Safe at Home: Yes Safety Concerns: Feels Safe At This Time Assistive Devices: Glasses and Oxygen - Continuous Assistive Devices Comment: reading glasses Review of Systems Review of Systems: All systems reviewed & are unremarkable except as noted in HPI & below Physical Exam Physical Exam: General- Not in distress Head- atraumatic Eyes- PERRL. ENT- oropharynx clear Neck- supple, no JVD. Lungs- clear to auscultation b/l crackles and occasional wheezing. Heart- regular rhythm;tachycardia no murmur, no gallop. Abdomen- normal bowel sounds, soft, nontender, no distension. Extremities- no pretibial edema, no erythema seen. Neuro- alert, oriented PERRL, no facial palsy; no dysarthria; moves extremities. Results & Data Results & Data Vital Signs (Past 12 Hours) Vital Signs Pulse Pulse Resp BP BP Pulse Ox O2 Del Method 07/13/23 21:12 112 H 24 150/94 H 96 Nasal Cannula 07/13/23 20:00 107 H 23 148/85 H 96 Nasal Cannula 07/13/23 19:30 104 H 23 129/84 95 Nasal Cannula 07/13/23 19:00 105 H 24 130/102 H 95 Nasal Cannula 07/13/23 18:30 105 H 24 132/91 97 Nasal Cannula 07/13/23 18:10 106 H 07/13/23 18:08 105 H 96 Nasal Cannula 07/13/23 18:08 96 Nasal Cannula 07/13/23 18:08 105 H 20 133/91 96 Nasal Cannula 07/13/23 17:19 84 L Room Air 07/13/23 17:13 112 H 28 H 121/77 85 L Room Air O2 Flow Rate 07/13/23 21:12 6 07/13/23 20:00 4 07/13/23 19:30 4 07/13/23 19:00 4 05/10/24 18:30 4 07/13/23 18:10 07/13/23 18:08 4 07/13/23 18:08 4 07/13/23 18:08 4 07/13/23 17:19 0 07/13/23 17:13 Diagnostic Findings Laboratory Results WBC 5.26 K/ul (4.8-10.8) 07/13/23 17:55 RBC 3.95 M/uL (4.20-5.40) L 07/13/23 17:55 Hgb 12.3 g/dl (12.0-16.0) 07/13/23 17:55 Hct 37.2 % (37.0-47.0) 07/13/23 17:55 MCV 94.2 fL (80.0-100.0) 07/13/23 17:55 MCH 31.1 pg (25.0-34.0) 07/13/23 17:55 MCHC 33.1 g/dL (32.0-36.0) 07/13/23 17:55 RDW Std Deviation 45.9 fL (36.4-46.3) 07/13/23 17:55 RDW Coeff of [place] 13.2 % (11.5-14.5) 07/13/23 17:55 Plt Count 285 K/uL (130-400) 07/13/23 17:55 MPV 8.1 fL (9.4-12.4) L 07/13/23 17:55 Immature Gran % (Auto) 0.2 % 07/13/23 17:55 Neut % (Auto) 65.0 % 07/13/23 17:55 Lymph % (Auto) 19.2 % 07/13/23 17:55 Lewis % (Auto) 11.4 % 07/13/23 17:55 Eos % (Auto) 2.9 % 07/13/23 17:55 Baso % (Auto) 1.3 % 07/13/23 17:55 Neut # (Auto) 3.42 K/uL (1.40-6.50) 07/13/23 17:55 Lymph # (Auto) 1.01 K/uL (1.20-3.40) L 07/13/23 17:55 Lewis # (Auto) 0.60 K/uL (0.11-0.59) H 07/13/23 17:55 Eos # (Auto) 0.15 K/uL (0.00-0.50) 07/13/23 17:55 Baso # (Auto) 0.07 K/uL (0.00-0.20) 07/13/23 17:55 Immature Gran # (Auto) 0.01 K/uL (0.01-0.20) 07/13/23 17:55 Sodium 138 mmol/L (136-145) 07/13/23 17:55 Potassium 3.9 mmol/L (3.5-5.1) 07/13/23 17:55 Chloride 104 mmol/L (98-107) 07/13/23 17:55 Carbon Dioxide 27 mmol/L (21-32) 07/13/23 17:55 Anion Gap 7 (3-11) 07/13/23 17:55 BUN 8 mg/dl (6-23) 07/13/23 17:55 Creatinine 0.57 mg/dl (0.6-1.2) L 07/13/23 17:55 Est Cr Clr Drug Dosing 86.5 ml/min 07/13/23 17:55 Est GFR ( Amer) 112.7 ml/min 07/13/23 17:55 Est GFR (Non-Af Amer) 97.3 ml/min 07/13/23 17:55 BUN/Creatinine Ratio 14.0 (10-20) 07/13/23 17:55 Glucose 113 mg/dl (70-99(Fasting)) H 07/13/23 17:55 Calcium 8.8 mg/dl (8.6-10.3) 07/13/23 17:55 Total Bilirubin 0.4 mg/dl (0.2-1.0) 07/13/23 17:55 AST 22 U/L (13-39) 07/13/23 17:55 ALT 5 U/L (7-52) L 07/13/23 17:55 Alkaline Phosphatase 49 U/L (34-104) 07/13/23 17:55 Troponin I High Sens 3.3 pg/ml (0-14) 07/13/23 17:55 B-Natriuretic Peptide 28 pg/ml (0-100) 07/13/23 17:55 Total Protein 7.0 gm/dl (6.0-8.3) 07/13/23 17:55 Albumin 2.9 gm/dl (3.4-5.0) L 07/13/23 17:55 Globulin 4.1 gm/dl (2.5-4.0) H 07/13/23 17:55 Albumin/Globulin Ratio 0.7 (0.9-2) L 07/13/23 17:55 Procalcitonin 0.03 ng/ml (0-0.5) 07/13/23 17:55 Adenovirus (PCR) Not Detected (NotDetected) 07/13/23 17:55 B. pertussis DNA (PCR) Not Detected (NotDetected) 07/13/23 17:55 B.parapertussis DNA PCR Not Detected (NotDetected) 07/13/23 17:55 C. pneumoniae DNA (PCR) Not Detected (NotDetected) 07/13/23 17:55 Coronavirus OC43 (PCR) Not Detected (NotDetected) 07/13/23 17:55 Coronavirus HKU1 (PCR) Not Detected (NotDetected) 07/13/23 17:55 Coronavirus 229E (PCR) Not Detected (NotDetected) 07/13/23 17:55 SARS-CoV-2 (PCR) Not Detected (NotDetected) 07/13/23 17:55 Coronavirus NL63 (PCR) Not Detected (NotDetected) 07/13/23 17:55 Human Metapneumovir PCR Not Detected (NotDetected) 07/13/23 17:55 Influenza Type A (PCR) Not Detected (NotDetected) 07/13/23 17:55 Influenza Type B (PCR) Not Detected (NotDetected) 07/13/23 17:55 M. pneumoniae (PCR) Not Detected (NotDetected) 07/13/23 17:55 Parainfluenza 1 (PCR) Not Detected (NotDetected) 07/13/23 17:55 Parainfluenza 2 (PCR) Not Detected (NotDetected) 07/13/23 17:55 Parainfluenza 3 (PCR) Not Detected (NotDetected) 07/13/23 17:55 Parainfluenza 4 (PCR) Not Detected (NotDetected) 07/13/23 17:55 RSV (PCR) Not Detected (NotDetected) 07/13/23 17:55 Entero/Rhino (PCR) Not Detected (NotDetected) 07/13/23 17:55 Impressions Chest X-Ray 07/13/23 17:20 XR chest 1V not portable CLINICAL HISTORY: Chest pain, nonspecific COMPARISON STUDY: Chest CT June 29, 2023. Chest radiograph July 06, 2023. FINDINGS: A left internal jugular [id number]-Xeqs remains in place. A right pleural catheter also remains in place. Extensive opacification of the right hemithorax has progressed. A moderate to large right pleural effusion has increased in size since prior chest radiograph. Pulmonary edema has progressed. A moderate-sized left pleural effusion has increased in size. There is no pneumothorax. IMPRESSION: 1. Increase in size of a moderate to large right pleural effusion. Right pleural catheter in place. No pneumothorax. 2. Increase in size of a moderate left pleural effusion. 3. Progression of pulmonary edema. ACT 112: Negative or not required by law. Electronically signed by: Kailash Barraza M.D. 07/13/2023 6:12 PM Chest CTA 07/13/23 20:14 CR Exam(s): CTA CHEST IV Amt: 119 cc opti 320 EXAM: CT Angiography Chest With Intravenous Contrast CLINICAL HISTORY: Reason for exam: PE. TECHNIQUE: Axial computed tomographic angiography images of the chest with intravenous contrast. CTDI is 31.34 mGy and DLP is 739.23 mGy-cm. Automated exposure control was utilized for the study. A dose lowering technique was utilized adhering to the principles of ALARA. MIP reconstructed images were created and reviewed. COMPARISON: 06/29/2023. FINDINGS: Pulmonary arteries: Normal enhancement of the pulmonary arteries with no filling defect to suggest pulmonary embolus. Aorta: Mild atherosclerotic disease of aorta with no aneurysm or dissection. Lungs: Severe bilateral lower lobe, right middle lobe and right upper lobe atelectasis. Mild left upper lobe atelectasis. No mass. Pleural space: Large bilateral pleural effusions. There is a right anterior mild to moderate pneumothorax. Heart: Unremarkable. No cardiomegaly. No significant pericardial effusion. No evidence of RV dysfunction. Bones/joints: No acute fracture. No dislocation. Soft tissues: There is stranding through the right breast with thickening of the skin which may indicate mastitis versus inflammatory neoplasm. There is fluid collection with infiltration of the right extrathoracic soft tissues which could represent edema versus resolving hematoma. Lymph nodes: There are questionable prominent lymph nodes within the right mediastinum and right hilar region, cannot exclude mild/early lymphadenopathy. Stranding with questionable surgical clips in the right axilla. There is a lymph node in the left axilla measuring 1.8 x 1.0 cm, stable. Intraperitoneal space: There is evidence of ascites otherwise visualized upper abdominal structures unremarkable. Tubes, lines and devices: There is a left-sided central line with the tip in the distal SVC/right atrial junction. Other findings: There is a right-sided chest tube/catheter in place. Multilevel degenerative disease of the spine. IMPRESSION: 1. No pulmonary embolus or aortic dissection. 2. Large bilateral pleural effusions with right-sided chest tube in place. Mild anterior pneumothorax. Severe bilateral lower lobe, right middle lobe and right upper lobe atelectasis. 3. Possible mild mediastinal and right hilar lymphadenopathy. 4. Question right-sided mastitis versus inflammatory neoplasm of the right breast, correlation with history recommended. Communications: Call Doctor Other Electronically signed by: Trixie Collier MD 07/13/23 21:38 PM ECG Additional Comments: ECG. Sinus tachycardia rate of 111. Nonspecific T wave abnormalities Code Status & VTE Plan VTE Prophylaxis Plan VTE Prophylaxis will be ordered: Yes
[2023-07-13] MEDS ORDERED: NITROGLYCERIN SL 0.4 MG/TAB TAB SL PRN (23:30)
[2023-07-13] MEDS ORDERED: BACLOFEN 10 MG TAB PO PRN (23:30)
[2023-07-13] MEDS ORDERED: ACETAMINOPHEN 325 MG TAB PO PRN (23:30)
[2023-07-13] MEDS ORDERED: LIDOCAINE/PRILOCAINE 2.5% EA CRM EXT PRN (23:30)
[2023-07-13] MEDS ORDERED: POLYETHYLENE (MIRALAX) 17 GM PACK PO PRN (23:30)
[2023-07-13] MEDS ORDERED: ALPRAZolam 0.5 MG TABLET PO PRN (23:30)
[2023-07-14 00:16] LABS: Base Excess ABG 6.2 mEq/L (-9-1.8); HCO3 ABG 31 mmol/L (19-24); Oxygen Saturation ABG 98.7 % (90-95); PCO2 ABG 42 mmHg (35-46); PO2 ABG 103 mmHg (80-95); pH ABG 7.47 (7.35-7.45)
[2023-07-14 00:22] LABS: Allen Test Pos (Pos)
[2023-07-14] MEDS: HYDROmorphone HCL 4 MG TAB PO PRN (00:27)
[2023-07-14] MEDS: PROCHLORPERAZINE MALEATE 10 MG TAB PO PRN (00:33)
[2023-07-14] MEDS ORDERED: FEXOFENADINE 60 MG TAB PO PRN ×2 (02:11→03:10)
[2023-07-14] MEDS ORDERED: LEVALBUTEROL 1.25 MG/3 ML NEB NEB PRN (02:14)
[2023-07-14] MEDS ORDERED: ARTIFICIAL TEARS OP OINT 3.5 GM TUBE OP PRN (05:40)
[2023-07-14 06:11] LABS: Basophils # (auto) 0.07 K/uL (0.00-0.20); Basophils % (auto) 1.3 %; Eosinophils # (auto) 0.24 K/uL (0.00-0.50); Eosinophils % (auto) 4.5 %; Hematocrit (blood only) 38.3 % (37.0-47.0); Hemoglobin 12.7 g/dl (12.0-16.0); Immature Granulocytes # (auto) 0.01 K/uL (0.01-0.20); Immature Granulocytes % (auto) 0.2 %; Lymphocytes # (auto) 1.03 K/uL (1.20-3.40); Lymphocytes % (auto) 19.4 %; Mean Corpuscular Hemoglobin 31.4 pg (25.0-34.0); Mean Corpuscular Hgb Conc 33.2 g/dL (32.0-36.0); Mean Corpuscular Volume 94.6 fL (80.0-100.0); Monocytes % (auto) 13.2 %; Neutrophils # (auto) 3.25 K/uL (1.40-6.50); Neutrophils % (auto) 61.4 %; Platelet Count 269 K/uL (130-400); RDW Coefficient of Variation 13.2 % (11.5-14.5); RDW Standard Deviation 46.1 fL (36.4-46.3); Red Blood Count 4.05 M/uL (4.20-5.40)
[2023-07-14 06:31] LABS: BUN Creatinine Ratio 14.3 (10-20); Calcium 8.6 mg/dl (8.6-10.3); Creatinine Clr Calc Pharmacy 84.8 ml/min; Est GFR (African American) 113.4 ml/min; Est GFR (Non-African American) 97.8 ml/min; Magnesium 1.8 mg/dl (1.7-2.4); Potassium 3.6 mmol/L (3.5-5.1)
--- NOTE | 2023-07-14 07:03 | Electrocardiogram Report ---
Test Reason : Blood Pressure : / mmHG Vent. Rate : 111 BPM Atrial Rate : 111 BPM P-R Int : 176 ms QRS Dur : 064 ms QT Int : 304 ms P-R-T Axes : 045 057 039 degrees QTc Int : 413 ms Sinus tachycardia Nonspecific ST abnormality Abnormal ECG When compared with ECG of 29-JUN-2023 00:11, Nonspecific T wave abnormality, worse in Inferior leads Nonspecific T wave abnormality now evident in Lateral leads Confirmed by Devang Diallo ([id number]) on 07/14/2023 7:03:18 AM Referred By: REFERRED SELF Confirmed By:Erasmo Diallo
[2023-07-14] MEDS: HEPARIN 100 UNIT/ML 5ML FLUSH FLUSH PRN (08:27)
[2023-07-14] MEDS: CALCIUM CARBONATE 500 MG CHEWABLE TAB PO SCH (09:28)
[2023-07-14] MEDS: ARIPiprazole 5 MG TAB PO SCH (09:28)
[2023-07-14] MEDS: PANTOprazole 40 MG TAB PO SCH (09:28)
[2023-07-14] MEDS: VENLAFAXINE HCL XR 150 MG CAPXR PO SCH (09:28)
[2023-07-14] MEDS: CHOLECALCIFEROL 25 MCG (1000 UNITS) TAB PO SCH (09:28)
[2023-07-14] MEDS: ENOXAPARIN INJ 40 MG/0.4 ML SYR SQ SCH (09:29)
--- OUTSIDE RECORDS SUMMARY | 2023-07-14 09:33 | External Medical Summary | Summary of Care ---
Author Name Unknown Organization [facility] Address [address] [place] [address] Phone [phone] Care Team Providers Care Design Engineer Agricultural Equipment Name Role Phone Jessica Barbara Vargas PA-C Primary Care Provider [phone] Reason for Visit * Reason Onset Date Comments Appointment 07/13/2023 Encounter Details Date Type Department Care Team (Late st Contact Info) Description 07/13/2023 Telephone [facility] [place] [address] [place] [address] Services, Scheduling [address] [place] [address] Appointment Allergies Active Allergy Reactions Criticality Noted Date Comments Pollen 12/17/2014 documented as of this encounter (statuses as of 07/13/2023) Medications Medication Sig Dispensed Refills Start Date End Date Status Erythromycin 5 MG/GM Ophthalmic Ointment Instill into both eyes 0.25 Inches before bedtime. 3.5 g 6 07/14/2021 Active Lidocaine-Prilocain e 2.5-2.5 % External Cream (Emla)Indications:I nflammatory carcinoma of right breast (HCC) APPLY TO SKIN OVER MEDIPORT & COVER 1HR PRIOR TO ACCESSING. 30 g 1 12/05/2021 Active Vitamin D 50 MCG (1999 UT) Oral Capsule Take 2,000 Units by mouth in the morning. 0 Active Calcium 250 MG Oral Capsule Take by mouth. 0 Active Ondansetron HCl 8 MG Oral Tablet (Zofran)Indications :Inflammatory carcinoma of right breast (HCC) Take 1 Tablet by mouth every 8 hours as needed for Nausea. 90 Tablet 1 09/15/2022 Active Prochlorperazine Maleate 10 MG Oral Tablet (Compazine)Indicati ons:Inflammatory carcinoma of right breast (HCC) Take 1 Tablet by mouth every 6 hours as needed for Nausea. 90 Tablet 1 09/15/2022 Active Famotidine 20 MG Oral Tablet (Pepcid)Indications :Inflammatory carcinoma of right breast (HCC),Malignant neoplasm metastatic to bone (HCC) Take 1 Tablet by mouth at bedtime. 90 Tablet 3 09/15/2022 Active Fexofenadine-Pseudo ephed ER 60-120 MG Tablet Extended Release 12 Hour (Liza-D Allergy & Congestion) Take 1 Tablet by mouth in the morning and 1 Tablet before bedtime. 180 Tablet 3 11/20/2022 Active Baclofen 5 MG Oral Tablet (Lioresal) Take 1 Tablet by mouth 2 times a day as needed for Muscle spasms. 60 Tablet 1 02/08/2023 Active ARIPiprazole 5 MG Oral Tablet (Abilify) TAKE ONE TABLET BY MOUTH EVERY MORNING 30 Tablet 5 02/21/2023 02/21/2024 Active predniSONE 10 MG Oral Tablet (Deltasone) Take one tablet daily 90 Tablet 2 03/22/2023 Active ALPRAZolam 2 MG Oral Tablet (xaNAX)Indications: Adjustment insomnia TAKE ONE TABLET BY MOUTH AT BEDTIME NEEDED FOR SLEEP 90 Tablet 0 04/26/2023 10/26/2023 Active ALPRAZolam 1 MG Oral Tablet (xaNAX)Indications: Anxiety disorder due to medical condition TAKE ONE TABLET BY MOUTH TWICE A DAY NEEDED FOR SLEEP 180 Tablet 0 04/26/2023 10/26/2023 Active Entecavir 0.5 MG Oral Tablet (Baraclude)Indicati ons:Acute hepatitis B with delta-agent without hepatic coma Take one tablet by mouth once daily on an empty stomach (2 hours before or after a meal). 30 Tablet 11 06/12/2023 Active Venlafaxine HCl ER 150 MG Oral Capsule Extended Release 24 Hour (Effexor XR) TAKE ONE CAPSULE BY MOUTH IN THE MORNING 90 Capsule 1 06/20/2023 06/19/2024 Active documented as of this encounter (statuses as of 07/13/2023) Active Problems Problem Noted Date Diagnosed Date Malignant pleural effusion 06/18/2023 Moderate episode of recurrent major depressive d isorder 06/18/2023 Chronic viral hepatitis B wi thout delta agent and without coma 06/18/2023 Chronic viral hepatitis 07/04/2022 Last Assessment & Plan: Appointment with hepatology this 07/06 Chemotherapy-induced neuropathy 03/23/2022 Malignant neoplasm metastatic to bone 01/11/2022 Last Assessment & Plan: Getting dull, achy pain in legs PET scan scheduled 07/18 Has oxycodone for severe pain Inflammatory carcinoma of right breast 2 Last Assessment & Plan: She is following [...] as of this encounter (statuses as of 07/13/2023) Resolved Problems Problem Noted Date Diagnosed Date Resolved Date Elevated LFTs 06/20/2022 06/05/2023 Last Assessment & Plan: Repeat CMP 1 week Problem related to housing a nd economic circumstances, unspecified 04/20/2022 06/18/2023 Food insecurity 01/16/2022 06/14/2023 Overview: Per [facility] Protocol documented as of this encounter (statuses as of 07/13/2023) Immunizations Name Administration Dates Next Due COVID-19 [...] you got the money to buy more. Never true 06/06/19 24 Within the past 12 months, t he food you bought just didn't last and you didn't have money to get more. Never true 06/06/2023 Sex and Gender Information Value Date Recorded Sex Assigned at Female 01/04/2022 2:35 AM EDT Gender Identity Female 01/04/2022 2:35 AM EDT Sexual Orientation Straight 01/04/2022 2: 35 AM EDT Job Start Date Occupation Industry Not on file Not on file Not on file documented as of this encounter Miscellaneous Notes * Telephone Encounter - Viviana French OSA - 07/13/2023 12:53 PM EDT Request to move appt, appt set for 07/30, called pt lmom, if this does not work, please call us back. documented in this encounter Plan of Treatment Upcoming Encounters Date Type Department Care Team (Late st Contact Info) Description 07/16/2023 7:00 AM EDT Pharmacy [facility], [place] [address] [place] [address] [place], Pharmacist Hepatology [address] [place] [address] 07/31/2023 12:30 PM EDT [facility] [address] [facility] [place] [address] Rochelle Grossman RN [address] [place] [address] Health Maintenance Due Date Last Done Comments Pneumococcal Vaccine: 65+ Years (1 of 2 - PCV) 1964 HIV Screening 1973 Zoster Vaccines (1 of 2) 1977 Cologuard 2003 Colonoscopy 2003 Colorectal Cancer Screening 2003 Fecal Occult Blood Test 2003 Sigmoidoscopy 2003 DTaP,Tdap,and Td Vaccines (2 - Tdap) 08/09/2014 08/09/2004 COVID-19 Vaccine ( - season) 2022 11/12/2020, 08/07/2020, 07/10/2020 Mammogram 06/01/2023 05/31/2022, 05/04, 07/21/2021, Additional history exists Influenza Vaccine (FLU shot) (Season Ended) 2023 Diabetes Screening 02/12/2026 02/12/2023, 1 , 12/12/2022, [...] this encounter Medical Devices Implanted Type Area Wax Machine Operator Device Identifier Shelf Expiration Date Model / Serial / Lot Power Port 8fr Sngl Lumen Plas - [id number] Implanted:Qty : 1 on 08/16/2021 by Alfredo Hernández, at [facility] Left: Chest CR BARD : PERIPHERAL VASCULAR [id number] 11/02/2022 [id number] / / [id number] documented as of this encounter Advance Directives Documents on File Type Date Recorded Patient Slip Cover Operator Expl anation POLST 08/29/2021 [place] [facility] Care Teams Design Engineer Agricultural Equipment Relationship Specialty Start Date End Date Jessica Barbara DILLAN Vargas [address] [place], [place] [address] PCP - General Physician Electromechanical Equipment Tester 01/11/22 documented as of this encounter
--- OUTSIDE RECORDS SUMMARY | 2023-07-14 09:33 | External Medical Summary | Continuity of Care Document ---
Author Name Unknown Organization [facility] Address [address] [place] [address] [place] [phone] Encounter [facility] [id number] Date(s): 07/10/23 - 07/10/23 [facility] [id number], [place] [address]- [phone] Discharge Disposition: Home or Self Care Attending Physician: MD Addison, Andreina Wheeler Social History Social History Type Response Sex Male
--- NOTE | 2023-07-14 09:36 | Pulmonary Consultation ---
Date of Consultation July 14, 2023 Assessment & Plan (1) Malignant pleural effusion: (2) Malignant neoplasm metastatic to right breast: (3) Acute respiratory failure with hypoxia: (4) Metastatic cancer: Area of secondary neoplastic involvement: unspecified site Qualified Code(s): C79.9 - Secondary malignant neoplasm of unspecified site Plan Impression: 63-year-old female with metastatic breast cancer status post recent Pleurx catheter placement. She is admitted with shortness of breath. She did not get better with drainage of the Pleurx but did feel better with Lasix. Recommendations: 1. Malignant pleural effusion status post Pleurx: Offered the patient repeat drainage today as well as flushing the catheter to ensure it is operating appropriately. She states that she does not believe the shortness of breath is related to the pleural effusion and does not wish to undergo additional invasive procedures at this time. I did offer her thoracentesis on the left side but again she would like to see how she does with just Lasix as she feels markedly better with that medication. 2. We did have a discussion regarding end-of-life issues. The patient understands that her condition is terminal. She has been engaged with palliative care in the past but does not have hospice is apparently there is some discussion regarding ongoing chemotherapy. Patient states that her quality of life is currently quite poor and she cannot imagine going on in this condition. Would be highly appropriate to reengage palliative care. It appeared the patient no showed her prior outpatient appointment. Given her symptom progression, consideration for enrollment in hospice may be appropriate. CODE STATUS should absolutely be addressed as aggressive interventions such as CPR and mechanical ventilation would not impact the patient's widely metastatic cancer at this point time Will reassess tomorrow and see how she is feeling. Feel free to contact us with questions or concerns History of Present Illness Attending Physician: Kenzie Hardy MD History of Present Illness Asked by hospitalist to assist in evaluation management this patient with malignant pleural effusions due to breast cancer status post Pleurx catheter placement as well as shortness of breath. History is obtained from discussion with the patient as well as review the electronic medical record. Patient is a 63-year-old female who was cared for in the outpatient setting by Dr. Ricci. He initially evaluated her 05/28/2023 when she was admitted with an effusion. She underwent thoracentesis which confirmed metastatic disease. She is seen by palliative care. She was readmitted in June. She was seen in the outpatient setting and had a Pleurx catheter placed 07/06/2023. She has been draining it at home with outputs of anywhere between [id number] cc. She has had minimal improvement with the drainage and presented to the emergency room yesterday with shortness of breath. CT angiogram showed bilateral pleural effusions with a small hydropneumothorax on the left side status post Pleurx catheter placement. She is on palliative care at home. She was seen in the emergency room and reportedly had her Pleurx drained for several 100 cc but did not achieve any clinical benefit from it at that time. She states she did receive Lasix which was markedly beneficial with regards to her breathing. She does not believe that her shortness of breath is related to the pleural effusio n. Rather she attributes it to interstitial pulmonary edema. She is not in favor of additional invasive procedures currently. She denies fevers chills night sweats or other constitutional symptoms. She does use oxygen at home. Allergies Allergy/AdvReac Type Severity Reaction Status Date / Time No Known Allergies Allergy Verified 07/13/23 20:16 Home Medications Medication Instructions Recorded Confirmed Type alprazolam 1 mg tablet (Xanax) 1 mg PO BID PRN Sleep 08/24/21 07/13/23 History alprazolam 2 mg tablet (Xanax) 2 mg PO HS PRN Sleep 08/24/21 07/13/23 History ondansetron HCl 8 mg tablet 8 mg PO Q8H PRN Nausea 08/24/21 07/13/23 History prochlorperazine maleate 10 mg 10 mg PO Q6H PRN Nausea 08/24/21 07/13/23 History tablet (Compazine) venlafaxine 150 mg 150 mg PO QAM 08/24/21 07/13/23 History capsule,extended release 24 hr aripiprazole 5 mg tablet (Abilify) 5 mg PO QAM 01/17/23 07/13/23 History baclofen 5 mg tablet 5 mg PO BID PRN muscle spasm 01/17/23 07/13/23 History erythromycin 5 mg/gram (0.5 %) eye 0.25 inch ophthalmic (eye) DAILY 01/17/23 07/13/23 History ointment PRN Dry Eyes famotidine 20 mg tablet 20 mg PO HS 01/17/23 07/13/23 History cholecalciferol (vitamin D3) 50 50 mcg PO QAM 05/27/23 07/13/23 History mcg (2,000 unit) capsule (Vitamin D3) entecavir 0.5 mg tablet 0.5 mg PO DAILY 05/27/23 07/13/23 History lidocaine-prilocaine 2.5 %-2.5 % 1 applic topical UD PRN 1 hr prior 05/27/23 07/13/23 History topical cream to accessing mediport pantoprazole 20 mg tablet,delayed 20 mg PO QAM 05/27/23 07/13/23 History release fexofenadine 60 mg-pseudoephedrine 1 tab PO Q12H PRN Allergy Symptoms 06/13/23 07/13/23 History ER 120 mg tablet,ext.release,12 hr (Allergy Relief-D (fexofenadine)) hydromorphone 4 mg tablet 4 mg PO Q4H PRN severe cancer pain 06/14/23 07/13/23 Rx (Dilaudid) 1 month #150 tabs Portable Oxygen [id number] #1 ea 07/05/23 07/05/23 Rx calcium carbonate 200 mg PO DAILY 07/13/23 07/13/23 History Patient History Medical History (Updated 07/14/23 @ 09:33 by Vikram Chavez MD) Acute respiratory failure with hypoxia Therapeutic opioid-induced constipation (OIC) Cellulitis of chest wall Anterior chest wall pain Palliative care by specialist Advanced care planning/counseling discussion Dyspnea and respiratory abnormalities Weakness generalized Cancer related pain Rheumatoid arthritis Insomnia Fibromyalgia Depression Chronic fatigue syndrome Surgical History S/P breast biopsy deliv NOS-unsp Family History Aunt Breast cancer Mother , Age 72 Arthritis Father , Age 93 Heart disease Dementia Daughter No problems noted. Sister No problems noted. Uncle Pancreatic cancer Social History Smoking Status: Former smoker Tobacco Type: Cigarettes Second Hand Exposure: No; Do You Dip or Chew Tobacco: No; Hx Alcohol Use: No Hx Substance Use: No Preferred Language: Liberian Communication Ability: Effective Associate Publisher Required: No Beliefs That Will Affect Care: None Current Living Situation: Other Current Living Situation Comment: Friend/caregivers Other Information That Helps Us Care for You: No Feels Safe at Home: Yes Safety Concerns: Feels Safe At This Time Assistive Devices: Glasses and Oxygen - Continuous Assistive Devices Comment: reading glasses Review of Systems Review of Systems: Please refer to admission H&P. No additions or deletions Physical Exam Physical Exam: AAOx3, mild anxiety, appears uncomfortable NCAT, perrla, eomi's neck supple and without stridor Anterior chest wall right with edema and erythema Increased work of breathing. Mildly tachypneic. Decreased breath sounds in the bilateral bases. Pleurx catheter site dressed but no erythema or signs of infection. S1S2, no overt JVD abd soft, BS+ mild weakness Trace edema BLE and BUE pleasant and cooperative Results & Data Results & Data Vital Signs (Past 12 Hours) Vital Signs Temp Pulse Pulse Resp BP BP Pulse Ox 07/14/23 08:02 36.5 C 96 H 20 108/75 92 07/14/23 07:33 98 H 07/14/23 07:33 07/14/23 03:15 36.8 C 96 H 18 131/74 92 07/14/23 01:17 97 07/14/23 00:56 78 18 131/78 100 07/14/23 00:06 07/14/23 00:04 07/14/23 00:04 36.7 C 108 H 25 H 149/91 H 97 07/13/23 23:00 109 H 25 H 134/91 95 07/13/23 22:30 112 H 25 H 142/93 H 97 Pulse Ox O2 Del Method O2 Del Method O2 Flow Rate O2 Flow Rate 07/14/23 08:02 Nasal Cannula 5.0 07/14/23 07:33 07/14/23 07:33 Nasal Cannula 6 07/14/23 03:15 Nasal Cannula 5 07/14/23 01:17 Nasal Cannula 7 07/14/23 00:56 Room Air 07/14/23 00:06 Nasal Cannula 7 07/14/23 00:04 97 Nasal Cannula 7 07/14/23 00:04 Nasal Cannula 7 07/13/23 23:00 Nasal Cannula 6 07/13/23 22:30 Nasal Cannula 6 Critical Care Results & Data Vital Signs (Past 12 Hours) Vital Signs Temp Pulse Pulse Resp BP BP Pulse Ox 07/14/23 08:02 36.5 C 96 H 20 108/75 92 07/14/23 07:33 98 H 07/14/23 07:33 07/14/23 03:15 36.8 C 96 H 18 131/74 92 07/14/23 01:17 97 07/14/23 00:56 78 18 131/78 100 07/14/23 00:06 07/14/23 00:04 07/14/23 00:04 36.7 C 108 H 25 H 149/91 H 97 07/13/23 23:00 109 H 25 H 134/91 95 07/13/23 22:30 112 H 25 H 142/93 H 97 Pulse Ox O2 Del Method O2 Del Method O2 Flow Rate O2 Flow Rate 07/14/23 08:02 Nasal Cannula 5.0 07/14/23 07:33 07/14/23 07:33 Nasal Cannula 6 07/14/23 03:15 Nasal Cannula 5 07/14/23 01:17 Nasal Cannula 7 07/14/23 00:56 Room Air 07/14/23 00:06 Nasal Cannula 7 07/14/23 00:04 97 Nasal Cannula 7 07/14/23 00:04 Nasal Cannula 7 07/13/23 23:00 Nasal Cannula 6 07/13/23 22:30 Nasal Cannula 6 Lab & Micro Results (Past 24 Hours) RBC 4.05 M/uL (4.20-5.40) L 07/14/23 WBC 5.30 K/ul (4.8-10.8) 07/14/23 Hgb 12.7 g/dl (12.0-16.0) 07/14/23 Hct 38.3 % (37.0-47.0) 07/14/23 MCV 94.6 fL (80.0-100.0) 07/14/23 MCH 31.4 pg (25.0-34.0) 07/14/23 MCHC 33.2 g/dL (32.0-36.0) 07/14/23 RDW Standard Deviation 46.1 fL (36.4-46.3) 07/14/23 RDW Coefficient of Variation 13.2 % (11.5-14.5) 07/14/23 Plt Count 269 K/uL (130-400) 07/14/23 MPV 8.0 fL (9.4-12.4) L 07/14/23 Neutrophils (%) (Auto) 61.4 % 07/14/23 Lymphocytes (%) (Auto) 19.4 % 07/14/23 Monocytes # (Auto) 0.70 K/uL (0.11-0.59) H 07/14/23 Eosinophils # (Auto) 0.24 K/uL (0.00-0.50) 07/14/23 Immature Granulocyte % (Auto) 0.2 % 07/14/23 Neutrophils # (Auto) 3.25 K/uL (1.40-6.50) 07/14/23 Lymphocytes # (Auto) 1.03 K/uL (1.20-3.40) L 07/14/23 Monocytes # (Auto) 0.70 K/uL (0.11-0.59) H 07/14/23 Eosinophils # (Auto) 0.24 K/uL (0.00-0.50) 07/14/23 Basophils # (Auto) 0.07 K/uL (0.00-0.20) 07/14/23 Immature Granulocyte # (Auto) 0.01 K/uL (0.01-0.20) 4 Na 137 mmol/L (136-145) 07/14/23 K 3.6 mmol/L (3.5-5.1) 07/14/23 Cl 101 mmol/L (98-107) 07/14/23 CO2 31 mmol/L (21-32) 07/14/23 Anion Gap 5 (3-11) 07/14/23 BUN 8 mg/dl (6-23) 07/14/23 Creatinine 0.56 mg/dl (0.6-1.2) L 07/14/23 Estimated GFR ( Amer) 113.4 ml/min 07/14/23 Estimated GFR (Non-Af Amer) 97.8 ml/min 07/14/23 BUN/Creatinine Ratio 14.3 (10-20) 07/14/23 Glu 97 mg/dl (70-99(Fasting)) 07/14/23 Ca 8.6 mg/dl (8.6-10.3) 07/14/23 Total Bilirubin 0.4 mg/dl (0.2-1.0) 07/13/23 AST 22 U/L (13-39) 07/13/23 ALT 5 U/L (7-52) L 07/13/23 Alkaline Phosphatase 49 U/L (34-104) 07/13/23 TP 7.0 gm/dl (6.0-8.3) 07/13/23 Albumin 2.9 gm/dl (3.4-5.0) L 07/13/23 Globulin 4.1 gm/dl (2.5-4.0) H 07/13/23 Albumin/Globulin Ratio 0.7 (0.9-2) L 07/13/23 Mg 1.8 mg/dl (1.7-2.4) 07/14/23 05:42 Calcium Level 8.6 mg/dl (8.6-10.3) 07/14/23 05:42 Arterial Blood pH 7.47 (7.35-7.45) H 07/14/23 00:08 Arterial Blood Partial Pressure CO2 42 mmHg (35-46) 07/14/23 00 :08 Arterial Blood Partial Pressure O2 103 mmHg (80-95) H 07/14/23 00:08 Arterial Blood HCO3 31 mmol/L (19-24) H 07/14/23 00:08 Arterial Blood Base Excess 6.2 mEq/L (-9-1.8) H 07/14/23 00:08 Arterial Blood Oxygen Saturation 98.7 % (90-95) H 07/14/23 00:0 8 Blood Gas Oxygen Given NC 7 07/14/23 00:08 Zheng Test Pos (Pos) 07/14/23 00:08 Diagnostic Findings (Past 24 Hours) Chest X-Ray 07/13/23 17:20 XR chest 1V not portable CLINICAL HISTORY: Chest pain, nonspecific COMPARISON STUDY: Chest CT June 29, 2023. Chest radiograph July 06, 2023. FINDINGS: A left internal jugular [id number] remains in place. A right pleural catheter also remains in place. Extensive opacification of the right hemithorax has progressed. A moderate to large right pleural effusion has increased in size since prior chest radiograph. Pulmonary edema has progressed. A moderate-sized left pleural effusion has increased in size. There is no pneumothorax. IMPRESSION: 1. Increase in size of a moderate to large right pleural effusion. Right pleural catheter in place. No pneumothorax. 2. Increase in size of a moderate left pleural effusion. 3. Progression of pulmonary edema. ACT 112: Negative or not required by law. Electronically signed by: Kailash Barraza M.D. 07/13/2023 6:12 PM Chest CTA 07/13/23 20:14 CR Exam(s): CTA CHEST IV Amt: 119 cc opti 320 EXAM: CT Angiography Chest With Intravenous Contrast CLINICAL HISTORY: Reason for exam: PE. TECHNIQUE: Axial computed tomographic angiography images of the chest with intravenous contrast. CTDI is 31.34 mGy and DLP is 739.23 mGy-cm. Automated exposure control was utilized for the study. A dose lowering technique was utilized adhering to the principles of ALARA. MIP reconstructed images were created and reviewed. COMPARISON: 06/29/2023. FINDINGS: Pulmonary arteries: Normal enhancement of the pulmonary arteries with no filling defect to suggest pulmonary embolus. Aorta: Mild atherosclerotic disease of aorta with no aneurysm or dissection. Lungs: Severe bilateral lower lobe, right middle lobe and right upper lobe atelectasis. Mild left upper lobe atelectasis. No mass. Pleural space: Large bilateral pleural effusions. There is a right anterior mild to moderate pneumothorax. Heart: Unremarkable. No cardiomegaly. No significant pericardial effusion. No evidence of RV dysfunction. Bones/joints: No acute fracture. No dislocation. Soft tissues: There is stranding through the right breast with thickening of the skin which may indicate mastitis versus inflammatory neoplasm. There is fluid collection with infiltration of the right extrathoracic soft tissues which could represent edema versus resolving hematoma. Lymph nodes: There are questionable prominent lymph nodes within the right mediastinum and right hilar region, cannot exclude mild/early lymphadenopathy. Stranding with questionable surgical clips in the right axilla. There is a lymph node in the left axilla measuring 1.8 x 1.0 cm, stable. Intraperitoneal space: There is evidence of ascites otherwise visualized upper abdominal structures unremarkable. Tubes, lines and devices: There is a left-sided central line with the tip in the distal SVC/right atrial junction. Other findings: There is a right-sided chest tube/catheter in place. Multilevel degenerative disease of the spine. IMPRESSION: 1. No pulmonary embolus or aortic dissection. 2. Large bilateral pleural effusions with right-sided chest tube in place. Mild anterior pneumothorax. Severe bilateral lower lobe, right middle lobe and right upper lobe atelectasis. 3. Possible mild mediastinal and right hilar lymphadenopathy. 4. Question right-sided mastitis versus inflammatory neoplasm of the right breast, correlation with history recommended. Communications: Call Doctor Other Electronically signed by: Trixie Collier MD 07/13/23 21:38 PM I & O Totals 24 Hours 07/13/23 07/14/23 07/15/23 06:59 06:59 06:59 Output Total 500 / 500 Balance -500 / -500 Cumulative 07/13/23 17:10 thru 07/14/23 06:00 Output Total 500 Balance -500 RT Ventilator Mngmt (Last Documented) Ventilator Ordered Settings Respiratory Rate 20 07/14/23 08:02 Ventilator - PT Measurements Respiratory Rate 20 PG Care Time/CCT Total # of Minutes Spent Total Time Spent with Patient: Total time spent is greater than 50% in coordination of care (as documented) at patient's floor/unit and/or counseling patient: Coding Level of Care Code 14694 IN/OBS CONSULT LVL 4,60M Diagnoses Malignant pleural effusion J91.0 Malignant neoplasm metastatic to right breast C79.81 Acute respiratory failure with hypoxia J96.01 Metastatic cancer C79.9 Area of secondary neoplastic involvement: unspecified site
--- NOTE | 2023-07-14 14:34 | Hospitalist Progress Note ---
Date of Service July 14, 2023 Assessment & Plan (1) Respiratory distress: Plan: 63-year-old female with past med history significant for stage IV metastatic breast cancer s/p radiation currently not on chemo and plan to restart chemo next week as per patient, chronic HBV on chronic entecavir, rheumatoid arthritis, chronic fatigue syndrome/fibromyalgia, anxiety/mood disorder, history of ascending lymphangitis, was in the hospital in may for sepsis from pyelonephritis and bacteremia and also during that hospitalization patient had respiratory failure from pleural effusion s/p right-sided thoracocentesis on May 28, 2023 with 1.5 L exudative fluid removed.And again admitted on June 28 with SOB from recurrent large right pleural effusion and s/p thoracocentesis and discharged. Currently s/p pleurex catheter. Patient says on Sunday she drained about 600cc and since then not draining much and now progressively getting sob again. Today drained about 200cc.She was not on oxygen when she got discharged. But lately requiring oxygen and in ER requiring 5- 6lts oxygen. Received a dose of Lasix. Somewhat tachypneic. Denies fevers. Has cough. No chest pain. No headaches. No runny nose or sore throat. No nausea. No abdominal pain. Constipated. Micturating ok. Recurrent malignant bilateral pleural effusions Complicated by pulmonary edema Presented with respiratory distress History of recurrent thoracocentesis S/p Pleurx catheter on the right side Not draining much from Pleurx catheter CT scan also showing atelectasis and large pleural efusions No PE Received a dose of IV Lasix in the ER and the Lasix will be continued Requiring 5 to 6 L of oxygen Appreciate pulmonary input and recommendation She refused to have any manipulation/thoracentesis and wanted to continue with diuresis with Lasix Will give furosemide 40 mg x 1 now Monitor PRP Stage IV metastatic breast cancer Seems to planning for chemotherapy down the line Has a palliative care evaluation as an outpatient and may need to reevaluation by the palliative while in the hospital And will be evaluated by clerical support and myself tomorrow and discussed about diet and also CODE STATUS Follow-up with heme-onc on discharge History of radiation dermatitis of the right breast Chronic HBV On entecavir History of anemia Hemoglobin 12.3 today We will follow labs Rheumatoid arthritis Seems not on medications History of chronic fatigue syndrome/fibromyalgia/anxiety/mood disorder Dvt px Lovenox Disposition Tele Full code per last admission. Admission and Anticipated Discharge Date Admission Date: July 13, 2023 Subjective 07/14/2023 The patient was seen and examined in telemetry unit She has been feeling much better following admission and IV Lasix She did not want to go for any thoracentesis or manipulation of her blocked Pleurx catheter Denies any chest pain and/or palpitation Review of Systems Review of Systems: All systems reviewed and are unremarkable except as noted below Physical Exam Physical Exam: Lying in bed without any acute distress Constitutional: + ill appearing and average body habitus Eyes: PERRL, conjunctivae normal, anicteric sclerae ENMT: external ear and nose normal, oropharynx normal Neck: trachea midline, no thyromegaly Respiratory: + respiratory distress (Minimal respirat ory distress) Auscultation: + diminished lung sounds (Bilaterally in the lower parts) and + crackles (Bibasilar crackles) Cardiovascular: Rate/Rhythm: regular rate, regular rhythm and + tachycardic Heart Sounds: normal S1 and normal S2; no murmur Extremities: + edema (Trace edema bilaterally) Gastrointestinal (Abdomen): Inspection/Auscultation: + abdomen distended and normal bowel sounds Percussion/Palpation: abdomen soft and + ascites (Mild to moderate ascites clinically); abdomen nontender Musculoskeletal: No acute arthritis involving any of the joint Neurologic: Alert, awake and oriented x 3. Generally very weak and lethargic Results & Data Results & Data Vital Signs (Past 12 Hours) Vital Signs Temp Pulse Pulse Resp BP Pulse Ox O2 Del Method 07/14/23 11:13 36.6 C 107 H 22 106/69 91 Nasal Cannula 07/14/23 08:02 36.5 C 96 H 20 108/75 92 Nasal Cannula 07/14/23 07:33 98 H 07/14/23 07:33 Nasal Cannula 07/14/23 03:15 36.8 C 96 H 18 131/74 92 Nasal Cannula O2 Flow Rate 07/14/23 11:13 5.0 07/14/23 08:02 5.0 07/14/23 07:33 07/14/23 07:33 6 07/14/23 03:15 5 Laboratory Results Short CBC 07/13/23 07/14/23 Range/Units 17:55 05:42 WBC 5.26 5.30 (4.8-10.8) K/ul Hgb 12.3 12.7 (12.0-16.0) g/dl Hct 37.2 38.3 (37.0-47.0) % Plt Count 285 269 (130-400) K/uL BMP 07/13/23 07/14/23 17:55 05:42 Sodium 138 137 Potassium 3.9 3.6 Chloride 104 101 Carbon Dioxide 27 31 BUN 8 8 Creatinine 0.57 L 0.56 L Glucose 113 H 97 Calcium 8.8 8.6 Liver Function 07/13/23 Range/Units 17:55 Total Bilirubin 0.4 (0.2-1.0) mg/dl AST 22 (13-39) U/L ALT 5 L (7-52) U/L Alkaline Phosphatase 49 (34-104) U/L Albumin 2.9 L (3.4-5.0) gm/dl Medications Administered Current Inpatient Medications Acetaminophen (Acetaminophen 325 Mg Tab) 650 mg PO Q4H PRN PRN Reason: Pain or Fever Stop: 08/12/23 23:29 Alprazolam (Alprazolam 0.5 Mg Tablet) 1 mg PO BID PRN PRN Reason: Sleep Stop: 08/12/23 23:29 Alprazolam (Alprazolam 0.5 Mg Tablet) 2 mg PO HS PRN PRN Reason: Sleep Stop: 08/13/23 01:16 Aripiprazole (Aripiprazole 5 Mg Tab) 5 mg PO QAM ALLEGRA Stop: 08/13/23 08:59 Last Admin: 07/14/23 09:28 Dose: 5 mg Baclofen (Baclofen 10 Mg Tab) 5 mg PO BID PRN PRN Reason: muscle spasm Stop: 08/12/23 23:29 Calcium Carbonate (Calcium Carbonate 500 Mg Chewable Tab) 500 mg PO DAILY ALLEGRA Stop: 08/13/23 08:59 Last Admin: 07/14/23 09:28 Dose: 500 mg Enoxaparin Sodium (Enoxaparin Inj 40 Mg/0.4 Ml Syr) 40 mg SQ Q24H ALLEGRA Stop: 08/13/23 08:59 Last Admin: 07/14/23 09:29 Dose: 40 mg Famotidine (Famotidine 20 Mg Tab) 20 mg PO HS ALLEGRA Stop: 08/13/23 20:59 Fexofenadine HCl (Fexofenadine 60 Mg Tab) 60 mg PO Q12H PRN PRN Reason: Allergy Symptoms Stop: 08/13/23 03:09 Heparin Sodium (Porcine) (Heparin 100 Unit/Ml 5ml Flush) 5 ml FLUSH PRN PRN PRN Reason: Flush Stop: 08/13/23 02:23 Last Admin: 07/14/23 08:27 Dose: 5 ml Hydromorphone HCl (Hydromorphone Hcl 4 Mg Tab) 4 mg PO Q4H PRN PRN Reason: severe cancer pain Stop: 07/27/23 23:29 Last Admin: 07/14/23 05:49 Dose: 4 mg Levalbuterol HCl (Levalbuterol 1.25 Mg/3 Ml Neb) 1.25 mg NEB Q4R PRN; Protocol PRN Reason: Shortness Of Breath Or Wheezing Stop: 08/13/23 02:13 Lidocaine/Prilocaine (Lidocaine/Prilocaine 2.5% Ea Crm) 1 each EXT UD PRN PRN Reason: 1 hr prior to accessing [facility] Stop: 08/12/23 23:29 Miscellaneous (Entecavir: Order Awaiting Action) 1 each N/A QS ALLEGRA Stop: 08/13/23 07:59 Last Admin: 07/14/23 09:29 Dose: Not Given Multi-Ingredient Cream (Artificial Tears Op Oint 3.5 Gm Tube) 1 appln OP DAILY PRN PRN Reason: Dry Eyes Stop: 08/13/23 05:39 Nitroglycerin (Nitroglycerin Sl 0.4 Mg/Tab Tab) 0.4 mg SL Q5M PRN PRN Reason: Chest Pain Stop: 08/12/23 23:29 Pantoprazole Sodium (Pantoprazole 40 Mg Tab) 40 mg PO QAM ALLEGRA Stop: 08/13/23 08:59 Last Admin: 07/14/23 09:28 Dose: 40 mg Polyethylene Glycol (Polyethylene (Miralax) 17 Gm Pack) 17 gm PO DAILY PRN PRN Reason: Constipation Stop: 08/12/23 23:29 Prochlorperazine (Prochlorperazine Maleate 10 Mg Tab) 10 mg PO Q6H PRN PRN Reason: Nausea Stop: 08/12/23 23:29 Last Admin: 07/14/23 05:49 Dose: 10 mg Venlafaxine HCl (Venlafaxine Hcl Xr 150 Mg Capxr) [facility] [place] Stop: 08/13/23 08:59 Last Admin: 07/14/23 09:28 Dose: 150 mg Vitamin D (Cholecalciferol 25 Mcg (1000 Units) Tab) 50 mcg [facility] [place] Stop: 08/13/23 08:59 Last Admin: 07/14/23 09:28 Dose: 50 mcg
[2023-07-14] MEDS: POTASSIUM CHLORIDE CRTAB 20 MEQ TABCR PO STA (15:07)
[2023-07-14] MEDS: FUROSEMIDE 40 MG/4 ML VIAL IV ONE (15:07)
[2023-07-14] MEDS: FAMOTIDINE 20 MG TAB PO SCH (20:28)
[2023-07-14] MEDS: DOCUSATE SODIUM 100 MG CAP PO SCH (20:28)
[2023-07-15] MEDS: ALPRAZolam 0.5 MG TABLET PO PRN (00:40)
[2023-07-15 06:51] LABS: Basophils # (auto) 0.05 K/uL (0.00-0.20); Basophils % (auto) 0.9 %; Eosinophils # (auto) 0.25 K/uL (0.00-0.50); Eosinophils % (auto) 4.6 %; Hematocrit (blood only) 38.1 % (37.0-47.0); Hemoglobin 12.5 g/dl (12.0-16.0); Immature Granulocytes # (auto) 0.01 K/uL (0.01-0.20); Immature Granulocytes % (auto) 0.2 %; Lymphocytes # (auto) 1.04 K/uL (1.20-3.40); Lymphocytes % (auto) 19.1 %; Mean Corpuscular Hemoglobin 31.5 pg (25.0-34.0); Mean Corpuscular Hgb Conc 32.8 g/dL (32.0-36.0); Mean Platelet Volume 8.7 fL (9.4-12.4); Monocytes # (auto) 0.73 K/uL (0.11-0.59); Monocytes % (auto) 13.4 %; Neutrophils # (auto) 3.36 K/uL (1.40-6.50); Neutrophils % (auto) 61.8 %; Platelet Count 267 K/uL (130-400); RDW Coefficient of Variation 13.4 % (11.5-14.5); RDW Standard Deviation 47.1 fL (36.4-46.3); Red Blood Count 3.97 M/uL (4.20-5.40); White Blood Count 5.44 K/ul (4.8-10.8)
[2023-07-15 07:05] LABS: Calcium 8.5 mg/dl (8.6-10.3); Creatinine Clr Calc Pharmacy 60.2 ml/min; Est GFR (Non-African American) 78.6 ml/min; Magnesium 1.8 mg/dl (1.7-2.4); Phosphorus 3.9 mg/dl (2.5-4.9); Potassium 4.4 mmol/L (3.5-5.1)
--- NOTE | 2023-07-15 10:08 | Procedure Note ---
Procedure Note Date of Service July 15, 2023 Note Procedure: Drainage of right-sided Pleurx catheter with flushing and removal of sutures. [employer] Supervisor Dr. Chavez Indication: Questionable function of the indwelling pleural catheter and persistent pleural effusion. Anesthesia none Procedure: The patient was placed in a semirecumbent position. The dressing was taken down. The posterior sutures were identified and removed. The stay sutures around the Pleurx catheter were also identified and removed. The Pleurx catheter was then accessed. 10 cc of saline were easily flushed through the catheter. I was able to draw back without difficulty. The Pleurx catheter tip was then again cleaned with alcohol. A drainage system was attached to the catheter and the vacuum was activated. 600 cc of fluid was removed. At that point time the patient complained of coughing and chest tightness. She requested that additional fluid removal be discontinued. The vacuum canister was disconnected from the Pleurx catheter. The hub was again cleaned with alcohol. Sterile dressing was applied. Coding CPT Codes Pulmonary/Thoracic - Pulmonary and Thoracic: 70569 Pleural drainage w/o imaging ([id number]) [facility] [place] Procedure Codes (Charges) Pulmonary/Thoracic Procedure 1: Pulmonary and Thoracic: 80251 Pleural drainage w/o imaging
--- NOTE | 2023-07-15 10:12 | Pulmonology Progress Note ---
Date of Service July 15, 2023 Assessment & Plan (1) Malignant pleural effusion: (2) Malignant neoplasm metastatic to right breast: (3) Acute respiratory failure with hypoxia: (4) Metastatic cancer: Area of secondary neoplastic involvement: unspecified site Qualified Code(s): C79.9 - Secondary malignant neoplasm of unspecified site Plan Impression: 63-year-old female with metastatic breast cancer status post recent Pleurx catheter placement. She is admitted with shortness of breath. She did not get better with drainage of the Pleurx but did feel better with Lasix. Recommendations: 1. Malignant pleural effusion status post Pleurx: I flushed the right-sided Pleurx without difficulty. The sutures were removed. We were able to drain 600 cc of fluid at which point time the patient complained of chest pain and cough. She requested that additional fluid not be removed. Will have nursing drained the catheter on a daily basis to see if smaller volumes on a more frequent basis might offer the patient more relief. We did address the effusion on the contralateral side but the patient states she does not want any intervention currently. 2. We did have a discussion regarding end-of-life issues. The patient is requesting inpatient hospice. She understands that additional chemotherapy may not be possible and she is okay with discontinuing chemotherapy. She wants to focus on symptom management. She understands that she has a terminal disease. With this was communicated to nursing. She is apparently engaged with palliative care in the outpatient setting. Will reengage them during this hospitalization and have case management assess home hospice options. Will reassess tomorrow and see how she is feeling. Feel free to contact us with questions or concerns. A total of 50 minutes was spent in evaluation management coordinating care for this patient Admission and Anticipated Discharge Date Admission Date: July 13, 2023 Subjective Patient seen and examined. She states her breathing is about the same. She is open to draining her Pleurx today. She denies fevers chills or night sweats overnight. Review of Systems Review of Systems: All systems reviewed & are unremarkable except as noted in Subjective Physical Exam Physical Exam: AAOx3, mild anxiety, appears uncomfortable NCAT, perrla, eomi's neck supple and without stridor Anterior chest wall right with edema and erythema Increased work of breathing. Mildly tachypneic. Decreased breath sounds in the bilateral bases. Pleurx catheter site dressed but no erythema or signs of infection. S1S2, no overt JVD abd soft, BS+ mild weakness Trace edema BLE and BUE pleasant and cooperative Results & Data Results & Data Vital Signs (Past 12 Hours) Vital Signs Temp Pulse Resp BP Pulse Ox O2 Del Method O2 Flow Rate 07/15/23 07:29 36.6 C 98 H 20 106/74 93 Nasal Cannula 5.0 07/15/23 02:38 36.7 C 103 H 18 105/67 94 Nasal Cannula 5 07/14/23 23:03 36.5 C 98 H 17 113/76 94 Nasal Cannula 5 PG Care Time/CCT Total # of Minutes Spent Total Time Spent with Patient: Total time spent is greater than 50% in coordination of care (as documented) at patient's floor/unit and/or counseling patient: Coding Level of Care Code 92180 SUB INP/OBS CARE 3/50MIN Diagnoses Malignant pleural effusion J91.0 Malignant neoplasm metastatic to right breast C79.81 Acute respiratory failure with hypoxia J96.01 Metastatic cancer C79.9 Area of secondary neoplastic involvement: unspecified site
[2023-07-16] MEDS: FUROSEMIDE INJ 20 MG/2 ML VIAL IV ONE (10:57)
--- NOTE | 2023-07-16 14:05 | Palliative Care Consultation ---
Date of Consultation July 16, 2023 Assessment & Plan (1) Dyspnea and respiratory abnormalities: (2) Cancer related pain: Metastatic Breast cancer (Likely 2 separate primaries): Stage IV at diagnosis. ER/AZ strongly positive, Her2 negative. Received ddAC-T with good response. Progressed on Anastrozole/Ibrance followed by Faslodex and most recently on Xeloda.NGS revealed PIK3 CA mutation.S/P palliative RT to breast and right axilla. PET on 03/14/2023 showed disease progression.Started Carboplatin/gemcitabine on 03/26/2023. Received cycle 3, day 8 of treatment on05/17/2023ut subsequently admitted for sepsisand hypoxic respiratory failure.PET CT on 06/26/2023 revealed mixed treatment response.She underwent thoracentesis with placement of right Pleurx catheter by Dr. Ricci on 07/06/2023. Cytology revealed malignant cells consistent with breast primary adenocarcinoma which was ER negative, AZ negative and HER2 preethi positive (score 3+) by IHC. Of note, review of her initial biopsy specimen from 07/29/2021 at [facility] confirmed invasive ductal carcinoma, grade 2 which was ER positive, AZ positive and HER2/preethi negative. As a result of newHER2 positive breast cancer, recommendstartingdose reducedEnhertuASAP. 2. Chronic Hepatitis B: On entecavir 3. Bone metastases:PET/CTon 08/10/2021 had revealedosteolytic mass with soft tissue componentexpanding marrow cavity of the right humeral multi diaphysis. Started monthly Xgeva on 03/26/2023 (3) Weakness generalized: (4) Advanced care planning/counseling discussion: Met with pt face to face at bedside for 25min She is unsure re hospice we spoke about cancer directed therapy option, which if tolerated may allow for additional years of life. She worries about the lung SE risks.However these are general risks overall with the medicine and may not occur. Her goal is to have as much time as possible and she is willing to try treatment which has been offered: Enhertu3.2 mg/kg IVevery 3 weeksas soon as possible (5) Palliative care by specialist: (6) Malignant neoplasm of breast metastatic to bone: (7) Anterior chest wall pain: (8) Cellulitis of chest wall: Plan Thank you for allowing us to participate in the ongoing care of this patient. Please don't hesitate to call or page with any additional concerns. Dr. Cira Gilliland DNP Director, Palliative Care History of Present Illness Reason for Consultation: [facility] Attending Physician: Kenzie Hardy MD History of Present Illness Elizabeth is well known to me from prior admission and [facility] She has been admitted with pleural effusion and is s/p recent right Pleurx cath eter placement. She has a malignant pleural effusion and there has been 600 ml drained which was limited by pt c/o chest pain and cough. when pleurx was placed, the cytology revealed malignant cells consistent with breast primary adenocarcinoma which was ER negative, AZ negative and HER2 preethi positive (score 3+) by IHC. Of note, review of her initial biopsy specimen from 07/29/2021 at [facility] confirmed invasive ductal carcinoma, grade 2 which was ER positive, AZ positive and HER2/preethi negative. As a result of new HER2 positive breast cancer, recommend starting dose reduced Enhertu [place]. She continues to complain of right upper extremity pain for which right upper extremity venous Doppler was obtained on 07/06/2023 which showed no evidence of DVT. Complains of worsening shortness of breath which had initially improved after thoracentesis but has worsened over the past couple of days. Denies any other complaints. Elizabeth is resting in bed, room darkened at time of my visit She is feeling worried and anxious She tells me she has been thinking of hospice and also feeling she is not ready for hospice. Appetite is ok energy is low She did connect with her daughter and shared recent events. Oncology Hx Diagnosis: metastatic inflammatory breast cancer diagnosed in . Somatic mutation:NGS revealed PIK3 CA mutation.Stage:IV Diagnosis/Treatment History: 1. Around she self palpated right breast mass. Bilateral diagnostic mammogram on 07/21/2021 revealed suspicious right breast mass lesion at 8:00 as well as abnormal axillary lymph node. 2.On 07/29/2021 biopsy of right breast lesion revealed grade 2 Invasive carcinoma ER/AZ strongly positive, HER 2 negative (0 average membranous intensity). 3.PET/CT on 08/10/2021 revealed metabolically-active mass in the outer quadrant of the right breast, Metabolically-active axillary level I, II, III and bilateral supraclavicular lymph node metastases, Metabolically-active osteolytic metastasis with a soft tissue component penetrating cortical bone within the proximal metadiaphysis of the right humerus high risk for impending pathologic fracture. 4. Received cycle 1 of AC on 08/29/2021 under the care of Dr. Mckeon at [facility]. On 09/01/2021, MRI of the brain did not show any evidence of metastases. 5.Completed 4 cycles of ddAC on 10/10/2022. PET/CT on 11/08/2021 revealed positive response to therapy with decrease in metabolic activity in the right upper outer breast quadrant improved skin thickening and edema, decrease in size and metabolic activity of right axillary and bilateral supraclavicular lymphadenopathy and Interval sclerosis of right proximal humerus metastatic lesion without evidence for metabolically active osseous disease. 6.On 11/09/2021, started weekly Taxol. 7.PET on 03/28/2022 revealed disease progression. She started Ibrance/Anastrozole on 03/31/2022. 8.PET on 07/18/2022 revealed new spherical metabolically-active focus within the inner right breast, new metabolically-active left supraclavicular lymph node metastasis, increase in size and metabolic activity of 5 x 3 cm right axillary level II conglomerate lymph node metastases and new spherical metabolically- active foci within the right latissimus dorsi muscle, suspicious for soft tissue implants. 9.Started Faslodex on 08/10/2022. 10.Switched to Xeloda in . 11.PET/CT on 01/02/2023 reveled decreased size and metabolism of right axillary lymph node conglomerate, enlarged right breast mass but with slightly less metabolic activity today, slightly increased metabolism of right latissimus dorsi hypermetabolic focus, Waxing and waning supraclavicular subcentimeter lymph nodes; a new subcentimeter node is now present in the right medial supraclavicular region, reactive or neoplastic, slight increased size of right mildly metabolic pleural effusion. 12.RT to right breast and axilla for palliative reasons completed on 02/27/2023. 13.PET/CT on 03/14/2023 revealed disease progression with development of subcarinal,mediastinal and left axillary FDG avid lymphadenopathy, Increase in a moderate right pleural effusion, likely malignant, new small left pleural effusion, increase in diffuse skin thickening of the right breast and chest wall as well as enlargement and FDG uptake within the right deltoid and pectoralis muscles, New FDG avid lesion within the right trapezius muscle which extends into the right supraclavicular space 14. Started Carboplatin/gemcitabine on 03/26/2023. Received cycle 3, day 8 of treatment on 05/17/2023ut subsequently got admitted forsepsisand acute hypoxic respiratory failure secondary to pleural effusion 15.PET CT on 06/26/2023 revealed mixed treatment response with progressive hypermetabolic soft tissue deposits within right supraclavicular and superior latissimus dorsi distribution with pathologic lymphadenopathy of the right lower neck. remainder of chest wall, breast and latissimus dorsi disease has overall improved, progressive retrocrural and upper abdominal metastatic lymphadenopathy, stable sclerotic lesion within proximal right humerus suggestive of treated metastasis and large right and moderate left pleural effusions with volume loss and consolidation has progressed along with metastatic pleural disease. 16.She underwent thoracentesis with placement of right Pleurx catheter by Dr. Ricci on 07/06/2023. Cytology revealed malignant cells consistent with breast primary adenocarcinoma which was ER negative, AZ negative and HER2 preethi positive (score 3+) by IHC. Of note, review of her initial biopsy specimen from 07/29/2021 at [facility] confirmed invasive ductal carcinoma, grade 2 which was ER positive, AZ positive and HER2/preethi negative. As a result of newHER2 positive breast cancer, recommendstartingdose reducedEnhertuASAP. Allergies Allergy/AdvReac Type Severity Reaction Status Date / Time No Known Allergies Allergy Verified 07/13/23 20:16 Home Medications Medication Instructions Recorded Confirmed Type alprazolam 1 mg tablet (Xanax) 1 mg PO BID PRN Sleep 08/24/21 07/13/23 History alprazolam 2 mg tablet (Xanax) 2 mg PO HS PRN Sleep 08/24/21 07/13/23 History ondansetron HCl 8 mg tablet 8 mg PO Q8H PRN Nausea 08/24/21 07/13/23 History prochlorperazine maleate 10 mg 10 mg PO Q6H PRN Nausea 08/24/21 07/13/23 History tablet (Compazine) venlafaxine 150 mg 150 mg PO QAM 08/24/21 07/13/23 History capsule,extended release 24 hr aripiprazole 5 mg tablet (Abilify) 5 mg PO QAM 01/17/23 07/13/23 History baclofen 5 mg tablet 5 mg PO BID PRN muscle spasm 01/17/23 07/13/23 History erythromycin 5 mg/gram (0.5 %) eye 0.25 inch ophthalmic (eye) DAILY 01/17/23 07/13/23 History ointment PRN Dry Eyes famotidine 20 mg tablet 20 mg PO HS 01/17/23 07/13/23 History cholecalciferol (vitamin D3) 50 50 mcg PO QAM 05/27/23 07/13/23 History mcg (2,000 unit) capsule (Vitamin D3) entecavir 0.5 mg tablet 0.5 mg PO DAILY 05/27/23 07/13/23 History lidocaine-prilocaine 2.5 %-2.5 % 1 applic topical UD PRN 1 hr prior 05/27/23 07/13/23 History topical cream to accessing mediport pantoprazole 20 mg tablet,delayed 20 mg PO QAM 05/27/23 07/13/23 History release fexofenadine 60 mg-pseudoephedrine 1 tab PO Q12H PRN Allergy Symptoms 06/13/23 07/13/23 History ER 120 mg tablet,ext.release,12 hr (Allergy Relief-D (fexofenadine)) hydromorphone 4 mg tablet 4 mg PO Q4H PRN severe cancer pain 06/14/23 07/13/23 Rx (Dilaudid) 1 month #150 tabs Portable Oxygen [id number] #1 ea 07/05/23 07/05/23 Rx calcium carbonate 200 mg PO DAILY 07/13/23 07/13/23 History Patient History Medical History (Updated 07/14/23 @ 09:33 by Vikram Chavez MD) Acute respiratory failure with hypoxia Therapeutic opioid-induced constipation (OIC) Cellulitis of chest wall Anterior chest wall pain Palliative care by specialist Advanced care planning/counseling discussion Dyspnea and respiratory abnormalities Weakness generalized Cancer related pain Rheumatoid arthritis Insomnia Fibromyalgia Depression Chronic fatigue syndrome Surgical History S/P breast biopsy deliv NOS-unsp Family History Aunt Breast cancer Mother , Age 72 Arthritis Father , Age 93 Heart disease Dementia Daughter No problems noted. Sister No problems noted. Uncle Pancreatic cancer Social History Smoking Status: Former smoker Tobacco Type: Cigarettes Second Hand Exposure: No; Do You Dip or Chew Tobacco: No; Hx Alcohol Use: No Hx Substance Use: No Preferred Language: Pakistani Communication Ability: Effective Engineering Specialist Required: No Beliefs That Will Affect Care: None Current Living Situation: Other Current Living Situation Comment: Friend/caregivers Other Information That Helps Us Care for You: No Feels Safe at Home: Yes Safety Concerns: Feels Safe At This Time Assistive Devices: Oxygen - Continuous and Wheelchair Assistive Devices Comment: reading glasses Review of Systems Review of Systems: All systems reviewed & are unremarkable except as noted in Subjective Physical Exam Physical Exam: Resting in bed NCAT PERRLA, EOMI's neck supple, no stridor chest with crackles and dim bases; no wheezing, normal effort at rest, no conversational dyspnea, no use of accessory muscles S1S2, no JVD abd soft, BS+ WHITE, strength equal bilaterally AAOx3 Skin pink, warm, sl diaphoretic Results & Data Vital Signs (Past 12 Hours) Vital Signs Temp Pulse Pulse Resp BP Pulse Ox O2 Del Method 07/16/23 12:03 36.6 C 101 H 18 105/71 91 Room Air 07/16/23 07:27 95 H 07/16/23 07:27 Nasal Cannula 07/16/23 07:13 36.6 C 96 H 16 93/63 L 96 Nasal Cannula 07/16/23 03:01 36.8 C 96 H 18 91/64 L 94 Nasal Cannula O2 Flow Rate 07/16/23 12:03 07/16/23 07:27 07/16/23 07:27 4 07/16/23 07:13 4 07/16/23 03:01 5 Laboratory Results 07/15/23 07/14/23 07/14/23 Range/Units 06:07 05:42 00:08 WBC 5.44 5.30 (4.8-10.8) K/ul RBC 3.97 L 4.05 L (4.20-5.40) M/uL Hgb 12.5 12.7 (12.0-16.0) g/dl Hct 38.1 38.3 (37.0-47.0) % MCV 96.0 94.6 (80.0-100.0) fL MCH 31.5 31.4 (25.0-34.0) pg MCHC 32.8 33.2 (32.0-36.0) g/dL RDW Std Deviation 47.1 H 46.1 (36.4-46.3) fL RDW Coeff of [place] 13.4 13.2 (11.5-14.5) % Plt Count 267 269 (130-400) K/uL MPV 8.7 L 8.0 L (9.4-12.4) fL Immature Gran % (Auto) 0.2 0.2 % Neut % (Auto) 61.8 61.4 % Lymph % (Auto) 19.1 19.4 % [place] % (Auto) 13.4 13.2 % Eos % (Auto) 4.6 4.5 % Baso % (Auto) 0.9 1.3 % Neut # (Auto) 3.36 3.25 (1.40-6.50) K/uL Lymph # (Auto) 1.04 L 1.03 L (1.20-3.40) K/uL [place] # (Auto) 0.73 H 0.70 H (0.11-0.59) K/uL Eos # (Auto) 0.25 0.24 (0.00-0.50) K/uL Baso # (Auto) 0.05 0.07 (0.00-0.20) K/uL Immature Gran # (Auto) 0.01 0.01 (0.01-0.20) K/uL ABG pH 7.47 H (7.35-7.45) ABG pCO2 42 (35-46) mmHg ABG pO2 103 H (80-95) mmHg ABG HCO3 31 H (19-24) mmol/L ABG O2 Saturation 98.7 H (90-95) % ABG Base Excess 6.2 H (-9-1.8) mEq/L Zheng Test Pos (Pos) Oxygen Given NC 7 Sodium 136 137 (136-145) mmol/L Potassium 4.4 D 3.6 (3.5-5.1) mmol/L Chloride 100 101 (98-107) mmol/L Carbon Dioxide 29 31 (21-32) mmol/L Anion Gap 7 5 (3-11) BUN 15 8 (6-23) mg/dl Creatinine 0.79 0.56 L (0.6-1.2) mg/dl Est Cr Clr Drug Dosing 60.2 84.8 ml/min Est GFR ( Amer) 91.0 113.4 ml/min Est GFR (Non-Af Amer) 78.6 97.8 ml/min BUN/Creatinine Ratio 19.0 14.3 (10-20) Glucose 88 97 (70-99(Fasting)) mg/dl Calcium 8.5 L 8.6 (8.6-10.3) mg/dl Phosphorus 3.9 (2.5-4.9) mg/dl Magnesium 1.8 1.8 (1.7-2.4) mg/dl Total Bilirubin (0.2-1.0) mg/dl AST (13-39) U/L ALT (7-52) U/L Alkaline Phosphatase (34-104) U/L Troponin I High Sens (0-14) pg/ml B-Natriuretic Peptide (0-100) pg/ml Total Protein (6.0-8.3) gm/dl Albumin (3.4-5.0) gm/dl Globulin (2.5-4.0) gm/dl Albumin/Globulin Ratio (0.9-2) Procalcitonin (0-0.5) ng/ml Adenovirus (PCR) (NotDetected) B. pertussis DNA (PCR) (NotDetected) B.parapertussis DNA PCR (NotDetected) C. pneumoniae DNA (PCR) (NotDetected) Coronavirus OC43 (PCR) (NotDetected) Coronavirus HKU1 (PCR) (NotDetected) Coronavirus 229E (PCR) (NotDetected) SARS-CoV-2 (PCR) (NotDetected) Coronavirus NL63 (PCR) (NotDetected) Human Metapneumovir PCR (NotDetected) Influenza Type A (PCR) (NotDetected) Influenza Type B (PCR) (NotDetected) M. pneumoniae (PCR) (NotDetected) Parainfluenza 1 (PCR) (NotDetected) Parainfluenza 2 (PCR) (NotDetected) Parainfluenza 3 (PCR) (NotDetected) Parainfluenza 4 (PCR) (NotDetected) RSV (PCR) (NotDetected) Entero/Rhino (PCR) (NotDetected) 07/13/23 Range/Units 17:55 WBC 5.26 (4.8-10.8) K/ul RBC 3.95 L (4.20-5.40) M/uL Hgb 12.3 (12.0-16.0) g/dl Hct 37.2 (37.0-47.0) % MCV 94.2 (80.0-100.0) fL MCH 31.1 (25.0-34.0) pg MCHC 33.1 (32.0-36.0) g/dL RDW Std Deviation 45.9 (36.4-46.3) fL RDW Coeff of [place] 13.2 (11.5-14.5) % Plt Count 285 (130-400) K/uL MPV 8.1 L (9.4-12.4) fL Immature Gran % (Auto) 0.2 % Neut % (Auto) 65.0 % Lymph % (Auto) 19.2 % [place] % (Auto) 11.4 % Eos % (Auto) 2.9 % Baso % (Auto) 1.3 % Neut # (Auto) 3.42 (1.40-6.50) K/uL Lymph # (Auto) 1.01 L (1.20-3.40) K/uL [place] # (Auto) 0.60 H (0.11-0.59) K/uL Eos # (Auto) 0.15 (0.00-0.50) K/uL Baso # (Auto) 0.07 (0.00-0.20) K/uL Immature Gran # (Auto) 0.01 (0.01-0.20) K/uL ABG pH (7.35-7.45) ABG pCO2 (35-46) mmHg ABG pO2 (80-95) mmHg ABG HCO3 (19-24) mmol/L ABG O2 Saturation (90-95) % ABG Base Excess (-9-1.8) mEq/L Zheng Test (Pos) Oxygen Given Sodium 138 (136-145) mmol/L Potassium 3.9 (3.5-5.1) mmol/L Chloride 104 (98-107) mmol/L Carbon Dioxide 27 (21-32) mmol/L Anion Gap 7 (3-11) BUN 8 (6-23) mg/dl Creatinine 0.57 L (0.6-1.2) mg/dl Est Cr Clr Drug Dosing 86.5 ml/min Est GFR ( Amer) 112.7 ml/min Est GFR (Non-Af Amer) 97.3 ml/min BUN/Creatinine Ratio 14.0 (10-20) Glucose 113 H (70-99(Fasting)) mg/dl Calcium 8.8 (8.6-10.3) mg/dl Phosphorus (2.5-4.9) mg/dl Magnesium (1.7-2.4) mg/dl Total Bilirubin 0.4 (0.2-1.0) mg/dl AST 22 (13-39) U/L ALT 5 L (7-52) U/L Alkaline Phosphatase 49 (34-104) U/L Troponin I High Sens 3.3 (0-14) pg/ml B-Natriuretic Peptide 28 (0-100) pg/ml Total Protein 7.0 (6.0-8.3) gm/dl Albumin 2.9 L (3.4-5.0) gm/dl Globulin 4.1 H (2.5-4.0) gm/dl Albumin/Globulin Ratio 0.7 L (0.9-2) Procalcitonin 0.03 (0-0.5) ng/ml Adenovirus (PCR) Not Detected (NotDetected) B. pertussis DNA (PCR) Not Detected (NotDetected) B.parapertussis DNA PCR Not Detected (NotDetected) C. pneumoniae DNA (PCR) Not Detected (NotDetected) Coronavirus OC43 (PCR) Not Detected (NotDetected) Coronavirus HKU1 (PCR) Not Detected (NotDetected) Coronavirus 229E (PCR) Not Detected (NotDetected) SARS-CoV-2 (PCR) Not Detected (NotDetected) Coronavirus NL63 (PCR) Not Detected (NotDetected) Human Metapneumovir PCR Not Detected (NotDetected) Influenza Type A (PCR) Not Detected (NotDetected) Influenza Type B (PCR) Not Detected (NotDetected) M. pneumoniae (PCR) Not Detected (NotDetected) Parainfluenza 1 (PCR) Not Detected (NotDetected) Parainfluenza 2 (PCR) Not Detected (NotDetected) Parainfluenza 3 (PCR) Not Detected (NotDetected) Parainfluenza 4 (PCR) Not Detected (NotDetected) RSV (PCR) Not Detected (NotDetected) Entero/Rhino (PCR) Not Detected (NotDetected) Diagnostic Findings Chest X-Ray 07/13/23 17:20 XR chest 1V not portable CLINICAL HISTORY: Chest pain, nonspecific COMPARISON STUDY: Chest CT June 29, 2023. Chest radiograph July 06, 2023. FINDINGS: A left internal jugular Dzzuyb-n-Ocma remains in place. A right pleural catheter also remains in place. Extensive opacification of the right hemithorax has progressed. A moderate to large right pleural effusion has increased in size since prior chest radiograph. Pulmonary edema has progressed. A moderate-sized left pleural effusion has increased in size. There is no pneumothorax. IMPRESSION: 1. Increase in size of a moderate to large right pleural effusion. Right pleural catheter in place. No pneumothorax. 2. Increase in size of a moderate left pleural effusion. 3. Progression of pulmonary edema. ACT 112: Negative or not required by law. Electronically signed by: Kailash Barraza M.D. 07/13/2023 6:12 PM Chest CTA 07/13/23 20:14 CR Exam(s): CTA CHEST IV Amt: 119 cc opti 320 EXAM: CT Angiography Chest With Intravenous Contrast CLINICAL HISTORY: Reason for exam: PE. TECHNIQUE: Axial computed tomographic angiography images of the chest with intravenous contrast. CTDI is 31.34 mGy and DLP is 739.23 mGy-cm. Automated exposure control was utilized for the study. A dose lowering technique was utilized adhering to the principles of ALARA. MIP reconstructed images were created and reviewed. COMPARISON: 06/29/2023. FINDINGS: Pulmonary arteries: Normal enhancement of the pulmonary arteries with no filling defect to suggest pulmonary embolus. Aorta: Mild atherosclerotic disease of aorta with no aneurysm or dissection. Lungs: Severe bilateral lower lobe, right middle lobe and right upper lobe atelectasis. Mild left upper lobe atelectasis. No mass. Pleural space: Large bilateral pleural effusions. There is a right anterior mild to moderate pneumothorax. Heart: Unremarkable. No cardiomegaly. No significant pericardial effusion. No evidence of RV dysfunction. Bones/joints: No acute fracture. No dislocation. Soft tissues: There is stranding through the right breast with thickening of the skin which may indicate mastitis versus inflammatory neoplasm. There is fluid collection with infiltration of the right extrathoracic soft tissues which could represent edema versus resolving hematoma. Lymph nodes: There are questionable prominent lymph nodes within the right mediastinum and right hilar region, cannot exclude mild/early lymphadenopathy. Stranding with questionable surgical clips in the right axilla. There is a lymph node in the left axilla measuring 1.8 x 1.0 cm, stable. Intraperitoneal space: There is evidence of ascites otherwise visualized upper abdominal structures unremarkable. Tubes, lines and devices: There is a left-sided central line with the tip in the distal SVC/right atrial junction. Other findings: There is a right-sided chest tube/catheter in place. Multilevel degenerative disease of the spine. IMPRESSION: 1. No pulmonary embolus or aortic dissection. 2. Large bilateral pleural effusions with right-sided chest tube in place. Mild anterior pneumothorax. Severe bilateral lower lobe, right middle lobe and right upper lobe atelectasis. 3. Possible mild mediastinal and right hilar lymphadenopathy. 4. Question right-sided mastitis versus inflammatory neoplasm of the right breast, correlation with history recommended. Communications: Call Doctor Other Electronically signed by: Trixie Collier MD 07/13/23 21:38 PM PG Care Time/CCT Total # of Minutes Spent Total Time Spent: 75 Total Time Spent with Patient: Total time spent is greater than 50% in coordination of care (as documented) at patient's floor/unit and/or counseling patient: I spent 75 minutes overall addressing this case: 5 min in medical data review/discussion with referring provider(s) and/or preparation for the visit 20 min in direct interaction with the patient/exam 25 min in Advance Care Planning/Goals of Care discussions as detailed above in note (must be >16min) 10 min in subsequent review and synthesis of assessment and plan 15 min communicating with other providers regarding the patient's case: [place] [address] IN/OBS CONSULT LVL 5,80M Patient Type New History Comprehensive Exam Comprehensive Medical Decision Making High Complexity Diagnoses Dyspnea and respiratory abnormalities R06.00; R06.89 Cancer related pain G89.3 Weakness generalized R53.1 Advanced care planning/counseling discussion Z71.89 Palliative care by specialist Z51.5 Malignant neoplasm of breast metastatic to bone C50.919; C79.51 Anterior chest wall pain R07.89 Cellulitis of chest wall L03.313
--- NOTE | 2023-07-16 15:05 | Hospitalist Progress Note ---
Date of Service July 15, 2023 Delayed note fo July 14 Assessment & Plan (1) Respiratory distress: Plan: 63-year-old female with past med history significant for stage IV metastatic breast cancer s/p radiation currently not on chemo and plan to restart chemo next week as per patient, chronic HBV on chronic entecavir, rheumatoid arthritis, chronic fatigue syndrome/fibromyalgia, anxiety/mood disorder, history of ascending lymphangitis, was in the hospital in may for sepsis from pyelonephritis and bacteremia and also during that hospitalization patient had respiratory failure from pleural effusion s/p right-sided thoracocentesis on May 28, 2023 with 1.5 L exudative fluid removed.And again admitted on June 28 with SOB from recurrent large right pleural effusion and s/p thoracocentesis and discharged. Currently s/p pleurex catheter. Patient says on Sunday she drained about 600cc and since then not draining much and now progressively getting sob again. Today drained about 200cc.She was not on oxygen when she got discharged. But lately requiring oxygen and in ER requiring 5- 6lts oxygen. Received a dose of Lasix. Somewhat tachypneic. Denies fevers. Has cough. No chest pain. No headaches. No runny nose or sore throat. No nausea. No abdominal pain. Constipated. Micturating ok. Recurrent malignant bilateral pleural effusions Complicated by pulmonary edema Presented with respiratory distress History of recurrent thoracocentesis S/p Pleurx catheter on the right side Not draining much from Pleurx catheter CT scan also showing atelectasis and large pleural efusions No PE Received a dose of IV Lasix in the ER and the Lasix will be continued Requiring 5 to 6 L of oxygen Appreciate pulmonary input and recommendation She refused to have any manipulation/thoracentesis and wanted to continue with diuresis with Lasix Will give furosemide 40 mg x 1 now Status post drainage of 600 mL of fluid from the right effusion Shortness of breath is improved Stage IV metastatic breast cancer Seems to planning for chemotherapy down the line Has a palliative care evaluation as an outpatient and may need to reevaluation by the palliative while in the hospital And will be evaluated by grocery worker and myself tomorrow and discussed about diet and also CODE STATUS Follow-up with heme-onc on discharge Appreciate palliative care input and recommendation-she wants to try treatment options History of radiation dermatitis of the right breast Chronic HBV On entecavir History of anemia Hemoglobin 12.3 today We will follow labs Rheumatoid arthritis Seems not on medications History of chronic fatigue syndrome/fibromyalgia/anxiety/mood disorder Dvt px Lovenox Disposition Tele Full code per last admission. Admission and Anticipated Discharge Date Admission Date: July 13, 2023 Subjective 07/14/2023 The patient was seen and examined in telemetry unit She has been feeling much better following admission and IV Lasix She did not want to go for any thoracentesis or manipulation of her blocked Pleurx catheter Denies any chest pain and/or palpitation 07/15/2023 The patient was seen and examined in telemetry room She remains very weak and lethargic Status post drainage of 600 mL of fluid from the right lung Denies any chest pain, shortness of breath, nausea or vomiting at rest Review of Systems Review of Systems: All systems reviewed and are unremarkable except as noted below Physical Exam Physical Exam: Lying in bed without any acute distress Constitutional: + ill appearing and average body habitus Eyes: PERRL, conjunctivae normal, anicteric sclerae ENMT: external ear and nose normal, oropharynx normal Neck: trachea midline, no thyromegaly Respiratory: + respiratory distress (Minimal respirat ory distress) Auscultation: + diminished lung sounds (Bilaterally in the lower parts) and + crackles (Bibasilar crackles) Cardiovascular: Rate/Rhythm: regular rate, regular rhythm and + tachycardic Heart Sounds: normal S1 and normal S2; no murmur Extremities: + edema (Trace edema bilaterally) Gastrointestinal (Abdomen): Inspection/Auscultation: + abdomen distended and normal bowel sounds Percussion/Palpation: abdomen soft and + ascites (Mild to moderate ascites clinically); abdomen nontender Neurologic: normal touch/pain/proprioception and moves all extremities; no focal motor deficits Extremely weak and lethargic Results & Data Results & Data Vital Signs (Past 12 Hours) Vital Signs Temp Pulse Pulse Resp BP Pulse Ox O2 Del Method 07/16/23 12:03 36.6 C 101 H 18 105/71 91 Room Air 07/16/23 07:27 95 H 07/16/23 07:27 Nasal Cannula 07/16/23 07:13 36.6 C 96 H 16 93/63 L 96 Nasal Cannula 07/16/23 03:01 36.8 C 96 H 18 91/64 L 94 Nasal Cannula O2 Flow Rate 07/16/23 12:03 07/16/23 07:27 07/16/23 07:27 4 07/16/23 07:13 4 07/16/23 03:01 5
--- NOTE | 2023-07-16 15:08 | Hospitalist Progress Note ---
Date of Service July 16, 2023 Assessment & Plan (1) Respiratory distress: Plan: 63-year-old female with past med history significant for stage IV metastatic breast cancer s/p radiation currently not on chemo and plan to restart chemo next week as per patient, chronic HBV on chronic entecavir, rheumatoid arthritis, chronic fatigue syndrome/fibromyalgia, anxiety/mood disorder, history of ascending lymphangitis, was in the hospital in may for sepsis from pyelonephritis and bacteremia and also during that hospitalization patient had respiratory failure from pleural effusion s/p right-sided thoracocentesis on May 28, 2023 with 1.5 L exudative fluid removed.And again admitted on June 28 with SOB from recurrent large right pleural effusion and s/p thoracocentesis and discharged. Currently s/p pleurex catheter. Patient says on Sunday she drained about 600cc and since then not draining much and now progressively getting sob again. Today drained about 200cc.She was not on oxygen when she got discharged. But lately requiring oxygen and in ER requiring 5- 6lts oxygen. Received a dose of Lasix. Somewhat tachypneic. Denies fevers. Has cough. No chest pain. No headaches. No runny nose or sore throat. No nausea. No abdominal pain. Constipated. Micturating ok. Recurrent malignant bilateral pleural effusions Complicated by pulmonary edema Presented with respiratory distress History of recurrent thoracocentesis S/p Pleurx catheter on the right side Not draining much from Pleurx catheter CT scan also showing atelectasis and large pleural efusions No PE Received a dose of IV Lasix in the ER and the Lasix will be continued Requiring 5 to 6 L of oxygen Appreciate pulmonary input and recommendation She refused to have any manipulation/thoracentesis and wanted to continue with diuresis with Lasix Will give furosemide 40 mg x 1 now Status post drainage of 600 mL of fluid from the right effusion Has not had much urine output for the last 24 hours or so Will give additional dose of Lasix of 20 mg at the blood pressure on the lower Wanted to continue with the drain is through the Pleurx catheter on discharge She will have PT and OT evaluation prior to discharge Stage IV metastatic breast cancer Seems to planning for chemotherapy down the line Has a palliative care evaluation as an outpatient and may need to reevaluation by the palliative while in the hospital And will be evaluated by nibbler operator and myself tomorrow and discussed about diet and also CODE STATUS Follow-up with heme-onc on discharge Appreciate palliative care input and recommendation-she wants to try treatment options Will get PT and OT evaluation prior to discharge and she wants to continue with the treatment for her cancer as an outpatient History of radiation dermatitis of the right breast Chronic HBV On entecavir History of anemia Hemoglobin 12.3 today We will follow labs Rheumatoid arthritis Seems not on medications History of chronic fatigue syndrome/fibromyalgia/anxiety/mood disorder Dvt px Lovenox Disposition Tele Full code per last admission. Admission and Anticipated Discharge Date Admission Date: July 13, 2023 Subjective 07/14/2023 The patient was seen and examined in telemetry unit She has been feeling much better following admission and IV Lasix She did not want to go for any thoracentesis or manipulation of her blocked Pleurx catheter Denies any chest pain and/or palpitation 07/15/2023 The patient was seen and examined in telemetry room She remains very weak and lethargic Status post drainage of 600 mL of fluid from the right lung Denies any chest pain, shortness of breath, nausea or vomiting at rest 07/16/2023 The patient was seen and examined in telemetry unit She has been a little better and wants to continue with the treatment as discussed with the palliative care provider Denies any chest pain or palpitation or shortness of breath at rest Remains extremely weak and lethargic Review of Systems Review of Systems: All systems reviewed and are unremarkable except as noted below Physical Exam Physical Exam: Lying in bed without any acute distress Constitutional: + ill appearing and average body habitus Eyes: PERRL, conjunctivae normal, anicteric sclerae ENMT: external ear and nose normal, oropharynx normal Neck: trachea midline, no thyromegaly Respiratory: + respiratory distress (Minimal respirat ory distress) Auscultation: + diminished lung sounds (Bilaterally in the lower parts) and + crackles (Bibasilar crackles) Cardiovascular: Rate/Rhythm: regular rate, regular rhythm and + tachycardic Heart Sounds: normal S1 and normal S2; no murmur Extremities: + edema (Trace edema bilaterally) Gastrointestinal (Abdomen): Inspection/Auscultation: + abdomen distended and normal bowel sounds Percussion/Palpation: abdomen soft and + ascites (Mild to moderate ascites clinically); abdomen nontender Neurologic: normal touch/pain/proprioception and moves all extremities; no focal motor deficits Lymphatic: no cervical or axillary lymphadenopathy Results & Data Results & Data Vital Signs (Past 12 Hours) Vital Signs Temp Pulse Pulse Resp BP Pulse Ox O2 Del Method 07/16/23 12:03 36.6 C 101 H 18 105/71 91 Room Air 07/16/23 07:27 95 H 07/16/23 07:27 Nasal Cannula 07/16/23 07:13 36.6 C 96 H 16 93/63 L 96 Nasal Cannula O2 Flow Rate 07/16/23 12:03 07/16/23 07:27 07/16/23 07:27 4 07/16/23 07:13 4 Medications Administered Current Inpatient Medications Acetaminophen (Acetaminophen 325 Mg Tab) 650 mg PO Q4H PRN PRN Reason: Pain or Fever Stop: 08/12/23 23:29 Alprazolam (Alprazolam 0.5 Mg Tablet) 1 mg PO BID PRN PRN Reason: Sleep Stop: 08/12/23 23:29 Alprazolam (Alprazolam 0.5 Mg Tablet) 2 mg PO HS PRN PRN Reason: Sleep Stop: 08/13/23 01:16 Last Admin: 07/15/23 21:06 Dose: 2 mg Aripiprazole (Aripiprazole 5 Mg Tab) 5 mg PO QAM ALLEGRA Stop: 08/13/23 08:59 Last Admin: 07/16/23 08:53 Dose: 5 mg Baclofen (Baclofen 10 Mg Tab) 5 mg PO BID PRN PRN Reason: muscle spasm Stop: 08/12/23 23:29 Calcium Carbonate (Calcium Carbonate 500 Mg Chewable Tab) 500 mg PO DAILY ALLEGRA Stop: 08/13/23 08:59 Last Admin: 07/16/23 08:53 Dose: 500 mg Docusate Sodium (Docusate Sodium 100 Mg Cap) 100 mg PO BID ALLEGRA Stop: 08/13/23 20:59 Last Admin: 07/16/23 08:54 Dose: 100 mg Enoxaparin Sodium (Enoxaparin Inj 40 Mg/0.4 Ml Syr) 40 mg SQ Q24H ALLEGRA Stop: 08/13/23 08:59 Last Admin: 07/16/23 08:54 Dose: 40 mg Famotidine (Famotidine 20 Mg Tab) 20 mg PO HS ALLEGRA Stop: 08/13/23 20:59 Last Admin: 07/15/23 21:01 Dose: 20 mg Fexofenadine HCl (Fexofenadine 60 Mg Tab) 60 mg PO Q12H PRN PRN Reason: Allergy Symptoms Stop: 08/13/23 03:09 Heparin Sodium (Porcine) (Heparin 100 Unit/Ml 5ml Flush) 5 ml FLUSH PRN PRN PRN Reason: Flush Stop: 08/13/23 02:23 Last Admin: 07/15/23 06:07 Dose: 5 ml Hydromorphone HCl (Hydromorphone Hcl 4 Mg Tab) 4 mg PO Q4H PRN PRN Reason: severe cancer pain Stop: 07/27/23 23:29 Last Admin: 07/15/23 22:20 Dose: 4 mg Levalbuterol HCl (Levalbuterol 1.25 Mg/3 Ml Neb) 1.25 mg NEB Q4R PRN; Protocol PRN Reason: Shortness Of Breath Or Wheezing Stop: 08/13/23 02:13 Lidocaine/Prilocaine (Lidocaine/Prilocaine 2.5% Ea Crm) 1 each EXT UD PRN PRN Reason: 1 hr prior to accessing [facility] Stop: 08/12/23 23:29 Miscellaneous (Entecavir: Order Awaiting Action) 1 each N/A QS [facility] Stop: 08/13/23 07:59 Last Admin: 07/16/23 15:06 Dose: Not Given Multi-Ingredient Cream (Artificial Tears Op Oint 3.5 Gm Tube) 1 appln OP DAILY PRN PRN Reason: Dry Eyes Stop: 08/13/23 05:39 Nitroglycerin (Nitroglycerin Sl 0.4 Mg/Tab Tab) 0.4 mg SL Q5M PRN PRN Reason: Chest Pain Stop: 08/12/23 23:29 Pantoprazole Sodium (Pantoprazole 40 Mg Tab) 40 mg PO QAM [facility] Stop: 08/13/23 08:59 Last Admin: 07/16/23 08:54 Dose: 40 mg Polyethylene Glycol (Polyethylene (Miralax) 17 Gm Pack) 17 gm PO DAILY PRN PRN Reason: Constipation Stop: 08/12/23 23:29 Prochlorperazine (Prochlorperazine Maleate 10 Mg Tab) 10 mg PO Q6H PRN PRN Reason: Nausea Stop: 08/12/23 23:29 Last Admin: 07/15/23 21:06 Dose: 10 mg Venlafaxine HCl (Venlafaxine Hcl Xr 150 Mg Capxr) [facility] [place] Stop: 08/13/23 08:59 Last Admin: 07/16/23 08:53 Dose: 150 mg Vitamin D (Cholecalciferol 25 Mcg (1000 Units) Tab) 50 mcg [facility] [place] Stop: 08/13/23 08:59 Last Admin: 07/16/23 08:54 Dose: 50 mcg
--- NOTE | 2023-07-16 15:15 | Pulmonology Progress Note ---
Date of Service July 16, 2023 Assessment & Plan (1) Malignant pleural effusion: (2) Malignant neoplasm metastatic to right breast: (3) Acute respiratory failure with hypoxia: (4) Metastatic cancer: Area of secondary neoplastic involvement: unspecified site Qualified Code(s): C79.9 - Secondary malignant neoplasm of unspecified site Plan Impression: 63-year-old female with metastatic breast cancer status post recent Pleurx catheter placement. She is admitted with shortness of breath. She did not get better with drainage of the Pleurx but did feel better with Lasix. Recommendations: 1. Malignant pleural effusion status post Pleurx: Continue with daily drainage. Approximately 500 mL of fluid was drained today by the nurse and patient reported relief. Will need follow-up with her primary outpatient senior government program analyst, Dr. Ricci. Admission and Anticipated Discharge Date Admission Date: July 13, 2023 Subjective Patient seen and examined. Dyspnea has improved, but still remains even at rest. Denies any cough. Not interested in further thoracentesis on the left. Review of Systems Review of Systems: All systems reviewed & are unremarkable except as noted in HPI & below Physical Exam Physical Exam: AAOx3, mild anxiety, appears uncomfortable NCAT, perrla, eomi's neck supple and without stridor Anterior chest wall right with edema and erythema Increased work of breathing. Mildly tachypneic. Decreased breath sounds in the bilateral bases. Pleurx catheter site dressed but no erythema or signs of infection. S1S2, no overt JVD abd soft, BS+ mild weakness Trace edema BLE and BUE pleasant and cooperative Results & Data Results & Data Vital Signs (Past 12 Hours) Vital Signs Temp Pulse Pulse Resp BP Pulse Ox O2 Del Method 07/16/23 12:03 36.6 C 101 H 18 105/71 91 Room Air 07/16/23 07:27 95 H 07/16/23 07:27 Nasal Cannula 07/16/23 07:13 36.6 C 96 H 16 93/63 L 96 Nasal Cannula O2 Flow Rate 07/16/23 12:03 07/16/23 07:27 07/16/23 07:27 4 07/16/23 07:13 4 PG Care Time/CCT Total # of Minutes Spent Total Time Spent with Patient: Total time spent is greater than 50% in coordination of care (as documented) at patient's floor/unit and/or counseling patient: Coding Level of Care Code 24031 SUB INP/OBS CARE Diagnoses Malignant pleural effusion J91.0 Malignant neoplasm metastatic to right breast C79.81 Acute respiratory failure with hypoxia J96.01 Metastatic cancer C79.9 Area of secondary neoplastic involvement: unspecified site
[2023-07-17 06:38] LABS: Basophils # (auto) 0.03 K/uL (0.00-0.20); Basophils % (auto) 0.6 %; Eosinophils # (auto) 0.15 K/uL (0.00-0.50); Eosinophils % (auto) 2.9 %; Hematocrit (blood only) 36.2 % (37.0-47.0); Hemoglobin 12.1 g/dl (12.0-16.0); Immature Granulocytes # (auto) 0.02 K/uL (0.01-0.20); Immature Granulocytes % (auto) 0.4 %; Lymphocytes # (auto) 0.86 K/uL (1.20-3.40); Lymphocytes % (auto) 16.7 %; Mean Corpuscular Hemoglobin 30.9 pg (25.0-34.0); Mean Corpuscular Hgb Conc 33.4 g/dL (32.0-36.0); Mean Corpuscular Volume 92.6 fL (80.0-100.0); Mean Platelet Volume 8.8 fL (9.4-12.4); Monocytes # (auto) 0.58 K/uL (0.11-0.59); Monocytes % (auto) 11.3 %; Neutrophils # (auto) 3.51 K/uL (1.40-6.50); Neutrophils % (auto) 68.1 %; Platelet Count 231 K/uL (130-400); RDW Coefficient of Variation 13.3 % (11.5-14.5); RDW Standard Deviation 44.6 fL (36.4-46.3); Red Blood Count 3.91 M/uL (4.20-5.40); White Blood Count 5.15 K/ul (4.8-10.8)
[2023-07-17 07:18] LABS: BUN Creatinine Ratio 21.8 (10-20); Calcium 7.8 mg/dl (8.6-10.3); Creatinine Clr Calc Pharmacy 85.8 ml/min; Est GFR (African American) 114.1 ml/min; Est GFR (Non-African American) 98.4 ml/min; Magnesium 1.9 mg/dl (1.7-2.4); Phosphorus 2.3 mg/dl (2.5-4.9); Potassium 3.4 mmol/L (3.5-5.1)
[2023-07-17] MEDS: POT PHOSPHATE MONOBASIC W/ SOD TAB PO SCH (08:59)
--- NOTE | 2023-07-17 16:41 | Hospitalist Progress Note ---
Date of Service July 17, 2023 Assessment & Plan (1) Respiratory distress: Plan: 63-year-old female with past med history significant for stage IV metastatic breast cancer s/p radiation currently not on chemo and plan to restart chemo next week as per patient, chronic HBV on chronic entecavir, rheumatoid arthritis, chronic fatigue syndrome/fibromyalgia, anxiety/mood disorder, history of ascending lymphangitis, was in the hospital in may for sepsis from pyelonephritis and bacteremia and also during that hospitalization patient had respiratory failure from pleural effusion s/p right-sided thoracocentesis on May 28, 2023 with 1.5 L exudative fluid removed.And again admitted on June 28 with SOB from recurrent large right pleural effusion and s/p thoracocentesis and discharged. Currently s/p pleurex catheter. Patient says on Sunday she drained about 600cc and since then not draining much and now progressively getting sob again. Today drained about 200cc.She was not on oxygen when she got discharged. But lately requiring oxygen and in ER requiring 5- 6lts oxygen. Received a dose of Lasix. Somewhat tachypneic. Denies fevers. Has cough. No chest pain. No headaches. No runny nose or sore throat. No nausea. No abdominal pain. Constipated. Micturating ok. Recurrent malignant bilateral pleural effusions Complicated by pulmonary edema Presented with respiratory distress History of recurrent thoracocentesis S/p Pleurx catheter on the right side Not draining much from Pleurx catheter CT scan also showing atelectasis and large pleural efusions No PE Received a dose of IV Lasix in the ER and the Lasix will be continued Requiring 5 to 6 L of oxygen Appreciate pulmonary input and recommendation She refused to have any manipulation/thoracentesis and wanted to continue with diuresis with Lasix Will give furosemide 40 mg x 1 now Status post drainage of 600 mL of fluid from the right effusion Has not had much urine output for the last 24 hours or so Will give additional dose of Lasix of 20 mg at the blood pressure on the lower Wanted to continue with the drain is through the Pleurx catheter on discharge She will have PT and OT evaluation prior to discharge She has had PT and OT evaluation and wanted to go home following that Hemodynamically stable to be discharged Main generally weak and was advised to take extreme precaution to avoid falls Stage IV metastatic breast cancer Seems to planning for chemotherapy down the line Has a palliative care evaluation as an outpatient and may need to reevaluation by the palliative while in the hospital And will be evaluated by ingredient mixer and myself tomorrow and discussed about diet and also CODE STATUS Follow-up with heme-onc on discharge Appreciate palliative care input and recommendation-she wants to try treatment options Will get PT and OT evaluation prior to discharge and she wants to continue with the treatment for her cancer as an outpatient She will have chemotherapy as soon as possible through her oncologist History of radiation dermatitis of the right breast Chronic HBV On entecavir History of anemia Hemoglobin 12.3 today We will follow labs Rheumatoid arthritis Seems not on medications History of chronic fatigue syndrome/fibromyalgia/anxiety/mood disorder Dvt px Lovenox Disposition Tele Full code per last admission. Admission and Anticipated Discharge Date Admission Date: July 13, 2023 Subjective 07/14/2023 The patient was seen and examined in telemetry unit She has been feeling much better following admission and IV Lasix She did not want to go for any thoracentesis or manipulation of her blocked Pleurx catheter Denies any chest pain and/or palpitation 07/15/2023 The patient was seen and examined in telemetry room She remains very weak and lethargic Status post drainage of 600 mL of fluid from the right lung Denies any chest pain, shortness of breath, nausea or vomiting at rest 07/16/2023 The patient was seen and examined in telemetry unit She has been a little better and wants to continue with the treatment as discussed with the palliative care provider Denies any chest pain or palpitation or shortness of breath at rest Remains extremely weak and lethargic 07/17/2023 The patient was seen and examined in telemetry unit She has had physical therapy and wants to go home She remains weak and lethargic but has been managing No shortness of breath at rest and denies any more chest pain and palpitations Will be discharged home this afternoon Review of Systems Review of Systems: All systems reviewed and are unremarkable except as noted below Physical Exam Physical Exam: Lying in bed without any acute distress Constitutional: + ill appearing and average body habitus Eyes: PERRL, conjunctivae normal, anicteric sclerae ENMT: external ear and nose normal, oropharynx normal Neck: trachea midline, no thyromegaly Respiratory: + respiratory distress (Minimal respirat ory distress) Auscultation: + diminished lung sounds (Bilaterally in the lower parts) and + crackles (Bibasilar crackles) Cardiovascular: Rate/Rhythm: regular rate, regular rhythm and + tachycardic Heart Sounds: normal S1 and normal S2; no murmur Extremities: + edema (Trace edema bilaterally) Gastrointestinal (Abdomen): Inspection/Auscultation: + abdomen distended and normal bowel sounds Percussion/Palpation: abdomen soft and + ascites (Mild to moderate ascites clinically); abdomen nontender Neurologic: normal touch/pain/proprioception and moves all extremities; no focal motor deficits Lymphatic: no cervical or axillary lymphadenopathy Results & Data Results & Data Vital Signs (Past 12 Hours) Vital Signs Temp Pulse Resp BP Pulse Ox O2 Del Method O2 Flow Rate 07/17/23 15:26 36.6 C 103 H 17 103/64 95 Nasal Cannula 2.0 07/17/23 12:12 36.9 C 107 H 18 97/68 L 92 Nasal Cannula 07/17/23 07:41 36.6 C 99 H 18 109/73 92 Nasal Cannula 2.0 07/17/23 07:32 Nasal Cannula 2 Laboratory Results Short CBC 07/17/23 Range/Units 06:01 WBC 5.15 (4.8-10.8) K/ul Hgb 12.1 (12.0-16.0) g/dl Hct 36.2 L (37.0-47.0) % Plt Count 231 (130-400) K/uL BMP 07/17/23 06:01 Sodium 133 L Potassium 3.4 L D Chloride 97 L Carbon Dioxide 29 BUN 12 Creatinine 0.55 L Glucose 92 Calcium 7.8 L
--- NOTE | 2023-07-17 19:08 | Discharge Summary ---
Date of Service July 17, 2023 Admission HPI Per Admitting Provider 63-year-old female with past med history significant for stage IV metastatic breast cancer s/p radiation currently not on chemo and plan to restart chemo next week as per patient, chronic HBV on chronic entecavir, rheumatoid arthritis, chronic fatigue syndrome/fibromyalgia, anxiety/mood disorder, history of ascending lymphangitis, was in the hospital in may for sepsis from pyelonephritis and bacteremia and also during that hospitalization patient had respiratory failure from pleural effusion s/p right-sided thoracocentesis on May 28, 2023 with 1.5 L exudative fluid removed.And again admitted on June 28 with SOB from recurrent large right pleural effusion and s/p thoracocentesis and discharged. Currently s/p pleurex catheter. Patient says on Sunday she drained about 600cc and since then not draining much and now progressively getting sob again. Today drained about 200cc.She was not on oxygen when she got discharged. But lately requiring oxygen and in ER requiring 5- 6lts oxygen. Received a dose of Lasix. Somewhat tachypneic. Denies fevers. Has cough. No chest pain. No headaches. No runny nose or sore throat. No nausea. No abdominal pain. Constipated. Micturating ok. Past medical history. As mentioned above. Past surgical history. Right breast biopsy. . Social history. Smoking occasional. No alcohol use. No drug use. Family history. Breast cancer. Lung cancer alcoholism. Dementia. Heart disease. Depression Admission Exam Per Admitting Provider Physical Exam: General- Not in distress Head- atraumatic Eyes- PERRL. ENT- oropharynx clear Neck- supple, no JVD. Lungs- clear to auscultation b/l crackles and occasional wheezing. Heart- regular rhythm;tachycardia no murmur, no gallop. Abdomen- normal bowel sounds, soft, nontender, no distension. Extremities- no pretibial edema, no erythema seen. Neuro- alert, oriented PERRL, no facial palsy; no dysarthria; moves extremities. Principal Diagnosis Malignant pleural effusion, acute respiratory failure with hypoxia, metastatic cancer Discharge Exam Lying in bed without any acute distress Constitutional + ill appearing and average body habitus Eyes PERRL, conjunctivae normal, anicteric sclerae ENMT external ear and nose normal, oropharynx normal Neck trachea midline, no thyromegaly Respiratory + respiratory distress (Minimal respiratory distress) Auscultation: + diminished lung sounds (Bilaterally in the lower parts) and + crackles (Bibasilar crackles) Cardiovascular Rate/Rhythm: regular rate, regular rhythm and + tachycardic Heart Sounds: normal S1 and normal S2; no murmur Extremities: + edema (Trace edema bilaterally) Gastrointestinal (Abdomen) Inspection/Auscultation: + abdomen distended and normal bowel sounds Percussion/Palpation: abdomen soft and + ascites (Mild to moderate ascites clinically); abdomen nontender Neurologic normal touch/pain/proprioception and moves all extremities; no focal motor deficits Lymphatic no cervical or axillary lymphadenopathy Discharge Data Allergies Allergy/AdvReac Type Severity Reaction Status Date / Time No Known Allergies Allergy Verified 07/13/23 20:16 Consultations 07/13/23 20:19 ED Decision to Admit Stat 07/14/23 08:00 Consult Pulmonology Routine 07/15/23 10:10 Consult Palliative Care Routine Ordered Studies 07/13/23 20:14 CT for pulmonary embolism PE [CT angio chest PE protocol] Stat Hospital Course (1) Respiratory distress: 63-year-old female with past med history significant for stage IV metastatic breast cancer s/p radiation currently not on chemo and plan to restart chemo next week as per patient, chronic HBV on chronic entecavir, rheumatoid arthritis, chronic fatigue syndrome/fibromyalgia, anxiety/mood disorder, history of ascending lymphangitis, was in the hospital in may for sepsis from pyelonephritis and bacteremia and also during that hospitalization patient had respiratory failure from pleural effusion s/p right-sided thoracocentesis on May 28, 2023 with 1.5 L exudative fluid removed.And again admitted on June 28 with SOB from recurrent large right pleural effusion and s/p thoracocentesis and discharged. Currently s/p pleurex catheter. Patient says on Sunday she drained about 600cc and since then not draining much and now progressively getting sob again. Today drained about 200cc.She was not on oxygen when she got discharged. But lately requiring oxygen and in ER requiring 5- 6lts oxygen. Received a dose of Lasix. Somewhat tachypneic. Denies fevers. Has cough. No chest pain. No headaches. No runny nose or sore throat. No nausea. No abdominal pain. Constipated. Micturating ok. Recurrent malignant bilateral pleural effusions Complicated by pulmonary edema Presented with respiratory distress History of recurrent thoracocentesis S/p Pleurx catheter on the right side Not draining much from Pleurx catheter CT scan also showing atelectasis and large pleural efusions No PE Received a dose of IV Lasix in the ER and the Lasix will be continued Requiring 5 to 6 L of oxygen Appreciate pulmonary input and recommendation She refused to have any manipulation/thoracentesis and wanted to continue with diuresis with Lasix Will give furosemide 40 mg x 1 now Status post drainage of 600 mL of fluid from the right effusion Has not had much urine output for the last 24 hours or so Will give additional dose of Lasix of 20 mg at the blood pressure on the lower Wanted to continue with the drain is through the Pleurx catheter on discharge She will have PT and OT evaluation prior to discharge She has had PT and OT evaluation and wanted to go home following that Hemodynamically stable to be discharged Main generally weak and was advised to take extreme precaution to avoid falls Stage IV metastatic breast cancer Seems to planning for chemotherapy down the line Has a palliative care evaluation as an outpatient and may need to reevaluation by the palliative while in the hospital And will be evaluated by dross skimmer and myself tomorrow and discussed about diet and also CODE STATUS Follow-up with heme-onc on discharge Appreciate palliative care input and recommendation-she wants to try treatment options Will get PT and OT evaluation prior to discharge and she wants to continue with the treatment for her cancer as an outpatient She will have chemotherapy as soon as possible through her oncologist History of radiation dermatitis of the right breast Chronic HBV On entecavir History of anemia Hemoglobin 12.3 today We will follow labs Rheumatoid arthritis Seems not on medications History of chronic fatigue syndrome/fibromyalgia/anxiety/mood disorder Dvt px Lovenox Disposition Tele Full code per last admission. Total Time Total Time Spent Total Time Spent (In Minutes): 45 minutes Discharge Plan Discharge Items Patient Disposition: Home - Home Health Services Reason For Visit: RESP DISTRESS, PLEURAL EFFUSION Discharge Diagnosis: Malignant pleural effusion, acute respiratory failure with hypoxia, metastatic cancer Condition on Discharge: Fair Activity: As commented below Activity Comment: Please take extreme precaution to avoid falls Non-emergency contact: Primary Care Provider Call non-emergency contact if: you have any medication questions and your symptoms worsen Follow-up/Referrals: Barbara Lopez PA-C [Primary Care Provider] - (Your doctor's office will give you a call to get an appointment within 7 days) Diet: Regular Addtl Attending Provider Instructions: Please take extreme precautions to avoid falls Take your medications as advised Drain your Pleurx catheter as advised Please keep appointments with the healthcare providers Pending Studies at Discharge: No Stand-Alone Forms: My [facility], Smoking Cessation Medications and DC Order Prescriptions: Continued alprazolam [Xanax] 2 mg tablet 2 mg PO HS PRN (Reason: Sleep) Rx Instructions: at bedtime alprazolam [Xanax] 1 mg tablet 1 mg PO BID PRN (Reason: Sleep) venlafaxine 150 mg capsule,extended release 24hr 150 mg PO QAM ondansetron HCl 8 mg tablet 8 mg PO Q8H PRN (Reason: Nausea) prochlorperazine maleate [Compazine] 10 mg tablet 10 mg PO Q6H PRN (Reason: Nausea) erythromycin 5 mg/gram (0.5 %) ointment 0.25 inch ophthalmic (eye) DAILY PRN (Reason: Dry Eyes) Rx Instructions: both eyes at bedtime fexofenadine-pseudoephedrine [Allergy Relief-D(fexofenadine)] 60-120 mg tablet extended release 12 hr 1 tab PO Q12H PRN (Reason: Allergy Symptoms) aripiprazole [Abilify] 5 mg tablet 5 mg PO QAM baclofen 5 mg tablet 5 mg PO BID PRN (Reason: muscle spasm) famotidine 20 mg tablet 20 mg PO HS hydromorphone [Dilaudid] 4 mg tablet 4 mg PO Q4H PRN (Reason: severe cancer pain) 30 Days Qty: 150 0RF (DME) Portable Oxygen [id number] [facility] See Rx Instructions .MEDSUPPLY Qty: 1 0RF Rx Instructions: Oxygen 2 liters continuous via nasal cannula at rest and on exertion with portable concentrator. PURVI 99 entecavir 0.5 mg tablet 0.5 mg PO DAILY Rx Instructions: take on an empty stomach 2 hours before or after a meal pantoprazole 20 mg tablet,delayed release (DR/EC) 20 mg PO QAM cholecalciferol (vitamin D3) [Vitamin D3] 50 mcg (2,000 unit) Capsule 50 mcg PO QAM lidocaine-prilocaine 2.5-2.5 % Cream 1 applic topical UD PRN (Reason: 1 hr prior to accessing mediport) Rx Instructions: apply to skin over mediport calcium carbonate 200 mg calcium (500 mg) Tablet,Chewable 200 mg PO DAILY Discharge Orders: Discharge Order (Routine); Ordered 07/17/23 Ordered By: Kenzie Hardy Admission Data Admit Date/Time: 07/13/23 22:06 Attending Provider: Kenize Hardy Admit Provider: Tomasz Marin Primary Care Provider: Barbara Lopez Other Providers: Tomasz Marin; Patricia Ricci; [facility],Home Healthcare; [facility],Referral Center; Cira Gilliland Other Interventions: Discharge Summary Assessment (RN) Last Done: 07/17/23 16:35
== END 2023-07-17 17:45 | disposition home health service (06) | DRG 597 ==
LOC: ED 17:10 → 2S 22:06